=== PATIENT | female | born 1960 | race Caucasian/White ===

== ENCOUNTER → 2019-04-22 11:56 | Outpatient (CLI) | payer OTHER, MEDICAID, SELFPAY ==
[2019-04-22 12:31] LABS: Add Manual Diff / Slide Review NO; Basophils Absolute Auto 100 /uL (0-100); Basophils Percent Auto 0.8 % (0-2); Eosinophils Absolute Auto 200 /uL (0-450); Eosinophils Percent Auto 2.3 % (2-4); Hematocrit 41.2 % (36-46); Hemoglobin 13.2 g/dL (12.0-16.0); Lymphocytes Absolute Auto 2300 /uL (1100-4500); Lymphocytes Percent Auto 33.5 % (25-40); Mean Corpuscular HGB Conc 31.9 % (30-36); Mean Corpuscular Hemoglobin 27.4 PG (26-34); Mean Corpuscular Volume 85.9 fL (80-100); Monocytes Absolute Auto 400 /uL (0-900); Monocytes Percent Auto 5.9 % (3-14); Neutrophils Absolute Auto 4000 /uL (1500-7000); Neutrophils Percent Auto 57.5 % (50-75); Platelet Count 334 X10^3/uL (150-400); Red Cell Distribution Width 14.9 % (11.6-14.8); White Blood Cell Count 6.9 X10^3/uL (4.5-11.0)
[2019-04-22 12:44] LABS: Alanine Aminotransferase 22 IU/L (9-52); Albumin Globulin Ratio 1.4 (1.0-2.8); Alkaline Phosphatase 67 U/L (38-126); Aspartate Aminotransferase 18 IU/L (14-36); BUN Creatinine Ratio 18.3 (6-22); Bilirubin Total 0.3 mg/dL (0.2-1.3); Blood Urea Nitrogen 11 mg/dL (7-17); Calcium 9.6 mg/dL (8.4-10.2); Carbon Dioxide 33 mmol/L (22-32); Chloride 102 mmol/L (98-107); Cholesterol 169 mg/dL (140-199); Estimated Glomerular Filt Rate > 60.0 mL/min (>60); Globulin 2.9 g/dL (1.7-4.1); Glucose 125 mg/dL (70-100); HDL Cholesterol 42 mg/dL (40-60); HEMOLYSIS < 15 (0-50); LDL Cholesterol Calculated 90 mg/dL (<100); Potassium 3.9 mmol/L (3.4-5.1); Sodium 142 mmol/L (137-145); Total Protein 6.9 g/dL (6.3-8.2); Triglycerides 185 mg/dL (35-150)
[2019-04-22 13:41] LABS: Thyroid Stimulating Hormone 1.17 uIU/mL (0.47-4.68)
== END ==
PROVIDERS: PCP Nurse Practitioner; Visit Provider Nurse Practitioner
DX: J40 Bronchitis, not specified as acute or chronic (principal); K21.0 Gastro-esophageal reflux disease with esophagitis; N39.0 Urinary tract infection, site not specified; N76.0 Acute vaginitis; Z13.220 Encounter for screening for lipoid disorders; Z72.0 Tobacco use
CPT/HCPCS: 36415; 80053; 80061; 83013; 84443; 85025

== ENCOUNTER → 2019-04-25 15:39 | Outpatient (CLI) | payer OTHER, MEDICAID, SELFPAY ==
[2019-04-25 16:16] LABS: Appearance Urine UA CLEAR; Bilirubin Urine UA NEGATIVE (NEGATIVE); Color Urine UA YELLOW; Glucose Urine UA NEGATIVE (Negative); Ketones Urine UA NEGATIVE (NEGATIVE); Leukocyte Esterase Urine UA NEGATIVE (NEGATIVE); Nitrite Urine UA NEGATIVE (Negative); Occult Blood Urine UA NEGATIVE (Negative); Protein Urine UA NEGATIVE (Negative); Urobilinogen Urine UA 0.2 E.U./dL (0.2)
== END ==
PROVIDERS: PCP Nurse Practitioner; Visit Provider Nurse Practitioner
DX: R39.9 Unspecified symptoms and signs involving the genitourinary system (principal)
CPT/HCPCS: 81003

== ENCOUNTER → 2019-05-07 16:28 | Outpatient (CLI) | payer MEDICAID, SELFPAY ==
--- NOTE | 2019-05-07 16:29 | DI.MG.S_ITS ---
BILATERAL DIGITAL SCREENING MAMMOGRAM 3D/2D WITH CAD: 05/07/2019 CLINICAL: Routine screening. Family history of breast cancer. Comparison is made to exams dated: 08/10/2017 mammogram, 01/03/2012 mammogram, and 12/26/2010 mammogram - Located Within [facility]. The tissue of both breasts is predominantly fatty. Current study was also evaluated with a Computer Aided Detection (CAD) system. No significant masses, calcifications, or other findings are seen in either breast. There has been no significant interval change. IMPRESSION: NEGATIVE There is no mammographic evidence of malignancy. A 1 year screening mammogram is recommended. This exam was interpreted at Station ID: [id number]. NOTE: For mammograms, a report in lay terms will be sent to the patient. Approximately 15% of breast malignancies will not be visualized mammographically. In the management of a palpable breast mass, a negative mammogram must not discourage biopsy of a clinically suspicious lesion. Electronically Signed By: Kari march/franco:05/07/2019 17:10:03 letter sent: Normal Exam ACR BI-RADS Category 1: Negative [id number]
== END ==
PROVIDERS: PCP Nurse Practitioner; Visit Provider Nurse Practitioner
DX: Z12.31 Encounter for screening mammogram for malignant neoplasm of breast (principal); Z80.3 Family history of malignant neoplasm of breast
CPT/HCPCS: 77063; 77067

== ENCOUNTER → 2019-08-04 17:06 | Outpatient (CLI) | payer OTHER, MEDICAID, SELFPAY ==
--- NOTE | 2019-08-04 17:09 | DI.RAD.S_ITS ---
PROCEDURE: XR ANKLE RT MIN 3V INDICATIONS: Injury, pain for 3 weeks rule out fracture TECHNIQUE: 3 views of the ankle were acquired. COMPARISON: [facility], CR, XR FOOT RT MIN 3V, 08/04/2019, 17:09. FINDINGS: Bones: No fractures or dislocations. Ankle mortise is normally aligned. No suspicious bony lesions. The talar dome demonstrates no aman abnormality. A plantar calcaneal spur is seen. Soft tissues: No tibiotalar joint effusion. Achilles tendon appears normal. IMPRESSION: No acute bony injury is seen. Dictated by: Luis Esparza M.D. on 08/04/2019 at 16:39 Approved by: Luis Esparza M.D. on 08/04/2019 at 16:40
--- NOTE | 2019-08-04 17:09 | DI.RAD.S_ITS ---
PROCEDURE: XR FOOT RT MIN 3V INDICATIONS: pain, swelling, r/o fx TECHNIQUE: 3 views of the foot were acquired. COMPARISON: [facility], CR, XR ANKLE RT MIN 3V, 08/04/2019, 17:11. FINDINGS: Bones: No fractures or dislocations. No suspicious bony lesions. A plantar calcaneal spur is seen. Age-appropriate bony degenerative changes are seen. Soft tissues: No tibiotalar joint effusion. Achilles tendon appears normal. IMPRESSION: No displaced fractures are seen. Dictated by: Luis Esparza M.D. on 08/04/2019 at 16:38 Approved by: Luis Esparza M.D. on 08/04/2019 at 16:39
== END ==
PROVIDERS: PCP Nurse Practitioner; Visit Provider Physician Assistant
DX: S99.921A Unspecified injury of right foot, initial encounter (principal); M79.671 Pain in right foot; M79.89 Other specified soft tissue disorders
CPT/HCPCS: 73610; 73630

== ENCOUNTER 2019-08-07 23:01 | Emergency (ER) | payer OTHER, MEDICAID, SELFPAY ==
[2019-08-07 23:14] VITALS: BP 118/60; PULSE 82; RESP 16; O2SAT 94
[2019-08-07 23:24] VITALS: BP 118/60; PULSE 82; RESP 16; TEMP 36.8; O2SAT 94
--- NOTE | 2019-08-08 00:03 | ED.LOWEXIN ---
HPI - Extremity Injury (Lower) General Chief Complaint: Extremity Injury, Lower Stated Complaint: SOMETHING WENT POP IN RIGHT FOOT Time Seen by Provider: 08/08/19 00:03 Source: patient Mode of arrival: Ambulatory Limitations: no limitations History of Present Illness HPI Narrative: Patient is a 59-year-old female who presents with right pain. She says it has been hurting for the last few weeks all she finally went to the walk-in clinic 2 days ago where she had x-ray was negative. She sitting tonight she tripped she felt it pop and hurt again. She said she crumpled to the ground. Related Data Previous Rx's Medication Instructions Recorded albuterol sulfate 90 mcg/actuation 2 puff INHALATION Q4-6H PRN #1 ea 03/20/19 aerosol inhaler hydrochlorothiazide 25 mg tablet 25 mg PO QDAY #90 tab 03/20/19 losartan 100 mg tablet 100 mg PO QDAY #90 tab 03/20/19 omeprazole 20 mg capsule,delayed 20 mg PO DAILY #90 cap 03/20/19 release varicella-zoster gE-AS01B (PF) 50 0.5 ml IM ONCE #1 each 04/22/19 mcg/0.5 mL IM susp, kit Allergies Allergy/AdvReac Type Severity Reaction Status Date / Time No Known Allergies Allergy Uncoded 06/26/19 11:29 Review of Systems Review of Systems Narrative: GENERAL: Denies chills,fever HEENT: Denies throat pain RESPIRATORY: Denies dyspnea, cough, wheezing CARDIOVASCULAR: Denies chest pain, palpitations GASTROINTESTINAL: Denies nausea, vomiting MUSCULOSKELETAL: See HPI SKIN: No rash, no laceration, no pruritus NEUROLOGIC: Denies weakness, dizziness, headache, numbness 8 point review of systems is negative except for those stated above and HPI Patient History Social History Smoking Status: Current every day smoker alcohol intake: current alcohol intake frequency: holidays/special occasions only Substance Use Type: does not use Exam Initial Vital Signs Initial Vital Signs: Vital Signs Pulse Rate 82 08/07/19 23:14 Respiratory Rate 16 08/07/19 23:14 Blood Pressure 118/60 08/07/19 23:14 Pulse Oximetry 94 08/07/19 23:14 GENERAL: Well-appearing, well-nourished and in no acute distress. CARDIOVASCULAR: peripheral pulses in tact, cap refill <2 sec RESPIRATORY: No respiratory distress, speaks in full sentences without difficulty EXTREMITIES: Normal range of motion, no clubbing or edema. Neurovascularly intact Right foot: No erythema no contusion no swelling no gross bony deformities minimally tender 2nd and 3rd toes able to move all toes. Foot is stable NEUROLOGICAL: Cranial nerves II through XII grossly intact. Normal gait and speech. SKIN: Warm, dry, no petechiae, no rashes or lesions. Course Orders Ordered: Discontinued Medications Ibuprofen (Advil) 800 mg PO NOW ONE Stop: 08/08/19 00:13 Last Admin: 08/08/19 00:29 Dose: 800 mg Documented by: PAPA Vital Signs Vital signs: Vital Signs - 8 hr 08/07/19 23:14 08/07/19 23:24 Temperature 98.3 F Pulse Rate 82 82 Respiratory Rate 16 16 Blood Pressure 118/60 Blood Pressure [Left Arm] 118/60 Pulse Oximetry 94 94 MDM - Extremity Injury (Lower) MDM Narrative Medical decision making narrative: Patient had an x-ray on 08/04/2019 it was negative. At this time patient has no, sign of abnormality or trauma. This time she does not want an x-ray I do not believe it to be indicated. He is given orthopedic shoe and prepped Discharge Plan Departure Patient Disposition: Home Clinical Impression: Right foot sprain Qualifiers: Encounter type: initial encounter Qualified Code(s): S93.601A - Unspecified sprain of right foot, initial encounter Discharge Date/Time: 08/08/19 01:01 Instructions: DI for Foot Sprain Activity Restrictions/Additional Instructions: *You have been diagnosed with right foot sprain *What to do: Wear supportive shoe as needed. Use crutches as needed. May weight bear as tolerated. Um may need outpatient MRI if continuing to have pain in a few weeks. CC your PCP about *Continue to take medications as directed Ibuprofen 600 mg every 6 hours needed for pain *Follow up with your primary care provider in 2-3 days *Return to ER if you should have any new, worsening or concerning symptoms Prescriptions: No Action Shingrix (PF) 50 mcg/0.5 mL suspension for reconstitution 0.5 ml IM ONCE Qty: 1 RF: 0 hydrochlorothiazide 25 mg tablet 25 mg PO QDAY Qty: 90 RF: 3 losartan 100 mg tablet 100 mg PO QDAY Qty: 90 RF: 3 albuterol sulfate [Ventolin HFA] 90 mcg/actuation HFA aerosol inhaler 2 puff Inhalation Q4-6H PRN (Reason: shortness of breath) Qty: 1 RF: 2 omeprazole 20 mg capsule,delayed release(DR/EC) 20 mg PO DAILY Qty: 90 RF: 3 Referrals: Nicole Esquivel ARNP [Primary Care Provider] -
[2019-08-08] MEDS: IBUPROFEN 400 MG TABLET 800 MG PO (00:29)
== END 2019-08-08 01:01 | disposition home or self-care (01) ==
PROVIDERS: Emergency Provider Emergency Medicine; PCP Nurse Practitioner
DX: S93.601A Unspecified sprain of right foot, initial encounter (principal); W18.40XA Slipping, tripping and stumbling without falling, unspecified, initial encounter
CPT/HCPCS: 99282

== ENCOUNTER 2020-02-27 03:01 | Emergency (ER) | payer OTHER, MEDICAID, SELFPAY ==
--- NOTE | 2020-02-27 03:12 | ED.FEVER ---
HPI - Fever General Chief Complaint: Urogenital-Female Stated Complaint: thinks she has kidney infection Time Seen by Provider: 02/27/20 03:03 Source: patient Mode of arrival: Ambulatory Limitations: no limitations History of Present Illness HPI Narrative: 89F former smoker with history of GERD, JUAN presents with a chief complaint of dysuria, fever, lower abdominal cramping, urgency and right flank pain for the past few days. She admits to nausea but denies any vomiting. She denies any runny nose, sore throat or cough. She denies any chest pain or shortness of breath. She denies any shaking chills or unexplained diaphoresis. MD complaint: fever Onset (ago): day(s) Temperature Source: oral Associated symptoms: abdominal pain, nausea and dysuria Relieving factors: nothing Exacerbating factors: nothing Treatments prior to arrival fever: none Related Data Previous Rx's Medication Instructions Recorded hydrochlorothiazide 25 mg tablet 25 mg PO QDAY #90 tab 03/20/19 losartan 100 mg tablet 100 mg PO QDAY #90 tab 03/20/19 omeprazole 20 mg capsule,delayed 20 mg PO DAILY #90 cap 03/20/19 release varicella-zoster [id number]-AS01B (PF) 50 0.5 ml IM ONCE #1 each 04/22/19 mcg/0.5 mL IM susp, kit albuterol sulfate 90 mcg/actuation 2 puff INHALATION Q4-6H PRN #8.5 08/28/19 aerosol inhaler gram cephalexin [Keflex] 500 mg PO QID 7 Days #28 cap 02/27/20 ketorolac 10 mg PO Q6H PRN #14 tab 02/27/20 ondansetron 4 mg PO TID-QID PRN #10 tab 02/27/20 potassium chloride 20 meq PO DAILY #7 tab 02/27/20 Allergies Allergy/AdvReac Type Severity Reaction Status Date / Time No Known Allergies Allergy Uncoded 06/26/19 11:29 Review of Systems Constitutional Constitutional: Denies fatigue, Reports fever(s), Denies frequent falls, Denies lethargy and Reports weakness Eyes Eyes: Denies change in vision, Denies eye discharge, Denies irritation and Denies loss of vision ENT Ears, Nose, Mouth, and Throat: Denies change in voice, Denies dizziness, Denies neck pain, Denies sore throat and Denies throat swelling Cardiovascular Cardiovascular: Denies chest pain, Denies irregular heart rhythm, Denies lightheadedness, Denies palpitations, Denies dyspnea, Denies dyspnea on exertion and Denies orthopnea Respiratory Respiratory: Denies cough, Denies dyspnea, Denies dyspnea on exertion and Denies wheezing Gastrointestinal Gastrointestinal: Denies abdominal pain, Denies change in bowel habits, Denies diarrhea, Reports nausea and Denies vomiting Genitourinary Genitourinary: Denies hematuria, Reports dysuria, Reports flank pain, Reports urinary incontinence and Reports urinary urgency Musculoskeletal Musculoskeletal: Denies back pain, Denies muscle weakness, Denies neck pain, Denies numbness and Denies tingling Integumentary/Breasts Skin/Breast: Denies pruritus, Denies erythema, Denies rash and Denies wounds Neurologic Neurologic: Denies behavioral changes, Denies confusion, Denies dizziness, Denies frequent falls, Denies loss of vision, Denies numbness, Denies tingling and Reports weakness Psychiatric Psychiatric: Denies anxiety, Denies behavioral changes, Denies confusion, Denies depression, Denies homicidal ideation and Denies suicidal ideation Endocrine Endocrine: Denies fatigue, Denies flushing and Denies palpitations Hematologic/Lymphatic Hematologic/Lymphatic: Denies easy bruising Allergic/Immunologic Allergic/Immunologic: Denies urticaria, Denies throat swelling and Denies wheezing Patient History Medical History Fatigue (Chronic) GERD (gastroesophageal reflux disease) (Chronic) Hyperglycemia (Chronic) Hypertension (Chronic) Hypertriglyceridemia (Chronic) Insomnia (Chronic) Loud snoring (Chronic) Morbid obesity with body mass index of 40.0-44.9 in adult (Chronic) Obstructive sleep apnea (Chronic) Tobacco use disorder (Resolved) Family History Father CAD (coronary artery disease) Diabetes mellitus Mother Stroke Cancer of breast Social History Smoking Status: Former smoker (quit 10/03/2019) alcohol intake: current Smoking Status: Former smoker (quit 10/03/2019) alcohol intake frequency: holidays/special occasions only Substance Use Type: does not use Exam Narrative Exam Narrative: GENERAL: [59] year old patient appears stated age. Well-nourished, well-developed patient, in mild distress. HEAD: Atraumatic. Normocephalic. EYES: Pupils equal round and reactive. Extraocular motions intact. No scleral icterus. No injection or drainage. ENT: Nose without bleeding, purulent drainage. Throat without erythema, tonsillar hypertrophy or exudate. Airway patent. NECK: Trachea midline. Non tender CARDIOVASCULAR: Regular rate and rhythm without murmurs, gallops, or rubs. RESPIRATORY: Clear to auscultation. Breath sounds equal bilaterally. No wheezes, rales, or rhonchi. GASTROINTESTINAL: Abdomen soft, mild suprapubic tenderness, nondistended. EXTREMITIES: No edema or joint tenderness. BACK: Nontender without deformity or crepitance. No flank tenderness. NEURO: AOx3. SKIN: No rash or erythema of visible areas Initial Vital Signs Initial Vital Signs: Vital Signs Temperature 100.6 F H 02/27/20 03:17 Pulse Rate 100 H 02/27/20 03:17 Respiratory Rate 18 02/27/20 03:17 Blood Pressure 115/62 02/27/20 03:17 Pulse Oximetry 92 02/27/20 03:17 Course Course Course Narrative: patient feeling much better after the above stated therapies. labs are very reassuring, stable vitals. No signs of sepsis. Return precautions given. Questions answered to her apparent satisfaction. Orders Ordered: ED Orders 02/27/20 03:05 Ictotest Urine Stat Urinalysis and Microscopic Stat 02/27/20 03:15 Basic Metabolic Panel Stat Blood Culture Stat Complete Blood Count AUTO DIFF Stat Lactate (Lactic Acid) Stat Discontinued Medications Sodium Chloride (Normal Saline 0.9%) 1,000 mls @ 1,000 mls/hr IV BOLUS ONE Stop: 02/27/20 04:11 Last Infusion: 02/27/20 04:13 Dose: 1,000 mls/hr Documented by: Admin: 02/27/20 03:28 Dose: 1,000 mls/hr Documented by: ZULAY Ceftriaxone Sodium/Dextrose (Rocephin) 1 gm in 50 mls @ 100 mls/hr IV NOW ONE Stop: 02/27/20 03:41 Last Infusion: 02/27/20 03:59 Dose: 0 mls/hr Documented by: Admin: 02/27/20 03:27 Dose: 100 mls/hr Documented by: ZULAY Ketorolac Tromethamine (Toradol) 15 mg IV NOW ONE Stop: 02/27/20 03:13 Last Admin: 02/27/20 03:27 Dose: 15 mg Documented by: ZULAY Potassium Chloride (Potassium Chloride) 40 meq PO NOW ONE Stop: 02/27/20 04:01 Last Admin: 02/27/20 04:07 Dose: 40 meq Documented by: ZULAY Vital Signs Vital signs: Vital Signs - 8 hr 02/27/20 03:17 02/27/20 04:14 Temperature 100.6 F H Pulse Rate 100 H 80 Respiratory Rate 18 17 Blood Pressure 115/62 115/64 Pulse Oximetry 92 93 MDM - Fever Lab Data Result diagrams: 02/27/20 03:15 02/27/20 03:15 Labs: Lab Results 02/27/20 02/27/20 02/27/20 Range/Units 03:05 03:15 03:15 WBC 8.3 (4.5-11.0) X10^3/uL RBC 4.97 (4.0-5.2) X10^6/uL Hgb 14.3 (12.0-16.0) g/dL Hct 42.2 (36-46) % MCV 85.0 (80-100) fL MCH 28.8 (26-34) PG MCHC 33.9 (30-36) % RDW 14.9 H (11.6-14.8) % Plt Count 245 (150-400) X10^3/uL Neut % (Auto) 80.7 H (50-75) % Lymph % (Auto) 11.5 L (25-40) % [place] % (Auto) 7.6 (3-14) % Eos % (Auto) 0.0 L (2-4) % Baso % (Auto) 0.2 (0-2) % Neut # (Auto) 6700 (2907-4731) /uL Lymph # (Auto) 1000 L (5351-7417) /uL [place] # (Auto) 600 (0-900) /uL Eos # (Auto) 0 (0-450) /uL Baso # (Auto) 0 (0-100) /uL Sodium 133 L (137-145) mmol/L Potassium 3.1 L (3.4-5.1) mmol/L Chloride 94 L (98-107) mmol/L Carbon Dioxide 29 (22-32) mmol/L BUN 13 (7-17) mg/dL Creatinine 0.61 (0.52-1.04) mg/dL Estimated GFR > 60.0 (>60) mL/min BUN/Creatinine Ratio 21.3 (6-22) Glucose 143 H (70-100) mg/dL Lactate (0.7-2.1) mmol/L Calcium 9.2 (8.4-10.2) mg/dL Urine Color Yellow Urine Appearance Sl cloudy Urine pH 6.0 (4.5-8.0) Ur Specific [place] 1.025 (1.000-1.035) Urine Protein 2+ H (Negative) Urine Glucose (UA) Negative (Negative) g/dL Urine Ketones 1+ H (NEGATIVE) Urine Occult Blood Trace-lysed (Negative) Urine Nitrate Negative (Negative) Urine Bilirubin 1+ H (NEGATIVE) Ur Bilirubin Confirm Negative (Negative) Urine Urobilinogen 0.2 (0.2) E.U./dL Ur Leukocyte Esterase Trace H (NEGATIVE) Urine RBC None seen (0-5/HPF) Urine WBC 10-30/hpf H (0-5/HPF) Ur Squamous Epith Cells >30 /hpf H (0-5/HPF) Urine Bacteria Many (>30) H (None) Ur Culture Indicated? Cult not indicated Micro UA Comment * 02/27/20 Range/Units 03:15 WBC (4.5-11.0) X10^3/uL RBC (4.0-5.2) X10^6/uL Hgb (12.0-16.0) g/dL Hct (36-46) % MCV (80-100) fL MCH (26-34) PG MCHC (30-36) % RDW (11.6-14.8) % Plt Count (150-400) X10^3/uL Neut % (Auto) (50-75) % Lymph % (Auto) (25-40) % [place] % (Auto) (3-14) % Eos % (Auto) (2-4) % Baso % (Auto) (0-2) % Neut # (Auto) (0916-3210) /uL Lymph # (Auto) (8352-4753) /uL [place] # (Auto) (0-900) /uL Eos # (Auto) (0-450) /uL Baso # (Auto) (0-100) /uL Sodium (137-145) mmol/L Potassium (3.4-5.1) mmol/L Chloride (98-107) mmol/L Carbon Dioxide (22-32) mmol/L BUN (7-17) mg/dL Creatinine (0.52-1.04) mg/dL Estimated GFR (>60) mL/min BUN/Creatinine Ratio (6-22) Glucose (70-100) mg/dL Lactate 0.8 (0.7-2.1) mmol/L Calcium (8.4-10.2) mg/dL Urine Color Urine Appearance Urine pH (4.5-8.0) Ur Specific [place] (1.000-1.035) Urine Protein (Negative) Urine Glucose (UA) (Negative) g/dL Urine Ketones (NEGATIVE) Urine Occult Blood (Negative) Urine Nitrate (Negative) Urine Bilirubin (NEGATIVE) Ur Bilirubin Confirm (Negative) Urine Urobilinogen (0.2) E.U./dL Ur Leukocyte Esterase (NEGATIVE) Urine RBC (0-5/HPF) Urine WBC (0-5/HPF) Ur Squamous Epith Cells (0-5/HPF) Urine Bacteria (None) Ur Culture Indicated? Micro UA Comment Discharge Plan Departure Patient Disposition: Home Clinical Impression: Acute pyelonephritis Discharge Date/Time: 02/27/20 04:14 Instructions: DI for Kidney Infection Activity Restrictions/Additional Instructions: *You have been diagnosed with [acute kidney infection (pyelonephritis)] *What to do: *Take medications as directed: Prescriptions sent [facility] at your request *Follow up with your primary care provider in 2-3 days, call for an appointment. Let them know you were seen in the Emergency Department and that we ask that you be seen in follow up *Return to ER if you should have any new, worsening or concerning symptoms Prescriptions: New ketorolac 10 mg tablet 10 mg PO Q6H PRN (Reason: pain) Qty: 14 RF: 0 cephalexin [Keflex] 500 mg capsule 500 mg PO QID 7 Days Qty: 28 RF: 0 ondansetron 4 mg tablet,disintegrating 4 mg PO TID-QID PRN (Reason: nausea and vomiting) Qty: 10 RF: 0 potassium chloride 20 mEq tablet extended release 20 meq PO DAILY Qty: 7 RF: 0 No Action albuterol sulfate 90 mcg/actuation HFA aerosol inhaler 2 puff INHALATION Q4-6H PRN (Reason: bronchospasm) Qty: 8.5 RF: 0 Shingrix (PF) 50 mcg/0.5 mL suspension for reconstitution 0.5 ml IM ONCE Qty: 1 RF: 0 hydrochlorothiazide 25 mg tablet 25 mg PO QDAY Qty: 90 RF: 3 losartan 100 mg tablet 100 mg PO QDAY Qty: 90 RF: 3 omeprazole 20 mg capsule,delayed release(DR/EC) 20 mg PO DAILY Qty: 90 RF: 3 Referrals: Nicole Esquivel ARNP [Primary Care Provider] -
[2020-02-27 03:14] LABS: RBC Urine None Seen (0-5/HPF)
[2020-02-27 03:17] VITALS: BP 115/62; PULSE 100; RESP 18; TEMP 38.1; O2SAT 92; BMI 44.8
[2020-02-27 03:17] LABS: Appearance Urine UA SL CLOUDY; Bilirubin Urine UA 1+ (NEGATIVE); Color Urine UA YELLOW; Glucose Urine UA NEGATIVE (Negative); Ketones Urine UA 1+ (NEGATIVE); Leukocyte Esterase Urine UA TRACE (NEGATIVE); Nitrite Urine UA NEGATIVE (Negative); Occult Blood Urine UA TRACE-LYSED (Negative); Protein Urine UA 2+ (Negative); Specific Gravity Urine UA 1.025 (1.000-1.035); Urobilinogen Urine UA 0.2 E.U./dL (0.2)
[2020-02-27] MEDS: CEFTRIAXONE 1 GM/50 ML FROZ.PIGGY IV (03:27)
[2020-02-27] MEDS: KETOROLAC 60 MG/2 ML VIAL 15 MG IV (03:27)
[2020-02-27] MEDS: SODIUM CHLORIDE 0.9% 1,000 ML 1000 ML IV (03:28)
[2020-02-27 03:37] LABS: Add Manual Diff / Slide Review NO; Basophils Absolute Auto 0 /uL (0-100); Basophils Percent Auto 0.2 % (0-2); Eosinophils Absolute Auto 0 /uL (0-450); Hematocrit 42.2 % (36-46); Hemoglobin 14.3 g/dL (12.0-16.0); Lymphocytes Absolute Auto 1000 /uL (1100-4500); Lymphocytes Percent Auto 11.5 % (25-40); Mean Corpuscular HGB Conc 33.9 % (30-36); Mean Corpuscular Hemoglobin 28.8 PG (26-34); Monocytes Absolute Auto 600 /uL (0-900); Monocytes Percent Auto 7.6 % (3-14); Neutrophils Absolute Auto 6700 /uL (1500-7000); Neutrophils Percent Auto 80.7 % (50-75); Platelet Count 245 X10^3/uL (150-400); Red Blood Cell Count 4.97 X10^6/uL (4.0-5.2); Red Cell Distribution Width 14.9 % (11.6-14.8); White Blood Cell Count 8.3 X10^3/uL (4.5-11.0)
[2020-02-27 03:50] LABS: BUN Creatinine Ratio 21.3 (6-22); Blood Urea Nitrogen 13 mg/dL (7-17); Calcium 9.2 mg/dL (8.4-10.2); Carbon Dioxide 29 mmol/L (22-32); Chloride 94 mmol/L (98-107); Estimated Glomerular Filt Rate > 60.0 mL/min (>60); Glucose 143 mg/dL (70-100); HEMOLYSIS 29 (0-50); Lactate (Lactic Acid) 0.8 mmol/L (0.7-2.1); Potassium 3.1 mmol/L (3.4-5.1); Sodium 133 mmol/L (137-145)
[2020-02-27 04:07] LABS: Ictotest Urine Negative (Negative); WBC Urine 10-30/HPF (0-5/HPF)
[2020-02-27] MEDS: POTASSIUM CHLORIDE 20 MEQ/15 ML UDC 40 MEQ PO (04:07)
[2020-02-27 04:08] LABS: Bacteria Urine Many (>30); Culture Indicated Urine Cult Not Indicated; Squamous Epithelial Cell Urine >30 /HPF (0-5/HPF)
[2020-02-27 04:14] VITALS: BP 115/64; PULSE 80; RESP 17; O2SAT 93
== END 2020-02-27 04:14 | disposition home or self-care (01) ==
PROVIDERS: Emergency Provider Emergency Medicine; PCP Nurse Practitioner
DX: N10 Acute pyelonephritis (principal)
CPT/HCPCS: 36415; 80048; 81001; 83605; 85025; 87040; 96361; 96365; 96375; 99284; J1885

== ENCOUNTER 2020-03-01 15:24 | Inpatient (IN) | payer OTHER, MEDICAID, SELFPAY ==
[2020-03-01] VITALS (18 sets, daily range): BP systolic 76–110; BP diastolic 48–82; PULSE 70–90; RESP 16–34; TEMP 37.1–37.7; O2SAT 89–100; BMI 43.9
--- NOTE | 2020-03-01 | DI.CT.S_ITS ---
PROCEDURE: CT ABDOMEN PELVIS W CON INDICATIONS: recent pyelonephritis failed ABX TECHNIQUE: After the administration of intravenous contrast, 5 mm thick sections acquired from the diaphragm to the symphysis. 5 mm coronal and sagittal reformats were acquired. For radiation dose reduction, the following was used: automated exposure control, adjustment of mA and/or kV according to patient size. COMPARISON: None. FINDINGS: Image quality: Excellent. ABDOMEN: Lung bases: Katharine patchy groundglass opacities are noted in posterior and lateral aspect of bilateral lung abdi suggestive of bilateral scattered infiltrates concerning for atypical pneumonia.. Heart size is normal. Solid organs: Liver is normal in size and enhancement. Gallbladder is within normal limits. Biliary system is non dilated. Pancreas enhances normally. Spleen is normal in size and enhancement. No adrenal nodules. Kidneys demonstrate normal size and enhancement, without hydronephrosis. Normal excreted contrast filling bilateral ureters are seen with bowel intraluminal filling defects or stenosis. Peritoneum and bowel: Bowel loops demonstrate normal wall thickness and caliber. No free fluid or air. Sigmoid diverticulosis is seen, no CT evidence of acute diverticulitis. Nodes and vessels: No retroperitoneal or mesenteric adenopathy by size criteria. Aorta and inferior vena cava are normal in size. Miscellaneous: No ventral hernias. PELVIS: Genitourinary: Mark catheter is seen in a decompressed urinary bladder. Uterus and bilateral adnexa show no gross abnormality Miscellaneous: No inguinal hernias or adenopathy. Bones: No suspicious bony lesions. No vertebral body compression fractures. Grade 1 anterolisthesis of L4 on L5 is seen. Degenerative endplate changes are noted in lower thoracic and lumbar spine. IMPRESSION: 1. Patchy groundglass opacities seen scattered in bilateral lower lung abdi concerning for atypical pneumonia. 2. No obstructing renal stone or hydronephrosis. Normal appearing bilateral ureters. Mark catheter in a decompressed urinary bladder. 3. No bowel obstruction. No abnormal bowel wall thickening. Small to moderate size hiatal hernia. No free fluid or free air. Sigmoid diverticulosis, no CT evidence of acute diverticulitis. Dictated by: Fidel Cosme M.D. on 03/01/2020 at 18:58 Approved by: Fidel Cosme M.D. on 03/01/2020 at 19:01
--- NOTE | 2020-03-01 15:27 | DI.RAD.S_ITS ---
PROCEDURE: XR CHEST 1V INDICATIONS: sepsis workup TECHNIQUE: One view of the chest was acquired. COMPARISON: [facility], , CHEST 2 VIEW, 01/29/2017, 12:35. FINDINGS: Surgical changes and devices: None. Lungs and pleura: Lungs are clear. No pleural effusions or pneumothorax. Mediastinum: Mediastinal contours appear normal. Heart size is normal. Bones and chest wall: No suspicious bony lesions. Overlying soft tissues appear unremarkable. IMPRESSION: No evidence acute pulmonary process. Dictated by: Kodak Sheehan M.D. on 03/01/2020 at 15:07 Approved by: Kodak Sheehan M.D. on 03/01/2020 at 15:08
--- NOTE | 2020-03-01 15:33 | ED.SEPSIS ---
HPI - Sepsis General Chief Complaint: Weakness Mode of arrival: EMS Source: patient and EMS Limitations: no limitations Evaluation Sepsis Infection Criteria Present: Documented Infection Sepsis persistent hypotension: SBP < 90 mmHg Associated Symptoms: fever, chills and shortness of breath Narrative: 59-year-old female former smoker with history of asthma, hypertension, GERD and morbid obesity with recent diagnosis of pyelonephritis presents with a chief complaint of worsening symptoms over the past day or 2, stating antibiotics are not working. She admits to fever and shaking chills as well as weakness. She is unable to get herself off of the toilet. She denies any focal neurologic findings. Upon arrival paramedics found her with a blood pressure in the upper 70s and lower 80s and pulse ox in the 80s. She denies any significant shortness of breath, cough productive of sputum or exposure to persons known to have coronavirus. She has had dysuria, urgency as well as episodes of suprapubic tenderness and lower back pain. Review of Systems Constitutional Constitutional: Reports chills, Reports fatigue, Reports fever(s), Denies frequent falls, Denies lethargy and Reports weakness Eyes Eyes: Denies change in vision, Denies eye discharge, Denies irritation and Denies loss of vision ENT Ears, Nose, Mouth, and Throat: Denies change in voice, Denies dizziness, Denies neck pain, Denies sore throat and Denies throat swelling Cardiovascular Cardiovascular: Denies chest pain, Denies irregular heart rhythm, Denies lightheadedness, Denies palpitations, Reports dyspnea, Reports dyspnea on exertion and Denies orthopnea Respiratory Respiratory: Denies cough, Reports dyspnea, Reports dyspnea on exertion and Denies wheezing Gastrointestinal Gastrointestinal: Denies abdominal pain, Denies change in bowel habits, Denies diarrhea, Denies nausea and Denies vomiting Genitourinary Genitourinary: Denies hematuria, Reports flank pain, Denies urinary incontinence and Reports urinary urgency Musculoskeletal Musculoskeletal: Denies back pain, Denies muscle weakness, Denies neck pain, Denies numbness and Denies tingling Integumentary/Breasts Skin/Breast: Denies pruritus, Denies erythema, Denies rash and Denies wounds Neurologic Neurologic: Denies behavioral changes, Denies confusion, Denies dizziness, Denies frequent falls, Denies loss of vision, Denies numbness, Denies tingling and Reports weakness Psychiatric Psychiatric: Denies anxiety, Denies behavioral changes, Denies confusion, Denies depression, Denies homicidal ideation and Denies suicidal ideation Endocrine Endocrine: Reports fatigue, Denies flushing and Denies palpitations Hematologic/Lymphatic Hematologic/Lymphatic: Denies easy bruising Allergic/Immunologic Allergic/Immunologic: Denies urticaria, Denies throat swelling and Denies wheezing Patient History Medical History Fatigue (Chronic) Former smoker (Acute) GERD (gastroesophageal reflux disease) (Chronic) Hyperglycemia (Chronic) Hypertension (Chronic) Hypertriglyceridemia (Chronic) Insomnia (Chronic) Loud snoring (Chronic) Morbid obesity with body mass index of 40.0-44.9 in adult (Chronic) Obstructive sleep apnea (Chronic) Surgical History No pertinent past surgical history (Acute) Family History Father CAD (coronary artery disease) Diabetes mellitus Mother Stroke Cancer of breast Social History household members: none Smoking Status: Former smoker alcohol intake: current Smoking Status: Former smoker (quit 10/03/2019) alcohol intake frequency: holidays/special occasions only Substance Use Type: does not use Exam Narrative Exam Narrative: GENERAL: [59] year old patient appears stated age. Well-nourished, well-developed patient, in mild distress. HEAD: Atraumatic. Normocephalic. EYES: Pupils equal round and reactive. Extraocular motions intact. No scleral icterus. No injection or drainage. ENT: Nose without bleeding, purulent drainage. Throat without erythema, tonsillar hypertrophy or exudate. Airway patent. NECK: Trachea midline. Non tender CARDIOVASCULAR: Regular rate and rhythm without murmurs, gallops, or rubs. RESPIRATORY: Clear to auscultation. Breath sounds equal bilaterally. No wheezes, rales, or rhonchi. GASTROINTESTINAL: Abdomen soft, non-tender, nondistended. EXTREMITIES: No edema or joint tenderness. BACK: Nontender without deformity or crepitance. No flank tenderness. NEURO: AOx3. SKIN: No rash or erythema of visible areas Initial Vital Signs Initial Vital Signs: Vital Signs Pulse Rate 89 03/01/20 15:28 Respiratory Rate 28 H 03/01/20 15:28 Blood Pressure 98/56 L 03/01/20 15:28 Course Orders Ordered: Acetaminophen (Tylenol) 650 mg PO Q4HR PRN PRN Reason: Fever/Mild Pain (1-3) Last Admin: 03/02/20 12:54 Dose: 650 mg Documented by: Admin: 03/02/20 04:48 Dose: 650 mg Documented by: ROBERTO Al Hydrox/Mg Hydrox/Simethicone (Maalox Plus) 30 ml PO Q6HR PRN PRN Reason: Dyspepsia Albuterol (Ventolin Hfa (Vent/Covid R/O)) 2 puff INH Q4H PRN PRN Reason: bronchospasm Azithromycin (Zithromax) 500 mg PO DAILY [facility] Stop: 03/03/20 09:01 Last Admin: 03/02/20 16:46 Dose: 500 mg Documented by: RACHEL Bisacodyl (Dulcolax) 10 mg NM DAILY PRN PRN Reason: Constipation Last Admin: 03/01/20 21:19 Dose: 10 mg Documented by: DIANNE Calcium Carbonate (Tums) 1,000 mg PO Q4HR PRN PRN Reason: Dyspepsia Dextrose (D50w) 25 gm IV PRN PRN; Protocol PRN Reason: Hypoglycemia Docusate Sodium (Colace) 100 mg PO BID [facility] Last Admin: 03/02/20 08:40 Dose: Not Given Documented by: EVANGELIST Enoxaparin Sodium (Lovenox) 40 mg SUBCUT DAILY [facility] Last Admin: 03/02/20 08:50 Dose: 40 mg Documented by: EVANGELIST Guaifenesin (Mucinex) 1,200 mg PO BID [facility] Last Admin: 03/02/20 08:50 Dose: 1,200 mg Documented by: Admin: 03/01/20 21:50 Dose: 1,200 mg Documented by: DIANNE Insulin Aspart (Novolog Flexpen) 0 unit SUBCUT [facility]; Protocol Naloxone HCl (Narcan) 0.2 mg IV Q2MIN PRN PRN Reason: Opiate Reversal Ondansetron HCl (Zofran) 4 mg IV Q8HR PRN PRN Reason: Nausea And Vomiting Polyethylene Glycol (Miralax) 17 gm PO DAILY PRN PRN Reason: Constipation Discontinued Medications Acetaminophen (Tylenol) 650 mg PO Q6HR PRN PRN Reason: Fever/Mild Pain (1-3) Albuterol (Ventolin Hfa (Vent/Covid R/O)) 2 puff INH RTQ4HR PRN PRN Reason: Shortness Of Breath Albuterol/Ipratropium (Combivent Respimat) 2 puff INH RTBID [facility] Azithromycin (Zithromax) 500 mg PO DAILY [facility] Stop: 03/04/20 09:01 Bisacodyl (Dulcolax) 10 mg PO DAILY PRN PRN Reason: Constipation Calcium Carbonate (Tums) 1,000 mg PO Q4HR PRN PRN Reason: Dyspepsia Docusate Sodium (Colace) 100 mg PO BID PRN PRN Reason: Constipation Guaifenesin (Mucinex) 1,200 mg PO BID [facility] Guaifenesin (Mucinex) 1,200 mg PO BID [facility] Hydrochlorothiazide (Hydrochlorothiazide) 25 mg PO DAILY [facility] Lactated Ringer's (Lactated Ringers) 1,000 mls @ 200 mls/hr IV CONT [facility] Last Infusion: 03/01/20 16:39 Dose: 0 mls/hr Documented by: Infusion: 03/01/20 16:06 Dose: 999 mls/hr Documented by: Admin: 03/01/20 15:42 Dose: 200 mls/hr Documented by: KATHRYN Levofloxacin (Levaquin) 500 mg in 100 mls @ 100 mls/hr IV NOW ONE Stop: 03/01/20 16:32 Last Infusion: 03/01/20 16:46 Dose: 0 mls/hr Documented by: Admin: 03/01/20 15:42 Dose: 100 mls/hr Documented by: KATHRYN Lactated Ringer's (Lactated Ringers) 1,000 mls @ 200 mls/hr IV CONT [facility] Last Infusion: 03/01/20 21:19 Dose: 0 mls/hr Documented by: Infusion: 03/01/20 18:48 Dose: 200 mls/hr Documented by: JOSE MANUEL Admin: 03/01/20 16:46 Dose: 200 mls/hr Documented by: DEVIN Lactated Ringer's (Lactated Ringers) 1,000 mls @ 100 mls/hr IV CONT [facility] Last Admin: 03/02/20 08:00 Dose: 100 mls/hr Documented by: Infusion: 03/02/20 07:18 Dose: 100 mls/hr Documented by: Admin: 03/01/20 21:18 Dose: 100 mls/hr Documented by: DIANNE Azithromycin 500 mg/ Dextrose 250 mls @ 250 mls/hr IV Q24H [facility] Stop: 03/03/20 20:10 Last Infusion: 03/02/20 00:12 Dose: 0 mls/hr Documented by: Admin: 03/01/20 21:46 Dose: 250 mls/hr Documented by: DIANNE Magnesium Sulfate (Magnesium Sulfate) 2 gm in 50 mls @ 25 mls/hr IV NOW ONE Stop: 03/01/20 22:27 Last Admin: 03/01/20 21:30 Dose: Not Given Documented by: DIANNE Magnesium Sulfate (Magnesium Sulfate) 2 gm in 50 mls @ 25 mls/hr IV NOW ONE Stop: 03/02/20 18:27 Last Admin: 03/02/20 16:44 Dose: 25 mls/hr Documented by: RACHEL Cosigned by: YEMI Levofloxacin (Levaquin) 750 mg PO DAILY [facility] Last Admin: 03/02/20 08:51 Dose: Not Given Documented by: Admin: 03/02/20 06:30 Dose: 750 mg Documented by: TIGRE Lorazepam (Ativan) 0.5 mg IV NOW ONE Stop: 03/01/20 18:07 Last Admin: 03/01/20 19:04 Dose: 0.5 mg Documented by: JOSE MANUEL Losartan Potassium (Cozaar) 100 mg PO DAILY [facility] Magnesium Hydroxide (Milk Of Magnesia) 30 ml PO DAILY PRN PRN Reason: Constipation Naloxone HCl (Narcan) 0.2 mg IV Q2MIN PRN PRN Reason: Opiate Reversal Ondansetron HCl (Zofran) 4 mg IV Q8HR PRN PRN Reason: Nausea And Vomiting Pantoprazole Sodium (Protonix) 40 mg IV DAILY [facility] Last Admin: 03/02/20 08:50 Dose: 40 mg Documented by: EVANGELIST Polyethylene Glycol (Miralax) 17 gm PO DAILY [facility] Last Admin: 03/02/20 08:40 Dose: Not Given Documented by: EVANGELIST Potassium Chloride (Klor-Con M20) 20 meq PO DAILY [facility] Reevaluation(s) Reevaluation #1: on room air patient will frequently drop into the upper 80s without significant work of breathing. She responds well to fluids and MAP > 65. Urine unremarkable today, but she has been on ABX. Awaiting CTA for evaluation of unexplained hypoxia. Vital Signs Vital signs: Vital Signs - 8 hr 03/01/20 15:28 03/01/20 15:32 03/01/20 15:35 Temperature 99.9 F H Pulse Rate 89 90 85 Respiratory Rate 28 H 20 28 H Blood Pressure 106/59 L Blood Pressure [Left Arm] 98/56 L 99/56 L Pulse Oximetry 95 03/01/20 15:41 03/01/20 15:51 03/01/20 15:54 Temperature Pulse Rate 83 88 80 Respiratory Rate 32 H 34 H 24 Blood Pressure Blood Pressure [Left Arm] 91/51 L 76/48 L 100/51 L Pulse Oximetry 95 89 L 93 03/01/20 16:05 03/01/20 16:07 03/01/20 16:15 Temperature Pulse Rate 78 79 77 Respiratory Rate 23 31 H 33 H Blood Pressure Blood Pressure [Left Arm] 105/60 96/82 110/62 Pulse Oximetry 92 89 L 98 03/01/20 16:25 03/01/20 16:35 03/01/20 16:56 Temperature Pulse Rate 79 75 82 Respiratory Rate 28 H 29 H 24 Blood Pressure Blood Pressure [Left Arm] 83/52 L 105/62 99/61 Pulse Oximetry 93 98 95 03/01/20 17:15 03/01/20 17:40 Temperature Pulse Rate 71 70 Respiratory Rate 21 16 Blood Pressure Blood Pressure [Left Arm] 104/60 103/64 Pulse Oximetry 100 94 MDM - Sepsis Lab Data Result diagrams: 03/02/20 04:45 03/02/20 04:45 Labs: Lab Results 03/01/20 03/01/20 03/01/20 Range/Units 15:11 15:35 15:35 WBC 4.2 L (4.5-11.0) X10^3/uL RBC 4.67 (4.0-5.2) X10^6/uL Hgb 13.3 (12.0-16.0) g/dL Hct 39.1 (36-46) % MCV 83.8 (80-100) fL MCH 28.5 (26-34) PG MCHC 34.0 (30-36) % RDW 15.3 H (11.6-14.8) % Plt Count 226 (150-400) X10^3/uL Neut % (Auto) 71.0 (50-75) % Lymph % (Auto) 22.5 L (25-40) % [place] % (Auto) 5.9 (3-14) % Eos % (Auto) 0.1 L (2-4) % Baso % (Auto) 0.5 (0-2) % Neut # (Auto) 3000 (7457-7964) /uL Lymph # (Auto) 900 L (4612-1257) /uL [place] # (Auto) 200 (0-900) /uL Eos # (Auto) 0 (0-450) /uL Baso # (Auto) 0 (0-100) /uL ESR (0-20) MM/HR ABG pH (7.35-7.45) ABG pCO2 (35-45) mmHg ABG pO2 (80-100) mmHg ABG HCO3 (22-26) mmol/L ABG Total CO2 (21-31) mmol/L ABG O2 Saturation (95-100) % ABG Base Excess (-2-2) mmol/L FiO2 Sodium (137-145) mmol/L Potassium (3.4-5.1) mmol/L Chloride (98-107) mmol/L Carbon Dioxide (22-32) mmol/L BUN (7-17) mg/dL Creatinine (0.52-1.04) mg/dL Estimated GFR (>60) mL/min BUN/Creatinine Ratio (6-22) Glucose (70-100) mg/dL Lactate (0.7-2.1) mmol/L Calcium (8.4-10.2) mg/dL Magnesium (1.6-2.3) mg/dL Total Bilirubin (0.2-1.3) mg/dL AST (14-36) IU/L ALT (<35) IU/L Alkaline Phosphatase (38-126) U/L Lactate Dehydrogenase (313-618) U/L C-Reactive Protein (<1.0) mg/dL Total Protein (6.3-8.2) g/dL Albumin (3.5-5.0) g/dL Globulin (1.7-4.1) g/dL Albumin/Globulin Ratio (1.0-2.8) Procalcitonin 0.06 (<0.5) ng/mL Urine Color Urine Appearance Urine pH (4.5-8.0) Ur Specific [place] (1.000-1.035) Urine Protein (Negative) Urine Glucose (UA) (Negative) g/dL Urine Ketones (NEGATIVE) Urine Occult Blood (Negative) Urine Nitrate (Negative) Urine Bilirubin (NEGATIVE) Urine Urobilinogen (0.2) E.U./dL Ur Leukocyte Esterase (NEGATIVE) Urine RBC (0-5/HPF) Urine WBC (0-5/HPF) Ur Squamous Epith Cells (0-5/HPF) Amorphous Sediment Urine Bacteria (None) Urine Mucus (Negative) Ur Culture Indicated? COVID-19 PCR Positive A (Not Detect) 03/01/20 03/01/20 03/01/20 Range/Units 15:35 15:35 15:35 WBC (4.5-11.0) X10^3/uL RBC (4.0-5.2) X10^6/uL Hgb (12.0-16.0) g/dL Hct (36-46) % MCV (80-100) fL MCH (26-34) PG MCHC (30-36) % RDW (11.6-14.8) % Plt Count (150-400) X10^3/uL Neut % (Auto) (50-75) % Lymph % (Auto) (25-40) % [place] % (Auto) (3-14) % Eos % (Auto) (2-4) % Baso % (Auto) (0-2) % Neut # (Auto) (7078-3415) /uL Lymph # (Auto) (0440-3939) /uL [place] # (Auto) (0-900) /uL Eos # (Auto) (0-450) /uL Baso # (Auto) (0-100) /uL ESR 30 H (0-20) MM/HR ABG pH (7.35-7.45) ABG pCO2 (35-45) mmHg ABG pO2 (80-100) mmHg ABG HCO3 (22-26) mmol/L ABG Total CO2 (21-31) mmol/L ABG O2 Saturation (95-100) % ABG Base Excess (-2-2) mmol/L FiO2 Sodium 134 L (137-145) mmol/L Potassium 3.4 (3.4-5.1) mmol/L Chloride 96 L (98-107) mmol/L Carbon Dioxide 29 (22-32) mmol/L BUN 12 (7-17) mg/dL Creatinine 0.63 (0.52-1.04) mg/dL Estimated GFR > 60.0 (>60) mL/min BUN/Creatinine Ratio 19.0 (6-22) Glucose 117 H (70-100) mg/dL Lactate 0.8 (0.7-2.1) mmol/L Calcium 8.9 (8.4-10.2) mg/dL Magnesium (1.6-2.3) mg/dL Total Bilirubin 0.4 (0.2-1.3) mg/dL AST 65 H (14-36) IU/L ALT 36 H (<35) IU/L Alkaline Phosphatase 41 (38-126) U/L Lactate Dehydrogenase (313-618) U/L C-Reactive Protein (<1.0) mg/dL Total Protein 6.8 (6.3-8.2) g/dL Albumin 3.6 (3.5-5.0) g/dL Globulin 3.2 (1.7-4.1) g/dL Albumin/Globulin Ratio 1.1 (1.0-2.8) Procalcitonin (<0.5) ng/mL Urine Color Urine Appearance Urine pH (4.5-8.0) Ur Specific [place] (1.000-1.035) Urine Protein (Negative) Urine Glucose (UA) (Negative) g/dL Urine Ketones (NEGATIVE) Urine Occult Blood (Negative) Urine Nitrate (Negative) Urine Bilirubin (NEGATIVE) Urine Urobilinogen (0.2) E.U./dL Ur Leukocyte Esterase (NEGATIVE) Urine RBC (0-5/HPF) Urine WBC (0-5/HPF) Ur Squamous Epith Cells (0-5/HPF) Amorphous Sediment Urine Bacteria (None) Urine Mucus (Negative) Ur Culture Indicated? COVID-19 PCR (Not Detect) 03/01/20 03/01/20 03/01/20 Range/Units 15:35 15:35 15:42 WBC (4.5-11.0) X10^3/uL RBC (4.0-5.2) X10^6/uL Hgb (12.0-16.0) g/dL Hct (36-46) % MCV (80-100) fL MCH (26-34) PG MCHC (30-36) % RDW (11.6-14.8) % Plt Count (150-400) X10^3/uL Neut % (Auto) (50-75) % Lymph % (Auto) (25-40) % [place] % (Auto) (3-14) % Eos % (Auto) (2-4) % Baso % (Auto) (0-2) % Neut # (Auto) (7438-3997) /uL Lymph # (Auto) (5493-4696) /uL [place] # (Auto) (0-900) /uL Eos # (Auto) (0-450) /uL Baso # (Auto) (0-100) /uL ESR (0-20) MM/HR ABG pH (7.35-7.45) ABG pCO2 (35-45) mmHg ABG pO2 (80-100) mmHg ABG HCO3 (22-26) mmol/L ABG Total CO2 (21-31) mmol/L ABG O2 Saturation (95-100) % ABG Base Excess (-2-2) mmol/L FiO2 Sodium (137-145) mmol/L Potassium (3.4-5.1) mmol/L Chloride (98-107) mmol/L Carbon Dioxide (22-32) mmol/L BUN (7-17) mg/dL Creatinine (0.52-1.04) mg/dL Estimated GFR (>60) mL/min BUN/Creatinine Ratio (6-22) Glucose (70-100) mg/dL Lactate (0.7-2.1) mmol/L Calcium (8.4-10.2) mg/dL Magnesium 1.5 L (1.6-2.3) mg/dL Total Bilirubin (0.2-1.3) mg/dL AST (14-36) IU/L ALT (<35) IU/L Alkaline Phosphatase (38-126) U/L Lactate Dehydrogenase 1028 H (313-618) U/L C-Reactive Protein 17.9 H (<1.0) mg/dL Total Protein (6.3-8.2) g/dL Albumin (3.5-5.0) g/dL Globulin (1.7-4.1) g/dL Albumin/Globulin Ratio (1.0-2.8) Procalcitonin (<0.5) ng/mL Urine Color Yellow Urine Appearance Clear Urine pH 7.5 (4.5-8.0) Ur Specific [place] 1.015 (1.000-1.035) Urine Protein 1+ H (Negative) Urine Glucose (UA) Negative (Negative) g/dL Urine Ketones Negative (NEGATIVE) Urine Occult Blood Negative (Negative) Urine Nitrate Negative (Negative) Urine Bilirubin Negative (NEGATIVE) Urine Urobilinogen 0.2 (0.2) E.U./dL Ur Leukocyte Esterase Negative (NEGATIVE) Urine RBC None seen (0-5/HPF) Urine WBC 1-5/hpf (0-5/HPF) Ur Squamous Epith Cells 0-1 /hpf D (0-5/HPF) Amorphous Sediment 1+ Urine Bacteria None seen (None) Urine Mucus 1+ H (Negative) Ur Culture Indicated? Specimen cultured COVID-19 PCR (Not Detect) 03/01/20 Range/Units 16:33 WBC (4.5-11.0) X10^3/uL RBC (4.0-5.2) X10^6/uL Hgb (12.0-16.0) g/dL Hct (36-46) % MCV (80-100) fL MCH (26-34) PG MCHC (30-36) % RDW (11.6-14.8) % Plt Count (150-400) X10^3/uL Neut % (Auto) (50-75) % Lymph % (Auto) (25-40) % [place] % (Auto) (3-14) % Eos % (Auto) (2-4) % Baso % (Auto) (0-2) % Neut # (Auto) (2618-0514) /uL Lymph # (Auto) (0575-5976) /uL [place] # (Auto) (0-900) /uL Eos # (Auto) (0-450) /uL Baso # (Auto) (0-100) /uL ESR (0-20) MM/HR ABG pH 7.44 (7.35-7.45) ABG pCO2 40.8 (35-45) mmHg ABG pO2 65 L (80-100) mmHg ABG HCO3 28 H (22-26) mmol/L ABG Total CO2 29 (21-31) mmol/L ABG O2 Saturation 93 L (95-100) % ABG Base Excess 3.0 H (-2-2) mmol/L FiO2 21 Sodium (137-145) mmol/L Potassium (3.4-5.1) mmol/L Chloride (98-107) mmol/L Carbon Dioxide (22-32) mmol/L BUN (7-17) mg/dL Creatinine (0.52-1.04) mg/dL Estimated GFR (>60) mL/min BUN/Creatinine Ratio (6-22) Glucose (70-100) mg/dL Lactate (0.7-2.1) mmol/L Calcium (8.4-10.2) mg/dL Magnesium (1.6-2.3) mg/dL Total Bilirubin (0.2-1.3) mg/dL AST (14-36) IU/L ALT (<35) IU/L Alkaline Phosphatase (38-126) U/L Lactate Dehydrogenase (313-618) U/L C-Reactive Protein (<1.0) mg/dL Total Protein (6.3-8.2) g/dL Albumin (3.5-5.0) g/dL Globulin (1.7-4.1) g/dL Albumin/Globulin Ratio (1.0-2.8) Procalcitonin (<0.5) ng/mL Urine Color Urine Appearance Urine pH (4.5-8.0) Ur Specific [place] (1.000-1.035) Urine Protein (Negative) Urine Glucose (UA) (Negative) g/dL Urine Ketones (NEGATIVE) Urine Occult Blood (Negative) Urine Nitrate (Negative) Urine Bilirubin (NEGATIVE) Urine Urobilinogen (0.2) E.U./dL Ur Leukocyte Esterase (NEGATIVE) Urine RBC (0-5/HPF) Urine WBC (0-5/HPF) Ur Squamous Epith Cells (0-5/HPF) Amorphous Sediment Urine Bacteria (None) Urine Mucus (Negative) Ur Culture Indicated? COVID-19 PCR (Not Detect) Discharge Plan Departure Patient Disposition: Admitted As Inpatient Clinical Impression: Pneumonia Discharge Date/Time: 03/01/20 19:55 Referrals: Nicole Esquivel ARNP [Primary Care Provider] - Admit Date/Time: 03/01/20 18:23 Admit Provider: Graciela Fontenot
[2020-03-01] MEDS: LACTATED RINGERS 1,000 ML 200 ML IV ×2 (15:42→16:46)
[2020-03-01] MEDS: levoFLOXacin 500 MG/100 ML PIGGYBACK 100 MG IV (15:42)
[2020-03-01 15:50] LABS: Add Manual Diff / Slide Review NO; Basophils Absolute Auto 0 /uL (0-100); Basophils Percent Auto 0.5 % (0-2); Eosinophils Absolute Auto 0 /uL (0-450); Eosinophils Percent Auto 0.1 % (2-4); Hematocrit 39.1 % (36-46); Hemoglobin 13.3 g/dL (12.0-16.0); Lymphocytes Absolute Auto 900 /uL (1100-4500); Lymphocytes Percent Auto 22.5 % (25-40); Mean Corpuscular Hemoglobin 28.5 PG (26-34); Mean Corpuscular Volume 83.8 fL (80-100); Monocytes Absolute Auto 200 /uL (0-900); Monocytes Percent Auto 5.9 % (3-14); Neutrophils Absolute Auto 3000 /uL (1500-7000); Platelet Count 226 X10^3/uL (150-400); Red Blood Cell Count 4.67 X10^6/uL (4.0-5.2); Red Cell Distribution Width 15.3 % (11.6-14.8); White Blood Cell Count 4.2 X10^3/uL (4.5-11.0)
[2020-03-01 15:55] LABS: Bacteria Urine None Seen; RBC Urine None Seen (0-5/HPF)
[2020-03-01 15:56] LABS: Appearance Urine UA CLEAR; Bilirubin Urine UA NEGATIVE (NEGATIVE); Color Urine UA YELLOW; Glucose Urine UA NEGATIVE (Negative); Ketones Urine UA NEGATIVE (NEGATIVE); Leukocyte Esterase Urine UA NEGATIVE (NEGATIVE); Nitrite Urine UA NEGATIVE (Negative); Occult Blood Urine UA NEGATIVE (Negative); Protein Urine UA 1+ (Negative); Specific Gravity Urine UA 1.015 (1.000-1.035); Urobilinogen Urine UA 0.2 E.U./dL (0.2)
[2020-03-01 15:59] LABS: pH Urine UA 7.5 (4.5-8.0)
--- NOTE | 2020-03-01 16:04 | PC.NURSE ---
patient has been treated with antibiotics for a UTI and Kidney infection since SundayFebruary 26. Failing outpatient treatment. Continues to have fevers and SOB with exertion. Tachypneic at 31/min. Lungs diminished in the bases. Abdomen firm round, with hypoactive BS. Patient says last BM 5 days ago and it was diarrhea
[2020-03-01 16:06] LABS: Alanine Aminotransferase 36 IU/L (<35); Albumin 3.6 g/dL (3.5-5.0); Albumin Globulin Ratio 1.1 (1.0-2.8); Alkaline Phosphatase 41 U/L (38-126); Aspartate Aminotransferase 65 IU/L (14-36); Bilirubin Total 0.4 mg/dL (0.2-1.3); Blood Urea Nitrogen 12 mg/dL (7-17); Calcium 8.9 mg/dL (8.4-10.2); Carbon Dioxide 29 mmol/L (22-32); Chloride 96 mmol/L (98-107); Estimated Glomerular Filt Rate > 60.0 mL/min (>60); Globulin 3.2 g/dL (1.7-4.1); Glucose 117 mg/dL (70-100); HEMOLYSIS 20 (0-50); Potassium 3.4 mmol/L (3.4-5.1); Sodium 134 mmol/L (137-145); Total Protein 6.8 g/dL (6.3-8.2)
[2020-03-01 16:07] LABS: Lactate (Lactic Acid) 0.8 mmol/L (0.7-2.1)
[2020-03-01 16:08] LABS: Amorphous Sediment Urine 1+; Mucus Urine 1+ (Negative); Squamous Epithelial Cell Urine 0-1 /HPF (0-5/HPF); WBC Urine 1-5/HPF (0-5/HPF)
--- NOTE | 2020-03-01 16:19 | DI.CT.S_ITS ---
PROCEDURE: CT ANGIO CHEST PE PROTOCOL INDICATIONS: Hypoxia, sedentary TECHNIQUE: After the administration of intravenous contrast, 2 mm thick sections acquired from the pulmonary apices to the posterior costophrenic angles. 3-dimensional maximum intensity projection (MIP) coronal and sagittal reformats were then acquired through the thorax. For radiation dose reduction, the following was used: automated exposure control, adjustment of mA and/or kV according to patient size. COMPARISON: [facility], CT, THORAX WITHOUT CONTRAST, 02/01/2017, 11:42. FINDINGS: Image quality: Excellent. Pulmonary arteries: Pulmonary arteries are normal in size, and demonstrate no intraluminal filling defects to suggest central pulmonary embolism. Lungs and pleura: Since the prior CT, extensive bilateral patchy groundglass opacities have developed, in a bilateral distribution, right greater than left, involving the upper zones and lower zones. Additionally, honeycombing has developed predominantly in the right upper lobe. Or a pulmonary nodule in the extreme anterior subpleural location in the lingula has increased in size since the prior study from approximately 5 mm to approximately 11 mm. No pleural effusions or pneumothorax. Central and peripheral airways are patent. Mediastinum: Heart size is normal, without pericardial effusion. No mediastinal or hilar adenopathy. Shotty mediastinal and bilateral hilar lymph nodes. Thoracic aorta is normal in caliber and enhancement. 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 Esophagus is normal in caliber, without hiatal hernia. Bones and chest wall: No suspicious bony lesions. Ribs and thoracic spine appear intact throughout. Thyroid gland is unremarkable. No axillary or supraclavicular adenopathy. Abdomen: Visualized upper abdominal solid organs appear normal in the early arterial phase of enhancement. IMPRESSION: 1. No evidence acute pulmonary emboli. 2. Interval development of a patchy pulmonary process which includes extensive groundglass opacities, as well as some right upper lobe honeycombing. Differential diagnosis includes chronic interstitial fibrosis with an acute inflammatory component. Cannot exclude viral pneumonia superimposed on some honeycombing in the right upper lobe. 3. Interval increase in the size of a pulmonary nodule in the lingula, from approximately 5 mm to 11 mm. Cannot exclude a neoplastic pulmonary nodule. Dictated by: Kodak Sheehan M.D. on 03/01/2020 at 16:05 Approved by: Kodak Sheehan M.D. on 03/01/2020 at 16:20
[2020-03-01 16:23] LABS: Procalcitonin 0.06 ng/mL (<0.5)
[2020-03-01 16:42] LABS: Fractionated Inspired Oxygen 21; HCO3 ABG 28 mmol/L (22-26); Oxygen Saturation ABG 93 % (95-100); PCO2 ABG 40.8 mmHg (35-45); PO2 ABG 65 mmHg (80-100); TCO2 ABG 29 mmol/L (21-31); pH ABG 7.44 (7.35-7.45)
[2020-03-01 18:55] LABS: Culture Indicated Urine Specimen Cultured
[2020-03-01] MEDS: LORazepam 2 MG/ML INJ 0.5 MG IV (19:04)
[2020-03-01 19:14] LABS: Lactate Dehydrogenase 1028 U/L (313-618)
[2020-03-01 19:24] LABS: C-Reactive Protein Quant 17.9 mg/dL (<1.0)
[2020-03-01 19:25] LABS: Erythrocyte Sedimentation Rate 30 MM/HR (0-20)
--- NOTE | 2020-03-01 19:28 | PC.NURSE ---
Dr. Fontenot does not believe pt is ICU level of care per direct care staffer. Discussed w/ coordinator pt blood pressures as low as high 70s and significant low blood pressure. Discussed q 4 hour vital signs may not be enough to monitor trends at this time.
[2020-03-01 20:23] LABS: Magnesium 1.5 mg/dL (1.6-2.3)
--- NOTE | 2020-03-01 20:55 | P.HP_ITS ---
History of Present Illness History of Present Illness Date Patient Seen: 03/01/20 Time Patient Seen: 20:10 Chief complaint: Fever Narrative: Ms. Jaimie Redman is a 59-year-old female with a history hypertension, hypertriglyceridemia, GERD, hyperglycemia, obstructive sleep apnea with insomnia and fatigue, morbid obesity and past smoker who presents to the ER with worsening symptoms for 2 days. The patient was seen in the ER on 02/27/2020 for symptoms dysuria, urgency and right flank pain with fevers and abdominal cramping. She was diagnosed with pyelonephritis and discharged home on Keflex and Zofran. The patient states her symptoms did not resolve and she continued to have abdominal pain she describes is bilateral lower abdomen that is constant and crampy in character. She states her last bowel movement was 6 days ago. She has had no headaches nasal congestion or sore throat. She denies chest pain or palpitations. She reports no complaints of dyspnea or shortness of breath today even when EMS found her hypoxemic. She has had no cough and denies wheezing. She reports generalized abdominal pain worse lower than upper and bilateral flank pain. She denies difficulty urinating has had no frequency urgency or burning. The patient presented via EMS and upon arrival to home today found her blood pressure being the upper 70s lower 80s with an SpO2 in the 80s. Upon arrival to the ER the patient has a temperature of 99.9?, heart rate of 90, blood pressure 106/59, respiratory rate 25 saturating 95% on room air which later dropped to 89% as started on nasal cannula oxygen. Imaging reveals bilateral patchy ground-glass opacities posterior lateral chest suggestive of bilateral scattered infiltrates consistent with atypical pneumonia and bilateral upper lobe honeycombing with chronic interstitial fibrosis, finding of sigmoid div erticulosis with normal bowel caliber and wall thickness. An arterial blood gases obtained finding a pH of 7.44, pCO2 40.8, PO2 of 65, bicarb 28 with a base excess +3 on 21% FiO2. On laboratory analysis she has white count of 4.2, hemoglobin of 13.3, hematocrit 39.1 and platelets of 226. Patient has a sodium 134, potassium of 3.4, BUN of 12 and a creatinine of 0.63. Her nonfasting glucose is 117. She has a total bilirubin of 0.4 with an AST elevated at 65, ALT of 36 and alkaline phosphatase of 41. Her albumin is 3.6. She has lactic acid of 0.8 and procalcitonin 0.08. Additional labs requested including 8 sed rate which is 30, CRP which is 17.9 and LDH is 1028. In the ER the patient received Levaquin 500 mg following obtaining blood cultures and lorazepam. The patient is admitted to the medicine service for bilateral pneumonia in the setting of interstitial fibrotic lung disease. Patient History Medical History Fatigue (Chronic) Former smoker (Acute) GERD (gastroesophageal reflux disease) (Chronic) Hyperglycemia (Chronic) Hypertension (Chronic) Hypertriglyceridemia (Chronic) Insomnia (Chronic) Loud snoring (Chronic) Morbid obesity with body mass index of 40.0-44.9 in adult (Chronic) Obstructive sleep apnea (Chronic) Surgical History No pertinent past surgical history (Acute) Family & Social History Family History Father CAD (coronary artery disease) Diabetes mellitus Mother Stroke Cancer of breast Social History: household members none Prior Living Arrangements House Safety & Behavioral: Feels Safe in Current Yes Environment Been Physically Hurt or No Threatened By a Person Suicidal Ideation Description None Tobacco & Substance use: Smoking Status Former smoker alcohol intake current alcohol intake frequency holiday/special occasion Substance Use Type does not use Comment: The patient lives in a single family home in [place]. 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 Smoking: The patient states quit smoking in September 2019, denies vaping or electronic cigarettes. Alcohol: Patient endorses occasional alcohol consumption. Substance use: The patient denies recreational pharmaceuticals, herbal or cannabis products. Advanced directives: In direct discussion with the patient she states her wish to be FULL CODE. She designates her sister Heidi Redman to be her surrogate decision maker. Meds Home Medications and Allergies Home Medications Medication Instructions Recorded Confirmed Type albuterol sulfate 90 mcg/actuation 2 puff INHALATION Q4-6H PRN #8.5 08/28/19 03/01/20 Rx aerosol inhaler gram cephalexin [Keflex] 500 mg PO QID 7 Days #28 cap 02/27/20 03/01/20 Rx ondansetron 4 mg PO TID-QID PRN #10 tab 02/27/20 03/01/20 Rx hydrochlorothiazide 25 mg PO QAM 03/01/20 03/01/20 History losartan 100 mg PO QAM 03/01/20 03/01/20 History omeprazole 20 mg PO QAM 03/01/20 03/01/20 History potassium chloride 20 meq PO QAM 03/01/20 03/01/20 History Allergies Allergy/AdvReac Type Severity Reaction Status Date / Time No Known Drug Allergies Allergy Verified 03/01/20 16:03 Review of Systems Review of Systems ROS: Yes All systems reviewed with the patient and are negative except as otherwise documented Exam Vital Signs (past 8 hours): - 03/01/20 15:28 03/01/20 15:32 03/01/20 15:35 Temperature 99.9 F H Pulse Rate 89 90 85 Respiratory Rate 28 H 20 28 H Blood Pressure 106/59 L Blood Pressure [Left Arm] 98/56 L 99/56 L Pulse Oximetry 95 03/01/20 15:41 03/01/20 15:51 03/01/20 15:54 Temperature Pulse Rate 83 88 80 Respiratory Rate 32 H 34 H 24 Blood Pressure Blood Pressure [Left Arm] 91/51 L 76/48 L 100/51 L Pulse Oximetry 95 89 L 93 03/01/20 16:05 03/01/20 16:07 03/01/20 16:15 Temperature Pulse Rate 78 79 77 Respiratory Rate 23 31 H 33 H Blood Pressure Blood Pressure [Left Arm] 105/60 96/82 110/62 Pulse Oximetry 92 89 L 98 03/01/20 16:25 03/01/20 16:35 03/01/20 16:56 Temperature Pulse Rate 79 75 82 Respiratory Rate 28 H 29 H 24 Blood Pressure Blood Pressure [Left Arm] 83/52 L 105/62 99/61 Pulse Oximetry 93 98 95 03/01/20 17:15 03/01/20 17:40 03/01/20 18:34 Temperature Pulse Rate 71 70 77 Respiratory Rate 21 16 25 H Blood Pressure Blood Pressure [Left Arm] 104/60 103/64 110/57 L Pulse Oximetry 100 94 93 03/01/20 19:45 03/01/20 19:55 Temperature 98.8 F Pulse Rate 76 Respiratory Rate 25 H Blood Pressure 106/76 110/78 Blood Pressure [Left Arm] Pulse Oximetry 94 95 Oxygen Delivery Method Room Air Oxygen Flow Rate 0 Narrative Exam Narrative: GENERAL APPEARANCE: well developed, morbidly obese female with a BMI of 43.9 laying semi recumbent in bed with snoring respirations responsive to tactile stimulus.. HEENT: Normocephalic, PERRLA, conjunctiva clear, sclerae are anicteric, EOMs intact without nystagmus, no rhinorrhea, mucous membranes are moist and pink without lesions or erythema. NECK/THYROID: neck supple, no JVD, no carotid bruit, no thyromegaly, trachea midline, no lymphadenopathy. SKIN: [place], warm and dry, no visible rashes or lesions. HEART: regular rate and rhythm, S1-S2, no murmur, no rubs or gallops, brisk capillary refill, trace bilateral pretibial edema. LUNGS: Diminished breath sounds on auscultation, decreased breath sounds bibasilar without coarseness crackles or wheezing, no cough present CHEST: Symmetrical movement, no accessory muscle use, shallow tidal volume. ABDOMEN: Soft, dull to percussion, generalized abdominal tenderness greatest bilateral lower quadrants, no guarding or peritoneal signs, no organomegaly, mild flank pain on palpation, no suprapubic tenderness, active bowel tones. BACK: Nontender to palpation, no back pain on straight leg raise EXTREMITIES: moves all extremities, strength is 5/5 and symmetrical, no deformities or joint effusions. NEUROLOGIC: AAO x3, lethargic, no focal neurologic deficits, cranial nerves II- XII grossly intact, sensation intact to light touch, hearing grossly normal to speech. PSYCH: Tearful when asking about code status, cooperative, lethargic Objective Labs Result Diagrams: 03/01/20 15:35 03/01/20 15:35 Labs: Laboratory Results - last 24 hr 03/01/20 03/01/20 03/01/20 15:35 15:35 15:35 WBC 4.2 L RBC 4.67 Hgb 13.3 Hct 39.1 MCV 83.8 MCH 28.5 MCHC 34.0 RDW 15.3 H Plt Count 226 Neut % (Auto) 71.0 Lymph % (Auto) 22.5 L [place] % (Auto) 5.9 Eos % (Auto) 0.1 L Baso % (Auto) 0.5 Neut # (Auto) 3000 Lymph # (Auto) 900 L [place] # (Auto) 200 Eos # (Auto) 0 Baso # (Auto) 0 ESR ABG pH ABG pCO2 ABG pO2 ABG HCO3 ABG Total CO2 ABG O2 Saturation ABG Base Excess FiO2 Sodium 134 L Potassium 3.4 Chloride 96 L Carbon Dioxide 29 BUN 12 Creatinine 0.63 Estimated GFR > 60.0 BUN/Creatinine Ratio 19.0 Glucose 117 H Lactate Calcium 8.9 Magnesium Total Bilirubin 0.4 AST 65 H ALT 36 H Alkaline Phosphatase 41 Lactate Dehydrogenase C-Reactive Protein Total Protein 6.8 Albumin 3.6 Globulin 3.2 Albumin/Globulin Ratio 1.1 Procalcitonin 0.06 Urine Color Urine Appearance Urine pH Ur Specific [place] Urine Protein Urine Glucose (UA) Urine Ketones Urine Occult Blood Urine Nitrate Urine Bilirubin Urine Urobilinogen Ur Leukocyte Esterase Urine RBC Urine WBC Ur Squamous Epith Cells Amorphous Sediment Urine Bacteria Urine Mucus Ur Culture Indicated? 03/01/20 03/01/20 03/01/20 15:35 15:35 15:35 WBC RBC Hgb Hct MCV MCH MCHC RDW Plt Count Neut % (Auto) Lymph % (Auto) [place] % (Auto) Eos % (Auto) Baso % (Auto) Neut # (Auto) Lymph # (Auto) [place] # (Auto) Eos # (Auto) Baso # (Auto) ESR 30 H ABG pH ABG pCO2 ABG pO2 ABG HCO3 ABG Total CO2 ABG O2 Saturation ABG Base Excess FiO2 Sodium Potassium Chloride Carbon Dioxide BUN Creatinine Estimated GFR BUN/Creatinine Ratio Glucose Lactate 0.8 Calcium Magnesium Total Bilirubin AST ALT Alkaline Phosphatase Lactate Dehydrogenase 1028 H C-Reactive Protein 17.9 H Total Protein Albumin Globulin Albumin/Globulin Ratio Procalcitonin Urine Color Urine Appearance Urine pH Ur Specific [place] Urine Protein Urine Glucose (UA) Urine Ketones Urine Occult Blood Urine Nitrate Urine Bilirubin Urine Urobilinogen Ur Leukocyte Esterase Urine RBC Urine WBC Ur Squamous Epith Cells Amorphous Sediment Urine Bacteria Urine Mucus Ur Culture Indicated? 03/01/20 03/01/20 03/01/20 15:35 15:42 16:33 WBC RBC Hgb Hct MCV MCH MCHC RDW Plt Count Neut % (Auto) Lymph % (Auto) [place] % (Auto) Eos % (Auto) Baso % (Auto) Neut # (Auto) Lymph # (Auto) [place] # (Auto) Eos # (Auto) Baso # (Auto) ESR ABG pH 7.44 ABG pCO2 40.8 ABG pO2 65 L ABG HCO3 28 H ABG Total CO2 29 ABG O2 Saturation 93 L ABG Base Excess 3.0 H FiO2 21 Sodium Potassium Chloride Carbon Dioxide BUN Creatinine Estimated GFR BUN/Creatinine Ratio Glucose Lactate Calcium Magnesium 1.5 L Total Bilirubin AST ALT Alkaline Phosphatase Lactate Dehydrogenase C-Reactive Protein Total Protein Albumin Globulin Albumin/Globulin Ratio Procalcitonin Urine Color Yellow Urine Appearance Clear Urine pH 7.5 Ur Specific [place] 1.015 Urine Protein 1+ H Urine Glucose (UA) Negative Urine Ketones Negative Urine Occult Blood Negative Urine Nitrate Negative Urine Bilirubin Negative Urine Urobilinogen 0.2 Ur Leukocyte Esterase Negative Urine RBC None seen Urine WBC 1-5/hpf Ur Squamous Epith Cells 0-1 /hpf D Amorphous Sediment 1+ Urine Bacteria None seen Urine Mucus 1+ H Ur Culture Indicated? Specimen cultured Assessment & Plan Assessment & Plan narrative: This is a 59-year-old female who returns to the ER 3 days following treatment for pyelonephritis. The patient complains of worsening fevers, chills and weakness reporting the antibiotics she received were not helping. EMS finds the patient hypotensive in the 70s to 80s and hypoxemic in the 80s. 1. Acute hypoxemic respiratory failure, present on admission, active. -patient with no complaints of shortness of breath that was found to be hypoxemic with a pulse ox in the 80s in the field and dipping into the 80s in the ER and tachypneic with respiratory rate 25 to 35 breaths per minute. -patient also has history of obstructive sleep apnea states she has CPAP but has not been using it since the COVID-19 outbreak. -ABG finds a pH of 7.44, pCO2 of 40.8, PO2 of 65, bicarb of 28 with a base excess of +3 on 21% FiO2. PF ratio is 307, patient response to oxygen nasal cannula. -will treat bilateral atypical pneumonia as below. -respiratory therapy to consult, evaluate and treat. -ordered albuterol/ipratropium MDI 2 puffs twice daily. -ordered albuterol MDI 2 puffs every 4 hours as needed. -obtain respiratory PCR. -COVID-19 screening initiated. 2. Bilateral atypical pneumonia, present on admission, active. -patient with hypoxemia as above -imaging finds bilateral patchy ground grass infiltrates in the posterior lateral abdi suggestive bilateral scattered infiltrates concerning for atypical pneumonia as well as 100 coming of the upper lobes consistent with chronic interstitial fibrosis. -concern for bacterial versus viral pneumonia including COVID-19. In 3 days WBCs have dropped from 8.3-4.2, Procalcitonin is 0.06, ESR is 30, CRP is 17.9 and LDH is 1028. -ordered Levaquin 750 mg IV daily and azithromycin 500 mg IV daily for 3 days for bacterial an atypical coverage. -ordered albuterol and ipratropium MDI and albuterol MDI as above with interstitial fibrosis and lung disease with smoking history. -ordered Mucinex 1200 mg twice daily. -will follow-up infection markers including procalcitonin, CRP and WBCs. 3. Abdominal pain, acute constipation versus diverticulitis, present on admission, active. -patient previously treated 3 days ago for pyelonephritis with a course of Keflex. -CT of the abdomen pelvis finds normal kidney size in an smoke without hydronephrosis or inflammation. CT additionally finds sigmoid diverticulosis without diverticulitis. -review the imaging nodes significant stool burden and patient states no bowel movement for 6 days without nausea vomiting. -ordered Dulcolax suppository 10 mg 1 dose now and daily as needed. -ordered docusate 100 mg twice daily. -ordered MiraLax 17 g by mouth daily. 4. Gastroesophageal reflux disorder, present on admission, stable -patient takes omeprazole his home medication. -ordered Protonix 40 mg IV daily. 5. Obstructive sleep apnea, present on admission, stable. -patient with apneic pauses upon entering the room and snoring respirations. This may be related to receiving lorazepam in the ER the patient with underlying history of JUAN having been evaluated by [facility]. -respiratory therapy to consult evaluate and treat. -will consider APAP per respiratory protocol 6. Essential hypertension, present on admission, stable -patient with adequate blood pressure upon arrival to the ER at 106/59 with blood pressure upon admission to the floor is 110/78. -considering hypertension in the field, will hold the patient's antihypertensives including hydrochlorothiazide and losartan. 7. Hyperglycemia, stable -patient with a nonfasting glucose 117 on admission to the ER. -will obtain hemoglobin A1c. -diet will be heart healthy with moderate carbohydrates. 8. Morbid obesity, stable -patient with a BMI of 43.9 -request dietitian consult. Isolation: Droplet for COVID-19 screening VTE prophylaxis: Bilateral SCDs, enoxaparin IV fluid: Normal saline 100 cc/hour Diet: Heart healthy, moderate carbohydrate. Code status: FULL CODE, patient's sister Heidi is her surrogate decision maker. The patient is admitted to the hospital with acute respiratory failure with hypoxia related to bilateral pneumonia and concern for COVID-19. The patient is admitted as an inpatient with expected length of stay to be greater than 2 midnights. Scores GCS [place] coma scale eye opening: Spontaneous [place] coma scale verbal response: Orientated [place] coma scale motor response: Obey commands [place] coma scale total score: 15 SOFA PaO2/FIO2: < 400 mmHg Platelets: >= 150 Bilirubin: < 1.2 mg/dL Hypotension: MAP >= 70 mmHg [place] Coma Scale: 15 Renal: < 1.2 mg/dL SOFA Score: 1
[2020-03-01] MEDS: LACTATED RINGERS 1,000 ML 100 ML IV (21:18)
[2020-03-01] MEDS: BISACODYL 10 MG SUPP PR (21:19)
[2020-03-01] MEDS: AZITHROMYCIN 500 MG in DEXTROSE 5% IN WATER 250 ML IV (21:46)
[2020-03-01] MEDS: guaiFENesin ER 600 MG TAB 1200 MG PO (21:50)
[2020-03-01 23:12] LABS: Adenovirus Not Detected (Not Detect); Bordetella pertussis Not Detected (Not Detect); Chlamydophila pneumoniae Not Detected (Not Detect); Coronavirus 229E Not Detected (Not Detect); Coronavirus HKU1 Not Detected (Not Detect); Coronavirus NL 63 Not Detected (Not Detect); Coronavirus OC43 Not Detected (Not Detect); Human Metapneumovirus Not Detected (Not Detect); Human Rhinovirus/Enterovirus Not Detected (Not Detect); Influenza A Not Detected (Not Detect); Influenza B Not Detected (Not Detect); Mycoplasma pneumoniae Not Detected (Not Detect); Parainfluenza Virus 1 Not Detected (Not Detect); Parainfluenza Virus 2 Not Detected (Not Detect); Parainfluenza Virus 3 Not Detected (Not Detect); Parainfluenza Virus 4 Not Detected (Not Detect); Respiratory Syncytial Virus Not Detected (Not Detect)
[2020-03-02] VITALS (9 sets, daily range): BP systolic 96–125; BP diastolic 58–75; PULSE 73–80; RESP 20–26; TEMP 36.6–38; O2SAT 94–98
[2020-03-02] MEDS: ACETAMINOPHEN 325 MG TABLET 650 MG PO ×2 (04:48→12:54)
[2020-03-02 04:56] LABS: Add Manual Diff / Slide Review NO; Basophils Absolute Auto 0 /uL (0-100); Basophils Percent Auto 0.5 % (0-2); Eosinophils Absolute Auto 0 /uL (0-450); Eosinophils Percent Auto 0.1 % (2-4); Hematocrit 35.8 % (36-46); Hemoglobin 12.2 g/dL (12.0-16.0); Lymphocytes Absolute Auto 1200 /uL (1100-4500); Lymphocytes Percent Auto 28.2 % (25-40); Mean Corpuscular HGB Conc 34.1 % (30-36); Mean Corpuscular Hemoglobin 28.6 PG (26-34); Mean Corpuscular Volume 83.9 fL (80-100); Monocytes Absolute Auto 300 /uL (0-900); Monocytes Percent Auto 7.5 % (3-14); Neutrophils Absolute Auto 2600 /uL (1500-7000); Neutrophils Percent Auto 63.7 % (50-75); Platelet Count 196 X10^3/uL (150-400); Red Blood Cell Count 4.26 X10^6/uL (4.0-5.2); Red Cell Distribution Width 15.3 % (11.6-14.8); White Blood Cell Count 4.1 X10^3/uL (4.5-11.0)
[2020-03-02 05:11] LABS: BUN Creatinine Ratio 15.7 (6-22); Blood Urea Nitrogen 11 mg/dL (7-17); Calcium 8.3 mg/dL (8.4-10.2); Carbon Dioxide 35 mmol/L (22-32); Chloride 97 mmol/L (98-107); Estimated Glomerular Filt Rate > 60.0 mL/min (>60); Glucose 102 mg/dL (70-100); HEMOLYSIS < 15 (0-50); Potassium 3.7 mmol/L (3.4-5.1); Sodium 136 mmol/L (137-145)
[2020-03-02 05:20] LABS: Hemoglobin A1C% w Est Avg Glu 6.6 % (4.0-6.0)
[2020-03-02 05:24] LABS: Procalcitonin 0.07 ng/mL (<0.5)
[2020-03-02 05:25] LABS: C-Reactive Protein Quant 15.6 mg/dL (<1.0)
[2020-03-02] MEDS: levoFLOXacin 250 MG TABLET 750 MG PO (06:30)
--- NOTE | 2020-03-02 06:44 | PC.NURSE ---
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 Slept with hospital C-pap and 3l O2 bleed-in overnight, now on 2L NC in am, SpO2 >92%, lung sound diminished, dry hacking cough. Informed her that the COVID-19 test is positive, she has been in Airborne Precautions. She was upset and tearful, reassurance given and spoke with her about self-proning. Tylenol given for fever 100.1 and c/o headache.
[2020-03-02] MEDS: LACTATED RINGERS 1,000 ML 100 ML IV (08:00)
[2020-03-02] MEDS: PANTOPRAZOLE 40 MG VIAL IV (08:50)
[2020-03-02] MEDS: ENOXAPARIN 40 MG/0.4 ML SYRINGE SUBCUT (08:50)
[2020-03-02] MEDS: guaiFENesin ER 600 MG TAB 1200 MG PO ×2 (08:50→19:48)
[2020-03-02 13:25] LABS: COVID19 Sendout Positive (Not Detect)
--- NOTE | 2020-03-02 14:25 | DIET.PN ---
Dietary Progress Note Assessment: Ms. Redman is a 59-year-old female with a history hypertension, hypertriglyceridemia, GERD, hyperglycemia, obstructive sleep apnea, morbid obesity and past smoker who presents to the ER with worsening symptoms for 2 days. The patient was seen in the ER on 02/27/2020 for symptoms dysuria, urgency and right flank pain with fevers and abdominal cramping reporting her symptoms did not resolve and she continued to have abdominal pain. She states her last bowel movement was 6 days ago. HT: 157.48cm WT: 108kg BMI: 43.5 Labs: a1c: 6.6 MNA: 14 Omar: 18 Nutrition Diagnosis: Altered nutrition related lab values r/t endocrine dysfunction aeb elevated blood glucose, a1c, morbid obesity. Interventions: 1. Provided information on the impact of nutrition/diet on blood sugar control.? ?? 2. Provided information on the effect of carbohydrates/protein/fat on blood sugar control, and the importance of consistent carbohydrate intake at each meal and provided instructions for recommended servings/portions of carbohydrates/protein per meal. Provided pt with educational material. 3. Reviewed carbohydrate counting and measuring carbohydrate content via serving sizes and reading nutrition labels.? Provided handouts.?? Diet Order: heart healthy/cardiac EER: 1600 [place] @ 15cal/kg (morbid obese) ; Pro 108-130g (1-1.20) Monitoring/Evaluations: weight, PO's (75%), labs, need for ONS.
--- NOTE | 2020-03-02 15:30 | P.PN_ITS ---
Subjective Subjective Date Patient Seen: 03/02/20 Interval history: Jaimie Redman is a 59-year-old female with past medical history significant for hypertension, hypertriglyceridemia, GERD, diabetes mellitus type 2, non-insulin using, JUAN not on CPAP, insomnia, and morbid obesity who presented ED with worsening urinary symptoms including dysuria, urinary urgency and right flank pain with associated fever, chills, and rigors. The patient is resting in bed and appears comfortable. She states she is ?curious to know when I will get to go home as I do not feel that sick.? She endorses bilateral flank pain which is likely due to diaphragmatic irritation rather than pyelonephritis. She also endorses mild stomach ache and diarrhea that she believes are from the bowel meds she received in the ER yesterday. She notes that the beginning of her illness started with diarrhea approximately a week ago on her way back from [place]. She has a cough that is productive of sputum that started in last 1-2 days. She does not feel particularly short of breath. She does report mild substernal chest pressure and ansomia. She has no other complaints and denies headache, vision changes, rhinitis or nasal congestion, ear pain, pleuritic chest pain, shortness of breath, nausea, vomi ting, fever, chills, dysuria, or constipation. She continues to have urinary frequency. She is voiding and eliminating without difficulty. She is up ambulating without assistance. Exam Vital Signs (past 8 hours): - 03/02/20 08:14 03/02/20 10:18 03/02/20 12:11 Temperature 97.8 F 98.3 F Pulse Rate 75 73 Respiratory Rate 20 21 Blood Pressure 102/58 L 96/61 Pulse Oximetry 94 96 95 Fraction of Inspired Oxygen 24 Oxygen Delivery Method Nasal Cannula Oxygen Flow Rate 2 Narrative Exam Narrative: General: Middle-aged female sitting in bed and in no acute distress, appears acutely ill, mildly disheveled, well-developed, well-nourished, appropriately interactive. HEENT: Normocephalic, atraumatic. External ears without defect. Pupils equal, round, and reactive to light and accommodation. Anicteric sclerae, moist conjunctivae, and no lid lag. Oropharynx free of erythema and cobble stoning with moist mucosa. Neck: Supple with full range of motion. No lymphadenopathy or thyromegaly. Cardiovascular: Regular rate and rhythm without murmurs, rubs, or gallops appreciated. Pulmonary: Clear to auscultation bilaterally without crackles, wheezes, or rhonchi. Normal respiratory effort with no use of accessory muscles. Abdomen: Soft, bowel sounds present, nontender, nondistended. No hepatosplenomegaly or masses appreciated. Extremities: No clubbing, cyanosis, or edema. Skin: Normal temperature, turgor, and texture; no rash, ulcers, or subcutaneous nodules appreciated. Neurological: Cranial nerves grossly intact. Psychiatric: Slightly irritable mood and flat affect. Alert and oriented to person, place, and time. Objective Labs Result Diagrams: 03/02/20 04:45 03/02/20 04:45 Labs: Laboratory Results - last 24 hr 03/01/20 03/01/20 03/01/20 15:11 15:35 15:35 WBC 4.2 L RBC 4.67 Hgb 13.3 Hct 39.1 MCV 83.8 MCH 28.5 MCHC 34.0 RDW 15.3 H Plt Count 226 Neut % (Auto) 71.0 Lymph % (Auto) 22.5 L [place] % (Auto) 5.9 Eos % (Auto) 0.1 L Baso % (Auto) 0.5 Neut # (Auto) 3000 Lymph # (Auto) 900 L [place] # (Auto) 200 Eos # (Auto) 0 Baso # (Auto) 0 ESR ABG pH ABG pCO2 ABG pO2 ABG HCO3 ABG Total CO2 ABG O2 Saturation ABG Base Excess FiO2 Sodium Potassium Chloride Carbon Dioxide BUN Creatinine Estimated GFR BUN/Creatinine Ratio Glucose Hemoglobin A1c Lactate Calcium Magnesium Total Bilirubin AST ALT Alkaline Phosphatase Lactate Dehydrogenase C-Reactive Protein Total Protein Albumin Globulin Albumin/Globulin Ratio Procalcitonin 0.06 Urine Color Urine Appearance Urine pH Ur Specific [place] Urine Protein Urine Glucose (UA) Urine Ketones Urine Occult Blood Urine Nitrate Urine Bilirubin Urine Urobilinogen Ur Leukocyte Esterase Urine RBC Urine WBC Ur Squamous Epith Cells Amorphous Sediment Urine Bacteria Urine Mucus Ur Culture Indicated? Chlamy pneumoniae PCR Adenovirus (PCR) B.parapertussis DNA PCR Coronavirus OC43 (PCR) Coronavirus HKU1 (PCR) Coronavirus 229E (PCR) COVID-19 PCR Positive A Coronavirus NL63 (PCR) Human Metapneumovir PCR Influenza Type A (PCR) Influenza Type B (PCR) M. pneumoniae (PCR) Parainfluenza 1 (PCR) Parainfluenza 2 (PCR) Parainfluenza 3 (PCR) Parainfluenza 4 (PCR) RSV (PCR) Entero/Rhino (PCR) 03/01/20 03/01/20 03/01/20 15:35 15:35 15:35 WBC RBC Hgb Hct MCV MCH MCHC RDW Plt Count Neut % (Auto) Lymph % (Auto) [place] % (Auto) Eos % (Auto) Baso % (Auto) Neut # (Auto) Lymph # (Auto) [place] # (Auto) Eos # (Auto) Baso # (Auto) ESR 30 H ABG pH ABG pCO2 ABG pO2 ABG HCO3 ABG Total CO2 ABG O2 Saturation ABG Base Excess FiO2 Sodium 134 L Potassium 3.4 Chloride 96 L Carbon Dioxide 29 BUN 12 Creatinine 0.63 Estimated GFR > 60.0 BUN/Creatinine Ratio 19.0 Glucose 117 H Hemoglobin A1c Lactate 0.8 Calcium 8.9 Magnesium Total Bilirubin 0.4 AST 65 H ALT 36 H Alkaline Phosphatase 41 Lactate Dehydrogenase C-Reactive Protein Total Protein 6.8 Albumin 3.6 Globulin 3.2 Albumin/Globulin Ratio 1.1 Procalcitonin Urine Color Urine Appearance Urine pH Ur Specific [place] Urine Protein Urine Glucose (UA) Urine Ketones Urine Occult Blood Urine Nitrate Urine Bilirubin Urine Urobilinogen Ur Leukocyte Esterase Urine RBC Urine WBC Ur Squamous Epith Cells Amorphous Sediment Urine Bacteria Urine Mucus Ur Culture Indicated? Chlamy pneumoniae PCR Adenovirus (PCR) B.parapertussis DNA PCR Coronavirus OC43 (PCR) Coronavirus HKU1 (PCR) Coronavirus 229E (PCR) COVID-19 PCR Coronavirus NL63 (PCR) Human Metapneumovir PCR Influenza Type A (PCR) Influenza Type B (PCR) M. pneumoniae (PCR) Parainfluenza 1 (PCR) Parainfluenza 2 (PCR) Parainfluenza 3 (PCR) Parainfluenza 4 (PCR) RSV (PCR) Entero/Rhino (PCR) 03/01/20 03/01/20 03/01/20 15:35 15:35 15:42 WBC RBC Hgb Hct MCV MCH MCHC RDW Plt Count Neut % (Auto) Lymph % (Auto) [place] % (Auto) Eos % (Auto) Baso % (Auto) Neut # (Auto) Lymph # (Auto) [place] # (Auto) Eos # (Auto) Baso # (Auto) ESR ABG pH ABG pCO2 ABG pO2 ABG HCO3 ABG Total CO2 ABG O2 Saturation ABG Base Excess FiO2 Sodium Potassium Chloride Carbon Dioxide BUN Creatinine Estimated GFR BUN/Creatinine Ratio Glucose Hemoglobin A1c Lactate Calcium Magnesium 1.5 L Total Bilirubin AST ALT Alkaline Phosphatase Lactate Dehydrogenase 1028 H C-Reactive Protein 17.9 H Total Protein Albumin Globulin Albumin/Globulin Ratio Procalcitonin Urine Color Yellow Urine Appearance Clear Urine pH 7.5 Ur Specific [place] 1.015 Urine Protein 1+ H Urine Glucose (UA) Negative Urine Ketones Negative Urine Occult Blood Negative Urine Nitrate Negative Urine Bilirubin Negative Urine Urobilinogen 0.2 Ur Leukocyte Esterase Negative Urine RBC None seen Urine WBC 1-5/hpf Ur Squamous Epith Cells 0-1 /hpf D Amorphous Sediment 1+ Urine Bacteria None seen Urine Mucus 1+ H Ur Culture Indicated? Specimen cultured Chlamy pneumoniae PCR Adenovirus (PCR) B.parapertussis DNA PCR Coronavirus OC43 (PCR) Coronavirus HKU1 (PCR) Coronavirus 229E (PCR) COVID-19 PCR Coronavirus NL63 (PCR) Human Metapneumovir PCR Influenza Type A (PCR) Influenza Type B (PCR) M. pneumoniae (PCR) Parainfluenza 1 (PCR) Parainfluenza 2 (PCR) Parainfluenza 3 (PCR) Parainfluenza 4 (PCR) RSV (PCR) Entero/Rhino (PCR) 03/01/20 03/01/20 03/02/20 16:33 21:30 04:45 WBC 4.1 L RBC 4.26 Hgb 12.2 Hct 35.8 L MCV 83.9 MCH 28.6 MCHC 34.1 RDW 15.3 H Plt Count 196 Neut % (Auto) 63.7 Lymph % (Auto) 28.2 [place] % (Auto) 7.5 Eos % (Auto) 0.1 L Baso % (Auto) 0.5 Neut # (Auto) 2600 Lymph # (Auto) 1200 [place] # (Auto) 300 Eos # (Auto) 0 Baso # (Auto) 0 ESR ABG pH 7.44 ABG pCO2 40.8 ABG pO2 65 L ABG HCO3 28 H ABG Total CO2 29 ABG O2 Saturation 93 L ABG Base Excess 3.0 H FiO2 21 Sodium Potassium Chloride Carbon Dioxide BUN Creatinine Estimated GFR BUN/Creatinine Ratio Glucose Hemoglobin A1c Lactate Calcium Magnesium Total Bilirubin AST ALT Alkaline Phosphatase Lactate Dehydrogenase C-Reactive Protein Total Protein Albumin Globulin Albumin/Globulin Ratio Procalcitonin Urine Color Urine Appearance Urine pH Ur Specific [place] Urine Protein Urine Glucose (UA) Urine Ketones Urine Occult Blood Urine Nitrate Urine Bilirubin Urine Urobilinogen Ur Leukocyte Esterase Urine RBC Urine WBC Ur Squamous Epith Cells Amorphous Sediment Urine Bacteria Urine Mucus Ur Culture Indicated? Chlamy pneumoniae PCR Not detected Adenovirus (PCR) Not detected B.parapertussis DNA PCR Not detected Coronavirus OC43 (PCR) Not detected Coronavirus HKU1 (PCR) Not detected Coronavirus 229E (PCR) Not detected COVID-19 PCR Coronavirus NL63 (PCR) Not detected Human Metapneumovir PCR Not detected Influenza Type A (PCR) Not detected Influenza Type B (PCR) Not detected M. pneumoniae (PCR) Not detected Parainfluenza 1 (PCR) Not detected Parainfluenza 2 (PCR) Not detected Parainfluenza 3 (PCR) Not detected Parainfluenza 4 (PCR) Not detected RSV (PCR) Not detected Entero/Rhino (PCR) Not detected 03/02/20 03/02/20 03/02/20 04:45 04:45 04:45 WBC RBC Hgb Hct MCV MCH MCHC RDW Plt Count Neut % (Auto) Lymph % (Auto) [place] % (Auto) Eos % (Auto) Baso % (Auto) Neut # (Auto) Lymph # (Auto) [place] # (Auto) Eos # (Auto) Baso # (Auto) ESR ABG pH ABG pCO2 ABG pO2 ABG HCO3 ABG Total CO2 ABG O2 Saturation ABG Base Excess FiO2 Sodium 136 L Potassium 3.7 Chloride 97 L Carbon Dioxide 35 H BUN 11 Creatinine 0.70 Estimated GFR > 60.0 BUN/Creatinine Ratio 15.7 Glucose 102 H Hemoglobin A1c 6.6 H Lactate Calcium 8.3 L Magnesium Total Bilirubin AST ALT Alkaline Phosphatase Lactate Dehydrogenase C-Reactive Protein 15.6 H Total Protein Albumin Globulin Albumin/Globulin Ratio Procalcitonin 0.07 Urine Color Urine Appearance Urine pH Ur Specific [place] Urine Protein Urine Glucose (UA) Urine Ketones Urine Occult Blood Urine Nitrate Urine Bilirubin Urine Urobilinogen Ur Leukocyte Esterase Urine RBC Urine WBC Ur Squamous Epith Cells Amorphous Sediment Urine Bacteria Urine Mucus Ur Culture Indicated? Chlamy pneumoniae PCR Adenovirus (PCR) B.parapertussis DNA PCR Coronavirus OC43 (PCR) Coronavirus HKU1 (PCR) Coronavirus 229E (PCR) COVID-19 PCR Coronavirus NL63 (PCR) Human Metapneumovir PCR Influenza Type A (PCR) Influenza Type B (PCR) M. pneumoniae (PCR) Parainfluenza 1 (PCR) Parainfluenza 2 (PCR) Parainfluenza 3 (PCR) Parainfluenza 4 (PCR) RSV (PCR) Entero/Rhino (PCR) Assessment & Plan Assessment & Plan narrative: Jaimie Redman is a 59-year-old female with past medical history significant for hypertension, hypertriglyceridemia, GERD, diabetes mellitus type 2, non-insulin using, JUAN not on CPAP, insomnia, and morbid obesity who presented ED with worsening urinary symptoms including dysuria, urinary urgency and right flank pa in with associated fever, chills, and rigors. 1. Acute hypoxemic respiratory failure, present on admission. Resolving. -Patient had no complaints of shortness of breath and incidentally was found to be hypoxemic with SpO2 80s in the ED and tachypneic with respiratory rate 25-35 bpm. -Initial ABG: pH of 7.44, pCO2 40.8, PO2 65, HC03 28 with SpO2 93% on FiO2 0.21. PF ratio is 307. -Continue to treat underlying causes of bilateral COVID-19 viral pneumonia. -Continue respiratory therapy evaluation and treatment. Continue supplemental oxygen as necessary to maintain oxygen saturations 88-92%. Patient currently on 2 L with SpO2 95%. Continue albuterol inhaler 2 puffs every 4 hours as needed for shortness of breath or wheezing. Continue Mucinex 1200 mg twice daily while patient is having productive cough. Continue Acapella 10x/hr while awake. 2. Acute bilateral COVID-19 viral pneumonia, present on admission. Active. -Patient presented for which she believed to be worsening urinary tract symptoms including fevers, chills, myalgias and urinary frequency. She was incidentally found to be hypoxemic. Of note, patient has no known exposure to COVID-19, however, patient recently traveled to [place] and back. -Chest x-ray did not demonstrate any acute cardiopulmonary process. -CTA chest demonstrated interval development of a patchy pulmonary process which includes extensive groundglass opacities, as well as some right upper lobe honeycombing possibly due to chronic interstitial fibrosis with an acute inflammatory component versus viral pneumonia superimposed on some honeycombing in the right upper lobe. -COVID-19 positive and continue droplet airborne precautions. Respiratory PCR negative. -Initial CRP elevated at 17.9 and trending down now 15.6. LDH highly elevated at 1028. ESR elevated at 30. -Continue respiratory therapy evaluation and treatment. Continue albuterol inhaler 2 puffs every 4 hours as needed for shortness of breath or wheezing. Continue Levaquin 750 mg x 2 doses to complete treatment for UTI as below. Continue azithromycin 500 mg x 3 doses for pulmonary anti-inflammatory properties. Continue Mucinex 1200 mg twice daily while patient is having productive cough. Continue Acapella 10x/hr while awake. 3. Recent UTI with bilateral flank pain, present on admission. Resolved. -Patient endorses bilateral flank pain which is likely due to COVID-19 viral pneumonia and diaphragmatic irritation rather than pyelonephritis as CT abdomen and pelvis does not demonstrate any evidence of current or resolving pyelonephritis. Patient also has mild stomach discomfort in setting of previous episodes of diarrhea last week with 6 days of constipation. Patient received bowel regimen and is now having diarrhea as below. -CT abdomen and pelvis unremarkable and demonstrated no obstructing renal stone or hydronephrosis with normal appearing bilateral ureters, Mark catheter in a decompressed urinary bladder, no bowel obstruction, no abnormal bowel wall thickening, small to moderate size hiatal hernia, no free fluid or free air and sigmoid diverticulosis without evidence of acute diverticulitis. Review of CT by me demonstrates significant stool burden. Patient endorses no BM for 6 days. -Started and continue Colace 100 mg twice daily, MiraLax 17 g daily now switched to as needed for constipation as patient is having loose stool, and Dulcolax 10 mg suppository daily as needed for constipation. -Patient was on Keflex twice daily for 3 days and then placed on Levaquin 750 mg daily x 2 days for total of 5 day course of antibiotic treatment. Previous urinalysis was considered a contaminant as > 30 epithelial cells present and was not cultured. Repeat urinalysis while on antibiotics was sent for culture and has no growth to date. WBC and procalcitonin negative. Patient afebrile. No further antibiotic treatment is warranted at this time. 4. Newly diagnosed diabetes mellitus type 2, chronic, present on admission. Stable. -Patient noted to have hyperglycemia and performed hemoglobin A1c 6.6% indicative of diabetes. -Started and continue ACHS blood glucose checks and low-dose correctional scale insulin for coverage. Consider starting oral antihyperglycemic such as metformin at time of discharge. -Continue carbohydrate consistent/heart healthy diet. 5. JUAN, chronic, present on admission. Stable. -Continue CPAP per JUAN protocol and respiratory therapy. 6. Hypertension, chronic, present on admission. Stable. -Patient has had low normal blood pressure since admission. -Continue holding antihypertensives including losartan 100 mg daily and hydrochlorothiazide 25 mg daily. 7. GERD, chronic, present on admission. Stable. -Patient previously had diarrhea which may have been related to COVID-19 then resolved and now having diarrhea once again possibly related to antibiotics. Held PPI due to possibility for C difficile. If patient requests medication for acid reflux would use calcium carbonate or famotidine. 8. Morbid obesity, chronic, present on admission. Stable. -BMI 43.9 -Consulted dietitian and we appreciate her time and recommendations. -Will need to counselor marriage and family the patient on lifestyle modification including diet and exercise prior to discharge. Isolation: Droplet and airborne for COVID-19 Code status: Full code. Patient's surrogate decision maker is her sister Heidi. DVT prophylaxis: Enoxaparin, SCDs Disposition: Patient remains hospitalized and will likely discharge home in ever pending clinical improvement.
[2020-03-02 15:52] LABS: Alanine Aminotransferase 36 IU/L (<35); Albumin 3.1 g/dL (3.5-5.0); Albumin Globulin Ratio 1.1 (1.0-2.8); Alkaline Phosphatase 32 U/L (38-126); Aspartate Aminotransferase 74 IU/L (14-36); Bilirubin Total 0.3 mg/dL (0.2-1.3); Bilirubin Unconjugated 0.2 mg/dL (0.0-1.1); Globulin 2.8 g/dL (1.7-4.1); HEMOLYSIS < 15 (0-50); Magnesium 1.5 mg/dL (1.6-2.3); Total Protein 5.9 g/dL (6.3-8.2)
[2020-03-02] MEDS: MAGNESIUM SULFATE 2 GM/50 ML PIGGYBACK IV (16:44)
[2020-03-02] MEDS: AZITHROMYCIN 250 MG TABLET 500 MG PO (16:46)
--- NOTE | 2020-03-02 21:11 | RT ---
pt refuses to wear cpap unit tonight. pt currently on 3lpm nc. spo2 96%
--- NOTE | 2020-03-02 22:40 | PC.NURSE ---
Pt has declined cpap, states she's clostrophobic. She is currently self proning - on 3LO2, sats 99%. Denies pain or discomfort.
[2020-03-03] VITALS (10 sets, daily range): BP systolic 97–146; BP diastolic 57–82; PULSE 71–94; RESP 18–27; TEMP 36.7–38.7; O2SAT 92–96
[2020-03-03] MEDS: ACETAMINOPHEN 325 MG TABLET 650 MG PO ×3 (00:26→21:23)
[2020-03-03 04:55] LABS: Add Manual Diff / Slide Review NO; Basophils Absolute Auto 0 /uL (0-100); Basophils Percent Auto 0.5 % (0-2); Eosinophils Absolute Auto 0 /uL (0-450); Hematocrit 36.7 % (36-46); Hemoglobin 12.1 g/dL (12.0-16.0); Lymphocytes Absolute Auto 1100 /uL (1100-4500); Lymphocytes Percent Auto 25.2 % (25-40); Mean Corpuscular HGB Conc 32.9 % (30-36); Mean Corpuscular Hemoglobin 27.7 PG (26-34); Mean Corpuscular Volume 84.4 fL (80-100); Monocytes Absolute Auto 400 /uL (0-900); Monocytes Percent Auto 7.9 % (3-14); Neutrophils Absolute Auto 3000 /uL (1500-7000); Neutrophils Percent Auto 66.4 % (50-75); Platelet Count 244 X10^3/uL (150-400); Red Blood Cell Count 4.35 X10^6/uL (4.0-5.2); Red Cell Distribution Width 15.3 % (11.6-14.8); White Blood Cell Count 4.5 X10^3/uL (4.5-11.0)
[2020-03-03 05:01] LABS: Alanine Aminotransferase 42 IU/L (<35); Albumin 3.2 g/dL (3.5-5.0); Albumin Globulin Ratio 1.1 (1.0-2.8); Alkaline Phosphatase 37 U/L (38-126); Aspartate Aminotransferase 78 IU/L (14-36); BUN Creatinine Ratio 16.7 (6-22); Bilirubin Total 0.4 mg/dL (0.2-1.3); Blood Urea Nitrogen 9 mg/dL (7-17); Calcium 8.2 mg/dL (8.4-10.2); Carbon Dioxide 31 mmol/L (22-32); Chloride 96 mmol/L (98-107); Estimated Glomerular Filt Rate > 60.0 mL/min (>60); Glucose 99 mg/dL (70-100); HEMOLYSIS < 15 (0-50); Magnesium 1.6 mg/dL (1.6-2.3); Potassium 3.3 mmol/L (3.4-5.1); Sodium 132 mmol/L (137-145); Total Protein 6.2 g/dL (6.3-8.2)
[2020-03-03 05:27] LABS: Procalcitonin 0.08 ng/mL (<0.5)
[2020-03-03] MEDS: POTASSIUM CHLORIDE 20 MEQ TAB 40 MEQ PO (06:12)
[2020-03-03] MEDS: guaiFENesin ER 600 MG TAB 1200 MG PO ×2 (08:26→21:22)
[2020-03-03] MEDS: ENOXAPARIN 40 MG/0.4 ML SYRINGE SUBCUT (08:26)
[2020-03-03] MEDS: AZITHROMYCIN 250 MG TABLET 500 MG PO (08:26)
--- NOTE | 2020-03-03 09:42 | PM.PN.1 ---
Subjective Subjective Date Patient Seen: 03/03/20 Interval history: Jaimie Redman is a 59-year-old female with past medical history significant for obesity, hypertension, hypertriglyceridemia, GERD, diabetes mellitus type 2, non-insulin using, JUAN not on CPAP, insomnia who presented ED with worsening urinary symptoms including dysuria, urinary urgency and right flank pain with associated fever, chills, and rigors. Patient states her cough is not worse. Denies dyspnea on 3 L O2. Her O2 sats dropped to mid to upper 80s when she is up out of bed. She denies ongoing diarrhea, flank pain or dysuria. She notes that the beginning of her illness started with diarrhea approximately a week [employer] on her way back from [place]. Exam Vital Signs (past 8 hours): - 03/03/20 03:00 03/03/20 08:37 03/03/20 08:44 Temperature 100.5 F H 99.4 F Pulse Rate 82 84 Respiratory Rate 27 H 20 Blood Pressure 124/57 L 114/73 Pulse Oximetry 95 95 92 Fraction of Inspired Oxygen 24 Oxygen Delivery Method Nasal Cannula Oxygen Flow Rate 3 Narrative Exam Narrative: General: Alert and comfortable appearing female Lungs: Breathing nonlabored, clear to auscultation Heart: Regular rhythm Extremities: No edema Neurological: Sensorium intact Objective Labs Result Diagrams: 03/03/20 04:40 03/03/20 04:40 Labs: Laboratory Results - last 24 hr 03/01/20 03/02/20 03/03/20 15:11 04:45 04:40 WBC 4.5 RBC 4.35 Hgb 12.1 Hct 36.7 MCV 84.4 MCH 27.7 MCHC 32.9 RDW 15.3 H Plt Count 244 Neut % (Auto) 66.4 Lymph % (Auto) 25.2 [place] % (Auto) 7.9 Eos % (Auto) 0.0 L Baso % (Auto) 0.5 Neut # (Auto) 3000 Lymph # (Auto) 1100 [place] # (Auto) 400 Eos # (Auto) 0 Baso # (Auto) 0 Sodium Potassium Chloride Carbon Dioxide BUN Creatinine Estimated GFR BUN/Creatinine Ratio Glucose Calcium Magnesium 1.5 L Total Bilirubin 0.3 Conjugated Bilirubin 0.0 Unconjugated Bilirubin 0.2 AST 74 H ALT 36 H Alkaline Phosphatase 32 L Total Protein 5.9 L Albumin 3.1 L Globulin 2.8 Albumin/Globulin Ratio 1.1 Procalcitonin COVID-19 PCR Positive A 03/03/20 03/03/20 04:40 04:40 WBC RBC Hgb Hct MCV MCH MCHC RDW Plt Count Neut % (Auto) Lymph % (Auto) [place] % (Auto) Eos % (Auto) Baso % (Auto) Neut # (Auto) Lymph # (Auto) [place] # (Auto) Eos # (Auto) Baso # (Auto) Sodium 132 L Potassium 3.3 L Chloride 96 L Carbon Dioxide 31 BUN 9 Creatinine 0.54 Estimated GFR > 60.0 BUN/Creatinine Ratio 16.7 Glucose 99 Calcium 8.2 L Magnesium 1.6 Total Bilirubin 0.4 Conjugated Bilirubin Unconjugated Bilirubin AST 78 H ALT 42 H Alkaline Phosphatase 37 L Total Protein 6.2 L Albumin 3.2 L Globulin 3.0 Albumin/Globulin Ratio 1.1 Procalcitonin 0.08 COVID-19 PCR Assessment & Plan Assessment & Plan narrative: Jaimie Redman is a 59-year-old female with past medical history significant for obesity, hypertension, hypertriglyceridemia, GERD, diabetes mellitus type 2, non-insulin using, JUAN not on CPAP, insomnia admitted due to COVID-19 pneumonia and respiratory failure. 1. Acute hypoxemic respiratory failure, present on admission. Active. -Patient had no complaints of shortness of breath but was found to be hypoxemic with SpO2 80s in the ED and tachypneic with respiratory rate 25-35 bpm. -Initial ABG: pH of 7.44, pCO2 40.8, PO2 65, HC03 28 with SpO2 93% on FiO2 0.21. PF ratio is 307. -Continue to treat underlying causes of bilateral COVID-19 viral pneumonia. -Patient currently on 3 L NC. Continue supplemental oxygen as necessary to maintain oxygen saturations 88-92%. -Continue albuterol inhaler 2 puffs every 4 hours as needed. Continue Mucinex 1200 mg twice daily while patient is having productive cough. Continue Acapella 10x/hr while awake. -Continue self proning as tolerated 2. Acute bilateral COVID-19 viral pneumonia, present on admission. Active. -Patient presented for which she believed to be worsening urinary tract symptoms including fevers, chills, myalgias and urinary frequency. She was found to be hypoxemic. Of note, patient has no known exposure to COVID-19, however, patient recently traveled to [place] and back. -she has mild cough and low-grade fever -Chest x-ray did not demonstrate any acute cardiopulmonary process. -CTA chest demonstrated interval development of a patchy pulmonary process which includes extensive groundglass opacities, right upper lobe honeycombing possibly due to chronic interstitial fibrosis with an acute inflammatory component versus viral pneumonia superimposed on some honeycombing in the right upper lobe. -COVID-19 positive. -Initial CRP elevated at 17.9, LDH highly elevated at 1028. ESR elevated at 30. -Received azithromycin 500 mg x 3 doses for pulmonary anti-inflammatory properties. 3. Recent UTI with bilateral flank pain, present on admission. Resolved. -Patient had complained of bilateral flank pain which is likely due to COVID-19 viral pneumonia and diaphragmatic irritation rather than pyelonephritis -CT abdomen and pelvis without evidence of pyelonephritis, Mark catheter in a decompressed urinary bladder, sigmoid diverticulosis without evidence of acute diverticulitis. Review of CT demonstrated significant stool burden. Patient endorses no BM for 6 days [employer]. -Started and continue Colace 100 mg twice daily, MiraLax 17 g daily now prn, and Dulcolax 10 mg suppository prn -Patient treated with Keflex twice daily for 3 days and then placed on Levaquin 750 mg daily x 2 days for total of 5 day course of antibiotic treatment. -Previous urinalysis was considered a contaminant as > 30 epithelial cells present and was not cultured. Repeat urinalysis while on antibiotics no growth. -WBC and procalcitonin negative. Patient afebrile. 4. Newly diagnosed diabetes mellitus type 2, chronic, present on admission. Stable/controlled. -Patient noted to have hyperglycemia and performed hemoglobin A1c 6.6% indicative of diabetes. -CBG remain below 150, can d/c glucose checks -Continue carbohydrate consistent/heart healthy diet. 5. JUAN, chronic, present on admission. Stable. -patient's CPAP mouth functioning, RT to evaluate -airborne precautions while on CPAP 6. Hypertension, chronic, present on admission. Stable. -Patient had initial low blood pressures which have normalized. -Continue holding antihypertensives including losartan 100 mg daily and hydrochlorothiazide 25 mg daily. 7. GERD, chronic, present on admission. Stable. -continue PPI 8. Morbid obesity, chronic, present on admission. Stable. -BMI 43.9 9. Acute hypokalemia, active -K +3.3 -received KCl 40 mEq p.o. x1 then 20 mEq q.d. -monitor electrolytes Isolation: Droplet, airborne while on CPAP Code status: Full code. Patient's surrogate decision maker is her sister Heidi. DVT prophylaxis: Enoxaparin
--- NOTE | 2020-03-03 15:19 | PC.NURSE ---
Pt doing well today. Denies shortness of breath at rest or with activity despite observed tachypnea, especially on exertion (RR mid 30s). Able to titrate oxygen to 2L NC today with SPO2 maintaining 90s%. Did note intermittent desat to 86% during sleep on 2L NC (pt declined cpap at that time). Pt has been up to the chair for meals and walking to BR independently with steady gait. Pt is asking appropriate questions about her care and asking if she can go home with O2. Educated to plan of care. She verbalized understanding.
--- NOTE | 2020-03-03 20:31 | PC.NURSE ---
Evening shift note: A/O x 4, resting in bed, states that she feels better today, but gets very tire doing any ADL. States that she does not experience SOB at rest or with activity, bedside report states pt was observed to be tachypnic, especially with exertion (RR mid 30s). Oxygen is currently at 2L NC, pt was titrated during day shift with SPO2 noted to be steady in the 90s%. Pt has refused Cpap during day shift and through this evening shift, pt states that she doesn't feel SOB so feels like she doesn't need the Cpap. Pt has been up to the chair for meals and walking to BR with stand by assist, gait is steady. Educated pt regarding her care, questions were answered to her satisfaction, but she would like to know when she can go home, states that she feels that she can manage her care at home with home O2. Bed is low and locked, call light within reach, all needs met at this time, will continue to monitor.
[2020-03-04 00:15] VITALS: BP 107/60; PULSE 79; RESP 28; TEMP 37.7; O2SAT 97
--- NOTE | 2020-03-04 01:18 | PC.NURSE ---
Addendum entered by Vee Greene R.N. 03/04/20 06:31: Decrease O2 to 1L NC at 0600, SpO2 stayed >94% at rest, removed O2 at 0630, patient ambulated into BR on RA, RR 20s, SpO2 remaining 86% when back to bed, replaced NC at 1L with quick recovery to 92%. Original Note: Wheel [employer] Axle [employer] [id number] is fatigued with flat affect but oriented x4, uses call light for assist to BR, steady. Does exhibit shortness of breath with RR 30s during activity, SpO2 86-89% on 2L while lying on Lt side, up to 97% while lying on Rt side, lung sounds diminished throughout with fine crackles RLL, no cough. Declines use of C-pap, encouraged her to self-prone as much as possible throughout night. T 99.9, denies pain.
[2020-03-04 04:00] VITALS: BP 142/83; PULSE 80; RESP 24; TEMP 37.4; O2SAT 93
[2020-03-04] MEDS: ACETAMINOPHEN 325 MG TABLET 650 MG PO ×2 (04:25→09:15)
[2020-03-04] MEDS: PANTOPRAZOLE 20 MG TABLET PO (05:57)
[2020-03-04 08:00] VITALS: BP 113/67; PULSE 92; RESP 20; TEMP 36.6; O2SAT 92
[2020-03-04] MEDS: POTASSIUM CHLORIDE 20 MEQ TAB PO (08:51)
[2020-03-04] MEDS: ENOXAPARIN 40 MG/0.4 ML SYRINGE SUBCUT (08:51)
[2020-03-04] MEDS: guaiFENesin ER 600 MG TAB 1200 MG PO (08:52)
[2020-03-04] MEDS: SODIUM CHLORIDE 0.9% FLUSH 10 ML IV (08:53)
[2020-03-04 09:48] VITALS: O2SAT 92
--- NOTE | 2020-03-04 09:57 | RT ---
Home o2 evaluation. O2 sats at rest, room air: 84% O2 sats at rest, 2 lpm nasal cannula: 92% O2 sats, ambulating on 2 lpm: 90%. Rec: Home O2, 2 lpm continously to treat her Covid 19, pneumonia and hypoxia.
--- NOTE | 2020-03-04 10:28 | P.DS_ITS ---
History of Present Illness History of Present Illness Chief complaint: Fever Narrative: Ms. Jaimie Redman is a 59-year-old female with a history hypertension, hypertriglyceridemia, GERD, hyperglycemia, obstructive sleep apnea with insomnia and fatigue, morbid obesity and past smoker who presents to the ER with worsening symptoms for 2 days. The patient was seen in the ER on 02/27/2020 for symptoms dysuria, urgency and right flank pain with fevers and abdominal cramping. She was diagnosed with pyelonephritis and discharged home on Keflex and Zofran. The patient states her symptoms did not resolve and she continued to have abdominal pain she describes is bilateral lower abdomen that is constant and crampy in character. She states her last bowel movement was 6 days ago. She has had no headaches nasal congestion or sore throat. She denies chest pain or palpitations. She reports no complaints of dyspnea or shortness of breath today even when EMS found her hypoxemic. She has had no cough and denies wheezing. She reports generalized abdominal pain worse lower than upper and bilateral flank pain. She denies difficulty urinating has had no frequency urgency or burning. The patient presented via EMS and upon arrival to home today found her blood pressure being the upper 70s lower 80s with an SpO2 in the 80s. Upon arrival to the ER the patient has a temperature of 99.9?, heart rate of 90, blood pressure 106/59, respiratory rate 25 saturating 95% on room air which later dropped to 89% as started on nasal cannula oxygen. Imaging reveals bilateral patchy ground-glass opacities posterior lateral chest suggestive of bilateral scattered infiltrates consistent with atypical pneumonia and bilateral upper lobe honeycombing with chronic interstitial fibrosis, finding of sigmoid dive rticulosis with normal bowel caliber and wall thickness. An arterial blood gases obtained finding a pH of 7.44, pCO2 40.8, PO2 of 65, bicarb 28 with a base excess +3 on 21% FiO2. On laboratory analysis she has white count of 4.2, hemoglobin of 13.3, hematocrit 39.1 and platelets of 226. Patient has a sodium 134, potassium of 3.4, BUN of 12 and a creatinine of 0.63. Her nonfasting glucose is 117. She has a total bilirubin of 0.4 with an AST elevated at 65, ALT of 36 and alkaline phosphatase of 41. Her albumin is 3.6. She has lactic acid of 0.8 and procalcitonin 0.08. Additional labs requested including 8 sed rate which is 30, CRP which is 17.9 and LDH is 1028. In the ER the patient received Levaquin 500 mg following obtaining blood cultures and lorazepam. The patient is admitted to the medicine service for bilateral pneumonia in the setting of interstitial fibrotic lung disease. Discharge Providers Provider Date of admission: 03/01/20 18:23 Discharge Date: 03/04/20 Primary care physician: REX Gurrola Consults: 03/01/20 20:09 Consult to Dietitian, Adult Routine Comment: Reason For Exam: Hyperglycemia, morbid obesity Consult to Discharge Planning Routine Comment: Consult to Respiratory Therapy Evaluate & Treat Comment: Bilateral atypical pneumonia, interstitial lung dz Physician Instructions: Evaluate and treat Discharge provider: Talon Hernández MD Summary Hospital Course Discharge Diagnosis: 1 acute hypoxemic respiratory failure 2. Acute bilateral COVID-19 viral pneumonia 3. Type 2 diabetes, new diagnosis 4. Obstructive sleep apnea 5. Hypertension Patient presented with fevers, chills, myalgias and noted to be hypoxemic. CTA chest demonstrated interval development of a patchy pulmonary process which includes extensive groundglass opacities, right upper lobe honeycombing possibly due to chronic interstitial fibrosis with an acute inflammatory component versus viral pneumonia superimposed on some honeycombing in the right upper lobe. She had positive COVID-19 PCR. Initial CRP elevated at 17.9, LDH highly elevated at 1028. She received Zithromax x 3 days for pulmonary anti-inflammatory properties. She required supplemental O2 2-3 L nasal cannula. Overall hospital course has been stable without any increase in O2 requirements. She is able to get out of bed and to bathroom without feeling labored while using oxygen. She is being discharged on 2 L home O2. Her local health department has been notified of patient's discharge. Patient is instructed to socially isolate until cleared by her local health department. Patient was hypoxic at rest with room air O2 sats of 84%. At rest on 2 L nasal cannula, her O2 sats improved to 92%, in her O2 sats while ambulating on 2 L were 90%. I am ordering home O2 at 2 L continuously to treat her COVID-19, pneumonia and hypoxia. Additionally patient was noted to have mildly elevated blood sugars with hemoglobin A1c 6.6% indicating new diagnosis of type 2 diabetes. At present she is diet controlled. She is instructed to follow-up on diabetes management with her PCP once she is recovered from this virus. She has not required her antihypertensives during her hospital stay. Her HCTZ and losartan have been temporarily discontinued and can be resumed if her blood pressure is elevated. Total time spent of over 30 minutes in discharge day management. Exam Vital Signs (past 8 hours): - 03/04/20 04:00 03/04/20 08:00 03/04/20 09:48 Temperature 99.3 F 97.8 F Pulse Rate 80 92 H Respiratory Rate 24 20 Blood Pressure 142/83 H 113/67 Pulse Oximetry 93 92 92 Fraction of Inspired Oxygen 24 Oxygen Delivery Method Nasal Cannula Oxygen Flow Rate 1 Objective Labs Result Diagrams: 03/03/20 04:40 03/03/20 04:40 Discharge Plan Discharge Plan Patient Disposition: Home Discharge comment: We treated you for respiratory failure due to COVID-19 pneumonia. You must socially isolate until you are cleared by your local health department. We have arranged home O2. Your blood pressure medications are tem porarily discontinued and can be resumed if your BP is elevated (haven't needed while in hospital). Additionally you have had mildly elevated blood sugars with new diagnosis of Type 2 diabetes which is presently diet controlled (hemoglobin A1c 6.6%). Please address diabetes management with PCP once you have recovered from this virus. Discharge orders & Medications Prescriptions: Continued albuterol sulfate 90 mcg/actuation HFA aerosol inhaler 2 puff INHALATION Q4-6H PRN (Reason: bronchospasm) Qty: 8.5 RF: 0 omeprazole 20 mg capsule,delayed release(DR/EC) 20 mg PO QAM RF: 0 Discontinued cephalexin [Keflex] 500 mg capsule 500 mg PO QID 7 Days Qty: 28 RF: 0 ondansetron 4 mg tablet,disintegrating 4 mg PO TID-QID PRN (Reason: nausea and vomiting) Qty: 10 RF: 0 hydrochlorothiazide 25 mg tablet 25 mg PO QAM RF: 0 losartan 100 mg tablet 100 mg PO QAM RF: 0 potassium chloride 20 mEq tablet extended release 20 meq PO QAM RF: 0 Follow up/Referrals: Nicole Esquivel ARNP [Primary Care Provider] - Diet/Activity/Treatments Diet: Diet as Tolerated Discharge Data Primary Care Provider: Nicole Esquivel
--- NOTE | 2020-03-04 10:48 | CM.DPNOTE ---
DCP Cont Patient eager to return home and Dr Hernández hopeful to DC patient home today, RT working w/[employer] to secure Home O2. Spoke w/TRICIA Bejarano re: needs from this CASTING AND PASTING SUPERVISOR, RN has been entering room for patient care and denies needs at this time. Patient ambulating in room and will likely have friend/family transport home. This CASTING AND PASTING SUPERVISOR following closely in case DC needs or concerns arise, staying out of patient room at this time d/t positive COVID-19. P: DC home w/supportive friends/family via pov (PPE/COVID-19 precautions will be reviewed) w/close outpt f/u JW
--- NOTE | 2020-03-04 12:48 | PC.NURSE ---
Discharge Note Pt discharged to home at 1230 with daughter transporting. Pt escorted to hospital exit via wheelchair with mask and PPE in place, daughter with mask in place. Pt discharging to home, lives alone, instructed on importance of self-isolating, acknowledged understanding. Home oxygen set up by RT - see their note. Pt on 2L NC at time of discharge. [facility] Dept. number given to pt. 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
== END 2020-03-04 12:40 | disposition home or self-care (01) | DRG 137 ==
LOC: ED 16:17 → ICU 23:36 → AC 03-04 09:31
PROVIDERS: Nurse Practitioner Adult Health; Admitting Provider Internal Medicine; Emergency Provider Emergency Medicine; PCP Nurse Practitioner; Referring Provider Emergency Medicine; Visit Provider Internal Medicine
DX: U07.1 COVID-19 (principal); J12.89 Other viral pneumonia; J96.01 Acute respiratory failure with hypoxia; N12 Tubulo-interstitial nephritis, not specified as acute or chronic; E66.01 Morbid (severe) obesity due to excess calories; Z68.41 Body mass index [BMI] 40.0-44.9, adult; E11.9 Type 2 diabetes mellitus without complications; E87.6 Hypokalemia; I10 Essential (primary) hypertension; K21.9 Gastro-esophageal reflux disease without esophagitis; G47.00 Insomnia, unspecified; G47.33 Obstructive sleep apnea (adult) (pediatric); Z87.891 Personal history of nicotine dependence
CPT/HCPCS: 36415; 36600; 51701; 71045; 71275; 74177; 80048; 80053; 80076; 81001; 82805; 82962; 83036; 83605; 83615; 83735; 84145; 85025; 85651; 86140; 87040; 87086; 87633; 87635; 94618; 94660; 94667; 94760; 94762; 96361; 96365; 96375; 99285; 99291; C9113; J1650; J1956; J2060; Q9967

== ENCOUNTER → 2020-08-26 14:30 | Outpatient (CLI) | payer OTHER, MEDICAID, SELFPAY ==
[2020-03-01 20:11] VITALS: BMI 43.9
--- NOTE | 2020-08-26 14:31 | DI.RAD.S_ITS ---
PROCEDURE: XR SHOULDER LT MIN 2V INDICATIONS: Bilateral shoulder pain TECHNIQUE: 3 views of the left shoulder were acquired. COMPARISON: None. FINDINGS: Bones: No fractures or dislocations. No suspicious bony lesions. Visualized ribs appear intact. Mild to moderate glenohumeral joint osteoarthritis. Mild acromioclavicular joint osteoarthritis. Soft tissues: No suspicious soft tissue calcifications. IMPRESSION: Glenohumeral joint and acromioclavicular joint osteoarthritis. Dictated by: Phyllis Jang MD, PhD on 08/26/2020 at 17:03 Approved by: Phyllis Jang MD, PhD on 08/26/2020 at 17:04
--- NOTE | 2020-08-26 14:31 | DI.RAD.S_ITS ---
PROCEDURE: XR SHOULDER RT MIN 2V INDICATIONS: Bilateral shoulder pain TECHNIQUE: 3 views of the shoulder were acquired. COMPARISON: [facility], , SHOULDER MINIMUM 2VIEW RIGHT, 01/29/2017, 12:35. FINDINGS: Bones: No fractures or dislocations. No suspicious bony lesions. Visualized ribs appear intact. [id number] glenohumeral joint and acromioclavicular joint osteoarthritis. Soft tissues: No suspicious soft tissue calcifications. IMPRESSION: Glenohumeral joint and acromioclavicular joint osteoarthritis. Dictated by: Phyllis Jang MD, PhD on 08/26/2020 at 17:04 Approved by: Phyllis Jang MD, PhD on 08/26/2020 at 17:05
== END ==
PROVIDERS: PCP Registered Nurse Diabetes Educator; Referring Provider Registered Nurse Diabetes Educator; Visit Provider Registered Nurse Diabetes Educator
DX: M25.512 Pain in left shoulder (principal); M25.511 Pain in right shoulder; M19.012 Primary osteoarthritis, left shoulder; M19.011 Primary osteoarthritis, right shoulder
CPT/HCPCS: 73030

== ENCOUNTER → 2021-03-02 08:40 | Outpatient (CLI) | payer OTHER, MEDICAID, SELFPAY ==
[2020-03-01 20:11] VITALS: BMI 43.9
[2021-03-02 10:00] LABS: Hematocrit 40.5 % (36-46); Hemoglobin 13.4 g/dL (12.0-16.0); Mean Corpuscular HGB Conc 33.1 % (30-36); Mean Corpuscular Hemoglobin 28.4 PG (26-34); Mean Corpuscular Volume 85.7 fL (80-100); Platelet Count 314 X10^3/uL (150-400); Red Blood Cell Count 4.72 X10^6/uL (4.0-5.2); White Blood Cell Count 9.1 X10^3/uL (4.5-11.0)
[2021-03-02 10:18] LABS: Alanine Aminotransferase 17 IU/L (<35); Albumin 3.9 g/dL (3.5-5.0); Albumin Globulin Ratio 1.4 (1.0-2.8); Alkaline Phosphatase 67 U/L (38-126); Aspartate Aminotransferase 21 IU/L (14-36); BUN Creatinine Ratio 17.4 (6-22); Bilirubin Total 0.2 mg/dL (0.2-1.3); Blood Urea Nitrogen 16 mg/dL (7-17); Calcium 9.6 mg/dL (8.4-10.2); Carbon Dioxide 28 mmol/L (22-32); Chloride 107 mmol/L (98-107); Cholesterol 177 mg/dL (140-199); Estimated Glomerular Filt Rate > 60.0 mL/min (>60); Globulin 2.7 g/dL (1.7-4.1); Glucose 97 mg/dL (70-100); HDL Cholesterol 52 mg/dL (40-60); HEMOLYSIS < 15 (0-50); LDL Cholesterol Calculated 97 mg/dL (<100); Potassium 3.9 mmol/L (3.4-5.1); Sodium 142 mmol/L (137-145); Total Protein 6.6 g/dL (6.3-8.2); Triglycerides 141 mg/dL (35-150)
[2021-03-02 12:51] LABS: Microalbumi Creatinin Ratio Ur 17.1 ug/mg CR (<30); Microalbumin Urine Random 2.9 mg/dL (0-1.6)
== END ==
PROVIDERS: PCP Registered Nurse Diabetes Educator; Referring Provider Registered Nurse Diabetes Educator; Visit Provider Registered Nurse Diabetes Educator
DX: I10 Essential (primary) hypertension (principal); R73.9 Hyperglycemia, unspecified
CPT/HCPCS: 36415; 80053; 80061; 82043; 82570; 83036; 84443; 85027

== ENCOUNTER → 2021-03-08 08:32 | Outpatient (CLI) | payer OTHER, MEDICAID, SELFPAY ==
[2020-03-01 20:11] VITALS: BMI 43.9
--- NOTE | 2021-03-08 08:33 | DI.MG.S_ITS ---
BILATERAL DIGITAL DIAGNOSTIC MAMMOGRAM 3D/2D: 03/08/2021 CLINICAL: Right breast changes. Comparison is made to exams dated: 05/07/2019 mammogram, 08/10/2017 mammogram, and 01/03/2012 mammogram - [facility]. There are scattered fibroglandular elements in both breasts. No significant masses, calcifications, or other findings are seen in either breast. IMPRESSION: INCOMPLETE: NEEDS ADDITIONAL IMAGING EVALUATION There are no abnormalities seen in the right breast to correspond with the redness and tenderness at 10-2 o'clock, however, ultrasound is recommended. There is no abnormality seen in the right breast to correspond with the discharge from the nipple in the sub-areolar depth, however, ultrasound is recommended. Ultrasound will be performed immediately following the current exam. This exam was interpreted at Station ID: [id number]. NOTE: For mammograms, a report in lay terms will be sent to the patient. Approximately 15% of breast malignancies will not be visualized mammographically. In the management of a palpable breast mass, a negative mammogram must not discourage biopsy of a clinically suspicious lesion. Electronically Signed By: Sagar Agee M.D. ddp/:03/08/2021 09:36:14 ACR BI-RADS Category 0: Incomplete [id number]
--- NOTE | 2021-03-08 08:33 | DI.US.S_ITS ---
LIMITED ULTRASOUND OF RIGHT BREAST: 03/08/2021 CLINICAL: Right breast tenderness and redness. Comparison is made to exams dated: 03/08/2021 mammogram, 05/07/2019 mammogram, 08/10/2017 ultrasound, 08/10/2017 mammogram, 01/03/2012 mammogram, and 12/26/2010 mammogram - [facility]. Color flow and real-time ultrasound of the right breast 9-12 o'clock, and retroareolar regions were performed on the areas of interest. There is a 0.2 cm x 0.2 cm x 0.2 cm oval cyst in the right breast at 9 o'clock anterior depth. This oval cyst is hypoechoic with internal echoes. Color flow imaging demonstrates that there is no vascularity present. There also is a benign dilated duct in the right breast central to the nipple in the retroareolar region. This dilated duct displays posterior acoustic enhancement. No internal mass identified. Color flow imaging demonstrates that there is no vascularity present. IMPRESSION: PROBABLY BENIGN The 0.2 cm x 0.2 cm x 0.2 cm oval cyst in the right breast at 9 o'clock anterior depth is consistent with a complicated cyst and is probably benign. A follow-up ultrasound in 6 months is recommended. The dilated duct in the right breast central to the nipple in the retroareolar region is consistent with duct ectasia and is benign. Clinical followu is recommended for patient's history of non-bloody nipple discharge. There are no abnormalities seen in the right breast to correspond with the redness and tenderness at 10-2 o'clock, however, clinical followup is recommended. A follow-up ultrasound in 6 months is recommended to demonstrate stability. This exam was interpreted at Station ID: [id number]. Electronically Signed By: Sagar Agee M.D. ddp/:03/08/2021 11:12:51 letter sent: Followup Recommended Ultrasound BI-RADS: 3 Probably benign
== END ==
PROVIDERS: PCP Registered Nurse Diabetes Educator; Referring Provider Registered Nurse Diabetes Educator; Visit Provider Registered Nurse Diabetes Educator
DX: N63.12 Unspecified lump in the right breast, upper inner quadrant (principal); Z87.2 Personal history of diseases of the skin and subcutaneous tissue; R23.4 Changes in skin texture; N64.4 Mastodynia; R91.1 Solitary pulmonary nodule; I10 Essential (primary) hypertension; R73.9 Hyperglycemia, unspecified
CPT/HCPCS: 76642; 77066; G0279

== ENCOUNTER → 2021-03-16 10:37 | Outpatient (CLI) | payer OTHER, MEDICAID, SELFPAY ==
[2020-03-01 20:11] VITALS: BMI 43.9
--- NOTE | 2021-03-16 10:38 | DI.CT.S_ITS ---
PROCEDURE: CT CHEST WO CON INDICATIONS: Pulmonary Nodule Follow UP TECHNIQUE: Noncontrast 2.0-2.5 mm thick sections acquired from the pulmonary apices to the posterior costophrenic angles. 7 mm thick axial MIP and 5 mm coronal and sagittal reformats were then acquired. A low radiation dose technique was utilized. COMPARISON: [facility], CT, CT ANGIO CHEST PE PROTOCOL, 03/01/2020, 16:20. FINDINGS: Image quality: Diagnostic, given the low radiation dose technique. Lungs and pleura: There are multiple lung nodules bilaterally. [employer] Sampler nodules are listed in the following: Nodule 1: 7 mm; series 3, image 51; RUL; solid; obscured on the last exam. Nodule 2: 5 mm; series 3, image 185; RLL; solid; stable. Nodule 3: 4 mm; series 3, image 185; RLL; ground-glass; obscured on the last exam. Nodule 4: 8 mm; series 3, image 185; lingula; solid; previously 11 mm. Nodule 5: 5 mm; series 3, image 144; lingula; solid; stable. Nodule 6: 4 mm; series 3, image 236; LLL; solid; decreased in size. Bilateral patchy ground-glass infiltrates seen on the last exam have resolved. Mediastinum: Heart size is normal. No pericardial effusion. No mediastinal adenopathy by size criteria. Thoracic aorta and central pulmonary arteries are normal in size. Esophagus is normal in caliber. There is a small hiatal hernia. Bones and chest wall: No suspicious bony lesions. No vertebral body compression fractures. No axillary or supraclavicular adenopathy by size criteria. Thyroid gland is no . Abdomen: Visualized upper abdomen solid organs and bowel loops appear normal in the absence of contrast. IMPRESSION: 1. Multiple pulmonary nodules are present bilaterally. The dominant nodule in lingula has decreased in size, suggesting benign etiology. 2. Resolution of bilateral peripheral patchy ground-glass infiltrates. Fleischner Society criteria for SOLID lung nodule followup. Nodule size (mm)Low-risk patientHigh-risk patient<6 (single or multiple)No routine followup.Optional CT at 12 months. 6-8 (single or multiple)CT at 6-12 months, then optional CT at 18-24 mo.CT at 6-12 months, then CT at 18-24 months. >8 (single)CT at 3 months, PET-CT, or biopsy. Same as for low-risk pts. >8 (multiple)CT at 3-6 months, then optional CT at 18-24 mo.CT at 3-6 months, then CT at 18-24 months. Fleischner Society criteria for SUB-SOLID lung nodule followup. Solitary pure ground-glass nodules<6 mm (ground glass or part solid)No followup needed. 6 mm or larger (ground glass)CT at 6-12 months to confirm persistence, then CT every 2 years until 5 years.6 mm or larger (part solid)CT at 3-6 months to confirm persistence, then annual CT until 5 years if unchanged and solid component remains <6 mm. Multiple sub-solid nodules<6 mmCT at 3-6 months, then CT consider at 2 & 4 years for high risk patients. [address] at 3-6 months. Subsequent management based on most suspicious lesions. Recommendations do not apply to lung cancer screening, patients with immunosuppression, or patients with known primary cancer. Dictated by: Sarah Pena M.D. on 03/16/2021 at 11:52 Approved by: Sarah Pena M.D. on 03/16/2021 at 12:05
== END ==
PROVIDERS: PCP Registered Nurse Diabetes Educator; Referring Provider Registered Nurse Diabetes Educator; Visit Provider Registered Nurse Diabetes Educator
DX: R91.8 Other nonspecific abnormal finding of lung field (principal); I10 Essential (primary) hypertension; R73.9 Hyperglycemia, unspecified
CPT/HCPCS: 71250

== ENCOUNTER 2021-08-22 14:13 | Emergency (ER) | payer OTHER, MEDICAID, SELFPAY ==
[2021-03-22 10:06] VITALS: BMI 43.9
[2021-08-22 14:18] VITALS: BP 122/83; PULSE 91; RESP 14; TEMP 37.1; O2SAT 96
--- NOTE | 2021-08-22 14:24 | PC.NURSE ---
Addendum entered by Natalie Garza R.N. 08/22/21 14:27: chest pain is not resolved it is less than before. pt also adds left tip of middle finger hurts as well. Original Note: pt states chest pain from the incident is resolved. pt states its hard to tell if the neck pain is better or worse because the splint is uncomfortable.
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
[2021-08-22] MEDS: IBUPROFEN 400 MG TABLET 800 MG PO (15:52)
[2021-08-22 15:58] VITALS: BP 119/74; PULSE 84; RESP 20; O2SAT 99
== END 2021-08-22 15:58 | disposition home or self-care (01) ==
PROVIDERS: Emergency Provider Emergency Medicine; PCP Registered Nurse Diabetes Educator
DX: M54.2 Cervicalgia (principal); R07.9 Chest pain, unspecified; M79.645 Pain in left finger(s); V89.2XXA Person injured in unspecified motor-vehicle accident, traffic, initial encounter
CPT/HCPCS: 71045; 72125; 73130; 99284

== ENCOUNTER → 2021-09-19 14:40 | Outpatient (CLI) | payer OTHER, MEDICAID, SELFPAY ==
[2021-03-22 10:06] VITALS: BMI 43.9
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
== END ==
PROVIDERS: PCP Registered Nurse Diabetes Educator; Referring Provider Registered Nurse Diabetes Educator; Visit Provider Registered Nurse Diabetes Educator
DX: R91.8 Other nonspecific abnormal finding of lung field (principal); I89.8 Other specified noninfective disorders of lymphatic vessels and lymph nodes
CPT/HCPCS: 71250

== ENCOUNTER → 2021-11-12 13:19 | Outpatient (CLI) | payer OTHER, MEDICAID, SELFPAY ==
[2021-03-22 10:06] VITALS: BMI 43.9
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
--- NOTE | 2021-11-12 13:21 | DI.RAD.S_ITS ---
PROCEDURE: XR HAND RT MIN 3V INDICATIONS: eval pain R 3rd finger and hand, no trauma TECHNIQUE: Three views of the hand acquired. COMPARISON: [facility], CR, XR HAND LT MIN 3V, 08/22/2021, 14:35. FINDINGS: Bones: No acute fractures or dislocations. Carpal bones are normally aligned. Lucency of the radial aspect of the 3rd middle phalangeal base most likely represents subchondral cystic changes, although an osseous erosion is not entirely excluded. Similar findings are seen at the ulnar aspect of the 4th middle phalangeal head and to a lesser extent at the 3rd distal interphalangeal joint. Mild degenerative changes are seen in the 1st metacarpophalangeal joint. Soft tissues: No suspicious soft tissue calcifications. IMPRESSION: Juxta-articular lucencies at the 3rd proximal and distal interphalangeal joints and the 4th distal interphalangeal joint are most likely degenerative in nature, although chronic osseous erosions could appear similarly, and clinical correlation is recommended to exclude an underlying inflammatory arthropathy. Dictated by: Jaylen Tobias M.D. on 11/12/2021 at 14:16 Approved by: Jaylen Tobias M.D. on 11/12/2021 at 14:19
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
== END ==
PROVIDERS: PCP Registered Nurse Diabetes Educator; Referring Provider Registered Nurse Diabetes Educator; Visit Provider Registered Nurse Diabetes Educator
DX: M47.816 Spondylosis without myelopathy or radiculopathy, lumbar region (principal); M54.50 Low back pain, unspecified; M43.16 Spondylolisthesis, lumbar region; M16.0 Bilateral primary osteoarthritis of hip; M79.644 Pain in right finger(s); M25.551 Pain in right hip; M25.552 Pain in left hip; G89.29 Other chronic pain
CPT/HCPCS: 72100; 73130; 73522

== ENCOUNTER → 2021-11-24 13:49 | Outpatient (CLI) | payer OTHER, MEDICAID, SELFPAY ==
[2021-03-22 10:06] VITALS: BMI 43.9
== END ==
PROVIDERS: PCP Registered Nurse Diabetes Educator; Visit Provider Nurse Practitioner Family
DX: R30.0 Dysuria (principal)
CPT/HCPCS: 81002; 87077; 87086; 87210

== ENCOUNTER → 2022-02-01 11:45 | Outpatient (CLI) | payer OTHER, MEDICAID, SELFPAY ==
[2021-03-22 10:06] VITALS: BMI 43.9
--- NOTE | 2022-02-01 11:47 | DI.US.S_ITS ---
LIMITED ULTRASOUND OF RIGHT BREAST: 02/01/2022 CLINICAL: Patient returns for a 6 month follow up of the right breast. Comparison is made to exams dated: 03/08/2021 ultrasound, 03/08/2021 mammogram, 05/07/2019 mammogram, 08/10/2017 ultrasound, 08/10/2017 mammogram, and 01/03/2012 mammogram - [facility]. Color flow and real-time ultrasound of the right breast were performed. Previously described small complicated cysts are unchanged and are benign. IMPRESSION: NEGATIVE There is no sonographic evidence of malignancy. A 1 year screening mammogram is recommended. This exam was interpreted at Station ID: [id number]. Electronically Signed By: Ben Watson M.D. jr/:02/14/2022 13:03:22 letter sent: Normal Exam Ultrasound BI-RADS: 1 Negative
== END ==
PROVIDERS: Family Provider Registered Nurse Diabetes Educator; PCP Registered Nurse Diabetes Educator; Referring Provider Registered Nurse Diabetes Educator; Visit Provider Registered Nurse Diabetes Educator
DX: R92.8 Other abnormal and inconclusive findings on diagnostic imaging of breast (principal); N60.01 Solitary cyst of right breast
CPT/HCPCS: 76642

== ENCOUNTER 2022-03-20 15:12 | Emergency (ER) | payer OTHER, MEDICAID, SELFPAY ==
[2021-03-22 10:06] VITALS: BMI 43.9
[2022-03-20 15:16] VITALS: BP 149/87; PULSE 85; RESP 24; TEMP 37; O2SAT 95
--- NOTE | 2022-03-20 15:19 | DI.RAD.S_ITS ---
PROCEDURE: XR CHEST 1V INDICATIONS: chest pain TECHNIQUE: One view of the chest was acquired. COMPARISON: [facility], CR, XR CHEST 1V, 08/22/2021, 14:35. [facility], CT, CT CHEST WO CON, 09/19/2021, 14:50. FINDINGS: Surgical changes and devices: None. Lungs and pleura: Lungs are clear. No pleural effusions or pneumothorax. Mediastinum: Mediastinal contours appear normal. Heart size is normal. Bones and chest wall: No suspicious bony lesions. Overlying soft tissues appear unremarkable. IMPRESSION: No acute cardiopulmonary disease. Dictated by: Sarah Pena M.D. on 03/20/2022 at 15:53 Approved by: Sarah Pena M.D. on 03/20/2022 at 15:53
[2022-03-20 15:39] LABS: Add Manual Diff / Slide Review NO; Basophils Absolute Auto 100 /uL (0-100); Basophils Percent Auto 1.1 % (0-2); Eosinophils Absolute Auto 100 /uL (0-450); Eosinophils Percent Auto 0.5 % (2-4); Hematocrit 40.9 % (36-46); Hemoglobin 13.6 g/dL (12.0-16.0); Lymphocytes Absolute Auto 3300 /uL (1100-4500); Lymphocytes Percent Auto 26.2 % (25-40); Mean Corpuscular HGB Conc 33.4 % (30-36); Mean Corpuscular Hemoglobin 27.8 PG (26-34); Mean Corpuscular Volume 83.4 fL (80-100); Monocytes Absolute Auto 1000 /uL (0-900); Monocytes Percent Auto 7.7 % (3-14); Neutrophils Absolute Auto 8200 /uL (1500-7000); Neutrophils Percent Auto 64.5 % (50-75); Platelet Count 331 X10^3/uL (150-400); Red Cell Distribution Width 14.9 % (11.6-14.8); White Blood Cell Count 12.7 X10^3/uL (4.5-11.0)
[2022-03-20 15:52] LABS: Alanine Aminotransferase 21 IU/L (<35); Albumin 4.6 g/dL (3.5-5.0); Albumin Globulin Ratio 1.3 (1.0-2.8); Alkaline Phosphatase 64 U/L (38-126); Aspartate Aminotransferase 25 IU/L (14-36); BUN Creatinine Ratio 16.4 (6-22); Bilirubin Total 0.4 mg/dL (0.2-1.3); Blood Urea Nitrogen 20 mg/dL (7-17); Calcium 9.9 mg/dL (8.4-10.2); Carbon Dioxide 32 mmol/L (22-32); Chloride 104 mmol/L (98-107); Creatine Kinase 76 U/L (30-135); Estimated Glomerular Filt Rate 51 mL/min (>60); Globulin 3.5 g/dL (1.7-4.1); Glucose 127 mg/dL (70-100); HEMOLYSIS < 15 (0-50); Lipase 105 U/L (23-300); Potassium 3.1 mmol/L (3.4-5.1); Sodium 143 mmol/L (137-145); Total Protein 8.1 g/dL (6.3-8.2)
[2022-03-20 15:55] LABS: COVID19 -Nasal RAPID Negative (Negative)
[2022-03-20 16:04] LABS: Troponin I < 0.012 ng/mL (0.01-0.034)
[2022-03-20] MEDS: ONDANSETRON 4 MG/2 ML INJ IV (16:29)
[2022-03-20] MEDS: SODIUM CHLORIDE 0.9% 1,000 ML 1000 ML IV (16:29)
[2022-03-20 16:34] VITALS: PULSE 83; O2SAT 96
[2022-03-20 17:00] VITALS: PULSE 87; O2SAT 94
[2022-03-20 17:04] VITALS: PULSE 88; O2SAT 99
[2022-03-20 17:15] VITALS: BP 128/64
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
[2022-03-20] MEDS: MECLIZINE HCL 12.5 MG TABLET 50 MG PO (17:52)
[2022-03-20 18:28] VITALS: BP 153/73
== END 2022-03-20 18:58 | disposition home or self-care (01) ==
PROVIDERS: Emergency Provider Emergency Medicine; Family Provider Registered Nurse Diabetes Educator; PCP Registered Nurse Diabetes Educator
DX: R42 Dizziness and giddiness (principal); R07.9 Chest pain, unspecified; Z20.822 Contact with and (suspected) exposure to COVID-19
CPT/HCPCS: 71045; 80053; 82550; 83690; 83735; 84484; 85025; 87635; 93005; 93010; 96361; 96374; 99284; C9803; J2405

== ENCOUNTER → 2022-03-22 11:39 | Outpatient (CLI) | payer OTHER, MEDICAID, SELFPAY ==
[2021-03-22 10:06] VITALS: BMI 43.9
--- NOTE | 2022-03-22 11:40 | DI.CT.S_ITS ---
PROCEDURE: CT CHEST WO CON INDICATIONS: 6 mo repeat for pulmonary nodules TECHNIQUE: Noncontrast 5 mm thick sections acquired from the pulmonary apices to the posterior costophrenic angles. 1 mm lung window, 5 mm thick coronal and sagittal and 7 mm axial MIP reformats were then acquired. For radiation dose reduction, the following was used: automated exposure control, adjustment of mA and/or kV according to patient size. COMPARISON: [facility], CT, CT ANGIO CHEST PE PROTOCOL, 03/01/2020, 16:20. [facility], CR, XR CHEST 1V, 03/01/2020, 15:55. [facility], CT, CT CHEST WO CON, 09/19/2021, 14:50. [facility], CT, CT CHEST WO CON, 03/16/2021, 10:44. FINDINGS: Image quality: Excellent. Lungs and pleura: Multiple stable pulmonary nodules as follows: 1. Stable 7 mm nodule at the right lung apex (45/3). 2. Stable 5 mm juxta fissural nodule in the right lower lobe (164/3). 3. Stable 4 mm medial subpleural right lower lobe nodule (165/3). 4. Stable 5 mm nodule in the anterior lingula (150/3). 5. Stable 7 mm nodule in the anterior lingula (190/3). 6. Stable 4 mm nodule at the extreme left lung base (229/3). No suspicious new pulmonary nodule. Mild centrilobular emphysema. No acute airspace consolidation. No pleural effusions or pneumothorax. Central and peripheral airways are patent and normal in caliber. Mediastinum: Heart size is normal. No pericardial effusion. No mediastinal adenopathy by size criteria. Calcified mediastinal and hilar lymph nodes are most likely secondary to prior granulomatous disease. Thoracic aorta and central pulmonary arteries are normal in size. 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 Esophagus is normal in caliber. No hiatal hernia. Bones and chest wall: No suspicious bony lesions. No vertebral body compression fractures. No axillary or supraclavicular adenopathy by size criteria. Thyroid is unremarkable. Abdomen: Visualized upper abdominal solid organs and bowel loops appear normal in the absence of contrast. IMPRESSION: 1. Multiple stable pulmonary nodules dating back to at least the exam from 03/16/2021. Some of these nodules are decreased in size when compared to the exam from 03/01/2020, while others were obscured on the original exam. Consider a single additional follow-up exam in 12 months. 2. Stable calcified mediastinal and hilar lymph nodes, suggesting prior granulomatous disease. Dictated by: Jaylen Tobias M.D. on 03/22/2022 at 16:35 Approved by: Jaylen Tobias M.D. on 03/22/2022 at 16:45
== END ==
PROVIDERS: Family Provider Registered Nurse Diabetes Educator; PCP Registered Nurse Diabetes Educator; Referring Provider Registered Nurse Diabetes Educator; Visit Provider Registered Nurse Diabetes Educator
DX: R91.8 Other nonspecific abnormal finding of lung field (principal); I89.8 Other specified noninfective disorders of lymphatic vessels and lymph nodes
CPT/HCPCS: 71250

== ENCOUNTER 2022-04-17 11:15 | Outpatient (RCR) | payer OTHER, MEDICAID, SELFPAY ==
[2021-03-22 10:06] VITALS: BMI 43.9
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
--- NOTE | 2022-01-23 14:07 | PT-OP ANOTE ---
Called patient and she was very apologetic, thought that apt was at 2:30 as it normally scheduled at that time. Confirmed next apt time with her.
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
--- NOTE | 2022-02-14 16:50 | PT.OPPOC ---
Physical, Occupational & Speech Therapy At [facility] Current Diagnoses Other chronic pain (02/14/22) Pain in unspecified hip (02/14/22) Cervicalgia (02/14/22) Low back pain, unspecified (02/14/22) Visit Care Team Role Provider Type REX Foreman Attending Provider Advanced Drop Forger Family Provider Primary Care Provider Referring Provider Specialty: Medical Address: [address] [place] [address], [address] Email: [email or web address] Plan Of Care PT-OP-T Assessment and Plan Start: 12/19/21 13:53 Freq: Status: Active Protocol: Document 02/14/22 10:30 AMB (Rec: 02/14/22 11:18 AMB [id number]) Physical Therapy Assessment Goals Two Impairment Activity tolerance Short Term Goal (STG) Jaimie Angela will walk 6 blocks with pain of 4/10 or less so she can make it to the bus stop. 02/14/22: Pain in hips continue - stiffness STG Duration 4 weeks progressing Fpc Goal (LTG) Jaimie Angela will sleep for 6 hours without waking due to headache. 02/01/22: pt states wakes her up, sleeps on side/ back: ed for use pillows betweens on side/ post thighs supine. LTG Duration MET One Impairment ROM Short Term Goal (STG) Jaimie Angela will improve her cervical rotation bilaterally to 60 degrees or more. STG Duration improved 75 (R), 60 (L) Fpc Goal (LTG) Jaimie Angela will improve her cervical extension to 30 degrees or more. LTG Duration 8 weeks Assessment Summary Assessment Addressed Kristin's goals with her. She is walking less now that her truck is back from the shop, but continues to have back and neck pain with working. Her cervical range of motion has improved since starting PT, but she continues to be stiff throughout her neck, low back and hips. Physical Therapy Plan Frequency and Duration Frequency of Treatment 2x/Week Duration of Treatment 8 weeks Plan of Care Start Date 02/14/22 Plan of Care End Date 04/18/22 Therapeutic Interventions Therapeutic Interventions Balance Training,Gait Training ,Home Exercise Program,Manual Therapy,Neuromuscular Re- education,Self-Care/Home Management,Therapeutic Activities,Therapeutic Exercises Modalities Cold Pack/Ice Massage,Electric Stimulation,Hot Packs Next Visit Focus/Plan Next Note Type Treatment Note Next Visit Plan Continue to progress cervical spine, working on pain/ numbness going into arms Plan of Care Dates Plan of Care Start Date 02/14/22 Plan of Care End Date 04/18/22 Electronically Signed by: Elvira Garcia, PT 02/14/22 1993 If you are in agreement with this Plan of Care, please return a signed and dated copy. I have reviewed this Plan of Care and certify that the skilled therapy services above are required to meet the patient?s needs. Physician Signature Date Printed Name and Credentials Clinical Instructor Signature Printed Name and Credentials
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
== END 2022-04-19 11:56 ==
LOC: PHYS 11:15
PROVIDERS: Family Provider Registered Nurse Diabetes Educator; PCP Registered Nurse Diabetes Educator; Referring Provider Registered Nurse Diabetes Educator; Visit Provider Registered Nurse Diabetes Educator
DX: M54.50 Low back pain, unspecified (principal); G89.29 Other chronic pain; M25.559 Pain in unspecified hip; M54.2 Cervicalgia
CPT/HCPCS: 97014; 97110; 97112; 97140; 97162; G0283

== ENCOUNTER 2022-04-26 19:15 | Emergency (ER) | payer OTHER, MEDICAID, SELFPAY ==
[2021-03-22 10:06] VITALS: BMI 43.9
[2022-04-26 19:19] VITALS: BP 142/81; PULSE 96; RESP 16; TEMP 36.1; O2SAT 99; BMI 44.8
--- NOTE | 2022-04-26 19:22 | DI.RAD.S_ITS ---
PROCEDURE: XR ELBOW RT MIN 3V INDICATIONS: injury to right arm one week ago increase pain TECHNIQUE: 3 views of the elbow were acquired. COMPARISON: None. FINDINGS: Bones: No fractures or dislocations. No suspicious bony lesions. Soft tissues: No elbow joint effusion. No suspicious soft tissue calcifications. IMPRESSION: No acute osseous abnormalities. If clinical symptoms persist or clinical suspicion for pathology is high, a repeat examination in 7-10 days, or advanced imaging such as CT or MRI is suggested for further evaluation. Dictated by: Sarah Pena M.D. on 04/26/2022 at 19:39 Approved by: Sarah Pena M.D. on 04/26/2022 at 19:40
[2022-04-26 20:30] VITALS: BP 163/91; PULSE 85; RESP 16; O2SAT 98
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
--- NOTE | 2022-04-26 20:50 | DI.US.S_ITS ---
PROCEDURE: US PERIPH VENOUS UP EXTREM RT INDICATIONS: pain, swelling, warmth, redness injury 1 week ago TECHNIQUE: Real-time imaging, as well as color and pulse Doppler interrogation, was performed of the right upper extremity deep veins from the inferior neck to the antecubital fossa. COMPARISON: None. FINDINGS: The internal jugular vein, visualized portions of the subclavian vein, axillary, and brachial veins are free of intraluminal thrombus. Where physically possible, the veins are normally compressible. Color and pulse Doppler demonstrate normal intraluminal flow, with expected phasicity and pulsatility. Additional scanning of the cephalic and basilic veins of the superficial system demonstrate normal compressibility, without thrombus. There is a fluid collection within the right inferior arm measuring approximately 7.6 x 3.0 x 5.8 cm with heterogeneous internal echoes and septations suggestive of a hematoma. No internal vascularity on color Doppler interrogation IMPRESSION: 1. No evidence of deep venous thrombosis in the right upper extremity. 2. Heterogeneous collection in the inferior inner arm likely represents a hematoma. Recommend correlation with clinical exam and history. Dictated by: Sagar Agee M.D. on 04/26/2022 at 23:35 Approved by: Sagar Agee M.D. on 04/26/2022 at 23:36
--- NOTE | 2022-04-26 20:50 | DI.CT.S_ITS ---
PROCEDURE: CT UE RT WO CON INDICATIONS: severe elbow pain, swelling, ecchymosis after injury TECHNIQUE: Noncontrast 1-1.5 mm axial sections were acquired through the elbow joint, with coronal and sagittal reformats. COMPARISON: [facility], CR, XR ELBOW RT MIN 3V, 04/26/2022, 20:11. FINDINGS: Image quality: There is beam hardening artifact. Bones: No fractures or dislocation. Soft tissues: No elbow joint effusion. There is subcutaneous fat stranding and mild soft tissue swelling overlying the olecranon. There is is edema within the biceps musculature which may reflect sequelae of a strain. Evaluation for possible biceps tendon tearing is limited on the current study. IMPRESSION: 1. No fracture or dislocation. 2. Edema within the biceps muscle suggestive of a strain. Evaluation for biceps tendon rupture is limited on the current study. Recommend follow-up evaluation with MRI when clinically feasible. Dictated by: Sagar Agee M.D. on 04/26/2022 at 22:15 Approved by: Sagar Agee M.D. on 04/26/2022 at 22:18
[2022-04-26] MEDS: ACETAMINOPHEN 325 MG TABLET 650 MG PO (20:56)
[2022-04-26 23:03] VITALS: BP 143/75; PULSE 76; RESP 16; O2SAT 98
[2022-04-26] MEDS: HYDROCODONE/ACET 5/325 PREPACK 1 BOTTLE MISC (23:23)
== END 2022-04-26 23:24 | disposition home or self-care (01) ==
PROVIDERS: Emergency Provider Emergency Medicine; Family Provider Registered Nurse Diabetes Educator; PCP Registered Nurse Diabetes Educator
DX: S46.209A Unspecified injury of muscle, fascia and tendon of other parts of biceps, unspecified arm, initial encounter (principal); X58.XXXA Exposure to other specified factors, initial encounter
CPT/HCPCS: 73080; 73200; 93971; 99284

== ENCOUNTER → 2022-05-16 10:49 | Outpatient (CLI) | payer OTHER, MEDICAID, SELFPAY ==
[2021-03-22 10:06] VITALS: BMI 43.9
[2022-05-16 11:25] LABS: Hematocrit 40.4 % (36-46); Hemoglobin 13.3 g/dL (12.0-16.0); Mean Corpuscular HGB Conc 32.9 % (30-36); Mean Corpuscular Hemoglobin 27.5 PG (26-34); Mean Corpuscular Volume 83.7 fL (80-100); Platelet Count 316 X10^3/uL (150-400); Red Blood Cell Count 4.83 X10^6/uL (4.0-5.2); Red Cell Distribution Width 15.3 % (11.6-14.8); White Blood Cell Count 7.1 X10^3/uL (4.5-11.0)
[2022-05-16 11:33] LABS: Hemoglobin A1C% w Est Avg Glu 6.4 % (4.0-6.0)
[2022-05-16 14:00] LABS: Alanine Aminotransferase 20 IU/L (<35); Albumin 3.9 g/dL (3.5-5.0); Albumin Globulin Ratio 1.4 (1.0-2.8); Alkaline Phosphatase 47 U/L (38-126); Aspartate Aminotransferase 25 IU/L (14-36); BUN Creatinine Ratio 22.7 (6-22); Bilirubin Total 0.7 mg/dL (0.2-1.3); Blood Urea Nitrogen 15 mg/dL (7-17); Calcium 8.7 mg/dL (8.4-10.2); Carbon Dioxide 33 mmol/L (22-32); Chloride 101 mmol/L (98-107); Cholesterol 174 mg/dL (140-199); Estimated Glomerular Filt Rate > 60 mL/min (>60); Globulin 2.7 g/dL (1.7-4.1); Glucose 110 mg/dL (70-100); HDL Cholesterol 44 mg/dL (40-60); HEMOLYSIS < 15 (0-50); LDL Cholesterol Calculated 116 mg/dL (<100); Potassium 3.6 mmol/L (3.4-5.1); Sodium 140 mmol/L (137-145); Total Protein 6.6 g/dL (6.3-8.2); Triglycerides 72 mg/dL (35-150)
[2022-05-16 14:29] LABS: TSH w/ Reflex to FT4 0.85 uIU/mL (0.47-4.68)
== END ==
PROVIDERS: Family Provider Registered Nurse Diabetes Educator; PCP Registered Nurse Diabetes Educator; Referring Provider Registered Nurse Diabetes Educator; Visit Provider Registered Nurse Diabetes Educator
DX: I10 Essential (primary) hypertension (principal); R73.9 Hyperglycemia, unspecified
CPT/HCPCS: 36415; 80053; 80061; 83036; 84443; 85027

== ENCOUNTER → 2022-09-14 13:48 | Outpatient (CLI) | payer OTHER, MEDICAID, SELFPAY ==
[2021-03-22 10:06] VITALS: BMI 43.9
[2022-09-14 17:20] LABS: Influenza A - CEPHEID Flu A NEGATIVE (NEGATIVE); Influenza B - CEPHEID Flu B NEGATIVE (NEGATIVE); Respiratory Syncytial Virus Negative (Negative)
[2022-09-14 17:21] LABS: COVID-19 CEPHEID 4-PLEX PCR Negative (Negative)
== END ==
PROVIDERS: Family Provider Registered Nurse Diabetes Educator; PCP Registered Nurse Diabetes Educator; Visit Provider Nurse Practitioner Family
DX: R05.9 Cough, unspecified (principal); Z20.822 Contact with and (suspected) exposure to COVID-19
CPT/HCPCS: 0241U

== ENCOUNTER 2022-12-12 13:36 | Emergency (ER) | payer OTHER, MEDICAID, SELFPAY ==
[2021-03-22 10:06] VITALS: BMI 43.9
[2022-12-12 13:49] VITALS: BP 174/93; PULSE 83; RESP 20; TEMP 36.8; O2SAT 96; BMI 42.0
[2022-12-12 14:56] LABS: Adenovirus Not Detected (Not Detect); B. parapertussis Not Detected (Not Detecte); Bordetella pertussis Not Detected (Not Detecte); Chlamydophila pneumoniae Not Detected (Not Detect); Coronavirus 229E Not Detected (Not Detect); Coronavirus HKU1 Not Detected (Not Detect); Coronavirus NL 63 Not Detected (Not Detect); Coronavirus OC43 Not Detected (Not Detect); Human Metapneumovirus Not Detected (Not Detect); Human Rhinovirus/Enterovirus Not Detected (Not Detect); Influenza A Not Detected (Not Detect); Influenza B Not Detected (Not Detect); Mycoplasma pneumoniae Not Detected (Not Detect); Parainfluenza Virus 1 Not Detected (Not Detect); Parainfluenza Virus 2 Not Detected (Not Detect); Parainfluenza Virus 3 Detected (Not Detect); Parainfluenza Virus 4 Not Detected (Not Detect); Respiratory Syncytial Virus Not Detected (Not Detect); SARS- CoV-2 Not Detected (Not Detecte)
[2022-12-12 18:14] VITALS: BP 192/115; PULSE 78; O2SAT 96
--- NOTE | 2022-12-12 19:16 | DI.RAD.S_ITS ---
PROCEDURE: XR CHEST 2V INDICATIONS: cough TECHNIQUE: 2 views of the chest were acquired. COMPARISON: [facility], , CHEST 2 VIEW, 12/31/2010, 10:56. FINDINGS: Surgical changes and devices: None. Lungs and pleura: Lungs are clear. No pleural effusions or pneumothorax. Mediastinum: Mediastinal contours are normal. Heart size is normal. Bones and chest wall: No suspicious bony abnormalities. Soft tissues appear unremarkable. IMPRESSION: No acute cardiopulmonary disease. Dictated by: Kari Gill M.D. on 12/12/2022 at 21:27 Approved by: Kari Gill M.D. on 12/12/2022 at 21:27
--- NOTE | 2022-12-12 19:26 | ED_ITS ---
HPI - URI/Sore Throat <Sadiq Montgomery PA-C - Last Filed: 12/12/22 21:17> General Chief Complaint: Upper Respiratory Symptoms Stated Complaint: cough/sinus/sneezing/earache/weezing T-3 Time Seen by Provider: 12/12/22 19:07 Source: patient Mode of arrival: Ambulatory History of Present Illness HPI Narrative: 62-year-old female with a complex medical history presents to the ED with 2 days of runny nose, sore throat, productive cough, wheezing, fatigue. Patient states that she has been using her inhaler about 3 times daily with some improvement. Patient denies fever, chills, chest pain, shortness of breath, nausea, vomiting, diarrhea, syncope. Related Data Home Medications Medication Instructions Recorded Confirmed acetaminophen 500 mg tablet 500 mg PO Q6H PRN 03/01/21 05/17/22 (Tylenol Extra Strength) Previous Rx's Medication Instructions Recorded meclizine 25 mg tablet 25 mg PO QID PRN motion sickness 03/20/22 #20 tabs albuterol sulfate 90 mcg/actuation 2 puff inhalation Q4-6H PRN 04/19/22 aerosol inhaler bronchospasm #18 grams famotidine 20 mg tablet 20 mg PO BID #60 tabs 04/19/22 lisinopril 20 1 tab PO DAILY #90 tabs 05/17/22 mg-hydrochlorothiazide 25 mg tablet omeprazole 20 mg capsule,delayed 20 mg PO QAM #90 caps 05/17/22 release albuterol sulfate 90 mcg/actuation 2 puff inhalation Q6H PRN 09/14/22 aerosol inhaler shortness of breath or wheezing #6.7 grams benzonatate 100 mg capsule 100 mg PO BID PRN cough #20 caps 09/14/22 inhalational spacing device #1 ea 09/14/22 (Aerochamber MV spacer) Allergies Allergy/AdvReac Type Severity Reaction Status Date / Time No Known Drug Allergies Allergy Verified 05/17/22 15:21 Review of Systems <Sadiq Montgomery PA-C - Last Filed: 12/12/22 21:17> Review of Systems ROS Unobtainable: All systems reviewed & are unremarkable except as noted in HPI and below Constitutional Constitutional: Denies chills, Denies fatigue, Denies fever(s), Denies frequent falls, Denies lethargy and Denies weakness Eyes Eyes: Denies change in vision, Denies eye discharge, Denies irritation and Denies loss of vision ENT Ears, Nose, Mouth, and Throat: Denies change in voice, Denies dizziness, Reports nasal congestion, Denies neck pain, Denies sore throat and Denies throat swelling Cardiovascular Cardiovascular: Denies chest pain, Denies irregular heart rhythm, Denies lightheadedness, Denies palpitations, Denies dyspnea, Denies dyspnea on exertion and Denies orthopnea Respiratory Respiratory: Reports chest congestion, Reports cough, Denies dyspnea, Denies dyspnea on exertion and Denies wheezing Gastrointestinal Gastrointestinal: Denies abdominal pain, Denies change in bowel habits, Denies diarrhea, Denies nausea and Denies vomiting Genitourinary Genitourinary: Denies hematuria, Denies flank pain, Denies urinary incontinence and Denies urinary urgency Musculoskeletal Musculoskeletal: Denies back pain, Denies muscle weakness, Denies neck pain, Denies numbness and Denies tingling Integumentary/Breasts Skin/Breast: Denies pruritus, Denies erythema, Denies rash and Denies wounds Neurologic Neurologic: Denies behavioral changes, Denies confusion, Denies dizziness, Denies frequent falls, Denies loss of vision, Denies numbness, Denies tingling and Denies weakness Psychiatric Psychiatric: Denies anxiety, Denies behavioral changes, Denies confusion, Denies depression, Denies homicidal ideation and Denies suicidal ideation Endocrine Endocrine: Denies fatigue, Denies flushing and Denies palpitations Hematologic/Lymphatic Hematologic/Lymphatic: Denies easy bruising Allergic/Immunologic Allergic/Immunologic: Denies urticaria, Denies throat swelling and Denies wheezing Patient History <Sadiq Montgomery PA-C - Last Filed: 12/12/22 21:17> Medical History Bowel habit changes Chronic bilateral low back pain Chronic pain of left knee Dyslipidemia Fatigue Former smoker GERD (gastroesophageal reflux disease) Hip pain, chronic History of dimpling of breast skin Hyperglycemia Hyperglycemia Hypertension Hypertriglyceridemia Impaired fasting blood sugar Insomnia Loud snoring Morbid obesity with body mass index of 40.0-44.9 in adult Obstructive sleep apnea Pulmonary nodule Shoulder pain Surgical History No pertinent past surgical history Family History Father CAD (coronary artery disease) Diabetes mellitus Mother Stroke Cancer of breast Social History household members: none Smoking Status: Current every day smoker alcohol intake: current Smoking Status: Current every day smoker tobacco type: cigarettes alcohol intake frequency: holidays/special occasions only Substance Use Type: marijuana Exam <Sadiq Montgomery PA-C - Last Filed: 12/12/22 21:17> Narrative Exam Narrative: Const General:?cooperative, healthy appearing and comfortable [facility] Head:?normal to inspection Ears:?hearing grossly normal bilaterally Nose:?external nose normal Face and sinus:?normal facial exam and sinuses nontender Mouth:?oral mucosae normal Throat:?posterior oropharynx normal Eyes General:?appearance normal, both eyes and all related structures Neck Neck:?normal visual inspection and no lymphadenopathy noted Resp Effort & Inspection:?normal respiratory effort Auscultation:?wheezes in the upper quadrants Cardio Rate:?regular rate Rhythm:?regular rhythm Neuro General:?patient alert, patient awake and patient oriented x3 Initial Vital Signs Initial Vital Signs: Vital Signs Temperature 98.3 F 12/12/22 13:49 Pulse Rate 83 12/12/22 13:49 Respiratory Rate 20 12/12/22 13:49 Blood Pressure 174/93 H 12/12/22 13:49 Pulse Oximetry 96 12/12/22 13:49 Oxygen Delivery Method Room Air 12/12/22 13:49 <Jayesh Ortiz DO - Last Filed: 12/12/22 21:41> Initial Vital Signs Initial Vital Signs: Vital Signs Temperature 98.3 F 12/12/22 13:49 Pulse Rate 83 12/12/22 13:49 Respiratory Rate 20 12/12/22 13:49 Blood Pressure 174/93 H 12/12/22 13:49 Pulse Oximetry 96 12/12/22 13:49 Oxygen Delivery Method Room Air 12/12/22 13:49 Course <Sadiq Montgomery PA-C - Last Filed: 12/12/22 21:17> Orders Ordered: ED Orders 12/12/22 13:55 Respiratory Panel (Film Array) Stat 12/12/22 19:16 CXR [XR chest 2V] Stat RT Consult Eval and Treat NOW Discontinued Medications Albuterol/Ipratropium (Albuterol/Ipratropium 3 Ml Ampul) 3 ml INH NOW ONE Stop: 12/12/22 19:41 Last Admin: 12/12/22 19:44 Dose: 3 ml Documented By: RADHAMES Vital Signs Vital signs: Vital Signs - 8 hr 12/12/22 13:49 12/12/22 18:14 Temperature 98.3 F Pulse Rate 83 78 Respiratory Rate 20 Blood Pressure 174/93 H 192/115 H Pulse Oximetry 96 96 Oxygen Delivery Method Room Air Room Air <Jayesh Ortiz DO - Last Filed: 12/12/22 21:41> Orders Ordered: ED Orders 12/12/22 13:55 Respiratory Panel (Film Array) Stat 12/12/22 19:16 CXR [XR chest 2V] Stat RT Consult Eval and Treat NOW Discontinued Medications Albuterol/Ipratropium (Albuterol/Ipratropium 3 Ml Ampul) 3 ml INH NOW ONE Stop: 12/12/22 19:41 Last Admin: 12/12/22 19:44 Dose: 3 ml Documented By: RADHAMES Vital Signs Vital signs: Vital Signs - 8 hr 12/12/22 13:49 12/12/22 18:14 Temperature 98.3 F Pulse Rate 83 78 Respiratory Rate 20 Blood Pressure 174/93 H 192/115 H Pulse Oximetry 96 96 Oxygen Delivery Method Room Air Room Air MDM - URI/Sore Throat <Sadiq Montgomery PA-C - Last Filed: 12/12/22 21:17> Lab Data Labs: Lab Results 12/12/22 Range/Units 13:55 Chlamy pneumoniae PCR Not detected (Not Detect) Adenovirus (PCR) Not detected (Not Detect) B. pertussis DNA (PCR) Not detected (Not Detecte) B.parapertussis DNA PCR Not detected (Not Detecte) Coronavirus OC43 (PCR) Not detected (Not Detect) Coronavirus HKU1 (PCR) Not detected (Not Detect) Coronavirus 229E (PCR) Not detected (Not Detect) SARS-CoV-2 (PCR) Not detected (Not Detecte) Coronavirus NL63 (PCR) Not detected (Not Detect) Human Metapneumovir PCR Not detected (Not Detect) Influenza Type A (PCR) Not detected (Not Detect) Influenza Type B (PCR) Not detected (Not Detect) M. pneumoniae (PCR) Not detected (Not Detect) Parainfluenza 1 (PCR) Not detected (Not Detect) Parainfluenza 2 (PCR) Not detected (Not Detect) Parainfluenza 3 (PCR) Detected H (Not Detect) Parainfluenza 4 (PCR) Not detected (Not Detect) RSV (PCR) Not detected (Not Detect) Entero/Rhino (PCR) Not detected (Not Detect) MDM Narrative Medical decision making narrative: 62-year-old female with a complex medical history presents to the ED with 2 days of runny nose, sore throat, productive cough, wheezing, fatigue. Respiratory panel is positive for parainfluenza 3. Chest x-ray ordered to rule out pneumonia. Patient given a breathing treatment of albuterol and ipratropium with good improvement. Awaiting chest x-ray. Patient is now signed out to Dr. Jayesh Ortiz <Jayesh Ortiz, DO - Last Filed: 12/12/22 21:41> Lab Data Labs: Lab Results 12/12/22 Range/Units 13:55 Chlamy pneumoniae PCR Not detected (Not Detect) Adenovirus (PCR) Not detected (Not Detect) B. pertussis DNA (PCR) Not detected (Not Detecte) B.parapertussis DNA PCR Not detected (Not Detecte) Coronavirus OC43 (PCR) Not detected (Not Detect) Coronavirus HKU1 (PCR) Not detected (Not Detect) Coronavirus 229E (PCR) Not detected (Not Detect) SARS-CoV-2 (PCR) Not detected (Not Detecte) Coronavirus NL63 (PCR) Not detected (Not Detect) Human Metapneumovir PCR Not detected (Not Detect) Influenza Type A (PCR) Not detected (Not Detect) Influenza Type B (PCR) Not detected (Not Detect) M. pneumoniae (PCR) Not detected (Not Detect) Parainfluenza 1 (PCR) Not detected (Not Detect) Parainfluenza 2 (PCR) Not detected (Not Detect) Parainfluenza 3 (PCR) Detected H (Not Detect) Parainfluenza 4 (PCR) Not detected (Not Detect) RSV (PCR) Not detected (Not Detect) Entero/Rhino (PCR) Not detected (Not Detect) MDM Narrative Medical decision making narrative: 62-year-old female with a complex medical history presents to the ED with 2 days of runny nose, sore throat, productive cough, wheezing, fatigue. Respiratory panel is positive for parainfluenza 3. Chest x-ray ordered to rule out pneumonia. Patient given a breathing treatment of albuterol and ipratropium with good improvement. Awaiting chest x-ray. Patient is now signed out to Dr. Jayesh Ortzi: Received turned over. Chest x-ray shows no signs of pneumonia. No indication for antibiotics. No respiratory distress. Will discharge home with an inhaler she states this did help her symptoms. She was given return precautions. She expressed understanding and agreement. Discharge Plan Departure Patient Disposition: Home Clinical Impression: Infection due to parainfluenza virus 3 Instructions: DI for Viral Upper Respiratory Infection -- Adult Activity Restrictions/Additional Instructions: You can use the albuterol inhaler as needed. You can also take Tylenol/ibuprofen for any fevers. Contact your primary doctor for a follow-up. Prescriptions: No Action benzonatate 100 mg capsule 100 mg PO BID PRN (Reason: cough) Qty: 20 0RF (DME) Aerochamber MV Spacer See Rx Instructions .ROUTE .MEDSUPPLY Qty: 1 0RF Rx Instructions: As directed albuterol sulfate 90 mcg/actuation HFA aerosol inhaler 2 puff inhalation Q6H PRN (Reason: shortness of breath or wheezing) Qty: 6.7 0RF acetaminophen [Tylenol Extra Strength] 500 mg tablet 500 mg PO Q6H PRN famotidine 20 mg tablet 20 mg PO BID Qty: 60 3RF albuterol sulfate 90 mcg/actuation HFA aerosol inhaler 2 puff INHALATION Q4-6H PRN (Reason: bronchospasm) Qty: 18 2RF lisinopril-hydrochlorothiazide 20-25 mg tablet 1 tab PO DAILY Qty: 90 3RF omeprazole 20 mg capsule,delayed release(DR/EC) 20 mg PO QAM Qty: 90 3RF Rx Instructions: Take 1 cap daily for GERD. meclizine 25 mg tablet 25 mg PO QID PRN (Reason: motion sickness) Qty: 20 0RF Referrals: Josiah Santos ARNP [Primary Care Provider] - Stand Alone Forms: Patient Portal/API
[2022-12-12] MEDS: ALBUTEROL/IPRATROPIUM 3 ML AMPUL INH (19:44)
[2022-12-12] MEDS: ALBUTEROL HFA PREPACK 1 BOX MISC (21:45)
[2022-12-12 21:53] VITALS: BP 200/98
[2022-12-12] MEDS: hydroCHLOROthiazide 25 MG TABLET PO (22:07)
[2022-12-12] MEDS: lisinopriL 20 MG TABLET PO (22:07)
== END 2022-12-12 22:10 | disposition home or self-care (01) ==
PROVIDERS: Emergency Medicine; Emergency Provider Student in an Organized Health Care Education/Training Program; Family Provider Registered Nurse Diabetes Educator; PCP Registered Nurse Diabetes Educator
DX: J06.9 Acute upper respiratory infection, unspecified (principal); B34.8 Other viral infections of unspecified site; Z20.822 Contact with and (suspected) exposure to COVID-19
CPT/HCPCS: 71046; 87633; 94640; 99283; 99284

== ENCOUNTER → 2023-12-25 09:26 | Outpatient (CLI) | payer OTHER, MEDICAID, SELFPAY ==
[2021-03-22 10:06] VITALS: BMI 43.9
[2023-12-25 10:07] LABS: Hematocrit 40.4 % (36-46); Hemoglobin 13.2 g/dL (12.0-16.0); Mean Corpuscular HGB Conc 32.8 % (30-36); Mean Corpuscular Hemoglobin 28.1 PG (26-34); Mean Corpuscular Volume 85.7 fL (80-100); Platelet Count 279 X10^3/uL (150-400); Red Blood Cell Count 4.71 X10^6/uL (4.0-5.2); Red Cell Distribution Width 14.8 % (11.6-14.8); White Blood Cell Count 8.1 X10^3/uL (4.5-11.0)
[2023-12-25 10:26] LABS: Hemoglobin A1C% w Est Avg Glu 6.2 % (4.0-6.0)
[2023-12-25 10:53] LABS: Alanine Aminotransferase 15 IU/L (<35); Albumin 3.7 g/dL (3.5-5.0); Albumin Globulin Ratio 1.2 (1.0-2.8); Alkaline Phosphatase 59 U/L (38-126); Aspartate Aminotransferase 18 IU/L (14-36); BUN Creatinine Ratio 22.6 (6-22); Bilirubin Total 0.6 mg/dL (0.2-1.3); Blood Urea Nitrogen 14 mg/dL (7-17); Calcium 9.2 mg/dL (8.4-10.2); Carbon Dioxide 32 mmol/L (22-32); Chloride 104 mmol/L (98-107); Cholesterol 194 mg/dL (140-199); Estimated Glomerular Filt Rate > 60 mL/min (>60); Globulin 3.1 g/dL (1.7-4.1); Glucose 111 mg/dL (80-110); HDL Cholesterol 47 mg/dL (40-60); HEMOLYSIS < 15 (0-50); LDL Cholesterol Calculated 122 mg/dL (<100); Potassium 3.8 mmol/L (3.4-5.1); Sodium 140 mmol/L (137-145); Total Protein 6.8 g/dL (6.3-8.2); Triglycerides 127 mg/dL (35-150)
[2023-12-25 11:14] LABS: TSH w/ Reflex to FT4 1.35 uIU/mL (0.47-4.68)
== END ==
PROVIDERS: Family Provider Registered Nurse Diabetes Educator; PCP Registered Nurse Diabetes Educator; Referring Provider Registered Nurse Diabetes Educator; Visit Provider Registered Nurse Diabetes Educator
DX: R73.01 Impaired fasting glucose (principal); E78.5 Hyperlipidemia, unspecified; I10 Essential (primary) hypertension
CPT/HCPCS: 36415; 80053; 80061; 83036; 84443; 85027

== ENCOUNTER → 2024-02-02 11:09 | Outpatient (CLI) | payer OTHER, MEDICAID, SELFPAY ==
[2021-03-22 10:06] VITALS: BMI 43.9
--- NOTE | 2024-02-02 11:10 | DI.MG.S_ITS ---
BILATERAL DIGITAL SCREENING MAMMOGRAM 3D/2D WITH CAD: 02/02/2024 CLINICAL: Routine screening. Family history of breast cancer. Comparison is made to exams dated: 03/08/2021 mammogram, 05/07/2019 mammogram, and 08/10/2017 mammogram - [facility]. There are scattered areas of fibroglandular density in both breasts (category b / 25%-50% glandular tissue). Current study was also evaluated with a Computer Aided Detection (CAD) system. No significant masses, calcifications, or other findings are seen in either breast. There has been no significant interval change. IMPRESSION: NEGATIVE There is no mammographic evidence of malignancy. A 1 year screening mammogram is recommended. Based on the Tyrer Cuzick model (a risk assessment model) the patient's lifetime risk is 7.9% and her 10 year risk is 3.3%. According to the ACR, ACS, and NCCN guidelines, an annual breast MRI exam along with mammogram is recommended if the patient's lifetime risk is 20% or greater. This exam was interpreted at Station ID: [id number]. NOTE: For mammograms, a report in lay terms will be sent to the patient. Approximately 15% of breast malignancies will not be visualized mammographically. In the management of a palpable breast mass, a negative mammogram must not discourage biopsy of a clinically suspicious lesion. Electronically Signed By: Geronimo berger/franco:02/04/2024 07:59:32 letter sent: Normal Exam ACR BI-RADS Category 1: Negative [id number]
== END ==
PROVIDERS: Family Provider Registered Nurse Diabetes Educator; PCP Registered Nurse Diabetes Educator; Referring Provider Registered Nurse Diabetes Educator; Visit Provider Registered Nurse Diabetes Educator
DX: Z12.31 Encounter for screening mammogram for malignant neoplasm of breast (principal); Z80.3 Family history of malignant neoplasm of breast; R92.323 Mammographic fibroglandular density, bilateral breasts
CPT/HCPCS: 77063; 77067

== ENCOUNTER → 2024-02-17 10:29 | Outpatient (CLI) | payer OTHER, MEDICAID, SELFPAY ==
[2021-03-22 10:06] VITALS: BMI 43.9
--- NOTE | 2024-02-17 10:31 | DI.RAD.S_ITS ---
PROCEDURE: XR HIP W PEL IF DONE LT 2V INDICATIONS: eval L hip pain TECHNIQUE: AP pelvis with lateral view(s) of the left hip(s). COMPARISON: [facility], CT, CT ABDOMEN PELVIS W CON, 03/01/2020, 18:24. [facility], CR, XR HIP W PEL IF DONE NICKY 3TO4V, 11/12/2021, 13:14. FINDINGS: Bones: No fractures or dislocations. Mild degenerative changes. Pelvic ring appears intact. No suspicious bony lesions. Left L5 sacralization. Soft tissues: The visualized bowel gas pattern is normal. No suspicious soft tissue calcifications. IMPRESSION: Mild bilateral hip DJD. Dictated by: Errol Brown M.D. on 02/18/2024 at 1:22 Approved by: Errol Brown M.D. on 02/18/2024 at 1:24
--- NOTE | 2024-02-17 10:31 | DI.CT.S_ITS ---
PROCEDURE: CT CHEST WO CON INDICATIONS: F/U pulmonary nodule TECHNIQUE: Noncontrast 5 mm thick sections acquired from the pulmonary apices to the posterior costophrenic angles. 1 mm lung window, 5 mm thick coronal and sagittal and 7 mm axial MIP reformats were then acquired. For radiation dose reduction, the following was used: automated exposure control, adjustment of mA and/or kV according to patient size. COMPARISON: [facility], CT, CT CHEST WO [facility], 03/22/2022, 12:16. FINDINGS: Image quality: Diagnostic. Lower Neck: No enlarged lymph nodes. Thyroid: Not well seen. Axillae: No enlarged lymph nodes. Chest Wall: Unremarkable. Bones: No acute fracture. No aggressive appearing lytic or blastic osseous lesion. Mild multilevel degenerative changes of the spine. Lungs and Pleura: No pneumothorax or pleural effusions. Compared to CT chest dated March 22, 2022, no new or enlarging solid pulmonary nodules or consolidation. For example: - right apical solid, noncalcified pulmonary nodule measuring 8 x 6 mm (3/56). - right lower lobe solid, noncalcified pulmonary nodule measuring 4 mm (3/184). - right lower lobe subpleural solid pulmonary nodule measuring 4 mm (3/197). - left lower lobe solid, noncalcified pulmonary nodule 2 mm (6/124). Mild apical predominant centrilobular and paraseptal emphysema. Heart: Heart size is normal. No pericardial effusion. Thoracic Vessels: The aorta and pulmonary arteries demonstrate normal size. Minimal calcification of the thoracic aorta. Mediastinum and Hanna: No enlarged lymph nodes. A few nonenlarged calcified mediastinal and left hilar lymph nodes, likely sequela of prior granulomatous infection. Esophagus: No wall thickening. Small hiatal hernia. Upper Abdomen: Visualized upper abdomen solid organs and bowel loops appear normal. IMPRESSION: 1. Compared to CT chest dated March 22, 2022, no new or enlarging solid pulmonary nodule or consolidation. Multiple scattered solid pulmonary nodules which are stable, the largest of which in the right apex measures 8 x 6 mm. If patient meets criteria, consider annual low-dose chest CT. 2. Mild apical predominant emphysema. Dictated by: Jose Alejandro Camara M.D. on 02/17/2024 at 20:07 Approved by: Jose Alejandro Camara M.D. on 02/17/2024 at 20:12
== END ==
PROVIDERS: Family Provider Registered Nurse Diabetes Educator; PCP Registered Nurse Diabetes Educator; Referring Provider Registered Nurse Diabetes Educator; Visit Provider Registered Nurse Diabetes Educator
DX: R91.8 Other nonspecific abnormal finding of lung field (principal); J43.2 Centrilobular emphysema; K44.9 Diaphragmatic hernia without obstruction or gangrene; M16.0 Bilateral primary osteoarthritis of hip; M25.552 Pain in left hip; G89.29 Other chronic pain
CPT/HCPCS: 71250; 73502

== ENCOUNTER → 2024-02-20 14:47 | Outpatient (CLI) | payer OTHER, MEDICAID, SELFPAY ==
[2021-03-22 10:06] VITALS: BMI 43.9
[2024-02-20 21:34] LABS: Influenza A - CEPHEID Flu A NEGATIVE (NEGATIVE); Influenza B - CEPHEID Flu B NEGATIVE (NEGATIVE); Respiratory Syncytial Virus Negative (Negative)
[2024-02-20 21:43] LABS: COVID-19 CEPHEID 4-PLEX PCR Negative (Negative)
== END ==
PROVIDERS: Family Provider Registered Nurse Diabetes Educator; PCP Registered Nurse Diabetes Educator; Visit Provider Registered Nurse Diabetes Educator
DX: R05.3 Chronic cough (principal)
CPT/HCPCS: 87635; 87400 ×2; 87420; 0241U

== ENCOUNTER 2024-03-25 20:43 | Observation (INO) | payer OTHER, MEDICAID, SELFPAY ==
[2021-03-22 10:06] VITALS: BMI 43.9
[2024-03-25] VITALS (7 sets, daily range): BP systolic 147–195; BP diastolic 84–104; PULSE 73–80; RESP 12–26; TEMP 36.1–36.4; O2SAT 91–96; BMI 45.7
--- NOTE | 2024-03-25 21:03 | DI.RAD.S_ITS ---
PROCEDURE: XR CHEST 1V INDICATIONS: Possible stroke TECHNIQUE: One view of the chest was acquired. COMPARISON: [facility], CR, XR CHEST 2V, 12/12/2022, 19:14. FINDINGS: Surgical changes and devices: None. Lungs and pleura: Lungs are clear. No pleural effusions or pneumothorax. Mediastinum: Mediastinal contours appear normal. Heart size is normal. Bones and chest wall: No suspicious bony lesions. Overlying soft tissues appear unremarkable. IMPRESSION: No acute cardiopulmonary abnormality is seen. Dictated by: Geronimo Becker M.D. on 03/25/2024 at 23:39 Approved by: Geronimo Becker M.D. on 03/25/2024 at 23:40
--- NOTE | 2024-03-25 21:03 | DI.CT.S_ITS ---
PROCEDURE: CT STROKE INDICATIONS: Positive BE-FAST, Stroke symptoms TECHNIQUE: Noncontrast 4.5 mm thick angled axial sections acquired from the foramen magnum to the vertex, with coronal reformats. For radiation dose reduction, the following was used: automated exposure control, adjustment of mA and/or kV according to patient size. COMPARISON: None. FINDINGS: Image quality: Diagnostic. CSF spaces: Basal cisterns are patent. No extra-axial fluid collections. The ventricles are symmetric in size and shape. Brain: No intracranial bleeds or masses. There is cerebral volume loss for age, with resultant ventricular and sulcal prominence. There are periventricular and deep white matter chronic small vessel ischemic changes. There is intracranial internal carotid artery atherosclerosis. Skull and face: Calvarium and visualized facial bones appear intact, without suspicious lesions. Sinuses: Visualized sinuses and mastoids are clear. IMPRESSION: 1. CT head without acute intracranial abnormalities or acute calvarial fractures. 2. Age-related senescent changes and sequela of chronic small vessel ischemic disease. Findings were discussed with Dr. Jasso at 2121 hrs PST. This study fulfills neurological imaging criteria for inclusion or exclusion of acute stroke therapies based on available published neurological guidelines. Dictated by: Geronimo Becker M.D. on 03/25/2024 at 21:20 Approved by: Geronimo Becker M.D. on 03/25/2024 at 21:22
--- NOTE | 2024-03-25 21:04 | DI.CT.S_ITS ---
PROCEDURE: CT ANGIO HEAD AND NECK INDICATIONS: acute Left side deficit TECHNIQUE: After the administration of intravenous contrast, 1 mm thick sections acquired from the aortic arch through the [place] of [place]. 3-dimensional mbejcfn-slwnwdsbn-kywqzupqkb (MIP) and/or volume rendering reformats were acquired of the central intracranial vasculature and neck separately. For radiation dose reduction, the following was used: automated exposure control, adjustment of mA and/or kV according to patient size. COMPARISON: None. FINDINGS: Image quality: Diagnostic. BRAIN: CSF spaces: Ventricles are normal in size and shape. Basal cisterns are patent. No extra-axial fluid collections. Brain: No midline shift. No intracranial masses. No suspicious enhancement. Walsh-white matter interface appears intact. Skull and face: Calvarium and facial bones appear intact, without suspicious lesions. Orbits appear normal. Sinuses: Sinuses and mastoids are clear. HEAD CT ANGIOGRAPHY: Anterior circulation: Atherosclerosis of the intracranial internal carotid arteries. Intracranial internal carotid arteries appear patent without high-grade stenosis. There is flow/opacification within the paired anterior cerebral arteries. There is opacification within the middle cerebral arteries. The anterior communicating artery is seen. No aneurysms are seen. No occlusion. Posterior circulation: Visualized portions of the vertebral arteries are patent and join to form a normal appearing basilar artery. No evidence for high-grade stenosis. No occlusions. There is opacification of the posterior cerebral arteries. No aneurysms are seen. NECK CT ANGIOGRAPHY: Carotid system: The great vessels demonstrate normal variant anatomy with aberrant right subclavian artery extending behind the esophagus. Mild atherosclerosis. The origins of the common carotid arteries appear patent. The common carotid arteries appear patent throughout their visualized courses without high grade stenosis. The bifurcation regions are both patent without high grade stenosis. The internal carotid arteries demonstrate normal calibers and courses. Posterior circulation: The origins of the vertebral arteries both appear patent without hemodynamically significant stenosis. The more superior extracranial portions of both vertebral arteries also demonstrate normal courses and calibers. They join to form a normal appearing basilar artery. Soft tissues: Visualized neck soft tissues demonstrate no suspicious abnormalities. Bones: No suspicious bony lesions. Visualized cervical spine appears normally aligned. No acute compression fractures of the vertebral bodies. Moderate multilevel cervical spondylosis. IMPRESSION: Atherosclerosis. Otherwise, negative CT angiogram of the intracranial and neck arterial vasculature without high-grade stenosis, occlusion, dissection, or aneurysm. If there is persistent or high clinical suspicion for acute cerebrovascular ischemia/stroke, more sensitive evaluation with brain MRI can be considered. Any quantitative measurements of stenosis were performed using NASCET criteria. Dictated by: Geronimo Becker M.D. on 03/25/2024 at 21:57 Approved by: Geronimo Becker M.D. on 03/25/2024 at 22:03
[2024-03-25 21:14] LABS: Add Manual Diff / Slide Review NO; Basophils Absolute Auto 0 /uL (0-100); Basophils Percent Auto 0.2 % (0-2); Eosinophils Absolute Auto 100 /uL (0-450); Eosinophils Percent Auto 1.4 % (2-4); Hematocrit 42.1 % (36-46); Lymphocytes Absolute Auto 3500 /uL (1100-4500); Lymphocytes Percent Auto 35.9 % (25-40); Mean Corpuscular HGB Conc 33.1 % (30-36); Mean Corpuscular Hemoglobin 28.4 PG (26-34); Mean Corpuscular Volume 85.9 fL (80-100); Monocytes Absolute Auto 600 /uL (0-900); Monocytes Percent Auto 6.7 % (3-14); Neutrophils Absolute Auto 5400 /uL (1500-7000); Neutrophils Percent Auto 55.8 % (50-75); Platelet Count 296 X10^3/uL (150-400); Red Blood Cell Count 4.91 X10^6/uL (4.0-5.2); Red Cell Distribution Width 14.1 % (11.6-14.8); White Blood Cell Count 9.7 X10^3/uL (4.5-11.0)
[2024-03-25 21:15] LABS: Prothrombin Time 11.2 SECONDS (9.4-12.5)
[2024-03-25 21:18] LABS: PTT Partial Thromboplastin Tim 33 SECONDS (25.1-36.5)
[2024-03-25 21:20] LABS: Alanine Aminotransferase 18 IU/L (<35); Albumin 4.3 g/dL (3.5-5.0); Albumin Globulin Ratio 1.4 (1.0-2.8); Alkaline Phosphatase 57 U/L (38-126); Aspartate Aminotransferase 22 IU/L (14-36); BUN Creatinine Ratio 15.4 (6-22); Bilirubin Total 0.4 mg/dL (0.2-1.3); Blood Urea Nitrogen 14 mg/dL (7-17); Calcium 9.5 mg/dL (8.4-10.2); Carbon Dioxide 29 mmol/L (22-32); Chloride 104 mmol/L (98-107); Creatine Kinase 69 U/L (30-135); Estimated Glomerular Filt Rate > 60 mL/min (>60); Ethanol (ETOH) < 10 mg/dL; Globulin 3.1 g/dL (1.7-4.1); Glucose 128 mg/dL (80-110); HEMOLYSIS < 15 (0-50); Potassium 3.7 mmol/L (3.4-5.1); Sodium 139 mmol/L (137-145); Total Protein 7.4 g/dL (6.3-8.2)
--- NOTE | 2024-03-25 21:24 | EKG_ITS ---
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
[2024-03-25 21:31] LABS: Troponin I < 0.012 ng/mL (0.01-0.034)
--- NOTE | 2024-03-25 21:46 | ED_ITS ---
HPI - Neuro Symptoms/Deficit General Chief Complaint: Neuro Symptoms/Deficit Stated Complaint: nausea, dizziness Time Seen by Provider: 03/25/24 20:45 Source: patient Mode of arrival: Ambulatory History of Present Illness HPI Narrative: 63-year-old woman who presents with concerns that the left side of her face is numb. She says that this morning she woke up and was having dizzy spells worse if she was laying on her left side. She has been lying on her right side in her back much of the day. On further questioning she notes she has been having episodes of left upper extremity weakness and paresthesias over the course of the week. She thought it was a nerve in her neck. No pain was involved. Her niece notes that she likely has not been taking her blood pressure medication as prescribed and is currently taking Chantix in an attempt to stop smoking. Patient notes that she has been nauseated with the vertigo today but is not complaining of the headache. No fevers no obvious vision changes. She has never had vertigo previously. No current complaints of palpitations, chest pain, abdominal pain, diarrhea. On Anticoagulants: No Related Data Previous Rx's Medication Instructions Recorded inhalational spacing device #1 ea 09/14/22 (Aerochamber MV spacer) albuterol sulfate 90 mcg/actuation 2 puff inhalation Q4-6H PRN 12/17/23 aerosol inhaler bronchospasm #18 grams fluticasone propionate 115 2 puff inhalation BID #12 grams 02/20/24 mcg-salmeterol 21 mcg/actuation HFA inhaler (Advair HFA) lisinopril 20 1 tab PO DAILY #90 tabs 02/20/24 mg-hydrochlorothiazide 25 mg tablet varenicline 1 mg tablet (Chantix 1 mg PO BID #60 tabs 02/20/24 Continuing Month Box) Allergies Allergy/AdvReac Type Severity Reaction Status Date / Time No Known Drug Allergies Allergy Verified 03/25/24 21:10 Review of Systems Review of Systems Narrative: Pertinent positive and negative findings as per HPI Hematologic/Lymphatic On Anticoagulants: No Patient History Medical History Perforated nasal septum COPD (chronic obstructive pulmonary disease) Dyslipidemia Impaired fasting blood sugar Chronic bilateral low back pain Hip pain, chronic Chronic pain of left knee Pulmonary nodule Hyperglycemia Shoulder pain History of dimpling of breast skin Bowel habit changes Former smoker Insomnia Fatigue Obstructive sleep apnea Hypertriglyceridemia Hyperglycemia Morbid obesity with body mass index of 40.0-44.9 in adult Loud snoring GERD (gastroesophageal reflux disease) Hypertension Surgical History No pertinent past surgical history Family History Father CAD (coronary artery disease) Diabetes mellitus Mother Stroke Cancer of breast Social History household members: none Smoking Status: Former smoker alcohol intake: current Smoking Status: Former smoker tobacco type: cigarettes alcohol intake frequency: holidays/special occasions only Substance Use Type: does not use Exam Initial Vital Signs Initial Vital Signs: Vital Signs Temperature 97.6 F 03/25/24 20:50 Pulse Rate 79 03/25/24 20:50 Respiratory Rate 18 03/25/24 20:50 Blood Pressure 165/104 H 03/25/24 20:50 Pulse Oximetry 96 03/25/24 20:50 Oxygen Delivery Method Room Air 03/25/24 20:50 General: Healthy appearing, BMI of 46, in no acute distress. Able to give a complete and coherent history. Well-nourished well-developed HEENT: Moist mucous membranes, normal sclera with reactive pupils, she does not have nystagmus with head rotation. She does complain of mild vertigo when leaning her head to the left. Neck: No JVD, supple Respiratory: Lungs are clear to auscultation, no wheezing no rales no rhonchi. Full and symmetrical air movement Cardiac: Regular rate and rhythm no murmurs no bruits Abdomen: Soft, nontender, good bowel tones, no flank pain Skin: Warm and dry, no rashes Neurologic: She has some subtle neurologic changes. Decreased sensation to the left side of her face and minor decreased sensation in upper and lower extremities on the left. With strength testing she does note that the left arm and leg do feel weaker but technically does not have any drift. With peripheral field testing there is slight blurry vision the left lower outer field without other visual changes. This gets her a NIH score to Extremities: No trauma, well perfused Psych: Cooperative, appropriate insight and affect NIH Stroke Scale/Score (NIHSS) RESULT SUMMARY: 2 points NIH Stroke Scale INPUTS: 1A: Level of consciousness ?> 0 = Alert; keenly responsive 1B: Ask month and age ?> 0 = Both questions right 1C: 'Blink eyes' & 'squeeze hands' ?> 0 = Performs both tasks 2: Horizontal extraocular movements ?> 0 = Normal 3: Visual abdi ?> 1 = Partial hemianopia 4: Facial palsy ?> 0 = Normal symmetry 5A: Left arm motor drift ?> 0 = No drift for 10 seconds 5B: Right arm motor drift ?> 0 = No drift for 10 seconds 6A: Left leg motor drift ?> 0 = No drift for 5 seconds 6B: Right leg motor drift ?> 0 = No drift for 5 seconds 7: Limb Ataxia ?> 0 = No ataxia 8: Sensation ?> 1 = Mild-moderate loss: less sharp/more dull 9: Language/aphasia ?> 0 = Normal; no aphasia 10: Dysarthria ?> 0 = Normal 11: Extinction/inattention ?> 0 = No abnormality Course Orders Ordered: ED Orders 03/25/24 20:55 Complete Blood Count AUTO DIFF Stat Comprehensive Metabolic Panel Stat Ethanol (ETOH) Stat Magnesium Stat PTT Partial Thromboplastin Durga Stat Prothrombin Time INR Stat Troponin & CK Cardiac Panel Stat 03/25/24 21:03 CT Stroke Stat XR chest 1V Stat Urine Drug Screen, Rapid Stat EKG-12 Lead Stat 03/25/24 21:[address] angio head and neck Stat COVID19 -Nasal RAPID Stat Urinalysis and Microscopic Stat Urine Drug Screen, Rapid Stat EKG-12 Lead Stat Ondansetron HCl (Ondansetron 4 Mg/2 Ml Inj) 4 mg IV NOW PRN PRN Reason: Nausea And Vomiting Ondansetron HCl (Ondansetron 4 Mg Odt) 4 mg SL NOW PRN PRN Reason: Nausea And Vomiting Vital Signs Vital signs: Vital Signs - 8 hr 03/25/24 20:50 03/25/24 21:21 03/25/24 21:21 Temperature 97.6 F Pulse Rate 79 80 Respiratory Rate 18 24 Blood Pressure 165/104 H 195/102 H Pulse Oximetry 96 94 Oxygen Delivery Method Room Air 03/25/24 21:30 03/25/24 21:30 Temperature Pulse Rate 79 Respiratory Rate 26 H Blood Pressure 150/92 H Pulse Oximetry 96 Oxygen Delivery Method [facility] - Neuro Symptoms/Deficit Lab Data 03/25/24 20:55 03/25/24 20:55 Labs: Lab Results 03/25/24 Range/Units 20:55 WBC 9.7 (4.5-11.0) X10^3/uL RBC 4.91 (4.0-5.2) X10^6/uL Hgb 14.0 (12.0-16.0) g/dL Hct 42.1 (36-46) % MCV 85.9 (80-100) fL MCH 28.4 (26-34) PG MCHC 33.1 (30-36) % RDW 14.1 (11.6-14.8) % Plt Count 296 (150-400) X10^3/uL Neut % (Auto) 55.8 (50-75) % Lymph % (Auto) 35.9 (25-40) % Dunn % (Auto) 6.7 (3-14) % Eos % (Auto) 1.4 L (2-4) % Baso % (Auto) 0.2 (0-2) % Neut # (Auto) 5400 (9544-1104) /uL Lymph # (Auto) 3500 (2096-5969) /uL Dunn # (Auto) 600 (0-900) /uL Eos # (Auto) 100 (0-450) /uL Baso # (Auto) 0 (0-100) /uL PT 11.2 (9.4-12.5) SECONDS INR 1.0 (0.9-1.3) APTT 33 (25.1-36.5) SECONDS Sodium 139 (137-145) mmol/L Potassium 3.7 (3.4-5.1) mmol/L Chloride 104 (98-107) mmol/L Carbon Dioxide 29 (22-32) mmol/L BUN 14 (7-17) mg/dL Creatinine 0.91 (0.52-1.04) mg/dL Estimated GFR > 60 (>60) mL/min BUN/Creatinine Ratio 15.4 (6-22) Glucose 128 H (80-110) mg/dL Calcium 9.5 (8.4-10.2) mg/dL Magnesium 2.0 (1.6-2.3) mg/dL Total Bilirubin 0.4 (0.2-1.3) mg/dL AST 22 (14-36) IU/L ALT 18 (<35) IU/L Alkaline Phosphatase 57 (38-126) U/L Total Creatine Kinase 69 (30-135) U/L Troponin I < 0.012 (0.01-0.034) ng/mL Total Protein 7.4 (6.3-8.2) g/dL Albumin 4.3 (3.5-5.0) g/dL Globulin 3.1 (1.7-4.1) g/dL Albumin/Globulin Ratio 1.4 (1.0-2.8) Ethyl Alcohol < 10 ( - 10) mg/dL Imaging Data CT head: Radiologist's Impression: PROCEDURE: CT STROKE INDICATIONS: Positive BE-FAST, Stroke symptoms TECHNIQUE: Noncontrast 4.5 mm thick angled axial sections acquired from the foramen magnum to the vertex, with coronal reformats. For radiation dose reduction, the following was used: automated exposure control, adjustment of mA and/or kV according to patient size. COMPARISON: None. FINDINGS: Image quality: Diagnostic. CSF spaces: Basal cisterns are patent. No extra-axial fluid collections. The ventricles are symmetric in size and shape. Brain: No intracranial bleeds or masses. There is cerebral volume loss for age, with resultant ventricular and sulcal prominence. There are periventricular and deep white matter chronic small vessel ischemic changes. There is intracranial internal carotid artery atherosclerosis. Skull and face: Calvarium and visualized facial bones appear intact, without suspicious lesions. Sinuses: Visualized sinuses and mastoids are clear. IMPRESSION: 1. CT head without acute intracranial abnormalities or acute calvarial fractures. 2. Age-related senescent changes and sequela of chronic small vessel ischemic disease. Findings were discussed with Dr. Jasso at [address] [facility]. This study fulfills neurological imaging criteria for inclusion or exclusion of acute stroke therapies based on available published neurological guidelines. Dictated by: Geronimo Becker M.D. on 03/25/2024 at 21:20 CTA head and neck: Radiologist's Impression: PROCEDURE: CT STROKE INDICATIONS: Positive BE-FAST, Stroke symptoms TECHNIQUE: Noncontrast 4.5 mm thick angled axial sections acquired from the foramen magnum to the vertex, with coronal reformats. For radiation dose reduction, the following was used: automated exposure control, adjustment of mA and/or kV according to patient size. COMPARISON: None. FINDINGS: Image quality: Diagnostic. CSF spaces: Basal cisterns are patent. No extra-axial fluid collections. The ventricles are symmetric in size and shape. Brain: No intracranial bleeds or masses. There is cerebral volume loss for age, with resultant ventricular and sulcal prominence. There are periventricular and deep white matter chronic small vessel ischemic changes. There is intracranial internal carotid artery atherosclerosis. Skull and face: Calvarium and visualized facial bones appear intact, without suspicious lesions. Sinuses: Visualized sinuses and mastoids are clear. IMPRESSION: 1. CT head without acute intracranial abnormalities or acute calvarial fractures. 2. Age-related senescent changes and sequela of chronic small vessel ischemic disease. Findings were discussed with Dr. Jasso at 2121 hrs PST. This study fulfills neurological imaging criteria for inclusion or exclusion of acute stroke therapies based on available published neurological guidelines. Dictated by: Geronimo Becker M.D. on 03/25/2024 at 21:20 MDM Narrative Medical decision making narrative: CC: Patient presents with complaints of left-sided facial numbness that is started at approximately 8:00 p.m.. Complicating co-morbidities: She has been having intermittent left arm paresthesia and weakness over the last week, on testing subtle decreased sensation and weakness entire left side and she has not sure of the onset of this. Poorly controlled hypertension, she is attempting to stop smoking Data collected from: patient. Niece notes that she likely has not been taking her medications for blood pressure as prescribed. She also was recently prescribed Chantix and likely is not taking that as prescribed either Medical records reviewed: Family practice notes from February 20, 2024 are reviewed Differential considered: Stroke however onset time is unclear. She may have been having waxing and waning symptoms for a week, on physical exam new left- sided weakness she had not recognized, the acute left-sided facial paresthesia has been ongoing for an hour prior to arrival Exam documented above, pertinent findings include: Neuro exam documented in his above. Initial blood pressure is 165/104 and without intervention does come down to 150/92. Lab Test results independently reviewed as above. Pertinent findings: CBC is unremarkable Alcohol level is undetectable Chemistries are reassuring initial troponin is undetectable Independently reviewed EKG: Sinus rhythm at a rate of 78. She has a right bundle branch block but no acute ischemic changes or appreciated Imaging studies independently reviewed: CT scan of the head is reviewed in real-time with Radiology at 9:22 a[address] No acute bleed CT angiogram Chest x-ray Consultations: Discussion with stroke neurology through the [facility] [address] Dr Saravia. Recommends aspirin but because symptoms are waxing and waning in diagnosis isn't definitive recommended on holding Plavix until after MRI and echo has been obtained with her inpatient stay. Recommends telemetry, obtaining A1c and lipid panel. Will discuss with the hospitalist for admission Treatments: Aspirin and Zofran given Re-evaluations: Patient is updated on findings need for admission Discussion: 63-year-old woman with stroke-like symptoms uncertain time of onset in his not a candidate for tPA. Left arm paresthesia intermittently over the last week, vertigo over the last 12 hours, the last 2 hours she has been having left-sided notable facial paresthesia and on more formal testing she is got slight left-sided weakness and left-sided paresthesia in the lower extremities and upper extremities as well. Mild peripheral field defect left outer lower section. Patient understands need for admission and questions are answered. discussed with Dr Freitas who will admit Discharge Plan Departure Patient Disposition: Admitted As Inpatient Clinical Impression: Stroke Qualifiers: CVA mechanism: unspecified Qualified Code(s): I63.9 - Cerebral infarction, unspecified
[2024-03-25] MEDS: ASPIRIN 81 MG CHEW TAB 324 MG PO (22:25)
[2024-03-25] MEDS: ONDANSETRON 4 MG/2 ML INJ IV (22:30)
[2024-03-25 22:44] LABS: Hemoglobin A1C% w Est Avg Glu 6.3 % (4.0-6.0)
[2024-03-25 23:57] LABS: Ur Creatinine Normal (Normal); Ur Specific Gravity Normal (Normal); Urine Amphetamines Negative (Negative); Urine Barbiturates Negative (Negative); Urine Benzodiazepines Negative (Negative); Urine Cocaine Negative (Negative); Urine MDMA Negative (Negative); Urine Methadone Negative (Negative); Urine Methamphetamines Negative (Negative); Urine Opiates Negative (Negative); Urine Oxycodone Negative (Negative); Urine Phencyclidine Negative (Negative); Urine THC Negative (Negative); Urine Tricyclic Antidepressant Negative (Negative); Urine pH Normal (Normal)
--- NOTE | 2024-03-26 | DI.ECHO.S_ITS ---
[place] +---------+ [facility] : : [address] : : [place] : : [id number] : : Phone: [phone] Echocardiogram Report + + :Name: MARY WHATLEY Study Date: 03/26/2024 Height: 62 in : :Hospital ReadingLocation: Weight: 251 lb : : Gender: Female BSA: 2.1 m2 : :: 1960 Age: 63 yrs BP: 147/94 mmHg: :Reason For Study: STROKE : :Ordering Physician: MAURA, : :DENNIS Performed By: Cassi Chaudhary : :Referring: DENNIS LORENZO : + + Interpretation Summary The patient was in sinus rhythm with heart rates between 68-75 bpm during the exam. The left ventricle is normal in size. The ejection fraction is estimated to be 65-70%. No obvious LV thrombus. The right ventricle is normal in size and function. All the valves were not well-visualized however no gross significant abnormalities seen. Injection of contrast documented no interatrial shunt. Procedure: A two-dimensional transthoracic echocardiogram with color flow and Doppler was performed. The study quality was technically adequate. There is no prior echocardiogram noted for this patient. The patient was in sinus rhythm with heart rates between 68-75 bpm during the exam. Left Ventricle: The left ventricle is normal in size. Proximal septal thickening is noted. There is no echo evidence for significant left ventricular outflow tract obstruction. There is no thrombus. The ejection fraction is estimated to be 65-70%. There are no focal wall motion abnormalities. Diastolic parameters suggest a relaxation abnormality of the left ventricle, consistent with probable normal filling pressures. Right Ventricle: The right ventricle is normal in size and function. Atria: The left atrial size is normal. Right atrial size is normal. There is no Doppler evidence for an interatrial shunt. Injection of contrast documented no interatrial shunt. Mitral Valve: The mitral valve is normal in structure and function. There is no mitral regurgitation noted. Aortic Valve: The aortic valve opens well. The aortic valve is not well visualized. There is no aortic valve stenosis. No aortic regurgitation is present. Tricuspid Valve: The tricuspid valve is normal in structure and function. There is trace tricuspid regurgitation. Pulmonary artery pressures cannot be estimated because of the lack of a measurable TR jet velocity. Pulmonic Valve: The pulmonic valve is not well visualized. There is no pulmonic valvular regurgitation. Great Vessels: The aortic root is normal size. The dimensions of the ascending aorta are normal. The inferior vena cava was not well visualized. Pericardium/ Pleura There is no pericardial effusion. There is no pleural effusion. MMode/2D Measurements & Calculations LVIDd: 4.4 cm LVOT diam: 2.1 cm LVIDs: 2.8 cm Ao root diam: 3.2 cm FS: 36.4 % asc Aorta Diam: 3.4 cm IVSd: 1.2 cm LVPWd: 0.88 cm LV grover. diameter/BSA (cm/m^2): 2.1 LV sys. diameter/BSA (cm/m^2): 1.3 LA A2 area: 18.7 cm2 RA long axis: 5.4 cm LA A4 area: 18.2 cm2 RA area: 17.7 cm2 LA length (vol): 5.9 cm RA vol: 49.5 ml LA vol: 49.0 ml RA : 23.6 ml/m2 LA vol index: 23.3 ml/m2 RVD1 (basal): 3.4 cm RVD2 (mid): 3.4 cm TAPSE: 1.8 cm Doppler Measurements & Calculations Ao V2 max: 162.4 cm/sec LVOT Max Naeem: 114.4 cm/sec Ao V2 mean: 114.9 cm/sec LV V1 max P.2 mmHg Ao max P.6 mmHg LV V1 VTI: 22.5 cm Ao mean P.8 mmHg LAURI(I,D): 2.5 cm2 Ao V2 VTI: 31.7 cm LAURI(V,D): 2.5 cm2 sev ratio: 0.71 LAURI indexed to BSA (cm^2/m^2): 1.2 MV E max naeem: 67.5 cm/sec PA V2 max: 89.7 cm/sec MV A max naeem: 74.1 cm/sec PA V2 mean: 65.9 cm/sec MV E/A: 0.91 PA mean P.9 mmHg Med Peak E' Naeem: 7.2 cm/sec PA pr(Accel): 39.6 mmHg E/E' med: 9.3 Lat Peak E' Naeem: 8.9 cm/sec E/E' lat: 7.5 E/e' average: 8.4 MV dec time: 0.22 sec SV(LVOT): 80.1 ml Reading Physician:11:10 AM
--- NOTE | 2024-03-26 01:12 | PM.HP.1 ---
History of Present Illness History of Present Illness Date Patient Seen: 03/26/24 Time Patient Seen: 00:10 Date of Onset of Symptoms: 03/23/24 Chief complaint: Left facial numbness, dizziness Narrative: This patient is a 63 year old female with HTN, HLD, GERD, COPD, obesity, and JUAN who presented to the ER for left facial numbness which began at 1999 on 03/25/24. She notes mild symptoms without any alleviating or exacerbating factors and denies any prior episodes. She does report waking with dizziness on the morning of 03/25/24 and states that she has also noticed left arm weakness and paresthesias over the past week. In the ER, temperature was 97.6, pulse 79, respirations 18, blood pressure 165/104 and O2 saturation 96% on room air. CT head was negative for any acute findings and CTA head/neck was negative for any high grade stenosis. She is admitted for further medical management and monitoring. [facility] Medical History Perforated nasal septum COPD (chronic obstructive pulmonary disease) Dyslipidemia Impaired fasting blood sugar Chronic bilateral low back pain Hip pain, chronic Chronic pain of left knee Pulmonary nodule Hyperglycemia Shoulder pain History of dimpling of breast skin Bowel habit changes Former smoker Insomnia Fatigue Obstructive sleep apnea Hypertriglyceridemia Hyperglycemia Morbid obesity with body mass index of 40.0-44.9 in adult Loud snoring GERD (gastroesophageal reflux disease) Hypertension Surgical History No pertinent past surgical history Family History Father CAD (coronary artery disease) Diabetes mellitus Mother Stroke Cancer of breast Social History household members: family Smoking Status: Former smoker alcohol intake: current Comment: Lives at home with her sister. Ambulatory without assistance. Former smoker. No current smoking, alcohol or drug use. Code status: Full code. Emergency contact is her sister Heidi Redman . Meds Home Medications and Allergies Home Medications Medication Instructions Recorded Confirmed Type inhalational spacing device #1 ea 09/14/22 03/25/24 Rx (Aerochamber MV spacer) albuterol sulfate 90 mcg/actuation 2 puff inhalation Q4-6H PRN 12/17/23 03/25/24 Rx aerosol inhaler bronchospasm #18 grams fluticasone propionate 115 2 puff inhalation BID #12 grams 02/20/24 03/25/24 Rx mcg-salmeterol 21 mcg/actuation HFA inhaler (Advair HFA) lisinopril 20 1 tab PO DAILY #90 tabs 02/20/24 03/25/24 Rx mg-hydrochlorothiazide 25 mg tablet varenicline 1 mg tablet (Chantix 1 mg PO BID #60 tabs 02/20/24 03/25/24 Rx Continuing Month Box) meloxicam 7.5 mg tablet 15 mg PO DAILY PRN moderate pain 03/25/24 03/25/24 History Allergies Allergy/AdvReac Type Severity Reaction Status Date / Time No Known Drug Allergies Allergy Verified 03/25/24 21:10 Review of Systems Constitutional Comments: No fever, chills or sweats Eyes Comments: No vision changes ENT Comments: Reports sinus congestion. No ear congestion or sore throat Cardiovascular Comments: No chest pain or palpitations Respiratory Comments: Reports chronic cough and wheezing. No shortness of breath Gastrointestinal Comments: No abdominal pain. Reports nausea and vomiting after IV contrast given in ER. No diarrhea, constipation or blood in the stool. Genitourinary Comments: No dysuria or hematuria Neurologic Comments: Reports left facial paresthesias, left arm weakness and paresthesias, dizziness Exam Vital Signs (past 8 hours): - 03/25/24 20:50 03/25/24 21:03 03/25/24 21:21 Temperature 97.6 F 97 F L Pulse Rate 79 76 80 Respiratory Rate 24 Blood Pressure 165/104 H 152/91 H Pulse Oximetry 96 94 94 Oxygen Delivery Method Room Air 03/25/24 21:21 03/25/24 21:30 03/25/24 21:30 Temperature Pulse Rate 79 Respiratory Rate 26 H Blood Pressure 195/102 H 150/92 H Pulse Oximetry 96 Oxygen Delivery Method 03/25/24 22:00 03/25/24 22:00 03/25/24 22:15 Temperature Pulse Rate 73 73 Respiratory Rate 19 18 Blood Pressure 162/101 H Pulse Oximetry 91 92 Oxygen Delivery Method 03/25/24 22:15 03/25/24 22:30 06/18/24 22:30 Temperature Pulse Rate 78 Respiratory Rate 12 Blood Pressure 147/84 H 152/98 H Pulse Oximetry 94 Oxygen Delivery Method 03/25/24 22:40 Temperature Pulse Rate Respiratory Rate Blood Pressure Pulse Oximetry Oxygen Delivery Method Room Air Oxygen Delivery Method Room Air Const Other: Awake, alert, oriented, no acute distress HENMT Other: EOMI, dry mucous membranes Resp Other: Clear to auscultation bilaterally Cardio Other: Regular rate and rhythm, no murmurs GI Other: Obese, nontender, nondistended, no organmegaly, normal bowel sounds Neuro Other: CN II-XII grossly intact, no focal deficits, sensory deficits noted in left face Extrem Other: Muscle strength equal bilaterally in upper and lower extremities Objective Labs 03/25/24 20:55 03/25/24 20:55 Labs: Laboratory Results - last 24 hr 03/25/24 03/25/24 20:55 22:35 WBC 9.7 RBC 4.91 Hgb 14.0 Hct 42.1 MCV 85.9 MCH 28.4 MCHC 33.1 RDW 14.1 Plt Count 296 Neut % (Auto) 55.8 Lymph % (Auto) 35.9 Price % (Auto) 6.7 Eos % (Auto) 1.4 L Baso % (Auto) 0.2 Neut # (Auto) 5400 Lymph # (Auto) 3500 Price # (Auto) 600 Eos # (Auto) 100 Baso # (Auto) 0 PT 11.2 INR 1.0 APTT 33 Sodium 139 Potassium 3.7 Chloride 104 Carbon Dioxide 29 BUN 14 Creatinine 0.91 Estimated GFR > 60 BUN/Creatinine Ratio 15.4 Glucose 128 H Hemoglobin A1c 6.3 H Calcium 9.5 Magnesium 2.0 Total Bilirubin 0.4 AST 22 ALT 18 Alkaline Phosphatase 57 Total Creatine Kinase 69 Troponin I < 0.012 Total Protein 7.4 Albumin 4.3 Globulin 3.1 Albumin/Globulin Ratio 1.4 U Opiates 300ng/mL cut Negative Ur Oxycodone Screen Negative Urine Methadone Screen Negative Ur Barbiturates Screen Negative U Tricyclic Antidepress Negative Ur Phencyclidine Scrn Negative Ur Amphetamines Screen Negative U Methamphetamines Scrn Negative Ur MDMA Scrn (Ecstasy) Negative U Benzodiazepines Scrn Negative Urine Cocaine Screen Negative U Marijuana (THC) Screen Negative Urine pH Normal Urine Specific Codorus Normal Ethyl Alcohol < 10 Ur Creatinine Normal Assessment & Plan Assessment & Plan narrative: Left facial numbness - Present on admission, CT head was negative, CTA head/neck negative for any high grade stenosis or occlusion - Follow up MRI brain, Aspirin was given in ER and will be continued at 81 mg daily with Atorvastatin 40 mg daily - Permissive hypertension and neuro checks per protocol, follow up echocardiogram, PT/OT to evaluate and treat - Follow up lipid panel and HbA1c for risk stratification - Teleneurology Dr. Saravia was consulted by ER and recommended MRI imaging and if positive intiation of Plavix per ER provider Hypertension - Chronic, will hold home antihypertensive therapy allowing for permissive hypertension Hyperlipidemia - Chronic, will be on Atorvastatin - Follow up lipid panel Gastroesophageal reflux disease - Chronic, will be on Famotidine COPD - Chronic, will provide Duonebs as needed Obesity - Chronic, will need a consistent carbohydrate diet JUAN - Chronic, not using CPAP therapy at home FEN: Consistent carbohydrate diet as she passed swallow eval in ER GI prophylaxis: Famotidine DVT prophylaxis: SCDs to bilateral lower extremities Code status: Full code - Emergency contact is her sister Heidi Redman Dispo: Admit to Medical Unit with telemetry Time Spent With Patient Time with patient: 30 to 49 minutes with 50% spent counseling/coordinating care Quality VTE Deep Vein Thrombosis/Pulmonary Embolism Present on Admission: No
--- NOTE | 2024-03-26 01:49 | PC.NURSE ---
Admit/NOC Shift Note- Patient arrived via stretcher from ER at 2300. Patient alert and oriented and able to make needs known to staff. Admit questions done, Medications reviewed, physical assessemnt done, and skin check completed. Patient oriented to bed and bed controls, room, bathroom, lights, menu, phone, and call grover/TV remote. Patient agrees to call for assistance. Safety measures in place. call grover within reach. Will continue to monitor.
[2024-03-26 02:56] LABS: COVID-19 CEPHEID PCR (VTM/NP) Negative (Negative)
[2024-03-26] MEDS: MECLIZINE HCL 12.5 MG TABLET 25 MG PO (04:56)
[2024-03-26] MEDS: ACETAMINOPHEN 325 MG TABLET 650 MG PO (04:59)
[2024-03-26 05:09] VITALS: BP 132/87; PULSE 73; RESP 18; TEMP 37; O2SAT 94
[2024-03-26 05:47] LABS: Add Manual Diff / Slide Review NO; Basophils Absolute Auto 100 /uL (0-100); Basophils Percent Auto 0.6 % (0-2); Eosinophils Absolute Auto 100 /uL (0-450); Eosinophils Percent Auto 1.2 % (2-4); Hematocrit 40.9 % (36-46); Hemoglobin 13.5 g/dL (12.0-16.0); Lymphocytes Absolute Auto 3400 /uL (1100-4500); Lymphocytes Percent Auto 36.4 % (25-40); Mean Corpuscular HGB Conc 32.9 % (30-36); Mean Corpuscular Hemoglobin 28.3 PG (26-34); Monocytes Absolute Auto 600 /uL (0-900); Monocytes Percent Auto 6.5 % (3-14); Neutrophils Absolute Auto 5100 /uL (1500-7000); Neutrophils Percent Auto 55.3 % (50-75); Platelet Count 289 X10^3/uL (150-400); Red Blood Cell Count 4.76 X10^6/uL (4.0-5.2); Red Cell Distribution Width 14.1 % (11.6-14.8); White Blood Cell Count 9.2 X10^3/uL (4.5-11.0)
[2024-03-26 06:10] LABS: Cholesterol 215 mg/dL (140-199); HDL Cholesterol 53 mg/dL (40-60); LDL Cholesterol Calculated 140 mg/dL (<100); Triglycerides 108 mg/dL (35-150)
[2024-03-26 06:12] LABS: BUN Creatinine Ratio 26.1 (6-22); Blood Urea Nitrogen 18 mg/dL (7-17); Carbon Dioxide 30 mmol/L (22-32); Chloride 105 mmol/L (98-107); Estimated Glomerular Filt Rate > 60 mL/min (>60); Glucose 122 mg/dL (80-110); HEMOLYSIS < 15 (0-50); Potassium 3.7 mmol/L (3.4-5.1); Sodium 138 mmol/L (137-145)
[2024-03-26 08:00] VITALS: BP 147/94; PULSE 93; RESP 16; TEMP 36.7; O2SAT 98
--- NOTE | 2024-03-26 08:11 | DI.MRI.S_ITS ---
PROCEDURE: MR HEAD/BRAIN WO CON INDICATIONS: L-sided facial numbness and L arm weakness, r/o stroke TECHNIQUE: Non-contrast axial T1 spin echo, axial T2 fast spin echo, sagittal and axial FLAIR, coronal T2 fast spin echo, axial gradient echo, axial diffusion and ADC through the brain. COMPARISON: [facility], CT, CT STROKE, 03/25/2024, 21:12. FINDINGS: Image quality: Excellent. CSF spaces: Ventricles appear symmetric in size and shape. Basal cisterns are patent. No extra-axial fluid collections. Brain: No intracranial bleeds or mass effects. There is cerebral volume loss for age. There are moderate periventricular and deep white matter chronic small vessel ischemic changes, somewhat greater than expected for patient age. Brainstem appears normal. Diffusion-weighted images show no acute infarct. No chronic ischemic insults. Normal intravascular flow voids are present. Skull and face: Calvarial bone marrow is normal in signal. Orbits are normal. Sinuses: Sinuses and mastoids are clear. IMPRESSION: 1. No acute intracranial process. 2. Age-related volume loss and moderate small vessel ischemic change, somewhat greater than expected for patient age. Dictated by: Kodak Sheehan M.D. on 03/26/2024 at 15:17 Approved by: Kodak Sheehan M.D. on 03/26/2024 at 15:20
[2024-03-26] MEDS: ASPIRIN EC 81 MG TABLET PO (08:56)
[2024-03-26] MEDS: FAMOTIDINE 20 MG TABLET PO (08:56)
[2024-03-26 09:24] VITALS: PULSE 69; RESP 16; O2SAT 95
[2024-03-26] MEDS: ALBUTEROL 2.5 MG/3 ML NEB (ADULT) INH ×2 (09:24→15:26)
[2024-03-26] MEDS: BUDESONIDE 0.5 MG/2 ML NEB INH (09:24)
--- NOTE | 2024-03-26 09:24 | ST.IPIE ---
Visit Care Team Role Provider Type REX Foreman Family Provider Advanced Telemedicine Physician Primary Care Provider Specialty: Medical Address: [address] [place] [address], [id number] Email: [email or web address] Harriett Jasso MD Emergency Provider Physician Referring Provider Specialty: Emergency Medicine Address: [address] [place] [address], [facility] Email: Danelle Freitas DO Admit Provider Physician Attending Provider Specialty: Internal Medicine Address: [address] [place] [address], [facility] Fax: Email: [email or web address] Current Diagnoses Anesthesia of skin (03/25/24) Past Medical History (Last Reviewed 03/26/24 @ 01:16 by Danelle Freitas DO) Bowel habit changes (Medical) Chronic bilateral low back pain (Medical) Chronic pain of left knee (Medical) COPD (chronic obstructive pulmonary disease) (Medical) Dyslipidemia (Medical) Fatigue (Medical) Former smoker (Social Hx) Quit 10/03/2019 GERD (gastroesophageal reflux disease) (Medical) Hip pain, chronic (Medical) History of dimpling of breast skin (Medical) Hyperglycemia (Medical) Hyperglycemia (Medical) Hypertension (Medical) Hypertriglyceridemia (Medical) Impaired fasting blood sugar (Medical) Insomnia (Medical) Loud snoring (Medical) Morbid obesity with body mass index of 40.0-44.9 in adult (Medical) Obstructive sleep apnea (Medical) Perforated nasal septum (Medical) Pulmonary nodule (Medical) Shoulder pain (Medical) ST IP Initial Evaluation Report 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 Freitas Setting Assessment Location Acute Care Visit Type Note Type Initial evaluation Next Note Type Next Note Type Treatment Note Patient Information Identification Type Name,Wristband History Per H&P: This patient is a 63 year old female with HTN, HLD, GERD, COPD, obesity, and JUAN who presented to the ER for left facial numbness which began at 1999 on 03/25/24. She notes mild symptoms without any alleviating or exacerbating factors and denies any prior episodes. She does report waking with dizziness on the morning of and states that she has also noticed left arm weakness and paresthesias over the past week. In the ER, temperature was 97. 6, pulse 79, respirations 18, blood pressure 165/104 and O2 saturation 96% on room air. CT head was negative for any acute findings and CTA head/ neck was negative for any high grade stenosis. She is admitted for further medical management and monitoring. PMHx: Perforated nasal septum COPD (chronic obstructive pulmonary disease) Dyslipidemia Impaired fasting blood sugar Chronic bilateral low back pain Hip pain, chronic Chronic pain of left knee Pulmonary nodule Hyperglycemia Shoulder pain History of dimpling of breast skin Bowel habit changes Former smoker Insomnia Fatigue Obstructive sleep apnea Hypertriglyceridemia Hyperglycemia Morbid obesity with body mass index of 40.0-44.9 in adult Loud snoring GERD (gastroesophageal reflux disease) Hypertension Pt referred for ST evaluation d/t Pt with potential CVA. MRI to be completed today. CT completed 03/25/24 with the following: IMPRESSION: 1. CT head without acute intracranial abnormalities or acute calvarial fractures. 2. Age-related senescent changes and sequela of chronic small vessel ischemic disease . Subjective Observations Pt sleeping in bed, however easily aroused with verbal cues. Pt able to sit upright independently. Oriented x3 and able to make needs known. Compliant with swallow evaluation. She denies any speech/language/cognitive/ swallow issues, just mild facial weakness and dizziness when she turns on her left side. Reported by Patient/Caregiver Pain/Discomfort No Current Diet Regular (IDDSI 7) Baseline Feeding Method Independent in self-feeding The IDDSI Framework Protocol: IDDSI.1 Objective Assessment Mental Status Alert,Responsive,Cooperative Oral Integrity WFL Dentition Missing teeth Observation of Lips at Rest Symmetrical Comment Oral motor exam revealed adequate strength and ROM for all oral musculature. Pt with natural dentition, missing some. Food and Liquid Trials Position During Assessment Upright (90 degrees) Liquids Trialed Thin (IDDSI 0) Solid Trials Soft & Bite-sized (IDDSI 6), Regular (IDDSI 7) Oral Impairment Within functional limits Oral Phase Comments Pt consumed sausage link, scrambled eggs, shredded potatoes and oroange slices with about 4 oz of thin water via straw. For solids Pt demonstrated small bites, adequate rate, prolonged mastication secondary to lack of dentition, however adequate bolus formation and control, mild oral stasis. For liquids, she demonstrated adequate suction, good oral acceptance and containment, timely ap transport. Pharyngeal Impairment Within functional limits Pharyngeal Phase Comments No overt s/s of aspiration with all PO trials. Pt with clear vocal quality with no signs of choking/coughing. Fatigue/Endurance Endurance WNL The IDDSI Framework Protocol: IDDSI.1 Findings Swallowing Function Within functional limits Severity of Swallow Impairment Within functional limits Prognosis Good Impact on Safety and Functioning No limitations Recommendations Instrumental Assessment No Swallowing Treatment No Recommended Solids Regular (IDDSI 7) Recommended Liquids Thin (IDDSI 0) Other Recommendations ST recommends IDDSI 7/IDDSI 0 with the below mentioned safe swallowing strategies in place . ST recommends re-referral for speech eval if Pt has changes in status. Safety Precautions/Swallowing Remain upright (90 degrees) Recommendations during all oral intake,Upright position at least 30 minutes after meals,Small bites and sips when eating,Slow rate; swallow between bites, Alternate liquids and solids Medication Recommendations As Tolerated Education Patient/Caregiver Education Described results of evaluation,Patient expressed understanding of evaluation
--- NOTE | 2024-03-26 09:25 | ST.IPIE ---
Visit Care Team Role Provider Type REX Foreman Family Provider Advanced Photography Editor Primary Care Provider Specialty: Medical Address: [address] [place] [address], [id number] Email: [email or web address] Harriett Jasso MD Emergency Provider Physician Referring Provider Specialty: Emergency Medicine Address: [address] [place] [address], [facility] Email: Danelle Freitas DO Admit Provider Physician Attending Provider Specialty: Internal Medicine Address: [address] [place] [address], [facility] Fax: Email: [email or web address] Current Diagnoses Anesthesia of skin (03/25/24) Past Medical History (Last Reviewed 03/26/24 @ 01:16 by Danelle Freitas DO) Bowel habit changes (Medical) Chronic bilateral low back pain (Medical) Chronic pain of left knee (Medical) COPD (chronic obstructive pulmonary disease) (Medical) Dyslipidemia (Medical) Fatigue (Medical) Former smoker (Social Hx) Quit 10/03/2019 GERD (gastroesophageal reflux disease) (Medical) Hip pain, chronic (Medical) History of dimpling of breast skin (Medical) Hyperglycemia (Medical) Hyperglycemia (Medical) Hypertension (Medical) Hypertriglyceridemia (Medical) Impaired fasting blood sugar (Medical) Insomnia (Medical) Loud snoring (Medical) Morbid obesity with body mass index of 40.0-44.9 in adult (Medical) Obstructive sleep apnea (Medical) Perforated nasal septum (Medical) Pulmonary nodule (Medical) Shoulder pain (Medical) ST IP Initial Evaluation Report CHIP PERSON Clinical Swallow Evaluation Start: 03/26/24 09:05 Freq: Status: Active Protocol: Document 03/26/24 09:06 JOE (Rec: 03/26/24 09:23 JOE [id number]) Clinical Swallow Evaluation Session Time Visit Start Time 08:25 Visit Stop Time 08:50 Total Visit Minutes [address] Freitas Setting Assessment Location Acute Care Visit Type Note Type Initial evaluation Next Note Type Next Note Type Treatment Note Patient Information Identification Type Name,Wristband History Per H&P: This patient is a 63 year old female with HTN, HLD, GERD, COPD, obesity, and JUAN who presented to the ER for left facial numbness which began at 1999 on 03/25/24. She notes mild symptoms without any alleviating or exacerbating factors and denies any prior episodes. She does report waking with dizziness on the morning of and states that she has also noticed left arm weakness and paresthesias over the past week. In the ER, temperature was 97. 6, pulse 79, respirations 18, blood pressure 165/104 and O2 saturation 96% on room air. CT head was negative for any acute findings and CTA head/ neck was negative for any high grade stenosis. She is admitted for further medical management and monitoring. PMHx: Perforated nasal septum COPD (chronic obstructive pulmonary disease) Dyslipidemia Impaired fasting blood sugar Chronic bilateral low back pain Hip pain, chronic Chronic pain of left knee Pulmonary nodule Hyperglycemia Shoulder pain History of dimpling of breast skin Bowel habit changes Former smoker Insomnia Fatigue Obstructive sleep apnea Hypertriglyceridemia Hyperglycemia Morbid obesity with body mass index of 40.0-44.9 in adult Loud snoring GERD (gastroesophageal reflux disease) Hypertension Pt referred for ST evaluation d/t Pt with potential CVA. MRI to be completed today. CT completed 03/25/24 with the following: IMPRESSION: 1. CT head without acute intracranial abnormalities or acute calvarial fractures. 2. Age-related senescent changes and sequela of chronic small vessel ischemic disease . Subjective Observations Pt sleeping in bed, however easily aroused with verbal cues. Pt able to sit upright independently. Oriented x3 and able to make needs known. Compliant with swallow evaluation. She denies any speech/language/cognitive/ swallow issues, just mild facial weakness and dizziness when she turns on her left side. Reported by Patient/Caregiver Pain/Discomfort No Current Diet Regular (IDDSI 7) Baseline Feeding Method Independent in self-feeding The IDDSI Framework Protocol: IDDSI.1 Objective Assessment Mental Status Alert,Responsive,Cooperative Oral Integrity WFL Dentition Missing teeth Observation of Lips at Rest Symmetrical Comment Oral motor exam revealed adequate strength and ROM for all oral musculature. Pt with natural dentition, missing some. Food and Liquid Trials Position During Assessment Upright (90 degrees) Liquids Trialed Thin (IDDSI 0) Solid Trials Soft & Bite-sized (IDDSI 6), Regular (IDDSI 7) Oral Impairment Within functional limits Oral Phase Comments Pt consumed sausage link, scrambled eggs, shredded potatoes and oroange slices with about 4 oz of thin water via straw. For solids Pt demonstrated small bites, adequate rate, prolonged mastication secondary to lack of dentition, however adequate bolus formation and control, mild oral stasis. For liquids, she demonstrated adequate suction, good oral acceptance and containment, timely ap transport. Pharyngeal Impairment Within functional limits Pharyngeal Phase Comments No overt s/s of aspiration with all PO trials. Pt with clear vocal quality with no signs of choking/coughing. Fatigue/Endurance Endurance WNL The IDDSI Framework Protocol: IDDSI.1 Findings Swallowing Function Within functional limits Severity of Swallow Impairment Within functional limits Prognosis Good Impact on Safety and Functioning No limitations Recommendations Instrumental Assessment No Swallowing Treatment No Recommended Solids Regular (IDDSI 7) Recommended Liquids Thin (IDDSI 0) Other Recommendations ST recommends IDDSI 7/IDDSI 0 with the below mentioned safe swallowing strategies in place . ST recommends re-referral for speech eval if Pt has changes in status. Safety Precautions/Swallowing Remain upright (90 degrees) Recommendations during all oral intake,Upright position at least 30 minutes after meals,Small bites and sips when eating,Slow rate; swallow between bites, Alternate liquids and solids Medication Recommendations As Tolerated Education Patient/Caregiver Education Described results of evaluation,Patient expressed understanding of evaluation
--- NOTE | 2024-03-26 09:34 | OT.IP.EVAL ---
Current Diagnoses Anesthesia of skin (03/25/24) Past Medical History (Last Reviewed 03/26/24 @ 01:16 by Danelle Freitas DO) Bowel habit changes Chronic bilateral low back pain Chronic pain of left knee COPD (chronic obstructive pulmonary disease) Dyslipidemia Fatigue Former smoker GERD (gastroesophageal reflux disease) Hip pain, chronic History of dimpling of breast skin Hyperglycemia Hyperglycemia Hypertension Hypertriglyceridemia Impaired fasting blood sugar Insomnia Loud snoring Morbid obesity with body mass index of 40.0-44.9 in adult Obstructive sleep apnea Perforated nasal septum Pulmonary nodule Shoulder pain Surgical History (Last Reviewed 03/26/24 @ 01:15 by Danelle Freitas DO) No pertinent past surgical history Occupational Therapy Inpatient Evaluation/Re-Eval M1 PT/OT-IP Prior Functional Status Start: 03/26/24 11:20 Freq: NEEDED Status: Active Protocol: Document 03/26/24 12:41 [facility] (Rec: 03/26/24 13:05 [facility] [id number]) Medical Review Prior Functional Status Medical History Reviewed Yes Communication able to make needs known Mobility and Gait pt stated that she was independent with all mobilities and ambulation without AD Activities of Daily Living and IADL's Pt states was completely independent with all ADL and ADL needs. Social History Household Members family Living Arrangements House Number of Floors (Floors) One Floor Number of Stairs To Enter/Railing? 3 steps R rail + 7 steps B rails to enter the house Home Environment Standard Height Toilet,Tub/ Shower Home Equipment Shower Seat without Backrest, Hand Held Shower,Grab Bars Near Toilet,Grab Bars In Shower Additional Social History Comment pt lives with her sister and nieces M2 OT-IP Current Condition Start: 03/26/24 12:41 Freq: Status: Active Protocol: Document 03/26/24 12:41 [facility] (Rec: 03/26/24 13:05 [facility] [id number]) Occupational Therapy Current Condition Current Condition Evaluation Date 03/26/24 Treatment Diagnosis Left facial numbness, LUE weakness. Diagnosis Onset Date 03/25/24 M3 OT- IP Subjective and Pain Start: 03/26/24 12:41 Freq: Status: Active Protocol: Document 03/26/24 12:41 [facility] (Rec: 03/26/24 13:05 [facility] [id number]) OT- Subjective Occupational Therapy Visit Type Type Initial Evaluation Visit Start Time 08:50 Visit Stop Time 09:34 Occupational Therapy Visit Comments Patient Comments Pt agreed to do OT eval. Patient/Caregiver Goals To go home. OT Pain Assessment Pain When Pain Assessed At Rest Pain Present Pain Present Denied Pain M4 OT- IP ADL's Start: 03/26/24 12:41 Freq: Status: Active Protocol: Document 03/26/24 12:41 [facility] (Rec: 03/26/24 13:05 [facility] [id number]) OT YRU-Lsya-Esdtqod General Evaluation Self-Feeding Ability Independent OT ADL-Dressing General Eval Upper Body Dressing Ability Independent Lower Body Dressing Ability Independent OT ADL-Toileting General Evaluation Toileting Ability Independent Comments OT Toileting Comments Pt able to independently use the toilet on her own. OT ADL-Bathing Comments OT Bathing Comments Pt states can use the shower stool at home. M5 OT- IP IADL's Start: 03/26/24 12:41 Freq: Status: Active Protocol: Document 03/26/24 12:41 [facility] (Rec: 03/26/24 13:05 [facility] [id number]) OT-Instrumental Activities of Daily Living Home Safety Awareness Awareness of Need for Assistance at Home Good Awareness Ability to Problem Solve Emergency Able to Problem Solve Situations Medication Management Medication Management No Deficits Identified Money Management Money Management No Deficits Identified Meal Preparation Meal Preparation Comments Pt's family can assist. Photographic Specialist Photographic Specialist Comments Pt's family can assist. M6 OT- IP Functional Cognition Start: 03/26/24 12:41 Freq: Status: Active Protocol: Document 03/26/24 12:41 [facility] (Rec: 03/26/24 13:05 [facility] [id number]) Cognitive Factors Limiting Selfcare Function Cognitive Ability Level of Alertness Alert Patient Orientation Name,Age,Birthday,Month,Date, Year,Place,Situation Attention Span Ability Capable of Focused Attention, Capable of Sustained Attention Ability to Follow Commands Able to Follow Multi-Step Commands Memory Description No Deficits Noted Safety Awareness No Deficits Noted Cognitive Comments Cognitive Assessment Comments Pt scored 73 seconds on [place] Making Part B which implies mild impairments for visual attention, speed of processing , mental flexibility, executive functioning, and task switching. Pt's score is 50th percentile for her age. Pt feels that she is at baseline for cognitive needs. OT- Vision and Hearing OT- Hearing Assessment OT- Hearing Assessment WFL OT- Vision Assessment Visual Acuity Glasses All The Time Visual Attentiveness WFL Occular Pursuits WFL Visual Convergence WFL Visual [place] WFL Diplopia Absent M7 OT- IP Mobility and Balance Start: 03/26/24 12:41 Freq: Status: Active Protocol: Document 03/26/24 12:41 [facility] (Rec: 03/26/24 13:05 [facility] [id number]) OT- Bed Mobility Assessment Supine to Sit Supine to Sit Assist Independent Sit to Supine Sit to Supine Assist Independent OT-Transfer Assessment Sit to and From Stand Sit to and from Stand Standby Assistance Transfers Transfer Ability Standby Assistance Technique Transfer Destination Bed,Toilet Comments Mobility Comments Pt able to independently get around in the room with distant supervision on OT eval. OT- Balance Assessment Sitting Balance and Reactions Static Sitting Balance Ability Normal Dynamic Sitting Balance Ability Good Standing Balance and Reactions Static Standing Balance Ability Good Dynamic Standing Balance Ability Good M8 OT- IP Objective Assessments Start: 03/26/24 12:41 Freq: Status: Active Protocol: Document 03/26/24 12:41 [facility] (Rec: 03/26/24 13:05 [facility] [id number]) OT Gross Range of Motion Upper Extremity Range of Motion Assessment Within Functional Limits OT Strength Comments Strength Comments RUE 4+/5, LUE 4/5 OT- Coordination Assessment Upper Extremity Finger to Nose Test Within Functional Limits Finger Tapping Test Within Functional Limits Comments Coordination Comments 9 hole peg RUE 22 sec, LUE 25 seconds and 50th percentile for her age. OT-Muscle Tone Assessment Muscle Tone WNL Yes OT Sensation Assessment Comments Summary Comments Intact for light touch. M9 OT- IP Assessment and Plan Start: 03/26/24 12:41 Freq: Status: Active Protocol: Document 03/26/24 12:41 [facility] (Rec: 03/26/24 13:05 [facility] [id number]) OT Summary Assessment and Plan Potential Rehabilitation Potential Excellent Analytic Complexity at Evaluation Low Summary OT Impairments Strength Progress Towards Goals Progressing Toward Goals Assessment Summary Pt low complexity and main barrier is slight weakness in LUE at this time, however pt is right handed. Pt looking to go home when medically stable . Pt is aware to use a shower stool for showering and ask her family for assist as needed. Able to go over positioning needs while sleeping for pt as pt tends to sleep on her shoulders. No further OT needs at this time and discharge pt for OT services. Frequency of Treatment Frequency Of Treatment Discharge Discharge Recommendations OT Discharge Recommendations Home with Assistance Transportation Needs at Discharge Private Vehicle
[2024-03-26 09:35] LABS: Appearance Urine UA CLEAR; Bilirubin Urine UA NEGATIVE (NEGATIVE); Color Urine UA YELLOW; Glucose Urine UA NEGATIVE (Negative); Ketones Urine UA NEGATIVE (NEGATIVE); Leukocyte Esterase Urine UA NEGATIVE (NEGATIVE); Nitrite Urine UA NEGATIVE (Negative); Occult Blood Urine UA NEGATIVE (Negative); Protein Urine UA NEGATIVE (Negative); Specific Gravity Urine UA 1.025 (1.000-1.035); Urobilinogen Urine UA 0.2 E.U./dL (0.2)
[2024-03-26 09:42] LABS: Bacteria Urine Occasional (0-1); Culture Indicated Urine Cult Not Indicated; Mucus Urine 1+ (Negative); RBC Urine 0-1/HPF (0-5/HPF); Squamous Epithelial Cell Urine 0-1 /HPF (0-5/HPF); Urine Volume 10mL (spun); WBC Urine 0-1/HPF (0-5/HPF)
--- NOTE | 2024-03-26 10:30 | PT.IIE ---
Current Diagnoses Anesthesia of skin (03/25/24) Surgical History (Last Reviewed 03/26/24 @ 01:15 by Danelle Freitas DO) No pertinent past surgical history Medical History (Last Reviewed 03/26/24 @ 01:16 by Danelle Freitas DO) Bowel habit changes Chronic bilateral low back pain Chronic pain of left knee COPD (chronic obstructive pulmonary disease) Dyslipidemia Fatigue Former smoker GERD (gastroesophageal reflux disease) Hip pain, chronic History of dimpling of breast skin Hyperglycemia Hyperglycemia Hypertension Hypertriglyceridemia Impaired fasting blood sugar Insomnia Loud snoring Morbid obesity with body mass index of 40.0-44.9 in adult Obstructive sleep apnea Perforated nasal septum Pulmonary nodule Shoulder pain Physical Therapy Inpatient Evaluation/Re-Eval M1 PT/OT-IP Prior Functional Status Start: 03/26/24 11:20 Freq: NEEDED Status: Active Protocol: Document 03/26/24 10:30 [facility] (Rec: 03/26/24 11:35 [facility] [id number]) Medical Review Prior Functional Status Medical History Reviewed Yes Communication able to make needs known Mobility and Gait pt stated that she was indpeendent with all mobilities and ambulation without AD Social History Household Members family Living Arrangements House Number of Floors (Floors) One Floor Number of Stairs To Enter/Railing? 3 steps R rail + 7 steps B rails to enter the house Home Environment Standard Height Toilet,Tub/ Shower Home Equipment Shower Seat without Backrest, Hand Held Shower,Grab Bars Near Toilet,Grab Bars In Shower Additional Social History Comment pt lives with her sister and nieces M2 PT-IP Current Condition Start: 03/26/24 11:20 Freq: NEEDED Status: Active Protocol: Document 03/26/24 10:30 [facility] (Rec: 03/26/24 11:35 [facility] [id number]) Physical Therapy Current Condition Current Condition Evaluation Date 03/26/24 Treatment Diagnosis r/o CVA; difficulty in walking Onset Date 03/25/24 M3 PT-IP Subjective Start: 03/26/24 11:20 Freq: NEEDED Status: Active Protocol: Document 03/26/24 10:30 [facility] (Rec: 03/26/24 11:35 [facility] [id number]) Subjective Physical Therapy Visit Type Type Initial Evaluation Visit Start Time 10:30 Visit Stop Time 10:45 Number of VEHICLE CALIBRATION ENGINEER Visits 0 Physical Therapy Visit Comments Patient Comments agreeable to do PT Therapy Pain Assessment Pain Present Pain Present Denied Pain M4 PT-IP Mobility and Gait Start: 03/26/24 11:20 Freq: NEEDED Status: Active Protocol: Document 03/26/24 10:30 [facility] (Rec: 03/26/24 11:35 [facility] [id number]) PT-Bed Mobility Assessment Supine to Sit Supine to Sit Standby Assistance PT-Transfer Assessment Sit to and From Stand Sit to and from Stand Standby Assistance,Use of Upper Extremities Equipment Transfer Assistive Device None Orthotic/Prosthetic Devices or Brace: No Transfers Transfer Destination Chair Transfer Technique ambulated Transfer Ability Level of Assist Standby Assistance,Use of Upper Extremities Comments Mobility Comments pt supine in bed and agreeable to do PT. obtained PLOF and home set up from pt. BP: 125/ 87. pt completed supine to sit SBA . able to sit on EOB SBA. initial c/o dizziness but after a few minutes stated that it was better. able to do sit to stand SBA and ambulated in room without AD SBA. pt ambulated out in the hallway without AD SBA ~ 100 ft. completed up/down steps using R rail ascending SBA. repeated x 2. pt ambulated back to her room without AD SBA and sat on the chair. table next to pt. informed pt regarding PT and no PT needs at this time. pt agreed informed nurse. Gait Assessment Gait Gait Assistance Required: Standby Assistance Distance (Feet) 100 Able to Maintain Weight Bearing Status Yes During Gait Assistive Devices Assistive Device None Orthotic/Prosthetic Devices or Brace: No Gait Deviations General Gait Pattern Antalgic Factors Limiting Gait Function Factors Limiting Gait Function Decreased Strength Stair Climbing Assessment Evaluation Level of Assist On Stairs Standby Assistance Devices Stair Climbing Assistive Devices Right Railing Technique/Endurance Stair Climbing Direction Ascend and Descend Stair Climbing Technique Step to Step Number of Steps Climbed 3 Query Text: Stair Climbing Set # Repetitions (reps) 2 PT-Balance Assessment Sitting Balance and Reactions Static Sitting Balance Ability Normal Dynamic Sitting Balance Ability Good Standing Balance and Reactions Static Standing Balance Ability Good Dynamic Standing Balance Ability Good Device Used without AD M5 PT-IP Objective Assessments Start: 03/26/24 11:20 Freq: NEEDED Status: Active Protocol: Document 03/26/24 10:30 [facility] (Rec: 03/26/24 11:35 [facility] [id number]) Orientation Orientation/Cognition Level of Alertness Alert Orientation Name,Place,Situation Language Function Ability No Deficits Noted Safety Awareness Understands Safety Issues Memory Description No Deficits Noted Gross Range of Motion Lower Extremity ROM Assessment Within Functional Limits Strength Lower Extremity Strength Assessment Within Functional Limits Muscle Tone Muscle Tone WNL Yes M6 PT-IP Treatment Start: 03/26/24 11:20 Freq: NEEDED Status: Active Protocol: Document 03/26/24 10:30 [facility] (Rec: 03/26/24 11:35 [facility] [id number]) Physical Therapy Treatment Education Education Provided Safety M7 PT-IP Assessment and Plan Start: 03/26/24 11:20 Freq: NEEDED Status: Active Protocol: Document 03/26/24 10:30 [facility] (Rec: 03/26/24 11:35 [facility] [id number]) PT Summary Assessment and Plan Potential Rehabilitation Potential Good Status of Condition at Evaluation Stable Summary Impairments Gait,Activity Tolerance Assessment Summary pt is a 63 y/o F who presented to the ED due to L facial numbness. pt admitted to r/o CVA. pt requiring SBA for safety without use of AD. pt can be independent with mobility in room. No further PT needs at this time. Frequency of Treatment Frequency Of Treatment Discharge Recommendations To Nursing Amount of Assist Needed Standby Assistance Discharge Recommendations PT Discharge Recommendations Home Transportation Needs at Discharge Private Vehicle
--- NOTE | 2024-03-26 11:37 | CM.DANOTE ---
Initial DCP Assessment Visit Note Reviewed EMR and team rounds for status updates. Went to meet with pt at bedside, however found her to be sleeping comfortably at the time. Pt resides independently in her own home with her sister. Her sister will plan to transport her home once she's been medically cleared for discharge. Payor: [employer] PCP: Josiah Bernaley Pt is a 63 year-old F who presented to the ED with c/o left sided facial numbness, left arm weakness, and left leg weakness. She states that she had been experiencing left arm weakness on and off for the last week. No further deficits noted, speech is normal, mentation is normal. She will be having an ECHO and a brain MRI today, if both are clear, then she will discharge back home today. DCP will continue to follow and assist with any further evolving needs during her stay. Discharge Planning/Care Management CM Discharge Assessment Start: 03/26/24 11:34 Freq: Status: Active Protocol: Document 03/26/24 11:34 [facility] (Rec: 03/26/24 11:37 [facility] [id number]) Discharge Planning Assessment Assigned Worship Leader KRYSTAL Stone Advance Directives? No History Provided By Medical Record Expected Length of Stay 1 Has Patient been admitted in last 30 No days? Prior Living Arrangements House Household Members family Type of transporation used prior to Drives own vehicle admit Independent with ADL's Yes Is patient alert and oriented? Yes Comment N/A Caregiver for Another No Comment No identified d/c needs at this time. Barriers to Discharge No Discharge Plan Home Transportation Arrangement Sister Referrals Initiated None needed Whiteboard Updated in Patient Room with Yes name and ext. # of Worship Leader Review Status In Process Please Provide Date Initial DC 03/26/24 Assessment Was Performed
[2024-03-26 13:00] VITALS: BP 115/66; PULSE 70; RESP 16; TEMP 36.2; O2SAT 97
[2024-03-26 15:26] VITALS: PULSE 72; RESP 16; O2SAT 93
--- NOTE | 2024-03-26 15:49 | P.DS_ITS ---
History of Present Illness History of Present Illness Chief complaint: Left facial numbness, dizziness Narrative: This patient is a 63 year old female with HTN, HLD, GERD, COPD, obesity, and JUAN who presented to the ER for left facial numbness which began at 1999 on 03/25/24. She notes mild symptoms without any alleviating or exacerbating factors and denies any prior episodes. She does report waking with dizziness on the morning of 03/25/24 and states that she has also noticed left arm weakness and paresthesias over the past week. In the ER, temperature was 97.6, pulse 79, respirations 18, blood pressure 165/104 and O2 saturation 96% on room air. CT head was negative for any acute findings and CTA head/neck was negative for any high grade stenosis. She is admitted for further medical management and monitoring. Discharge Providers Provider Date of admission: 03/25/24 22:31 Discharge Date: 03/26/24 Primary care physician: REX Foreman Consults: 03/26/24 01:35 Consult to Discharge Planning Routine Comment: Consult to Occupational Therapy Evaluate & Treat Comment: Physician Instructions: Evaluate and treat Consult to Physical Therapy Evaluate & Treat Comment: Physician Instructions: Evaluate and Treat Consult to Speech Therapy Evaluate & Treat Comment: Physician Instructions: Evaluate and treat Discharge provider: Rolando Lucio DO Summary Hospital Course Discharge Diagnosis: Left facial numbness, likely due to migraine - Present on admission, CT head was negative, CTA head/neck negative for any high grade stenosis or occlusion - patient notes headache present - brain MRI was negative for stroke - PT/OT and speech assessed - A1 6.3%, LDL 140, placed on lipitor 20mg daily and aspirin 81mg daily Likely depression - Patient notes symptoms consistent with high PHQ-9 - she would like to try an antidepressant and follow up with her PCP about it - start zoloft 25mg daily Hypertension - Chronic, restart home BP meds after discharge Hyperlipidemia - Chronic, will be on Atorvastatin - LDL 140 Gastroesophageal reflux disease - Chronic, will be on Famotidine COPD - Chronic, will provide Duonebs as needed Obesity - Chronic, will need a consistent carbohydrate diet JUAN - Chronic, not using CPAP therapy at home Hospital Course: Admitted for left facial numbness, blurry vision on left side and left arm weakness. MRI brain negative for stroke. CT/CTA head were normal. Echo normal. [place] to be migraine-related as patient noted a headache since onset of symptoms. She declined migraine medication. Her symptoms were improving. Placed on aspirin and statin. She also asked for depression medication as she likely has it. Placed on zoloft and will f/up with PCP to discuss further. Exam Vital Signs (past 8 hours): - 03/26/24 08:00 03/26/24 09:24 03/26/24 13:00 Temperature 98.0 F 97.1 F L Pulse Rate 93 H 69 70 Respiratory Rate 16 16 16 Blood Pressure 147/94 H 115/66 Pulse Oximetry 98 95 97 Oxygen Delivery Method Room Air 03/26/24 15:26 Temperature Pulse Rate 72 Respiratory Rate 16 Blood Pressure Pulse Oximetry 93 Oxygen Delivery Method Room Air Oxygen Delivery Method Room Air Oxygen Flow Rate 0 Const Other: Awake, alert, oriented, no acute distress HENMT Other: EOMI, dry mucous membranes Resp Other: Clear to auscultation bilaterally Cardio Other: Regular rate and rhythm, no murmurs GI Other: Obese, nontender, nondistended, no organmegaly, normal bowel sounds Neuro Other: CN II-XII grossly intact, no focal deficits, sensory deficits noted in left face Extrem Other: Muscle strength equal bilaterally in upper and lower extremities Objective Labs 03/26/24 05:03 03/26/24 05:03 Labs: Laboratory Results - last 24 hr 03/25/24 03/25/24 03/26/24 20:55 22:35 01:40 WBC 9.7 RBC 4.91 Hgb 14.0 Hct 42.1 MCV 85.9 MCH 28.4 MCHC 33.1 RDW 14.1 Plt Count 296 Neut % (Auto) 55.8 Lymph % (Auto) 35.9 [place] % (Auto) 6.7 Eos % (Auto) 1.4 L Baso % (Auto) 0.2 Neut # (Auto) 5400 Lymph # (Auto) 3500 [place] # (Auto) 600 Eos # (Auto) 100 Baso # (Auto) 0 PT 11.2 INR 1.0 APTT 33 Sodium 139 Potassium 3.7 Chloride 104 Carbon Dioxide 29 BUN 14 Creatinine 0.91 Estimated GFR > 60 BUN/Creatinine Ratio 15.4 Glucose 128 H Hemoglobin A1c 6.3 H Calcium 9.5 Magnesium 2.0 Total Bilirubin 0.4 AST 22 ALT 18 Alkaline Phosphatase 57 Total Creatine Kinase 69 Troponin I < 0.012 Total Protein 7.4 Albumin 4.3 Globulin 3.1 Albumin/Globulin Ratio 1.4 Triglycerides Cholesterol LDL Cholesterol, Calc HDL Cholesterol Urine Color Urine Appearance Ur Specific Avis Urine Protein Urine Glucose (UA) Urine Ketones Urine Occult Blood Urine Nitrate Urine Bilirubin Urine Urobilinogen Ur Leukocyte Esterase Urine RBC Urine WBC Ur Squamous Epith Cells Urine Bacteria Urine Mucus Ur Culture Indicated? Vol Urine Centrifuged U Opiates 300ng/mL cut Negative Ur Oxycodone Screen Negative Urine Methadone Screen Negative Ur Barbiturates Screen Negative U Tricyclic Antidepress Negative Ur Phencyclidine Scrn Negative Ur Amphetamines Screen Negative U Methamphetamines Scrn Negative Ur MDMA Scrn (Ecstasy) Negative U Benzodiazepines Scrn Negative Urine Cocaine Screen Negative U Marijuana (THC) Screen Negative Urine pH Normal Urine Specific Avis Normal Ethyl Alcohol < 10 Ur Creatinine Normal SARS-CoV-2 (PCR) Negative 03/26/24 03/26/24 05:03 08:55 WBC 9.2 RBC 4.76 Hgb 13.5 Hct 40.9 MCV 86.0 MCH 28.3 MCHC 32.9 RDW 14.1 Plt Count 289 Neut % (Auto) 55.3 Lymph % (Auto) 36.4 [place] % (Auto) 6.5 Eos % (Auto) 1.2 L Baso % (Auto) 0.6 Neut # (Auto) 5100 Lymph # (Auto) 34[address] [place] # (Auto) 600 Eos # (Auto) 100 Baso # (Auto) 100 PT INR APTT Sodium 138 Potassium 3.7 Chloride 105 Carbon Dioxide 30 BUN 18 H Creatinine 0.69 Estimated GFR > 60 BUN/Creatinine Ratio 26.1 H Glucose 122 H Hemoglobin A1c Calcium 9.0 Magnesium Total Bilirubin AST ALT Alkaline Phosphatase Total Creatine Kinase Troponin I Total Protein Albumin Globulin Albumin/Globulin Ratio Triglycerides 108 Cholesterol 215 H LDL Cholesterol, Calc 140 H HDL Cholesterol 53 Urine Color Yellow Urine Appearance Clear Ur Specific Avis 1.025 Urine Protein Negative Urine Glucose (UA) Negative Urine Ketones Negative Urine Occult Blood Negative Urine Nitrate Negative Urine Bilirubin Negative Urine Urobilinogen 0.2 Ur Leukocyte Esterase Negative Urine RBC 0-1/hpf Urine WBC 0-1/hpf Ur Squamous Epith Cells 0-1 /hpf Urine Bacteria Occasional (0-1) Urine Mucus 1+ H Ur Culture Indicated? Cult not indicated Vol Urine Centrifuged 10ml (spun) U Opiates 300ng/mL cut Ur Oxycodone Screen Urine Methadone Screen Ur Barbiturates Screen U Tricyclic Antidepress Ur Phencyclidine Scrn Ur Amphetamines Screen U Methamphetamines Scrn Ur MDMA Scrn (Ecstasy) U Benzodiazepines Scrn Urine Cocaine Screen U Marijuana (THC) Screen Urine pH 6.0 Urine Specific Avis Ethyl Alcohol Ur Creatinine SARS-CoV-2 (PCR) [facility] Medical History Perforated nasal septum COPD (chronic obstructive pulmonary disease) Dyslipidemia Impaired fasting blood sugar Chronic bilateral low back pain Hip pain, chronic Chronic pain of left knee Pulmonary nodule Hyperglycemia Shoulder pain History of dimpling of breast skin Bowel habit changes Former smoker Insomnia Fatigue Obstructive sleep apnea Hypertriglyceridemia Hyperglycemia Morbid obesity with body mass index of 40.0-44.9 in adult Loud snoring GERD (gastroesophageal reflux disease) Hypertension Surgical History No pertinent past surgical history Family History Father CAD (coronary artery disease) Diabetes mellitus Mother Stroke Cancer of breast Social History household members: family Smoking Status: Former smoker alcohol intake: current Discharge Plan Discharge Plan Patient Disposition: Home Provider Discharge Comment: I think your visual symptoms, facial numbness and left arm weakness may be related to a migraine. Your brain MRI was normal and showed no stroke. Your heart echo was also normal. I've placed you on aspirin daily and a statin for your cholesterol. We spoke about your likely depression, so I've sent you a month of zoloft to try. Please see your PCP to get more if it is working. Dr. Lucio Discharge orders & Medications Prescriptions: New aspirin 81 mg Tablet,Delayed Release (Dr/Ec) 81 mg PO DAILY Qty: 30 0RF atorvastatin 20 mg Tablet 20 mg PO BEDTIME Qty: 30 0RF sertraline [Zoloft] 25 mg tablet 25 mg PO DAILY Qty: 30 0RF Continued (DME) Aerochamber MV Spacer See Rx Instructions .ROUTE .MEDSUPPLY Qty: 1 0RF Rx Instructions: As directed albuterol sulfate 90 mcg/actuation HFA aerosol inhaler 2 puff INHALATION Q4-6H PRN (Reason: bronchospasm) Qty: 18 2RF fluticasone propion-salmeterol [Advair HFA] 115-21 mcg/actuation HFA aerosol inhaler 2 puff inhalation BID Qty: 12 3RF varenicline [Chantix Continuing Month Box] 1 mg tablet 1 mg PO BID Qty: 60 3RF lisinopril-hydrochlorothiazide 20-25 mg tablet 1 tab PO DAILY Qty: 90 1RF meloxicam 7.5 mg tablet 15 mg PO DAILY PRN (Reason: moderate pain) Follow up/Referrals: Josiah Santos ARNP [Primary Care Provider] - 2 Weeks Visit Report/Discharge Packet Stand Alone Forms: Patient Portal/API, Stroke Signs & Symptoms Discharge Data Primary Care Provider: Josiah Santos Attending Provider: Danelle Freitas Admit Date/Time: 03/25/24 22:31 Quality VTE Deep Vein Thrombosis/Pulmonary Embolism Present on Admission: No
--- NOTE | 2024-03-26 17:19 | PC.NURSE ---
Day shift: Discharge instructions went over with patient. All questions answered, patient stated understanding. PIV and telemetry d/c'ed prior to discharge. All belongings with patient, including meloxicam pill bottle found in nurse banquet server. PCT Wojciech escorted patient via wheelchair to main entrance where patient's niece to pick her up.
== END 2024-03-26 17:21 | disposition home or self-care (01) ==
LOC: ED 22:25 → AC 03-26 01:31
PROVIDERS: Admitting Provider Internal Medicine; Emergency Provider Emergency Medicine; Family Provider Registered Nurse Diabetes Educator; PCP Registered Nurse Diabetes Educator; Referring Provider Emergency Medicine; Visit Provider Internal Medicine
DX: R20.0 Anesthesia of skin (principal); E66.9 Obesity, unspecified; Z68.42 Body mass index [BMI] 45.0-49.9, adult; Z11.52 Encounter for screening for COVID-19; R42 Dizziness and giddiness; R29.702 NIHSS score 2; G47.33 Obstructive sleep apnea (adult) (pediatric); J44.9 Chronic obstructive pulmonary disease, unspecified; K21.9 Gastro-esophageal reflux disease without esophagitis; E78.5 Hyperlipidemia, unspecified; I10 Essential (primary) hypertension
CPT/HCPCS: 36415; 70450; 70496; 70498; 70551; 71045; 80048; 80053; 80061; 80305; 80320; 81001; 82550; 83036; 83735; 84484; 85025; 85610; 85730; 87635; 92610; 93005; 93306; 94640; 96374; 97161; 97165; 97530; 99285; G0378; A9270; J2405; J7613; Q9967

== ENCOUNTER 2024-03-28 14:14 | Emergency (ER) | payer OTHER, MEDICAID, SELFPAY ==
[2024-03-28 13:38] VITALS: BMI 45.7
[2024-03-28 14:20] VITALS: O2SAT 93
[2024-03-28 14:23] VITALS: BP 170/94; PULSE 80; RESP 16; O2SAT 95
[2024-03-28 14:24] VITALS: BP 170/94; PULSE 80; RESP 16; TEMP 37; O2SAT 95; BMI 45.7
[2024-03-28 14:30] VITALS: PULSE 80; RESP 16; O2SAT 93
[2024-03-28 14:31] VITALS: BP 170/92; PULSE 78; RESP 15; O2SAT 94
--- NOTE | 2024-03-28 14:40 | ED.GENADULT ---
HPI - General Adult General Chief complaint: Dizziness Stated complaint: head feels heavy, dizziness, ear px Time Seen by Provider: 03/28/24 14:27 Source: patient Mode of arrival: Wheelchair History of Present Illness HPI narrative: Patient is a 63-year-old female who was admitted to the hospital several days ago for what was initially thought to be a CVA/TIA. Had a fairly extensive workup to include an echocardiogram and an MRI and CTA and CT scan of the head and neck. No acute neurologic condition felt. According to the discharge note there was some question as whether not this was migraine. She stated that she was calling her primary doctor's office to schedule a follow-up appointment. States she has had persistent left-sided heaviness in her head. She now has persistent dizziness and left-sided ear pain. She states the dizziness is now consistent but the rest of her symptoms have been the same yet persistent since her admission to the hospital. She denies chest pain, shortness of breath, abdominal pain. Related Data Home Medications Medication Instructions Recorded Confirmed meloxicam 7.5 mg tablet 15 mg PO DAILY PRN moderate pain 03/25/24 03/25/24 Previous Rx's Medication Instructions Recorded inhalational spacing device #1 ea 09/14/22 (Aerochamber MV spacer) albuterol sulfate 90 mcg/actuation 2 puff inhalation Q4-6H PRN 12/17/23 aerosol inhaler bronchospasm #18 grams fluticasone propionate 115 2 puff inhalation BID #12 grams 02/20/24 mcg-salmeterol 21 mcg/actuation HFA inhaler (Advair HFA) lisinopril 20 1 tab PO DAILY #90 tabs 02/20/24 mg-hydrochlorothiazide 25 mg tablet varenicline 1 mg tablet (Chantix 1 mg PO BID #60 tabs 02/20/24 Continuing Month Box) aspirin 81 mg tablet,delayed 81 mg PO DAILY #30 tabs 03/26/24 release atorvastatin 20 mg tablet 20 mg PO BEDTIME #30 tabs 03/26/24 sertraline 25 mg tablet (Zoloft) 25 mg PO DAILY #30 tabs 03/26/24 meclizine 25 mg tablet 25 mg PO BID PRN motion sickness 03/28/24 #14 tabs Allergies Allergy/AdvReac Type Severity Reaction Status Date / Time No Known Drug Allergies Allergy Verified 03/28/24 14:24 Review of Systems Review of Systems ROS Unobtainable: All systems reviewed & are unremarkable except as noted in HPI and below Patient History Medical History Perforated nasal septum COPD (chronic obstructive pulmonary disease) Dyslipidemia Impaired fasting blood sugar Chronic bilateral low back pain Hip pain, chronic Chronic pain of left knee Pulmonary nodule Hyperglycemia Shoulder pain History of dimpling of breast skin Bowel habit changes Former smoker Insomnia Fatigue Obstructive sleep apnea Hypertriglyceridemia Hyperglycemia Morbid obesity with body mass index of 40.0-44.9 in adult Loud snoring GERD (gastroesophageal reflux disease) Hypertension Surgical History No pertinent past surgical history Family History Father CAD (coronary artery disease) Diabetes mellitus Mother Stroke Cancer of breast Social History household members: family Smoking Status: Former smoker alcohol intake: current Smoking Status: Former smoker tobacco type: cigarettes alcohol intake frequency: holidays/special occasions only Substance Use Type: does not use Exam Initial Vital Signs Initial Vital Signs: Vital Signs Pulse Oximetry 93 03/28/24 14:20 Const General: cooperative, comfortable and No ill appearing HENMT Head: normal to inspection and normocephalic Ears: TM's normal bilaterally Face and sinus: normal facial exam Mouth: oral mucosae normal Resp Effort & Inspection: normal respiratory effort Auscultation: clear to auscultation bilaterally Cardio Rate: regular rate Rhythm: regular rhythm Skin General: no rashes or lesions noted Neuro General: patient alert, patient awake, patient oriented x3 and moves all extremities Cranial Nerves: CN's II-XI intact bilaterally Cognition: normal cognition Extrem General: capillary refill normal Course Orders Ordered: ED Orders 03/28/24 14:47 EKG-12 Lead Stat Discontinued Medications Meclizine HCl (Meclizine Hcl 12.5 Mg Tablet) 25 mg PO NOW ONE Stop: 03/28/24 15:05 Vital Signs Vital signs: Vital Signs - 8 hr 03/28/24 14:20 03/28/24 14:23 03/28/24 14:23 Temperature Pulse Rate 80 Respiratory Rate 16 Blood Pressure 170/94 H Pulse Oximetry 93 95 Oxygen Delivery Method 03/28/24 14:24 03/28/24 14:30 03/28/24 14:31 Temperature 98.6 F Pulse Rate 80 80 Respiratory Rate 16 16 Blood Pressure 170/94 H 170/92 H Pulse Oximetry 95 93 Oxygen Delivery Method Room Air 03/28/24 14:31 Temperature Pulse Rate 78 Respiratory Rate 15 Blood Pressure Pulse Oximetry 94 Oxygen Delivery Method Medical Decision Making ECG Data Attestation: I personally reviewed and interpreted this ECG as follows: Interpretation: Sinus rhythm Ventricular rate of 71 Normal axis Normal QRS Normal QTC No ST T wave changes MDM Narrative Medical decision making narrative: No objective findings on the neurologic exam today. Patient has had a fairly extensive workup within the past [address]/CTA/MRI of her brain. No acute findings were found. There was some discussion that maybe this was a atypical migraine. We also discussed the possibility this was ocular or even ENT etiology. Given the extensive workup in the past week I will hold on further workup today. Will treat symptomatically for now with meclizine. The reason that she was here in the emergency department today is because she called the nurse at her doctor's office who advised that she come in to be evaluated. Patient has an appointment the beginning of next week with her primary provider. She was given return precautions. She expressed understanding and agreement. Discharge Plan Departure Patient Disposition: Home Clinical Impression: Vertigo Instructions: DI for Vertigo Activity Restrictions/Additional Instructions: I do recommend that you keep your follow-up appointment with your primary doctor. Recommend that you discuss the indications for referral to see Neurology and also the Ear Nose and Throat providers. Take the medication as needed. Return to the emergency department for new symptoms. Prescriptions: New meclizine 25 mg tablet 25 mg PO BID PRN (Reason: motion sickness) Qty: 14 0RF No Action (DME) Aerochamber MV Spacer See Rx Instructions .ROUTE .MEDSUPPLY Qty: 1 0RF Rx Instructions: As directed albuterol sulfate 90 mcg/actuation HFA aerosol inhaler 2 puff INHALATION Q4-6H PRN (Reason: bronchospasm) Qty: 18 2RF fluticasone propion-salmeterol [Advair HFA] 115-21 mcg/actuation HFA aerosol inhaler 2 puff inhalation BID Qty: 12 3RF varenicline [Chantix Continuing Month Box] 1 mg tablet 1 mg PO BID Qty: 60 3RF lisinopril-hydrochlorothiazide 20-25 mg tablet 1 tab PO DAILY Qty: 90 1RF meloxicam 7.5 mg tablet 15 mg PO DAILY PRN (Reason: moderate pain) aspirin 81 mg Tablet,Delayed Release (Dr/Ec) 81 mg PO DAILY Qty: 30 0RF atorvastatin 20 mg Tablet 20 mg PO BEDTIME Qty: 30 0RF sertraline [Zoloft] 25 mg tablet 25 mg PO DAILY Qty: 30 0RF Referrals: Josiah Santos ARNP [Primary Care Provider] - Stand Alone Forms: Patient Portal/API
--- NOTE | 2024-03-28 14:50 | EKG_ITS ---
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
[2024-03-28 15:00] VITALS: BP 176/95; PULSE 74; RESP 19; O2SAT 95
[2024-03-28] MEDS: MECLIZINE HCL 12.5 MG TABLET 25 MG PO (15:11)
== END 2024-03-28 15:25 | disposition home or self-care (01) ==
PROVIDERS: Emergency Provider Emergency Medicine; Family Provider Registered Nurse Diabetes Educator; PCP Registered Nurse Diabetes Educator
DX: R42 Dizziness and giddiness (principal)
CPT/HCPCS: 93005; 99283

== ENCOUNTER → 2024-04-11 16:55 | Outpatient (CLI) | payer OTHER, MEDICAID, SELFPAY ==
[2024-03-28 13:38] VITALS: BMI 45.7
--- NOTE | 2024-04-11 16:57 | DI.RAD.S_ITS ---
PROCEDURE: XR CHEST 2V INDICATIONS: Cough TECHNIQUE: 2 views of the chest were acquired. COMPARISON: [facility], CR, XR CHEST 2V, 12/12/2022, 19:14. [facility], CT, CT CHEST WO CON, 02/17/2024, 10:40. [facility], CR, XR CHEST 1V, 03/25/2024, 21:41. FINDINGS: Surgical changes and devices: None. Lungs and pleura: Bilateral mild perihilar bronchial wall thickening. Query a lower solid pulmonary nodule best seen on the lateral view which is new compared to prior measuring 1.1 cm. Mediastinum: Mediastinal contours are normal. Heart size is normal. Bones and chest wall: No suspicious bony abnormalities. Soft tissues appear unremarkable. Multilevel degenerative changes of the spine. IMPRESSION: 1. Bilateral mild perihilar bronchial wall thickening suggestive of reactive airways disease and/or viral pneumonia. 2. Query a lower lobe solid pulmonary nodule best seen on the lateral view which is new compared to prior measuring 1.1 cm. Recommend cross-sectional imaging for further evaluation. Dictated by: Jose Alejandro Camara M.D. on 04/12/2024 at 14:36 Approved by: Jose Alejandro Camara M.D. on 04/12/2024 at 14:39
== END ==
PROVIDERS: Family Provider Registered Nurse Diabetes Educator; PCP Registered Nurse Diabetes Educator; Referring Provider Nurse Practitioner Family; Visit Provider Nurse Practitioner Family
DX: R05.9 Cough, unspecified (principal)
CPT/HCPCS: 71046

== ENCOUNTER → 2024-04-25 15:11 | Outpatient (CLI) | payer OTHER, MEDICAID, SELFPAY ==
[2024-03-28 13:38] VITALS: BMI 45.7
--- NOTE | 2024-04-25 15:12 | DI.CT.S_ITS ---
PROCEDURE: CT CHEST WO CON INDICATIONS: further eval new nodule on CXR TECHNIQUE: Noncontrast 5 mm thick sections acquired from the pulmonary apices to the posterior costophrenic angles. 1 mm lung window, 5 mm thick coronal and sagittal and 7 mm axial MIP reformats were then acquired. For radiation dose reduction, the following was used: automated exposure control, adjustment of mA and/or kV according to patient size. COMPARISON: [facility], CR, XR CHEST 2V, 04/11/2024, 16:56. [facility], CT, CT CHEST WO CON, 02/17/2024, 10:40. [facility], CT, CT CHEST WO CON, 03/22/2022, 12:16. FINDINGS: Image quality: Diagnostic. Lower Neck: No enlarged lymph nodes. Thyroid: No thyroid nodules which require sonographic follow up, per consensus guidelines. Axillae: No enlarged lymph nodes. Chest Wall: Unremarkable. Bones: Unremarkable. Lungs and Pleura: No pneumothorax or pleural effusions. Mild centrilobular and paraseptal emphysema. Nodular opacity at the right lung base measures 3.4 x 2.5 cm (3/225), which is new when compared to the prior CT from 02/17/2024. Additional unchanged pulmonary nodules as follows: -Right apical solid nodule 7 mm nodule (3/56), unchanged. -Right lower lobe solid 4 mm subpleural nodule (3/179), unchanged. -Right lower lobe solid 4 mm subpleural nodule (3/198). -Left lower lobe 2 mm nodule (3/234), unchanged. Heart: Heart size is normal. No pericardial effusion. Thoracic Vessels: The aorta and pulmonary arteries demonstrate normal size. Mediastinum and Hanna: No enlarged lymph nodes. Esophagus: No wall thickening. No hiatal hernia. Upper Abdomen: Visualized upper abdomen solid organs and bowel loops appear normal. IMPRESSION: New nodular opacity at the right lung base corresponds to the recent radiographic findings and is most likely infectious or inflammatory in etiology. Recommend 3 month follow-up CT. Approved by: Jaylen Tobias M.D. on 04/25/2024 at 21:14
== END ==
PROVIDERS: Family Provider Registered Nurse Diabetes Educator; PCP Registered Nurse Diabetes Educator; Referring Provider Registered Nurse Diabetes Educator; Visit Provider Registered Nurse Diabetes Educator
DX: R91.8 Other nonspecific abnormal finding of lung field (principal); J43.2 Centrilobular emphysema
CPT/HCPCS: 71250

== ENCOUNTER → 2024-09-13 10:25 | Outpatient (CLI) | payer OTHER, MEDICAID, SELFPAY ==
--- NOTE | 2024-09-13 10:26 | DI.CT.S_ITS ---
PROCEDURE: CT CHEST WO CON INDICATIONS: Solitary pulmonary nodule TECHNIQUE: Noncontrast 5 mm thick sections acquired from the pulmonary apices to the posterior costophrenic angles. 1 mm lung window, 5 mm thick coronal and sagittal and 7 mm axial MIP reformats were then acquired. For radiation dose reduction, the following was used: automated exposure control, adjustment of mA and/or kV according to patient size. COMPARISON: [facility], CT, CT CHEST WO CON, 04/25/2024, 15:13. FINDINGS: Image quality: Diagnostic. Lungs and Pleura: Interval resolution of a previous patchy nodular and scar like opacity at the right lung base. Pleural-based right lower lobe lateral and anterior nodules are stable. Subpleural posteromedial right lower lobe nodule, and round right apical lung nodule are stable. Partially calcified anterior lingular nodule measures 5 mm, 3/161, stable as well as a lateral upper lobe nodule measuring roughly 2 mm. Central and peripheral airways are normal without bronchial wall thickening or bronchiectasis. No acute ground-glass opacities, or consolidations. No pleural effusions or pleural calcification. Lower Neck: No enlarged lymph nodes. Thyroid: Normal CT appearance. Axillae: No enlarged lymph nodes. Chest Wall: No suspicious chest wall mass. Bones: No suspicious bone lesions. Mild degenerative changes in the thoracic spine. Heart: Heart size is normal. No pericardial effusion. Thoracic Vessels: Normal caliber pulmonary arteries and thoracic aorta. Retroesophageal right subclavian artery, normal variant. Mediastinum and Hanna: No enlarged lymph nodes. Several left hilar and one subcarinal nonenlarged calcified lymph node. Esophagus: No wall thickening. Small hiatal hernia. Upper Abdomen: Mild hepatomegaly and hepatic steatosis. Visible portions of upper abdominal organs are otherwise normal. IMPRESSION: Interval resolution of previous 3.4 cm nodular opacity in the right lung base. Several bilateral lung nodules are otherwise stable. Given calcifications in the mediastinum and left hilum, prior granulomatous disease and healed granulomas are most likely. Mild hepatomegaly and hepatic steatosis. Dictated by: Kari Gill M.D. on 09/13/2024 at 22:05 Approved by: Kari Gill M.D. on 09/13/2024 at 22:13
== END ==
PROVIDERS: Family Provider Registered Nurse Diabetes Educator; PCP Registered Nurse Diabetes Educator; Referring Provider Registered Nurse Diabetes Educator; Visit Provider Registered Nurse Diabetes Educator
DX: R91.8 Other nonspecific abnormal finding of lung field (principal); M47.814 Spondylosis without myelopathy or radiculopathy, thoracic region; K44.9 Diaphragmatic hernia without obstruction or gangrene; K76.0 Fatty (change of) liver, not elsewhere classified
CPT/HCPCS: 71250

== ENCOUNTER → 2024-10-16 10:39 | Outpatient (CLI) | payer OTHER, SELFPAY ==
[2024-10-16 11:29] LABS: Hemoglobin A1C% w Est Avg Glu 6.5 % (4.0-6.0)
[2024-10-16 11:40] LABS: Alanine Aminotransferase 22 IU/L (<35); Albumin Globulin Ratio 1.6 (1.0-2.8); Alkaline Phosphatase 60 U/L (38-126); Aspartate Aminotransferase 23 IU/L (14-36); BUN Creatinine Ratio 23.9 (6-22); Bilirubin Total 0.6 mg/dL (0.2-1.3); Blood Urea Nitrogen 16 mg/dL (7-17); Calcium 9.7 mg/dL (8.4-10.2); Carbon Dioxide 26 mmol/L (22-32); Chloride 104 mmol/L (98-107); Cholesterol 162 mg/dL (140-199); Estimated Glomerular Filt Rate > 60 mL/min (>60); Globulin 2.5 g/dL (1.7-4.1); Glucose 123 mg/dL (80-110); HDL Cholesterol 52 mg/dL (40-60); HEMOLYSIS 31 (0-50); LDL Cholesterol Calculated 95 mg/dL (<100); Potassium 4.2 mmol/L (3.4-5.1); Sodium 138 mmol/L (137-145); Total Protein 6.5 g/dL (6.3-8.2); Triglycerides 74 mg/dL (35-150)
== END ==
PROVIDERS: Family Provider Registered Nurse Diabetes Educator; PCP Registered Nurse Diabetes Educator; Referring Provider Registered Nurse Diabetes Educator; Visit Provider Registered Nurse Diabetes Educator
DX: E78.5 Hyperlipidemia, unspecified (principal); R73.01 Impaired fasting glucose
CPT/HCPCS: 36415; 80053; 80061; 83036

== ENCOUNTER → 2024-10-20 13:38 | Outpatient (CLI) | payer OTHER, SELFPAY ==
[2024-10-20 15:14] LABS: Hemoglobin A1C% w Est Avg Glu 6.4 % (4.0-6.0)
== END ==
PROVIDERS: Family Provider Registered Nurse Diabetes Educator; PCP Registered Nurse Diabetes Educator; Referring Provider Registered Nurse Diabetes Educator; Visit Provider Registered Nurse Diabetes Educator
DX: R73.01 Impaired fasting glucose (principal)
CPT/HCPCS: 36415; 83036

== ENCOUNTER 2024-10-30 13:56 | Emergency (ER) | payer OTHER, SELFPAY ==
[2024-10-30 14:03] VITALS: BP 151/98; PULSE 92; RESP 14; TEMP 36.9; O2SAT 96; BMI 47.5
--- NOTE | 2024-10-30 14:35 | EKG_ITS ---
[address] [address] Test Date: 2024-10-30 Pat Name: Jaimie Redman Department: Room: Gender: Female Diagnostic Radiologist: FELECIA : 1960 Requested By: Order Number: [id number] Reading MD: Talon Bella Measurements Intervals [place] Rate: 79 P: 24 [place]: 198 QRS: 12 QRSD: 148 T: 2 QT: 434 QTc: 497 Interpretive Statements Normal sinus rhythm Right bundle branch block Possible Inferior infarct , age undetermined T wave abnormality, consider lateral ischemia Electronically Signed On 10-30-2024 18:01:03 PST by Talon Bella
--- NOTE | 2024-10-30 14:54 | ED.NEUROSD ---
HPI - Neuro Symptoms/Deficit General Chief Complaint: Neuro Symptoms/Deficit Stated Complaint: Vertigo, poss stroke Time Seen by Provider: 10/30/24 14:54 Source: patient Mode of arrival: Ambulatory History of Present Illness HPI Narrative: Patient is a 64-year-old female history of hypertension, GERD, hyperlipidemia presents from the walk-in clinic for evaluation of vertigo like symptoms ongoing persistent for the past week. States that she has a history of vertigo but has never lasted this long. States that it started spontaneously turning her head to the left does make it worse, she states that she went into the walk-in clinic given her symptoms was instructed come into the ED for further evaluation treatment. No trauma no falls not on any blood thinners, she has not complaining of any other symptoms at this time. On Anticoagulants: No Related Data Previous Rx's Medication Instructions Recorded inhalational spacing device #1 ea 09/14/22 (Aerochamber MV spacer) meclizine 25 mg tablet 25 mg PO TID PRN motion sickness 04/28/24 #30 tabs azelastine 137 mcg (0.1 %) nasal 137 mcg (0.137 mL) intranasal BID 07/15/24 spray #90 mL omeprazole 20 mg capsule,delayed 20 mg PO QAM #90 caps 07/21/24 release aspirin 81 mg tablet,delayed 81 mg PO DAILY #90 tabs 07/28/24 release albuterol sulfate 90 mcg/actuation 2 puff inhalation Q4-6H PRN 09/22/24 aerosol inhaler shortness of breath or wheezing #6.7 grams atorvastatin 20 mg tablet 20 mg PO BEDTIME #90 tabs 10/21/24 duloxetine 30 mg capsule,delayed 90 mg (3 x 30 mg) PO DAILY 10/21/24 release depression #90 caps fluticasone propionate 230 2 puff inhalation Q12H #12 grams 10/21/24 mcg-salmeterol 21 mcg/actuation HFA inhaler (Advair HFA) losartan 50 mg-hydrochlorothiazide 1 tab PO DAILY blood pressure #90 10/21/24 12.5 mg tablet tabs naproxen 250 mg tablet 250 mg PO BID pain/inflammation 10/21/24 #60 tabs tiotropium bromide 18 mcg capsule 1 cap inhalation DAILY #60 10/21/24 with inhalation device (Spiriva inhalations with HandiHaler) meclizine 25 mg chewable tablet 25 mg PO DAILY PRN motion sickness 10/30/24 (Antivert) 7 days #7 tabs Allergies Allergy/AdvReac Type Severity Reaction Status Date / Time No Known Drug Allergies Allergy Verified 10/21/24 13:29 Review of Systems Review of Systems Narrative: General: Denies fever, chills, weight loss HEENT: Denies headache, eye drainage, eye irritation, head trauma, sore throat, voice change Cardiovascular: Denies any chest pain, palpitations, shortness of breath, tachycardia Respiratory: Denies any shortness of breath, cough, wheeze, stridor GI/: Denies any abdominal pain, nausea, vomiting, diarrhea, bright red blood per rectum, melanotic stools, urinary frequency, urinary retention, dysuria, hematuria MSK: Denies any joint pain, muscle pains, swelling Skin: Denies any rashes, lesions, discoloration Neuro: Positive dizziness, denies any headache, lightheadedness, fainting, weakness Psych: Denies SI/HI Hematologic/Lymphatic On Anticoagulants: No Patient History Medical History Long-term use of aspirin therapy Dyslipidemia Major depressive disorder, recurrent episode, moderate Chronic neck pain Adjustment disorder with mixed anxiety and depressed mood Substance abuse in remission Tobacco dependence in remission Perforated nasal septum COPD (chronic obstructive pulmonary disease) Impaired fasting blood sugar Chronic bilateral low back pain Hip pain, chronic Chronic pain of left knee Pulmonary nodule Hyperglycemia Shoulder pain History of dimpling of breast skin Bowel habit changes Former smoker Insomnia Fatigue Obstructive sleep apnea Hypertriglyceridemia Hyperglycemia Morbid obesity with body mass index of 40.0-44.9 in adult Loud snoring GERD (gastroesophageal reflux disease) Hypertension Surgical History No pertinent past surgical history Family History Father CAD (coronary artery disease) Diabetes mellitus Mother Stroke Cancer of breast Social History household members: family Smoking Status: Former smoker alcohol intake: current Smoking Status: Former smoker tobacco type: cigarettes alcohol intake frequency: holidays/special occasions only Exam Narrative Exam Narrative: General: Cooperative, comfortable, well-developed, not in acute distress HEENT: Normocephalic, atraumatic, PERRLA, normal sclera, eyelids normal, Neck: Active full range of motion, atraumatic Chest: Normal to inspection, negative crepitus, no overlying erythema ecchymosis Respiratory: Normal respiratory effort, not in acute respiratory distress, clear to auscultation bilaterally negative cough, wheeze, tachypnea, rhonchi, rales Cardiology: Regular rate rhythm negative gallop, murmur, rubs GI/: Normal to inspection, soft, nonrigid, no tenderness to palpation, exam deferred MSK: Full range of active range of motion of all 4 extremities, atraumatic Skin: No rashes lesions noted Neuro: Alert awake oriented x3, moves all 4 extremities spontaneously, cranial nerves intact, able to answer all questions appropriately follows commands appropriately, NIH of 0 Psych: Cooperative, negative suicidal or homicidal ideations Initial Vital Signs Initial Vital Signs: Vital Signs Temperature 98.5 F 10/30/24 14:03 Pulse Rate 92 H 10/30/24 14:03 Respiratory Rate 14 10/30/24 14:03 Blood Pressure 151/98 H 10/30/24 14:03 Pulse Oximetry 96 10/30/24 14:03 Oxygen Delivery Method Room Air 10/30/24 14:03 Course Orders Ordered: ED Orders 10/30/24 14:29 Complete Blood Count AUTO DIFF Stat Comprehensive Metabolic Panel Stat Lipase Stat MAG [Magnesium] Stat Troponin & CK Cardiac Panel Stat 10/30/24 14:58 EKG-12 Lead Stat 10/30/24 14:59 CT angio head and neck Stat XR chest 1V Stat 10/30/24 15:00 CT head/brain wo con Stat Discontinued Medications Meclizine HCl (Meclizine Hcl 12.5 Mg Tablet) 25 mg PO NOW ONE Stop: 10/30/24 14:59 Last Admin: 10/30/24 15:12 Dose: 25 mg Documented By: ANGIE Metoclopramide HCl (Metoclopramide 10 Mg/2 Ml Inj) 10 mg IV NOW ONE Stop: 10/30/24 14:59 Last Admin: 10/30/24 15:10 Dose: 10 mg Documented By: ANGIE Vital Signs Vital signs: Vital Signs - 8 hr 10/30/24 14:03 10/30/24 15:00 10/30/24 15:30 Temperature 98.5 F Pulse Rate 92 H 76 78 Respiratory Rate 14 18 18 Blood Pressure 151/98 H 154/84 H 157/74 H Pulse Oximetry 96 93 94 Oxygen Delivery Method Room Air MDM - Neuro Symptoms/Deficit Differential Diagnosis Differential diagnosis: Likely cerebrovascular accident and other (BPPV, central vertigo, electrolyte abnormality, ACS) Lab Data 10/30/24 14:29 10/30/24 14:29 Labs: Lab Results 10/30/24 Range/Units 14:29 WBC 9.5 (4.5-11.0) X10^3/uL RBC 4.80 (4.0-5.2) X10^6/uL Hgb 13.1 (12.0-16.0) g/dL Hct 39.9 (36-46) % MCV 83.1 (80-100) fL MCH 27.2 (26-34) PG MCHC 32.7 (30-36) % RDW 15.6 H (11.6-14.8) % Plt Count 328 (150-400) X10^3/uL Neut % (Auto) 70.0 (50-75) % Lymph % (Auto) 21.9 L (25-40) % [place] % (Auto) 6.2 (3-14) % Eos % (Auto) 0.9 L (2-4) % Baso % (Auto) 1.0 (0-2) % Neut # (Auto) 6600 (2713-4951) /uL Lymph # (Auto) 2100 (1289-8116) /uL [place] # (Auto) 600 (0-900) /uL Eos # (Auto) 100 (0-450) /uL Baso # (Auto) 100 (0-100) /uL Sodium 138 (137-145) mmol/L Potassium 3.9 (3.4-5.1) mmol/L Chloride 102 (98-107) mmol/L Carbon Dioxide 30 (22-32) mmol/L BUN 16 (7-17) mg/dL Creatinine 0.77 (0.52-1.04) mg/dL Estimated GFR > 60 (>60) mL/min BUN/Creatinine Ratio 20.8 (6-22) Glucose 121 H (80-110) mg/dL Calcium 10.3 H (8.4-10.2) mg/dL Magnesium 1.8 (1.6-2.3) mg/dL Total Bilirubin 0.4 (0.2-1.3) mg/dL AST 25 (14-36) IU/L ALT 23 (<35) IU/L Alkaline Phosphatase 56 (38-126) U/L Total Creatine Kinase 43 (30-135) U/L Troponin I < 0.012 (0.01-0.034) ng/mL Total Protein 7.1 (6.3-8.2) g/dL Albumin 4.1 (3.5-5.0) g/dL Globulin 3.0 (1.7-4.1) g/dL Albumin/Globulin Ratio 1.4 (1.0-2.8) Lipase 87 (23-300) U/L Point of Care Testing Glucose POC 120 Imaging Data Chest x-ray: Radiologist's Impression: [address] [address] XRay Report Signed Patient: Jaimie Redman MR#: [id number] : 1960 Acct:[id number] Age/Sex: 64 / F Date of Service: 10/30/24 Loc: ED Accession Number: [id number] Procedure: XR chest 1V Ordering Provider: Marcello Fernandez D.O. PROCEDURE: XR CHEST 1V INDICATIONS: dizzy TECHNIQUE: One view of the chest was acquired. COMPARISON: [facility], , XR CHEST 2V, 04/11/2024, 16:56. FINDINGS: Surgical changes and devices: None. Lungs and pleura: Lungs are clear. No pleural effusions or pneumothorax. Mediastinum: Mediastinal contours appear normal. Heart size is normal. Bones and chest wall: No suspicious bony lesions. Overlying soft tissues appear unremarkable. IMPRESSION: No acute cardiopulmonary abnormalities or focal consolidation. CT scan - head: Radiologist's Impression: [place] [address] CT Scan Report Signed Patient: Jaimie Redman MR#: [id number] : 1960 Acct:[id number] Age/Sex: 64 / F Date of Service: 10/30/24 Loc: ED Accession Number: [id number] Procedure: CT head/brain wo con Ordering Provider: Marcello Fernandez D.O. PROCEDURE: CT HEAD/BRAIN WO CON INDICATIONS: dizzy TECHNIQUE: Noncontrast 4.5 mm thick angled axial sections acquired from the foramen magnum to the vertex, with coronal and sagittal reformats. For radiation dose reduction, the following was used: automated exposure control, adjustment of mA and/or kV according to patient size. COMPARISON: None. FINDINGS: Image quality: Diagnostic. CSF spaces: Basal cisterns are patent. No extra-axial fluid collections. Ventricles are normal in size and shape. Brain: No midline shift. No intracranial masses or hemorrhage. Walsh-white matter interface is normal. Leukoaraiosis, commonly caused by small vessel ischemic disease. Skull and face: Calvarium and visualized facial bones are intact, without suspicious lesions. Sinuses: Visualized sinuses and mastoids are clear. IMPRESSION: No acute intracranial pathology. CTA - brain/neck: Radiologist's Impression: [place] [address] CT Scan Report Signed Patient: Jaimie Redman MR#: [id number] : 1960 Acct:[id number] Age/Sex: 64 / F Date of Service: 10/30/24 Loc: ED Accession Number: [id number] Procedure: CT angio head and neck Ordering Provider: Marcello Fernandez D.O. PROCEDURE: CT ANGIO HEAD AND NECK INDICATIONS: dizzy TECHNIQUE: After the administration of intravenous contrast, 1 mm thick sections acquired from the aortic arch through the [place] of [place]. 3-dimensional rqtvyjw-xzfrbphdp-pxnqkinluz (MIP) and/or volume rendering reformats were acquired of the central intracranial vasculature and neck separately. For radiation dose reduction, the following was used: automated exposure control, adjustment of mA and/or kV according to patient size. COMPARISON: [facility], CT, CT ANGIO HEAD AND NECK, 03/25/2024, 21:12. Chest CT 09/19/2021. FINDINGS: Image quality: Diagnostic. BRAIN: CSF spaces: Ventricles are normal in size and shape. Basal cisterns are patent. No extra-axial fluid collections. Brain: No significant abnormality of the brain can be seen. Skull and face: Calvarium and facial bones appear intact, without suspicious lesions. Orbits appear normal. Sinuses: Sinuses and mastoids are clear. HEAD CT ANGIOGRAPHY: Anterior circulation: Intracranial internal carotid arteries are normal in size and flow. The flow within the paired anterior cerebral arteries is normal and symmetric. The flow within the middle cerebral arteries is normal and symmetric. The anterior communicating artery is seen. No aneurysms are seen. Posterior circulation: Visualized portions of the vertebral arteries demonstrate normal caliber, and join to form a normal appearing basilar artery. Flow within the posterior cerebral arteries is normal and symmetric. No aneurysms are seen. NECK CT ANGIOGRAPHY: Carotid system: The great vessels demonstrate a conventional anatomy as they arise from the aortic arch. The origins of the common carotid arteries appear patent. The common carotid arteries demonstrate normal caliber and courses. The bifurcation regions are both widely patent. The internal carotid arteries demonstrate normal calibers and courses. Posterior circulation: The origins of the vertebral arteries both appear widely patent. The more superior extracranial portions of both vertebral arteries also demonstrate normal courses and calibers. They join to form a normal appearing basilar artery. Soft tissues: Visualized neck soft tissues demonstrate no suspicious abnormalities. Stable 7 mm nodule in the right lung apex compared with 2020, statistically benign. Bones: No suspicious bony lesions. Visualized cervical spine appears normally aligned. Extensive dental caries, with periapical lucencies. IMPRESSION: No significant intracranial arterial abnormality is seen. No significant abnormality is seen within the arteries of the neck. Extensive dental caries with associated periapical lucencies; these typically require root canals . Recommend outpatient dental referral. ECG Data Interpretation: EKG interpreted ED physician sinus 79 beats per minute QTC 497, normal axis, right bundle branch block noted, nonspecific ST changes, no STEMI MDM Narrative Medical decision making narrative: 64-year-old female history of hypertension hyperlipidemia vertigo comes in for persistent vertigo ongoing persistent for the past week, went to urgent care and was instructed to come into the ED for further evaluation treatment. Denies any trauma or falls not on any blood thinners at time evaluation NIH of 0. Patient had lab work imaging performed here. CT head CTA head and neck chest x-ray which did not show any acute findings. Patient EKG nonischemic troponin negative remainder of lab work unremarkable. Patient had resolution of symptoms after administration of Reglan and meclizine here. Was able to stand bear weight walk to the restroom without any issues. Patient was instructed to follow up with her ENT as well as Neurology in outpatient setting for continued evaluation treatment of her symptoms. She was given strict return precautions she verbalized understanding of this and agrees to being discharged home with outpatient follow up. Discharge Plan Departure Patient Disposition: Home Clinical Impression: Vertigo Instructions: DI for Vertigo Activity Restrictions/Additional Instructions: Please follow up with ENT and Neurology in outpatient setting Please read the discharge instructions sheet carefully and bring all papers to all doctor follow-up visits, as it may contain information that your doctor may want to see. Disease processes change and evolve, if your symptoms worsen or if you develop any new symptoms that are concerning to you please return for evaluation. Your evaluation today does not show any evidence of any life-threatening/serious illnesses requiring admission to the hospital or surgery. Please follow-up with your doctor for re-evaluation in approximately 1 day. Seek immediate medical attention for any worrisome symptoms. *If you do not have a primary care provider please contact the [facility] Resource line at [phone]. They will ask some questions about your medical history and help get you set up with a doctor in the community. Prescriptions: New meclizine [Antivert] 25 mg tablet,chewable 25 mg PO DAILY PRN (Reason: motion sickness) 7 Days Qty: 7 0RF No Action (DME) Aerochamber MV Spacer See Rx Instructions .ROUTE .MEDSUPPLY Qty: 1 0RF Rx Instructions: As directed duloxetine 30 mg capsule,delayed release(DR/EC) 90 mg PO DAILY Qty: 90 3RF atorvastatin 20 mg tablet 20 mg PO BEDTIME Qty: 90 3RF Rx Instructions: for cholesterol fluticasone propion-salmeterol [Advair HFA] 230-21 mcg/actuation HFA aerosol inhaler 2 puff inhalation Q12H Qty: 12 3RF tiotropium bromide [Spiriva with HandiHaler] 18 mcg capsule, w/inhalation device 1 cap inhalation DAILY Qty: 60 3RF Rx Instructions: puncture 1 cap using device; one dose = 2 inhalations naproxen 250 mg tablet 250 mg PO BID Qty: 60 3RF losartan-hydrochlorothiazide 50-12.5 mg tablet 1 tab PO DAILY Qty: 90 1RF meclizine 25 mg tablet 25 mg PO TID PRN (Reason: motion sickness) Qty: 30 2RF omeprazole 20 mg capsule,delayed release(DR/EC) 20 mg PO QAM Qty: 90 3RF Rx Instructions: Take 1 cap daily for GERD. aspirin 81 mg tablet,delayed release (DR/EC) 81 mg PO DAILY Qty: 90 2RF albuterol sulfate 90 mcg/actuation HFA aerosol inhaler 2 puff inhalation Q4-6H PRN (Reason: shortness of breath or wheezing) Qty: 6.7 3RF azelastine 137 mcg (0.1 %) spray,non-aerosol 137 mcg intranasal BID Qty: 90 0RF Rx Instructions: administer into each nostril Referrals: Josiah Santos ARNP [Primary Care Provider] - Stand Alone Forms: Patient Portal/API/Survey
--- NOTE | 2024-10-30 14:59 | DI.CT.S_ITS ---
PROCEDURE: CT ANGIO HEAD AND NECK INDICATIONS: dizzy TECHNIQUE: After the administration of intravenous contrast, 1 mm thick sections acquired from the aortic arch through the [place] of [place]. 3-dimensional xuxwatf-irqjbzoin-asvrdblrfb (MIP) and/or volume rendering reformats were acquired of the central intracranial vasculature and neck separately. For radiation dose reduction, the following was used: automated exposure control, adjustment of mA and/or kV according to patient size. COMPARISON: [facility], CT, CT ANGIO HEAD AND NECK, 03/25/2024, 21:12. Chest CT 09/19/2021. FINDINGS: Image quality: Diagnostic. BRAIN: CSF spaces: Ventricles are normal in size and shape. Basal cisterns are patent. No extra-axial fluid collections. Brain: No significant abnormality of the brain can be seen. Skull and face: Calvarium and facial bones appear intact, without suspicious lesions. Orbits appear normal. Sinuses: Sinuses and mastoids are clear. HEAD CT ANGIOGRAPHY: Anterior circulation: Intracranial internal carotid arteries are normal in size and flow. The flow within the paired anterior cerebral arteries is normal and symmetric. The flow within the middle cerebral arteries is normal and symmetric. The anterior communicating artery is seen. No aneurysms are seen. Posterior circulation: Visualized portions of the vertebral arteries demonstrate normal caliber, and join to form a normal appearing basilar artery. Flow within the posterior cerebral arteries is normal and symmetric. No aneurysms are seen. NECK CT ANGIOGRAPHY: Carotid system: The great vessels demonstrate a conventional anatomy as they arise from the aortic arch. The origins of the common carotid arteries appear patent. The common carotid arteries demonstrate normal caliber and courses. The bifurcation regions are both widely patent. The internal carotid arteries demonstrate normal calibers and courses. Posterior circulation: The origins of the vertebral arteries both appear widely patent. The more superior extracranial portions of both vertebral arteries also demonstrate normal courses and calibers. They join to form a normal appearing basilar artery. Soft tissues: Visualized neck soft tissues demonstrate no suspicious abnormalities. Stable 7 mm nodule in the right lung apex compared with 2020, statistically benign. Bones: No suspicious bony lesions. Visualized cervical spine appears normally aligned. Extensive dental caries, with periapical lucencies. IMPRESSION: No significant intracranial arterial abnormality is seen. No significant abnormality is seen within the arteries of the neck. Extensive dental caries with associated periapical lucencies; these typically require root canals . Recommend outpatient dental referral. Any quantitative measurements of stenosis were performed using NASCET criteria. Dictated by: Stas Guardado M.D. on 10/30/2024 at 15:40 Approved by: Stas Guardado M.D. on 10/30/2024 at 15:44
--- NOTE | 2024-10-30 14:59 | DI.RAD.S_ITS ---
PROCEDURE: XR CHEST 1V INDICATIONS: dizzy TECHNIQUE: One view of the chest was acquired. COMPARISON: [facility], CR, XR CHEST 2V, 04/11/2024, 16:56. FINDINGS: Surgical changes and devices: None. Lungs and pleura: Lungs are clear. No pleural effusions or pneumothorax. Mediastinum: Mediastinal contours appear normal. Heart size is normal. Bones and chest wall: No suspicious bony lesions. Overlying soft tissues appear unremarkable. IMPRESSION: No acute cardiopulmonary abnormalities or focal consolidation. Dictated by: Geronimo Becker M.D. on 10/30/2024 at 15:21 Approved by: Geronimo Becker M.D. on 10/30/2024 at 15:21
[2024-10-30 15:00] VITALS: BP 154/84; PULSE 76; RESP 18; O2SAT 93
--- NOTE | 2024-10-30 15:00 | DI.CT.S_ITS ---
PROCEDURE: CT HEAD/BRAIN WO CON INDICATIONS: dizzy TECHNIQUE: Noncontrast 4.5 mm thick angled axial sections acquired from the foramen magnum to the vertex, with coronal and sagittal reformats. For radiation dose reduction, the following was used: automated exposure control, adjustment of mA and/or kV according to patient size. COMPARISON: None. FINDINGS: Image quality: Diagnostic. CSF spaces: Basal cisterns are patent. No extra-axial fluid collections. Ventricles are normal in size and shape. Brain: No midline shift. No intracranial masses or hemorrhage. Walsh-white matter interface is normal. Leukoaraiosis, commonly caused by small vessel ischemic disease. Skull and face: Calvarium and visualized facial bones are intact, without suspicious lesions. Sinuses: Visualized sinuses and mastoids are clear. IMPRESSION: No acute intracranial pathology. Dictated by: Stas Guardado M.D. on 10/30/2024 at 15:51 Approved by: Stas Guardado M.D. on 10/30/2024 at 15:56
[2024-10-30 15:10] LABS: Add Manual Diff / Slide Review NO; Basophils Absolute Auto 100 /uL (0-100); Eosinophils Absolute Auto 100 /uL (0-450); Eosinophils Percent Auto 0.9 % (2-4); Hematocrit 39.9 % (36-46); Hemoglobin 13.1 g/dL (12.0-16.0); Lymphocytes Absolute Auto 2100 /uL (1100-4500); Lymphocytes Percent Auto 21.9 % (25-40); Mean Corpuscular HGB Conc 32.7 % (30-36); Mean Corpuscular Hemoglobin 27.2 PG (26-34); Mean Corpuscular Volume 83.1 fL (80-100); Monocytes Absolute Auto 600 /uL (0-900); Monocytes Percent Auto 6.2 % (3-14); Neutrophils Absolute Auto 6600 /uL (1500-7000); Platelet Count 328 X10^3/uL (150-400); Red Cell Distribution Width 15.6 % (11.6-14.8); White Blood Cell Count 9.5 X10^3/uL (4.5-11.0)
[2024-10-30] MEDS: METOCLOPRAMIDE 10 MG/2 ML INJ IV (15:10)
[2024-10-30] MEDS: MECLIZINE HCL 12.5 MG TABLET 25 MG PO (15:12)
[2024-10-30 15:13] LABS: Lipase 87 U/L (23-300)
[2024-10-30 15:15] LABS: Alanine Aminotransferase 23 IU/L (<35); Albumin 4.1 g/dL (3.5-5.0); Albumin Globulin Ratio 1.4 (1.0-2.8); Alkaline Phosphatase 56 U/L (38-126); Aspartate Aminotransferase 25 IU/L (14-36); BUN Creatinine Ratio 20.8 (6-22); Bilirubin Total 0.4 mg/dL (0.2-1.3); Blood Urea Nitrogen 16 mg/dL (7-17); Calcium 10.3 mg/dL (8.4-10.2); Carbon Dioxide 30 mmol/L (22-32); Chloride 102 mmol/L (98-107); Creatine Kinase 43 U/L (30-135); Estimated Glomerular Filt Rate > 60 mL/min (>60); Glucose 121 mg/dL (80-110); HEMOLYSIS < 15 (0-50); Magnesium 1.8 mg/dL (1.6-2.3); Potassium 3.9 mmol/L (3.4-5.1); Sodium 138 mmol/L (137-145); Total Protein 7.1 g/dL (6.3-8.2)
[2024-10-30 15:26] LABS: Troponin I < 0.012 ng/mL (0.01-0.034)
[2024-10-30 15:30] VITALS: BP 157/74; PULSE 78; RESP 18; O2SAT 94
[2024-10-30 15:36] VITALS: BP 144/84; PULSE 81; RESP 17; O2SAT 93
== END 2024-10-30 16:24 | disposition home or self-care (01) ==
PROVIDERS: Emergency Provider Student in an Organized Health Care Education/Training Program; Family Provider Registered Nurse Diabetes Educator; PCP Registered Nurse Diabetes Educator
DX: R42 Dizziness and giddiness (principal); I10 Essential (primary) hypertension; K21.9 Gastro-esophageal reflux disease without esophagitis; E78.5 Hyperlipidemia, unspecified
CPT/HCPCS: 70450; 70496; 70498; 71045; 80053; 82550; 82962; 83690; 83735; 84484; 85025; 93005; 96374; 99284; J2765; Q9967

== ENCOUNTER 2024-11-06 15:16 | Emergency (ER) | payer OTHER, SELFPAY ==
[2024-11-06 15:29] VITALS: BP 113/62; PULSE 94; RESP 16; TEMP 36.5; O2SAT 95; BMI 47.5
[2024-11-06 16:04] LABS: Bacteria Urine Many (>30); Culture Indicated Urine Cult Not Indicated; RBC Urine 0-1/HPF (0-5/HPF); Squamous Epithelial Cell Urine 5-10 /HPF (0-5/HPF); Urine Volume 10mL (spun); WBC Urine 1-5/HPF (0-5/HPF)
--- NOTE | 2024-11-06 17:26 | PC.NURSE ---
Patient stopped this writter in the middle of grabbing other patients for triage. Asked patient to have a seat and would update her as soon as possible. Patient took a seat and then left without being seen
== END 2024-11-06 17:29 | disposition left against medical advice (07) ==
PROVIDERS: Emergency Provider Emergency Medicine; Family Provider Registered Nurse Diabetes Educator; PCP Registered Nurse Diabetes Educator
DX: N93.9 Abnormal uterine and vaginal bleeding, unspecified (principal)
CPT/HCPCS: 81003; 81015; 99281

== ENCOUNTER → 2024-12-03 15:50 | Outpatient (CLI) | payer OTHER, SELFPAY | PROVIDERS: Family Provider Registered Nurse Diabetes Educator; PCP Registered Nurse Diabetes Educator; Visit Provider Registered Nurse Diabetes Educator | DX: R31.9 Hematuria, unspecified (principal) | CPT/HCPCS: 87086 ==

== ENCOUNTER → 2024-12-09 13:06 | Outpatient (CLI) | payer OTHER, SELFPAY ==
[2024-12-11 11:36] LABS: Fecal Immunochemical Test Negative (Negative)
== END ==
PROVIDERS: Family Provider Registered Nurse Diabetes Educator; PCP Registered Nurse Diabetes Educator; Referring Provider Registered Nurse Diabetes Educator; Visit Provider Registered Nurse Diabetes Educator
DX: Z12.11 Encounter for screening for malignant neoplasm of colon (principal)
CPT/HCPCS: 82274

== ENCOUNTER 2025-02-03 09:04 | Day surgery (SDC) | payer OTHER, SELFPAY ==
[2025-02-03 11:07] VITALS: BP 150/97; PULSE 90; RESP 15; TEMP 36.4; O2SAT 96
--- NOTE | 2025-02-03 11:11 | SUR.PREOP ---
Albuterol neb in pre op verified verbal order from Dr Fall. Pt SOB on exertion. Had not used inhalers for one week since she is out. Encouraged pt to call the pharmacy
[2025-02-03] MEDS: LACTATED RINGERS 1,000 ML 42 ML IV (11:13)
--- NOTE | 2025-02-03 11:16 | P.HP_ITS ---
History of Present Illness History of Present Illness Chief complaint: Colonoscopy Narrative: 63-year-old female with no prior history of colonoscopy. She is referred for screening colonoscopy for the complaint of occasional blood on the paper upon wiping. She performed a Cologuard the stool evaluation couple of weeks ago but does not know her results. She presents for screening colonoscopy. [facility] Medical History (Updated 02/03/25 @ 11:22 by Robinson Tran MD) History of rectal bleeding Rectal bleeding Long-term use of aspirin therapy Dyslipidemia Major depressive disorder, recurrent episode, moderate Chronic neck pain Adjustment disorder with mixed anxiety and depressed mood Substance abuse in remission Tobacco dependence in remission Perforated nasal septum COPD (chronic obstructive pulmonary disease) Impaired fasting blood sugar Chronic bilateral low back pain Hip pain, chronic Chronic pain of left knee Pulmonary nodule Hyperglycemia Shoulder pain History of dimpling of breast skin Bowel habit changes Former smoker Insomnia Fatigue Obstructive sleep apnea Hypertriglyceridemia Hyperglycemia Morbid obesity with body mass index of 40.0-44.9 in adult Loud snoring GERD (gastroesophageal reflux disease) Hypertension Surgical History No pertinent past surgical history Family History Father CAD (coronary artery disease) Diabetes mellitus Mother Stroke Cancer of breast Social History household members: family alcohol intake: never Meds Home Medications and Allergies Home Medications Medication Instructions Recorded Confirmed Type inhalational spacing device #1 ea 09/14/22 12/03/24 Rx (Aerochamber MV spacer) azelastine 137 mcg (0.1 %) nasal 137 mcg (0.137 mL) intranasal BID 07/15/24 12/03/24 Rx spray #90 mL omeprazole 20 mg capsule,delayed 20 mg PO QAM #90 caps 07/21/24 02/03/25 Rx release aspirin 81 mg tablet,delayed 81 mg PO DAILY #90 tabs 07/28/24 02/03/25 Rx release albuterol sulfate 90 mcg/actuation 2 puff inhalation Q4-6H PRN 09/22/24 02/03/25 Rx aerosol inhaler shortness of breath or wheezing #6.7 grams atorvastatin 20 mg tablet 20 mg PO BEDTIME #90 tabs 10/21/24 12/03/24 Rx fluticasone propionate 230 2 puff inhalation Q12H #12 grams 10/21/24 02/03/25 Rx mcg-salmeterol 21 mcg/actuation HFA inhaler (Advair HFA) losartan 50 mg-hydrochlorothiazide 1 tab PO DAILY blood pressure #90 10/21/24 02/03/25 Rx 12.5 mg tablet tabs naproxen 250 mg tablet 250 mg PO BID pain/inflammation 10/21/24 02/03/25 Rx #60 tabs tiotropium bromide 18 mcg capsule 1 cap inhalation DAILY #60 10/21/24 02/03/25 Rx with inhalation device (Spiriva inhalations with HandiHaler) bupropion HCl 150 mg 24 hr tablet, 150 mg PO QAM #90 tabs 12/03/24 02/03/25 Rx extended release docusate calcium 240 mg capsule 240 mg PO DAILY stool softener #30 12/03/24 02/03/25 Rx caps duloxetine 30 mg capsule,delayed 90 mg (3 x 30 mg) PO DAILY 12/03/24 02/03/25 Rx release depression #270 caps meclizine 25 mg tablet 25 mg PO TID PRN Vertigo 02/03/25 02/03/25 History Allergies Allergy/AdvReac Type Severity Reaction Status Date / Time No Known Drug Allergies Allergy Verified 02/03/25 10:48 Review of Systems Review of Systems Narrative: Comprehensive review of systems negative to direct questioning with the exception of previously mentioned chronic conditions. Exam Vital Signs (past 8 hours): - 02/03/25 11:07 Temperature 97.6 F Pulse Rate 90 Respiratory Rate 15 Blood Pressure 150/97 H Pulse Oximetry 96 Oxygen Delivery Method Room Air Oxygen Delivery Method Room Air Narrative Exam Narrative: In general this is an obese female alert and oriented x3 in no distress. Head is normocephalic and atraumatic. Neck is supple. Back is without CVA or spinous process tenderness. Lungs are clear to auscultation. Chest is symmetric nontender with normal inspiratory and expiratory excursion. Heart has regular rate and rhythm with no murmur or gallop. Abdomen is soft, nontender with normal bowel sounds. Neurological exam is nonfocal. Assessment & Plan Assessment and plan (1) History of rectal bleeding: Problem details: Only noted upon wiping at bowel movement Status: Acute Plan I have recommended colonoscopy. Alternatives risks and benefits were discussed in detail. Questions were answered. The patient voices understanding and desires to proceed as I have outlined. Time-Based Coding :: [TOTAL MINUTES] spent with patient and on the chart (including review of chart, obtaining history, exam, reviewing outside data, placing orders, documenting exam and treatment plan, and counseling patient) on [DATE]. PROFEE Research Environmental Scientist Document charge(s): Yes
[2025-02-03] MEDS: ALBUTEROL 2.5 MG/3 ML NEB (ADULT) INH (11:22)
--- NOTE | 2025-02-03 11:23 | PM.HP.IH.1 ---
History of Present Illness History of Present Illness Chief complaint: Colonoscopy Narrative: 63-year-old female with no prior history of colonoscopy. She is referred for screening colonoscopy for the complaint of occasional blood on the paper upon wiping. She performed a Cologuard the stool evaluation couple of weeks ago but does not know her results. She presents for screening colonoscopy. [facility] Medical History (Updated 02/03/25 @ 11:22 by Robinson Tran MD) History of rectal bleeding Rectal bleeding Long-term use of aspirin therapy Dyslipidemia Major depressive disorder, recurrent episode, moderate Chronic neck pain Adjustment disorder with mixed anxiety and depressed mood Substance abuse in remission Tobacco dependence in remission Perforated nasal septum COPD (chronic obstructive pulmonary disease) Impaired fasting blood sugar Chronic bilateral low back pain Hip pain, chronic Chronic pain of left knee Pulmonary nodule Hyperglycemia Shoulder pain History of dimpling of breast skin Bowel habit changes Former smoker Insomnia Fatigue Obstructive sleep apnea Hypertriglyceridemia Hyperglycemia Morbid obesity with body mass index of 40.0-44.9 in adult Loud snoring GERD (gastroesophageal reflux disease) Hypertension Surgical History No pertinent past surgical history Family History Father CAD (coronary artery disease) Diabetes mellitus Mother Stroke Cancer of breast Social History household members: family alcohol intake: never Meds Home Medications and Allergies Home Medications Medication Instructions Recorded Confirmed Type inhalational spacing device #1 ea 09/14/22 12/03/24 Rx (Aerochamber MV spacer) azelastine 137 mcg (0.1 %) nasal 137 mcg (0.137 mL) intranasal BID 07/15/24 12/03/24 Rx spray #90 mL omeprazole 20 mg capsule,delayed 20 mg PO QAM #90 caps 07/21/24 02/03/25 Rx release aspirin 81 mg tablet,delayed 81 mg PO DAILY #90 tabs 07/28/24 02/03/25 Rx release albuterol sulfate 90 mcg/actuation 2 puff inhalation Q4-6H PRN 09/22/24 02/03/25 Rx aerosol inhaler shortness of breath or wheezing #6.7 grams atorvastatin 20 mg tablet 20 mg PO BEDTIME #90 tabs 10/21/24 12/03/24 Rx fluticasone propionate 230 2 puff inhalation Q12H #12 grams 10/21/24 02/03/25 Rx mcg-salmeterol 21 mcg/actuation HFA inhaler (Advair HFA) losartan 50 mg-hydrochlorothiazide 1 tab PO DAILY blood pressure #90 10/21/24 02/03/25 Rx 12.5 mg tablet tabs naproxen 250 mg tablet 250 mg PO BID pain/inflammation 10/21/24 02/03/25 Rx #60 tabs tiotropium bromide 18 mcg capsule 1 cap inhalation DAILY #60 10/21/24 02/03/25 Rx with inhalation device (Spiriva inhalations with HandiHaler) bupropion HCl 150 mg 24 hr tablet, 150 mg PO QAM #90 tabs 12/03/24 02/03/25 Rx extended release docusate calcium 240 mg capsule 240 mg PO DAILY stool softener #30 12/03/24 02/03/25 Rx caps duloxetine 30 mg capsule,delayed 90 mg (3 x 30 mg) PO DAILY 12/03/24 02/03/25 Rx release depression #270 caps meclizine 25 mg tablet 25 mg PO TID PRN Vertigo 02/03/25 02/03/25 History Allergies Allergy/AdvReac Type Severity Reaction Status Date / Time No Known Drug Allergies Allergy Verified 02/03/25 10:48 Exam Vital Signs (past 8 hours): - 02/03/25 11:07 Temperature 97.6 F Pulse Rate 90 Respiratory Rate 15 Blood Pressure 150/97 H Pulse Oximetry 96 Oxygen Delivery Method Room Air Oxygen Delivery Method Room Air Assessment & Plan Assessment and plan (1) History of rectal bleeding: Problem details: Only noted upon wiping at bowel movement Status: Acute Plan Repeat colonoscopy 5 years. Time-Based Coding :: [TOTAL MINUTES] spent with patient and on the chart (including review of chart, obtaining history, exam, reviewing outside data, placing orders, documenting exam and treatment plan, and counseling patient) on [DATE]. PROFEE Gourmet Coffee Attendant Document charge(s): Yes
[2025-02-03] MEDS: GLUCAGON,HUMAN RECOMBINANT 1 MG/ML VIAL IV (12:17)
--- NOTE | 2025-02-03 12:41 | PM.OP.COLON ---
Operative Date/Time/Diagnoses Date of procedure: 02/03/25 Time of procedure: 12:42 Pre-op diagnosis: rectal bleeding Post-op diagnosis: same Procedure & Clinicians Study performed: colonoscopy Same procedure as scheduled: Yes Surgeon: Robinson Tran Procedure Notes Procedure in detail: After obtaining informed consent properly identifying the patient the patient was transported to the endo suite and was placed on the table in the left lateral decubitus position. IV sedation was administered and when an adequate level had been attained the procedure was begun. Time-out protocol was observed. 2 m flexible fiberoptic colonoscope was passed transanally pre into the rectum and under direct endoscopic vision was advanced to the cecum. Prep was marginal and colon was quite tortuous. It was possible to aspirate sufficient liquid stool to do an adequate exam which was performed retrograde. Cecum ascending and ascending colon were without evidence of polyp, arteriovenous malformation or ulceration. Hepatic flexure transverse colon and splenic flexure were similarly without evidence of mucosal abnormality. Descending colon was quite tortuous and heavily muscled with scattered small mouth diverticuli. There were no polyps or other mucosal abnormalities. Sigmoid colon was quite tortuous with large mouth diverticula in evidence. There was no indication of diverticulitis. There were no polyps or other mucosal abnormality he is. The rectum was normal as the scope was withdrawn. Procedure was terminated and the patient was transferred to the recovery room in good condition. Scope withdrawal time: 8115
[2025-02-03 12:48] VITALS: BP 140/93; PULSE 84; RESP 15; TEMP 37.3; O2SAT 93
[2025-02-03 12:49] VITALS: BP 163/99; PULSE 81; RESP 14; O2SAT 93
[2025-02-03 12:55] VITALS: BP 141/92; PULSE 81; RESP 18; O2SAT 93
[2025-02-03 12:59] VITALS: BP 158/92; PULSE 77; RESP 16; O2SAT 95
== END 2025-02-03 13:30 | disposition home or self-care (01) ==
PROVIDERS: Family Provider Registered Nurse Diabetes Educator; PCP Registered Nurse Diabetes Educator; Referring Provider Surgery; Visit Provider Surgery
PROC: 0DJD8ZZ Inspection of Lower Intestinal Tract, Via Natural or Artificial Opening Endoscopic (ICD-10-PCS; CPT 45378; principal; 2025-02-03 10:45)
DX: K62.5 Hemorrhage of anus and rectum (principal); K57.30 Diverticulosis of large intestine without perforation or abscess without bleeding
CPT/HCPCS: 45378; J1610; J2704; J7613

== ENCOUNTER 2025-07-06 14:39 | Emergency (ER) | payer OTHER, SELFPAY ==
[2025-07-06 15:35] VITALS: BP 147/80; PULSE 94; RESP 22; TEMP 37.3; O2SAT 92; BMI 41.1
[2025-07-06 16:19] LABS: Add Manual Diff / Slide Review NO; Hematocrit 39.2 % (36-46); Hemoglobin 12.9 g/dL (12.0-16.0); Lymphocytes Absolute Auto 2700 /uL (1100-4500); Mean Corpuscular HGB Conc 32.8 % (30-36); Mean Corpuscular Hemoglobin 27.4 PG (26-34); Mean Corpuscular Volume 83.7 fL (80-100); Platelet Count 338 X10^3/uL (150-400)
--- NOTE | 2025-07-06 16:20 | ED_ITS ---
HPI - Psych General Chief Complaint: Psychiatric Symptoms Stated Complaint: Suicidal ideations expressed in therapy Time Seen by Provider: 07/06/25 16:07 Source: patient Mode of arrival: Ambulatory History of Present Illness HPI Narrative: Patient is a 65-year-old female history of depression housing instability presenting today from psychiatry, for suicidal ideations she was quite upset during her therapy session certainly concern for acute suicidal ideations. She has no prior attempt. She reports that she is quite stressed about housing and security. The place she is staying now she has to move out an July 13. She is not sure where she is going to go. It cousin is at bedside but she can not stay with a cousin. She uses a walker. She does not have access to guns or drugs. She now states that she spent a lot of money to stay in a hotel and go to a conference this upcoming weekend she has some days she is looking forward to. She has overall just stressed about her life. But has no active plan for harming self. Related Data Home Medications ?Medication ?Instructions ?Recorded ?Confirmed meclizine 25 mg tablet 25 mg PO TID PRN Vertigo 05/26/25 Previous Rx's ?Medication ?Instructions ?Recorded inhalational spacing device #1 ea 09/14/22 (Aerochamber MV spacer) azelastine 137 mcg (0.1 %) nasal 137 mcg (0.137 mL) in tranasal BID 07/15/24 spray #90 mL aspirin 81 mg tablet,delayed 81 mg PO DAILY #90 tabs 1 release atorvastatin 20 mg tablet 20 mg PO BEDTIME #90 tabs bupropion HCl 150 mg 24 hr tablet, 150 mg PO QAM #90 t abs 04/08/25 extended release duloxetine 30 mg capsule,delayed 90 mg (3 x 30 mg) PO DAILY 04/08/25 release depression #270 caps fluticasone propionate 230 2 puff inhalation Q12H #12 grams 04/08/25 mcg-salmeterol 21 mcg/actuation HFA inhaler (Advair HFA) losartan 100 1 tab PO DAILY #90 tabs 07 2/25 mg-hydrochlorothiazide 25 mg tablet naproxen 250 mg tablet 250 mg PO BID pain/inflammat ion 04/08/25 #60 tabs omeprazole 20 mg capsule,delayed 20 mg PO QAM #90 caps 04/08/25 release tiotropium bromide 18 mcg capsule 1 cap inhalation ZO LY #90 doses 04/08/25 with inhalation device (Spiriva with HandiHaler) albuterol sulfate 90 mcg/actuation 2 puff inhalation Q 4-6H PRN 05/26/25 aerosol inhaler shortness of breath or wheez ing #6.7 grams Rollator Walker #1 ea 06/01/25 Allergies Allergy/AdvReac Type Severity Reaction Status Date / Time No Known Drug Allergies Allergy Verified 07/06/25 15:36 Patient History Medical History Right bundle branch block Severe episode of recurrent major depressive disorder, without psychotic features History of rectal bleeding Rectal bleeding Long-term use of aspirin therapy Dyslipidemia Major depressive disorder, recurrent episode, moderate Chronic neck pain Adjustment disorder with mixed anxiety and depressed mood Substance abuse in remission Tobacco dependence in remission Perforated nasal septum COPD (chronic obstructive pulmonary disease) Impaired fasting blood sugar Chronic bilateral low back pain Hip pain, chronic Chronic pain of left knee Pulmonary nodule Hyperglycemia Shoulder pain History of dimpling of breast skin Bowel habit changes Former smoker Insomnia Fatigue Obstructive sleep apnea Hypertriglyceridemia Hyperglycemia Morbid obesity with body mass index of 40.0-44.9 in adult Loud snoring GERD (gastroesophageal reflux disease) Hypertension Surgical History No pertinent past surgical history Family History Father CAD (coronary artery disease) Diabetes mellitus Mother Stroke Cancer of breast Social History household members: family alcohol intake: never Smoking Status: Former smoker tobacco type: cigarettes alcohol intake frequency: holidays/special occasions only Exam Initial Vital Signs Initial Vital Signs: Vital Signs Temperature 99.1 F 07/06/25 15:35 Pulse Rate 94 H 07/06/25 15:35 Respiratory Rate 22 07/06/25 15:35 Blood Pressure 147/80 H 07/06/25 15:35 Pulse Oximetry 92 07/06/25 15:35 Oxygen Delivery Method Room Air 07/06/25 15:35 GENERAL: Tearful good eye contact CARDIOVASCULAR: peripheral pulses in tact, cap refill <2 sec RESPIRATORY: No respiratory distress, speaks in full sentences without difficulty EXTREMITIES: Normal range of motion, no clubbing or edema. Neurovascularly intact NEUROLOGICAL: Cranial nerves II through XII grossly intact. Normal gait and speech. SKIN: Warm, dry, no petechiae, no rashes or lesions. Psych Appearance: grossly normal Mental Status: other (sad tearful) Mood: other (sad tearful) Affect: sad Attitude: cooperative Thought Process: normal Thought Content: no hallucinations, no homicidality, no ideas of reference, no obsessions and no phobias Judgment: judgment good Course Orders Ordered: ED Orders 07/06/25 15:53 Consult to [facility] [place] [facility] Routine Consult to [facility] [place] [facility] Stat 07/06/25 16:12 Acetaminophen Stat Complete Blood Count AUTO DIFF Stat Comprehensive Metabolic Panel Stat Ethanol (ETOH) Stat Salicylate Stat TSH w/ Reflex to FT4 Stat Vital Signs Vital signs: Vital Signs - 8 hr 07/06/25 15:35 07/06/25 17:23 Temperature 99.1 F 98.2 F Pulse Rate 94 H 80 Respiratory Rate 22 18 Blood Pressure 147/80 H 133/67 Pulse Oximetry 92 99 Oxygen Delivery Method Room Air Room Air MDM - Psych Lab Data 07/06/25 16:12 07/06/25 16:12 Labs: Lab Results 07/06/25 Range/Units 16:12 WBC 9.5 (4.5-11.0) X10^3/uL RBC 4.69 (4.0-5.2) X10^6/uL Hgb 12.9 (12.0-16.0) g/dL Hct 39.2 (36-46) % MCV 83.7 (80-100) fL MCH 27.4 (26-34) PG MCHC 32.8 (30-36) % RDW 15.6 H (11.6-14.8) % Plt Count 338 (150-400) X10^3/uL Neut % (Auto) 62.0 (50-75) % Lymph % (Auto) 28.2 (25-40) % [place] % (Auto) 6.8 (3-14) % Eos % (Auto) 1.8 L (2-4) % Baso % (Auto) 1.2 (0-2) % Neut # (Auto) 5900 (3105-2931) /uL Lymph # (Auto) 2700 (4794-4514) /uL [place] # (Auto) 600 (0-900) /uL Eos # (Auto) 200 (0-450) /uL Baso # (Auto) 100 (0-100) /uL Sodium 141 (137-145) mmol/L Potassium 3.3 L (3.4-5.1) mmol/L Chloride 102 (98-107) mmol/L Carbon Dioxide 29 (22-32) mmol/L BUN 19 H (7-17) mg/dL Creatinine 0.82 (0.52-1.04) mg/dL Estimated GFR > 60 (>60) mL/min BUN/Creatinine Ratio 23.2 H (6-22) Glucose 143 H (70-99) mg/dL Calcium 9.7 (8.4-10.2) mg/dL Total Bilirubin 0.3 (0.2-1.3) mg/dL AST 28 (14-36) IU/L ALT 24 (<35) IU/L Alkaline Phosphatase 55 (38-126) U/L Total Protein 7.2 (6.3-8.2) g/dL Albumin 4.2 (3.5-5.0) g/dL Globulin 3.0 (1.7-4.1) g/dL Albumin/Globulin Ratio 1.4 (1.0-2.8) TSH 2.21 (0.47-4.68) uIU/mL Salicylates < 1.0 (<20) mg/dL Acetaminophen < 10 (10-30) ug/mL Ethyl Alcohol < 10 (<10) mg/dL MDM Narrative Medical decision making narrative: Patient is 65-year-old female history of depression housing and security here today with suicidal ideations. She does not have a specific plan. She actually has things coming up that she is wanting to live for. However very emotional about being kicked out of her house coming up in early July. pattern layout worker evaluated her did not meet involuntary criteria. She actually has a cousin at bedside. At this time patient would like to go to her house. Work has been reviewed overall reassuring no significant abnormalities potassium slightly low at 3.3. Patient does not have access to drugs or guns. She contracts for safety does not meet involuntary criteria at this time. Discharge Plan Departure Patient Disposition: Home Clinical Impression: Suicidal ideation, Depression Instructions: Depression Activity Restrictions/Additional Instructions: *You have been diagnosed with depression *What to do: At this time hopefully you can get into your primary care provider and have depression medication change If you are feeling suicidal or having suicidal thoughts: Call: Suicide Hotline: 014 Visit: www.xzoops.Sitestar Text: 883 *Continue to take medications as directed *Follow up with your primary care provider in 2-3 days or call [phone] *Return to ER if you should have increasing thoughts of sadness hopelessness thoughts of harming self or other or any new, worsening or concerning symptoms Prescriptions: No Action (DME) Aerochamber MV Spacer See Rx Instructions .ROUTE .MEDSUPPLY Qty: 1 0RF Rx Instructions: As directed albuterol sulfate 90 mcg/actuation HFA aerosol inhaler 2 puff inhalation Q4-6H PRN (Reason: shortness of breath or wheezing) Qty: 6.7 3RF (DME) Rollator Walker See Rx Instructions .Route .MEDSUPPLY Qty: 1 0RF Rx Instructions: As directed aspirin 81 mg tablet,delayed release (DR/EC) 81 mg PO DAILY Qty: 90 2RF fluticasone propion-salmeterol [Advair HFA] 230-21 mcg/actuation HFA aerosol inhaler 2 puff inhalation Q12H Qty: 12 3RF omeprazole 20 mg capsule,delayed release(DR/EC) 20 mg PO QAM Qty: 90 3RF Rx Instructions: Take 1 cap daily for GERD. atorvastatin 20 mg tablet 20 mg PO BEDTIME Qty: 90 3RF Rx Instructions: for cholesterol bupropion HCl 150 mg tablet extended release 24 hr 150 mg PO QAM Qty: 90 1RF duloxetine 30 mg capsule,delayed release(DR/EC) 90 mg PO DAILY Qty: 270 1RF tiotropium bromide [Spiriva with HandiHaler] 18 mcg capsule, w/inhalation device 1 cap inhalation DAILY Qty: 90 1RF Rx Instructions: puncture 1 cap using device; one dose = 2 inhalations naproxen 250 mg tablet 250 mg PO BID Qty: 60 3RF losartan-hydrochlorothiazide 100-25 mg tablet 1 tab PO DAILY Qty: 90 1RF meclizine 25 mg tablet 25 mg PO TID PRN (Reason: Vertigo) azelastine 137 mcg (0.1 %) spray,non-aerosol 137 mcg intranasal BID Qty: 90 0RF Rx Instructions: administer into each nostril Referrals: Josiah Santos ARNP [Primary Care Provider, Medical] Stand Alone Forms: Patient Portal/API
[2025-07-06 16:41] LABS: Acetaminophen < 10 ug/mL (10-30); Alanine Aminotransferase 24 IU/L (<35); Albumin 4.2 g/dL (3.5-5.0); Albumin Globulin Ratio 1.4 (1.0-2.8); Alkaline Phosphatase 55 U/L (38-126); Blood Urea Nitrogen 19 mg/dL (7-17); Calcium 9.7 mg/dL (8.4-10.2); Carbon Dioxide 29 mmol/L (22-32); Chloride 102 mmol/L (98-107); Estimated Glomerular Filt Rate > 60 mL/min (>60); Ethanol (ETOH) < 10 mg/dL (<10); Globulin 3.0 g/dL (1.7-4.1); Glucose 143 mg/dL (70-99); HEMOLYSIS < 15 (0-50); Potassium 3.3 mmol/L (3.4-5.1); Salicylate < 1.0 mg/dL (<20); Sodium 141 mmol/L (137-145); Total Protein 7.2 g/dL (6.3-8.2)
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
[2025-07-06 17:21] LABS: TSH w/ Reflex to FT4 2.21 uIU/mL (0.47-4.68)
[2025-07-06 17:23] VITALS: BP 133/67; PULSE 80; RESP 18; TEMP 36.8; O2SAT 99
== END 2025-07-06 17:24 | disposition home or self-care (01) ==
PROVIDERS: Emergency Provider Emergency Medicine; PCP Registered Nurse Diabetes Educator
DX: R45.851 Suicidal ideations (principal); F32.A Depression, unspecified
CPT/HCPCS: 36415; 80053; 80320; 80329; 84443; 85025; 99283; G0480

== ENCOUNTER 2025-07-13 15:47 | Emergency (ER) | payer OTHER, SELFPAY ==
[2025-07-06 16:55] VITALS: BMI 45.7
[2025-07-13 16:00] VITALS: BP 116/71; PULSE 87; RESP 17; TEMP 36.4; O2SAT 95; BMI 47.5
--- NOTE | 2025-07-13 16:27 | ED_ITS ---
HPI - Psych <Isha Marshall PA-C - Last Filed: 07/13/25 19:15> General Chief Complaint: Psychiatric Symptoms Stated Complaint: suicidal/mental health Time Seen by Provider: 07/13/25 16:09 Source: patient Mode of arrival: Ambulatory History of Present Illness HPI Narrative: Ms. Redman is a pleasant 65-year-old female with a past medical history of MDD, COPD, HTN, HLD, GERD, substance use in remission x2 years who presents to the emergency department for suicidal ideation. Patient has been struggling with suicidal ideation for at least the last week, she was in the ER 07/06/2025 but was deemed safe to go home at that time. Patient has been living in various homeless shelters, and today was the final day she was permitted to liver in this current care home, which she has been anticipating and unable to find secondary housing, she has been on many wait list for over a year. She has never been homeless before. She has been in discussion with her PCP, her bupropion and duloxetine have been recently adjusted, she is taking them as directed. She does have family and friends and reasons for living however due to her loss of housing today, her reasons to have surpassed her reasons to live which prompted her to come to the ER for help. States that she is worried that she will relapse on drugs, such as meth, and she plans to overdose as her suicide method. She did not take any drugs today, no alcohol, she only took her morning medications. She reports that she has been having mild headaches since crying but otherwise feels in her normal state of health. No chest pain, shortness of breath, fevers, chills, dysuria, abdominal pain, nausea, vomiting, diarrhea. She is willing and hopeful to go to a psychiatric inpatient facility for further help. She does use a Rollator walker to ambulate far distances. Related Data Home Medications ?Medication ?Instructions ?Recorded ?Confirmed meclizine 25 mg tablet 25 mg PO TID PRN Vertigo 07/09/25 Previous Rx's ?Medication ?Instructions ?Recorded inhalational spacing device #1 ea 09/14/22 (Aerochamber MV spacer) azelastine 137 mcg (0.1 %) nasal 137 mcg (0.137 mL) in tranasal BID 07/15/24 spray #90 mL aspirin 81 mg tablet,delayed 81 mg PO DAILY #90 tabs 1 release atorvastatin 20 mg tablet 20 mg PO BEDTIME #90 tabs bupropion HCl 150 mg 24 hr tablet, 150 mg PO QAM #90 t abs 04/08/25 extended release duloxetine 30 mg capsule,delayed 90 mg (3 x 30 mg) PO DAILY 04/08/25 release depression #270 caps fluticasone propionate 230 2 puff inhalation Q12H #12 grams 04/08/25 mcg-salmeterol 21 mcg/actuation HFA inhaler (Advair HFA) losartan 100 1 tab PO DAILY #90 tabs 2 mg-hydrochlorothiazide 25 mg tablet naproxen 250 mg tablet 250 mg PO BID pain/inflammat ion 04/08/25 #60 tabs omeprazole 20 mg capsule,delayed 20 mg PO QAM #90 caps 04/08/25 release tiotropium bromide 18 mcg capsule 1 cap inhalation ZO LY #90 doses 04/08/25 with inhalation device (Spiriva with HandiHaler) albuterol sulfate 90 mcg/actuation 2 puff inhalation Q 4-6H PRN 05/26/25 aerosol inhaler shortness of breath or wheez ing #6.7 grams Rollator Walker #1 ea 06/01/25 Allergies Allergy/AdvReac Type Severity Reaction Status Date / Time No Known Drug Allergies Allergy Verified 07/13/25 16:00 Review of Systems <Isha Marshall PA-C - Last Filed: 07/13/25 19:15> Review of Systems ROS Unobtainable: All systems reviewed & are unremarkable except as noted in HPI and below Patient History <Isha Marshall PA-C - Last Filed: 07/13/25 19:15> Medical History Right bundle branch block Severe episode of recurrent major depressive disorder, without psychotic features History of rectal bleeding Rectal bleeding Long-term use of aspirin therapy Dyslipidemia Major depressive disorder, recurrent episode, moderate Chronic neck pain Adjustment disorder with mixed anxiety and depressed mood Substance abuse in remission Tobacco dependence in remission Perforated nasal septum COPD (chronic obstructive pulmonary disease) Impaired fasting blood sugar Chronic bilateral low back pain Hip pain, chronic Chronic pain of left knee Pulmonary nodule Hyperglycemia Shoulder pain History of dimpling of breast skin Bowel habit changes Former smoker Insomnia Fatigue Obstructive sleep apnea Hypertriglyceridemia Hyperglycemia Morbid obesity with body mass index of 40.0-44.9 in adult Loud snoring GERD (gastroesophageal reflux disease) Hypertension Surgical History No pertinent past surgical history Family History Father CAD (coronary artery disease) Diabetes mellitus Mother Stroke Cancer of breast Social History household members: family Smoking Status: Former smoker alcohol intake: never Smoking Status: Former smoker tobacco type: cigarettes alcohol intake frequency: holidays/special occasions only Exam <Isha Marshall PA-C - Last Filed: 07/13/25 19:15> Narrative Exam Narrative: GENERAL: 65 year old patient appears stated age. Overweight patient, tearful, in no acute distress. HEAD: Atraumatic. Normocephalic. EYES: PERRL. Extraocular motions intact. No scleral icterus. No injection or drainage. NECK: Trachea midline. Cervical ROM intact. CARDIOVASCULAR: Regular rate and rhythm. RESPIRATORY: ?Nonlabored respirations. ?Speaking in clear, full sentences. ?Clear to auscultation. Breath sounds equal bilaterally. No wheezes, rales, or rhonchi. ? EXTREMITIES: No LE edema. NEURO: AOx3. ?Clear speech. ?Moves all 4 extremities appropriately. PSYCH: Calm, cooperative. Tearful. Active SI. No HI. SKIN: No rash or erythema of visible areas Initial Vital Signs Initial Vital Signs: Vital Signs Temperature 97.5 F L 07/13/25 16:00 Pulse Rate 87 07/13/25 16:00 Respiratory Rate 17 07/13/25 16:00 Blood Pressure 116/71 07/13/25 16:00 Pulse Oximetry 95 07/13/25 16:00 Oxygen Delivery Method Room Air 07/13/25 16:00 <Ady Phillip DO - Last Filed: 07/13/25 23:35> Initial Vital Signs Initial Vital Signs: Vital Signs Temperature 97.5 F L 07/13/25 16:00 Pulse Rate 87 07/13/25 16:00 Respiratory Rate 17 07/13/25 16:00 Blood Pressure 116/71 07/13/25 16:00 Pulse Oximetry 95 07/13/25 16:00 Oxygen Delivery Method Room Air 07/13/25 16:00 Course <Isha Marshall PA-C - Last Filed: 07/13/25 19:15> Orders Ordered: ED Orders 07/13/25 16:[address] [facility] [place] - Cloth Shrinking Tester Routine Consult to [facility] [place] - Cloth Shrinking Tester Stat 07/13/25 16:22 Acetaminophen Stat Complete Blood Count AUTO DIFF Stat Comprehensive Metabolic Panel Stat Ethanol (ETOH) Stat Salicylate Stat TSH w/ Reflex to FT4 Stat 07/13/25 18:13 COVID19 -Nasal RAPID Stat 07/13/25 18:30 Urinalysis and Microscopic Stat Urine Drug Screen, Rapid Stat Discontinued Medications Acetaminophen (Acetaminophen 325 Mg Tablet) 975 mg PO NOW ONE Stop: 07/13/25 16:35 Last Admin: 07/13/25 16:39 Dose: 975 mg Documented By: AI Vital Signs Vital signs: Vital Signs - 8 hr 07/13/25 16:00 07/13/25 20:52 Temperature 97.5 F L 98.0 F Pulse Rate 87 86 Respiratory Rate 17 16 Blood Pressure 116/71 159/99 H Pulse Oximetry 95 96 Oxygen Delivery Method Room Air Room Air <Ady Phillip, - Last Filed: 07/13/25 23:35> Orders Ordered: ED Orders 07/13/25 16:[address] [facility] [place] - Cloth Shrinking Tester Routine Consult to [facility] [place] - Cloth Shrinking Tester Stat 07/13/25 16:22 Acetaminophen Stat Complete Blood Count AUTO DIFF Stat Comprehensive Metabolic Panel Stat Ethanol (ETOH) Stat Salicylate Stat TSH w/ Reflex to FT4 Stat 07/13/25 18:13 COVID19 -Nasal RAPID Stat 07/13/25 18:30 Urinalysis and Microscopic Stat Urine Drug Screen, Rapid Stat Discontinued Medications Acetaminophen (Acetaminophen 325 Mg Tablet) 975 mg PO NOW ONE Stop: 07/13/25 16:35 Last Admin: 07/13/25 16:39 Dose: 975 mg Documented By: AI Vital Signs Vital signs: Vital Signs - 8 hr 07/13/25 16:00 07/13/25 20:52 Temperature 97.5 F L 98.0 F Pulse Rate 87 86 Respiratory Rate 17 16 Blood Pressure 116/71 159/99 H Pulse Oximetry 95 96 Oxygen Delivery Method Room Air Room Air MDM - Psych <Isha Marshall PA-C - Last Filed: 07/13/25 19:15> Medical Records Attestation: I reviewed the patient's medical records. Lab Data 07/13/25 16:22 07/13/25 16:22 Labs: Lab Results 07/13/25 07/13/25 07/13/25 Range/Units 16:22 18:13 18:30 WBC 11.0 (4.5-11.0) X10^3/uL RBC 4.67 (4.0-5.2) X10^6/uL Hgb 12.8 (12.0-16.0) g/dL Hct 38.9 (36-46) % MCV 83.3 (80-100) fL MCH 27.4 (26-34) PG MCHC 32.9 (30-36) % RDW 15.5 H (11.6-14.8) % Plt Count 335 (150-400) X10^3/uL Neut % (Auto) 59.4 (50-75) % Lymph % (Auto) 30.0 (25-40) % Stearns % (Auto) 7.8 (3-14) % Eos % (Auto) 1.7 L (2-4) % Baso % (Auto) 1.1 (0-2) % Neut # (Auto) 6500 (4723-7280) /uL Lymph # (Auto) 3300 (3501-4499) /uL Stearns # (Auto) 900 (0-900) /uL Eos # (Auto) 200 (0-450) /uL Baso # (Auto) 100 (0-100) /uL Sodium 139 (137-145) mmol/L Potassium 3.5 (3.4-5.1) mmol/L Chloride 101 (98-107) mmol/L Carbon Dioxide 27 (22-32) mmol/L BUN 20 H (7-17) mg/dL Creatinine 0.75 (0.52-1.04) mg/dL Estimated GFR > 60 (>60) mL/min BUN/Creatinine Ratio 26.7 H (6-22) Glucose 130 H (70-99) mg/dL Calcium 10.1 (8.4-10.2) mg/dL Total Bilirubin 0.3 (0.2-1.3) mg/dL AST 27 (14-36) IU/L ALT 22 (<35) IU/L Alkaline Phosphatase 68 (38-126) U/L Total Protein 7.5 (6.3-8.2) g/dL Albumin 4.4 (3.5-5.0) g/dL Globulin 3.1 (1.7-4.1) g/dL Albumin/Globulin Ratio 1.4 (1.0-2.8) TSH 1.71 D (0.47-4.68) uIU/mL Urine Color Yellow Urine Appearance Clear Urine pH 6.0 (4.5-8.0) Ur Specific [place] 1.025 (1.000-1.035) Urine Protein Negative (Negative) Urine Glucose (UA) Negative (Negative) g/dL Urine Ketones Trace H (NEGATIVE) Urine Occult Blood Negative (Negative) Urine Nitrate Negative (Negative) Urine Bilirubin Negative (NEGATIVE) Urine Urobilinogen 2.0 H (0.2) E.U./dL Ur Leukocyte Esterase Negative (NEGATIVE) Urine RBC 0-1/hpf (0-5/HPF) Urine WBC 1-5/hpf (0-5/HPF) Ur Squamous Epith Cells 5-10 /hpf H (0-5/HPF) Urine Bacteria Moderate (10-30) H (None) Urine Mucus 3+ H D (Negative) Urine Yeast 0-1/hpf (None) Ur Culture Indicated? Cult not indicated Vol Urine Centrifuged 10ml (spun) Salicylates < 1.0 (<20) mg/dL U Opiates 300ng/mL cut Negative (Negative) Ur Oxycodone Screen Negative (Negative) Urine Methadone Screen Negative (Negative) Acetaminophen < 10 (10-30) ug/mL Ur Barbiturates Screen Negative (Negative) U Tricyclic Antidepress Negative (Negative) Ur Phencyclidine Scrn Negative (Negative) Ur Amphetamines Screen Negative (Negative) U Methamphetamines Scrn Negative (Negative) Ur MDMA Scrn (Ecstasy) Negative (Negative) U Benzodiazepines Scrn Negative (Negative) Urine Cocaine Screen Negative (Negative) U Marijuana (THC) Screen Negative (Negative) Urine Specific [place] (Normal) Ethyl Alcohol < 10 (<10) mg/dL Ur Creatinine (Normal) SARS-CoV-2 (PCR) Negative (Negative) 10/06/25 Range/Units 18:30 WBC (4.5-11.0) X10^3/uL RBC (4.0-5.2) X10^6/uL Hgb (12.0-16.0) g/dL Hct (36-46) % MCV (80-100) fL MCH (26-34) PG MCHC (30-36) % RDW (11.6-14.8) % Plt Count (150-400) X10^3/uL Neut % (Auto) (50-75) % Lymph % (Auto) (25-40) % Stearns % (Auto) (3-14) % Eos % (Auto) (2-4) % Baso % (Auto) (0-2) % Neut # (Auto) (0896-8020) /uL Lymph # (Auto) (6881-2814) /uL Stearns # (Auto) (0-900) /uL Eos # (Auto) (0-450) /uL Baso # (Auto) (0-100) /uL Sodium (137-145) mmol/L Potassium (3.4-5.1) mmol/L Chloride (98-107) mmol/L Carbon Dioxide (22-32) mmol/L BUN (7-17) mg/dL Creatinine (0.52-1.04) mg/dL Estimated GFR (>60) mL/min BUN/Creatinine Ratio (6-22) Glucose (70-99) mg/dL Calcium (8.4-10.2) mg/dL Total Bilirubin (0.2-1.3) mg/dL AST (14-36) IU/L ALT (<35) IU/L Alkaline Phosphatase (38-126) U/L Total Protein (6.3-8.2) g/dL Albumin (3.5-5.0) g/dL Globulin (1.7-4.1) g/dL Albumin/Globulin Ratio (1.0-2.8) TSH (0.47-4.68) uIU/mL Urine Color Urine Appearance Urine pH Normal (4.5-8.0) Ur Specific [place] (1.000-1.035) Urine Protein (Negative) Urine Glucose (UA) (Negative) g/dL Urine Ketones (NEGATIVE) Urine Occult Blood (Negative) Urine Nitrate (Negative) Urine Bilirubin (NEGATIVE) Urine Urobilinogen (0.2) E.U./dL Ur Leukocyte Esterase (NEGATIVE) Urine RBC (0-5/HPF) Urine WBC (0-5/HPF) Ur Squamous Epith Cells (0-5/HPF) Urine Bacteria (None) Urine Mucus (Negative) Urine Yeast (None) Ur Culture Indicated? Vol Urine Centrifuged Salicylates (<20) mg/dL U Opiates 300ng/mL cut (Negative) Ur Oxycodone Screen (Negative) Urine Methadone Screen (Negative) Acetaminophen (10-30) ug/mL Ur Barbiturates Screen (Negative) U Tricyclic Antidepress (Negative) Ur Phencyclidine Scrn (Negative) Ur Amphetamines Screen (Negative) U Methamphetamines Scrn (Negative) Ur MDMA Scrn (Ecstasy) (Negative) U Benzodiazepines Scrn (Negative) Urine Cocaine Screen (Negative) U Marijuana (THC) Screen (Negative) Urine Specific [place] Normal (Normal) Ethyl Alcohol (<10) mg/dL Ur Creatinine Normal (Normal) SARS-CoV-2 (PCR) (Negative) MDM Narrative Medical decision making narrative: 65-year-old female with a past medical history of MDD, COPD, HTN, HLD, GERD, substance use in remission x2 years who presents to the emergency department for suicidal ideation. Differential diagnosis includes but is not limited to suicidal ideation, MDD, etc. On exam patient is in no acute distress, nontoxic appearing, vital signs within normal limits. She is tearful but calm and cooperative, she is expressing active suicidal ideation but no homicidal ideation. She did not attempt suicide but states she would attempt with overdose rather than being homeless/living on the street. She was in the ER on 07/06/2025 and with her PCP on 07/09/2025, she has been exhausting all resources to keep herself safe but due to the loss of housing today, she unfortunately is very fearful that she would continue with drug use or suicide attempt. We will obtain baseline psychiatric lab work, rapid COVID. Patient voluntarily agrees to inpatient psychiatric management. Labs reveal normal WBC count 11.0, hemoglobin 12.8, platelets 335. CMP reveals normal renal function with GFR greater than 60, BUN 20, creatinine 0.75. Sodium 139, potassium 3.5, glucose 130. Normal LFTs. TSH 1.71. Negative salicylates, acetaminophen, alcohol level. Urine drug screen is negative. Urinalysis does reveal bacteria and squamous epithelial cells however negative for WBCs, leukocyte esterase, nitrite, and patient is not experiencing any abdominal pain dysuria or symptoms concerning for UTI. Patient is medically cleared. She is agreeable to psychiatric inpatient transfer/care. Due to shift change, night time MD aware while patient awaits transport. She has a high risk sitter monitoring her during ED stay. <Ady Phillip, DO - Last Filed: 07/13/25 23:35> Lab Data Labs: Lab Results 07/13/25 07/13/25 07/13/25 Range/Units 16:22 18:13 18:30 WBC 11.0 (4.5-11.0) X10^3/uL RBC 4.67 (4.0-5.2) X10^6/uL Hgb 12.8 (12.0-16.0) g/dL Hct 38.9 (36-46) % MCV 83.3 (80-100) fL MCH 27.4 (26-34) PG MCHC 32.9 (30-36) % RDW 15.5 H (11.6-14.8) % Plt Count 335 (150-400) X10^3/uL Neut % (Auto) 59.4 (50-75) % Lymph % (Auto) 30.0 (25-40) % Stearns % (Auto) 7.8 (3-14) % Eos % (Auto) 1.7 L (2-4) % Baso % (Auto) 1.1 (0-2) % Neut # (Auto) 6500 (5109-4552) /uL Lymph # (Auto) 3300 (6888-5367) /uL Stearns # (Auto) 900 (0-900) /uL Eos # (Auto) 200 (0-450) /uL Baso # (Auto) 100 (0-100) /uL Sodium 139 (137-145) mmol/L Potassium 3.5 (3.4-5.1) mmol/L Chloride 101 (98-107) mmol/L Carbon Dioxide 27 (22-32) mmol/L BUN 20 H (7-17) mg/dL Creatinine 0.75 (0.52-1.04) mg/dL Estimated GFR > 60 (>60) mL/min BUN/Creatinine Ratio 26.7 H (6-22) Glucose 130 H (70-99) mg/dL Calcium 10.1 (8.4-10.2) mg/dL Total Bilirubin 0.3 (0.2-1.3) mg/dL AST 27 (14-36) IU/L ALT 22 (<35) IU/L Alkaline Phosphatase 68 (38-126) U/L Total Protein 7.5 (6.3-8.2) g/dL Albumin 4.4 (3.5-5.0) g/dL Globulin 3.1 (1.7-4.1) g/dL Albumin/Globulin Ratio 1.4 (1.0-2.8) TSH 1.71 D (0.47-4.68) uIU/mL Urine Color Yellow Urine Appearance Clear Urine pH 6.0 (4.5-8.0) Ur Specific [place] 1.025 (1.000-1.035) Urine Protein Negative (Negative) Urine Glucose (UA) Negative (Negative) g/dL Urine Ketones Trace H (NEGATIVE) Urine Occult Blood Negative (Negative) Urine Nitrate Negative (Negative) Urine Bilirubin Negative (NEGATIVE) Urine Urobilinogen 2.0 H (0.2) E.U./dL Ur Leukocyte Esterase Negative (NEGATIVE) Urine RBC 0-1/hpf (0-5/HPF) Urine WBC 1-5/hpf (0-5/HPF) Ur Squamous Epith Cells 5-10 /hpf H (0-5/HPF) Urine Bacteria Moderate (10-30) H (None) Urine Mucus 3+ H D (Negative) Urine Yeast 0-1/hpf (None) Ur Culture Indicated? Cult not indicated Vol Urine Centrifuged 10ml (spun) Salicylates < 1.0 (<20) mg/dL U Opiates 300ng/mL cut Negative (Negative) Ur Oxycodone Screen Negative (Negative) Urine Methadone Screen Negative (Negative) Acetaminophen < 10 (10-30) ug/mL Ur Barbiturates Screen Negative (Negative) U Tricyclic Antidepress Negative (Negative) Ur Phencyclidine Scrn Negative (Negative) Ur Amphetamines Screen Negative (Negative) U Methamphetamines Scrn Negative (Negative) Ur MDMA Scrn (Ecstasy) Negative (Negative) U Benzodiazepines Scrn Negative (Negative) Urine Cocaine Screen Negative (Negative) U Marijuana (THC) Screen Negative (Negative) Urine Specific [place] (Normal) Ethyl Alcohol < 10 (<10) mg/dL Ur Creatinine (Normal) SARS-CoV-2 (PCR) Negative (Negative) 07/13/25 Range/Units 18:30 WBC (4.5-11.0) X10^3/uL RBC (4.0-5.2) X10^6/uL Hgb (12.0-16.0) g/dL Hct (36-46) % MCV (80-100) fL MCH (26-34) PG MCHC (30-36) % RDW (11.6-14.8) % Plt Count (150-400) X10^3/uL Neut % (Auto) (50-75) % Lymph % (Auto) (25-40) % [place] % (Auto) (3-14) % Eos % (Auto) (2-4) % Baso % (Auto) (0-2) % Neut # (Auto) (0480-5226) /uL Lymph # (Auto) (5224-3068) /uL [place]s # (Auto) (0-900) /uL Eos # (Auto) (0-450) /uL Baso # (Auto) (0-100) /uL Sodium (137-145) mmol/L Potassium (3.4-5.1) mmol/L Chloride (98-107) mmol/L Carbon Dioxide (22-32) mmol/L BUN (7-17) mg/dL Creatinine (0.52-1.04) mg/dL Estimated GFR (>60) mL/min BUN/Creatinine Ratio (6-22) Glucose (70-99) mg/dL Calcium (8.4-10.2) mg/dL Total Bilirubin (0.2-1.3) mg/dL AST (14-36) IU/L ALT (<35) IU/L Alkaline Phosphatase (38-126) U/L Total Protein (6.3-8.2) g/dL Albumin (3.5-5.0) g/dL Globulin (1.7-4.1) g/dL Albumin/Globulin Ratio (1.0-2.8) TSH (0.47-4.68) uIU/mL Urine Color Urine Appearance Urine pH Normal (4.5-8.0) Ur Specific [place] (1.000-1.035) Urine Protein (Negative) Urine Glucose (UA) (Negative) g/dL Urine Ketones (NEGATIVE) Urine Occult Blood (Negative) Urine Nitrate (Negative) Urine Bilirubin (NEGATIVE) Urine Urobilinogen (0.2) E.U./dL Ur Leukocyte Esterase (NEGATIVE) Urine RBC (0-5/HPF) Urine WBC (0-5/HPF) Ur Squamous Epith Cells (0-5/HPF) Urine Bacteria (None) Urine Mucus (Negative) Urine Yeast (None) Ur Culture Indicated? Vol Urine Centrifuged Salicylates (<20) mg/dL U Opiates 300ng/mL cut (Negative) Ur Oxycodone Screen (Negative) Urine Methadone Screen (Negative) Acetaminophen (10-30) ug/mL Ur Barbiturates Screen (Negative) U Tricyclic Antidepress (Negative) Ur Phencyclidine Scrn (Negative) Ur Amphetamines Screen (Negative) U Methamphetamines Scrn (Negative) Ur MDMA Scrn (Ecstasy) (Negative) U Benzodiazepines Scrn (Negative) Urine Cocaine Screen (Negative) U Marijuana (THC) Screen (Negative) Urine Specific [place] Normal (Normal) Ethyl Alcohol (<10) mg/dL Ur Creatinine Normal (Normal) SARS-CoV-2 (PCR) (Negative) MDM Narrative Medical decision making narrative: 65-year-old female with a past medical history of MDD, COPD, HTN, HLD, GERD, substance use in remission x2 years who presents to the emergency department for suicidal ideation. Differential diagnosis includes but is not limited to suicidal ideation, MDD, etc. On exam patient is in no acute distress, nontoxic appearing, vital signs within normal limits. She is tearful but calm and cooperative, she is expressing active suicidal ideation but no homicidal ideation. She did not attempt suicide but states she would attempt with overdose rather than being homeless/living on the street. She was in the ER on 07/06/2025 and with her PCP on 07/09/2025, she has been exhausting all resources to keep herself safe but due to the loss of housing today, she unfortunately is very fearful that she would continue with drug use or suicide attempt. We will obtain baseline psychiatric lab work, rapid COVID. Patient voluntarily agrees to inpatient psychiatric management. Labs reveal normal WBC count 11.0, hemoglobin 12.8, platelets 335. CMP reveals normal renal function with GFR greater than 60, BUN 20, creatinine 0.75. Sodium 139, potassium 3.5, glucose 130. Normal LFTs. TSH 1.71. Negative salicylates, acetaminophen, alcohol level. Urine drug screen is negative. Urinalysis does reveal bacteria and squamous epithelial cells however negative for WBCs, leukocyte esterase, nitrite, and patient is not experiencing any abdominal pain dysuria or symptoms concerning for UTI. Patient is medically cleared. She is agreeable to psychiatric inpatient transfer/care. Due to shift change, night time MD aware while patient awaits transport. She has a high risk sitter monitoring her during ED stay. Patient signed out to me at shift change pending final disposition [facility]. Patient accepted by Dr.Claire Max at [facility] Co-sign statement: I was available for consultation during this patient's emergency department visit. This chart is being signed by myself for administrative purposes only. I do not have direct contact with this patient during this visit. They were seen independently by the APC. Discharge Plan Departure Patient Disposition: [facility] Clinical Impression: Suicidal ideation Clinical Impression: (Ruled Out): Hip pain, chronic Prescriptions: No Action (DME) Aerochamber MV Spacer See Rx Instructions .ROUTE .MEDSUPPLY Qty: 1 0RF Rx Instructions: As directed albuterol sulfate 90 mcg/actuation HFA aerosol inhaler 2 puff inhalation Q4-6H PRN (Reason: shortness of breath or wheezing) Qty: 6.7 3RF (DME) Rollator Walker See Rx Instructions .Route .MEDSUPPLY Qty: 1 0RF Rx Instructions: As directed aspirin 81 mg tablet,delayed release (DR/EC) 81 mg PO DAILY Qty: 90 2RF fluticasone propion-salmeterol [Advair HFA] 230-21 mcg/actuation HFA aerosol inhaler 2 puff inhalation Q12H Qty: 12 3RF omeprazole 20 mg capsule,delayed release(DR/EC) 20 mg PO QAM Qty: 90 3RF Rx Instructions: Take 1 cap daily for GERD. atorvastatin 20 mg tablet 20 mg PO BEDTIME Qty: 90 3RF Rx Instructions: for cholesterol bupropion HCl 150 mg tablet extended release 24 hr 150 mg PO QAM Qty: 90 1RF duloxetine 30 mg capsule,delayed release(DR/EC) 90 mg PO DAILY Qty: 270 1RF tiotropium bromide [Spiriva with HandiHaler] 18 mcg capsule, w/inhalation device 1 cap inhalation DAILY Qty: 90 1RF Rx Instructions: puncture 1 cap using device; one dose = 2 inhalations naproxen 250 mg tablet 250 mg PO BID Qty: 60 3RF losartan-hydrochlorothiazide 100-25 mg tablet 1 tab PO DAILY Qty: 90 1RF meclizine 25 mg tablet 25 mg PO TID PRN (Reason: Vertigo) azelastine 137 mcg (0.1 %) spray,non-aerosol 137 mcg intranasal BID Qty: 90 0RF Rx Instructions: administer into each nostril Referrals: Josiah Santos ARNP [Primary Care Provider, Medical]
[2025-07-13 16:29] LABS: Add Manual Diff / Slide Review NO; Hematocrit 38.9 % (36-46); Hemoglobin 12.8 g/dL (12.0-16.0); Lymphocytes Absolute Auto 3300 /uL (1100-4500); Mean Corpuscular HGB Conc 32.9 % (30-36); Mean Corpuscular Hemoglobin 27.4 PG (26-34); Mean Corpuscular Volume 83.3 fL (80-100); Platelet Count 335 X10^3/uL (150-400)
[2025-07-13] MEDS: ACETAMINOPHEN 325 MG TABLET 975 MG PO (16:39)
[2025-07-13 16:48] LABS: Acetaminophen < 10 ug/mL (10-30); Alanine Aminotransferase 22 IU/L (<35); Albumin 4.4 g/dL (3.5-5.0); Albumin Globulin Ratio 1.4 (1.0-2.8); Alkaline Phosphatase 68 U/L (38-126); Blood Urea Nitrogen 20 mg/dL (7-17); Calcium 10.1 mg/dL (8.4-10.2); Carbon Dioxide 27 mmol/L (22-32); Chloride 101 mmol/L (98-107); Estimated Glomerular Filt Rate > 60 mL/min (>60); Ethanol (ETOH) < 10 mg/dL (<10); Globulin 3.1 g/dL (1.7-4.1); Glucose 130 mg/dL (70-99); HEMOLYSIS < 15 (0-50); Potassium 3.5 mmol/L (3.4-5.1); Salicylate < 1.0 mg/dL (<20); Sodium 139 mmol/L (137-145); Total Protein 7.5 g/dL (6.3-8.2)
[2025-07-13 17:24] LABS: TSH w/ Reflex to FT4 1.71 uIU/mL (0.47-4.68)
--- NOTE | 2025-07-13 17:30 | CM.SWNOTE ---
ED GEOSPATIAL SYSTEMS INTEGRATOR Assessment Note: GEOSPATIAL SYSTEMS INTEGRATOR - Cloth Coverer Assessment GEOSPATIAL SYSTEMS INTEGRATOR/Cloth Coverer Assessment Time Spent with Patient Start date 07/13/25 Visit Start Time 16:00 End date 07/13/25 Visit End Time 16:10 Total time Care 10 minutes Management spent on patient visit-in minutes Mental Health Screening Include Onset, Duration, Intensity Presenting Problem Patient presented to the ED due to increased suicidal ideation. Patient was seen in the ED for similar symptoms on 07/06/25. Patient is positive for SI with plan and means, expresses hopelessness and despondence compared to her presentation last week. Patient is currently voluntary and seeking assistance with crisis stabilization as well as medication management. Precipitating Event( Patient states she was discharged from her housing s) program today as she was not able to secure housing within 3 months, I am on every waiting list possible. Patient states she has been working on her sobriety for the past two years while unhoused and fesls more and more hopeless. Patient explains she has been trying to work with her PCP as well as a referral to a psych provider for more close attention to her depression medications which she feels is no longer working (buproprion). Patient Strengths Patient is forthcoming and communicative of needs, she is seeking help and cooperative. Patient is seeing a MH therapist and collaborates with her PCP: REX Foreman at [facility]. Current Behavioral TRACI Pascal at [facility] (ph#[phone]) Health Provider(s) Include Facility, Provider, Ph. # Psych. 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 Behavioral Abuse Psychiatric None reported. Hospitalizations ( Patient was seen in the ED one week ago, 07/06/25 with date(s)/location) similar presentation but was very motivated to get back to her housing situation (at [facility]) and safety planned. Psychosocial Patient is a 65yo female, unhoused individual in [place], [place]. She was recently Support Systems discharged from the housing program she was with at the [facility] in [place]. Patient has local family whom she keeps in touch with and can stay with in very emergent situations. School/Work Currently unemployed. Patient is currently attempting disability benefits, receives Aged, Blind, Disabled funds. Substance Abuse Screening Include Onset, Duration, Intensity Longest Period of Approximately 2 years ago. Sobriety Legal Concerns Legal Matters - None reported. Outstanding Issues Mental Status Orientation (Person/ AOx3 Place/Time) Stated Mood Depressed Affect (Congruent Labile, tearful, dysthymic, congruent with mood with Mood?) Thought Content - Denies hallucinations other than negative thoughts to Specify/Describe just end it all. No delusions or hallucinations Obsessions, identified during assessment. Delusions, Hallucinations Thought Processes ( Logical, coherent Logical-Coherent- Goal Directed- Detailed-Tangential- Circumstantial- Logical-Disorganized -Thought Blocking) Speech (Normal-Slow- Normal Yzpfbdk-Luqtk-Dajn- Loud-Pressured) Motor (Normal- Normal Lyrmkzwgi-Sdsy-Zvwnn ) Insight (Good-Fair- Good Poor/Limited) Judgement (Good-Fair Fair/limited -Poor/Limited) Impulse Control ( Adequate Adequate-Impaired) Memory (Immediate- Intact Recent-Remote, Impaired-Intact) Concentration ( Intact Intact-Impaired) Attention (Intact- Intact Impaired) Behavior ( Appropriate Appropriate- Inappropriate) Additional Comment Patient is calm, cooperative and communicative during assessment although tearful. Risk Assessment Suicidal Ideation ( Yes Plan) Homicidal Ideation ( No Plan) Comment [place]-SUICIDE SEVERITY RATING SCALE 1) Have you wished you were or wished you could go to sleep and not wake up? YES 2) Have you actually had any thoughts of killing yourself? YES 3) Have you been thinking about how you might do this? YES, methamphetamine overdose. 4) Have you had these thoughts and had some intention of acting on them? YES 5) Have you started to work out or worked out the details of how to kill yourself? Do you intend to carry out this plan? YES 6) Have you ever done anything, started to do anything, or prepared to do anything to end your life? NO If YES, ask: Was this within the past three months? NO Intervention Intervention Reviewed chart and discussed with ED Provider pt's medical status and discharge needs. ED GEOSPATIAL SYSTEMS INTEGRATOR meets with patient. Patient endorses feeling increasing suicidal thoughts and hopelessness especially since being discharged from her housing program. Patient explains that she has not been able to stop thinking about (SI) since yesterday and has a plan to buy methamphetamine from someone and overdosing. ED GEOSPATIAL SYSTEMS INTEGRATOR and patient discuss goals of care. Patient explains they are agreeable to receive inpatient behavioral health hospitalization at this time. At this time, it is the opinion of this GEOSPATIAL SYSTEMS INTEGRATOR that patient would benefit from inpatient psychiatric hospitalization for SI. GEOSPATIAL SYSTEMS INTEGRATOR informs ED provider, Isha Marshall PA-C, who indicates agreement. GEOSPATIAL SYSTEMS INTEGRATOR informs TRICIA Sears. Plan RA Plan Once patient is medically clear, ED staff will attempt to find inpatient placement for patient. TRACI Pathak
[2025-07-13 18:33] LABS: COVID19 -Nasal RAPID Negative (Negative)
[2025-07-13 18:37] LABS: Appearance Urine UA CLEAR; Bilirubin Urine UA NEGATIVE (NEGATIVE); Color Urine UA YELLOW; Glucose Urine UA NEGATIVE (Negative); Ketones Urine UA TRACE (NEGATIVE); Leukocyte Esterase Urine UA NEGATIVE (NEGATIVE); Nitrite Urine UA NEGATIVE (Negative); Occult Blood Urine UA NEGATIVE (Negative); Protein Urine UA NEGATIVE (Negative); Specific Gravity Urine UA 1.025 (1.000-1.035); Urobilinogen Urine UA 2.0 E.U./dL (0.2)
[2025-07-13 18:39] LABS: pH Urine UA 6.0 (4.5-8.0)
[2025-07-13 18:41] LABS: UR Morphine/Opiate cutoff 300 Negative (Negative); Ur Specific Gravity Normal (Normal); Urine MDMA Negative (Negative); Urine Methamphetamines Negative (Negative); Urine Tetrahydrocannabinol Negative (Negative); Urine Tricyclic Antidepressant Negative (Negative)
[2025-07-13 18:45] LABS: Culture Indicated Urine Cult Not Indicated
--- NOTE | 2025-07-13 19:26 | CM.SWNOTE ---
Addendum entered by KRYSTAL Huerta 07/13/25 20:15: ED RN PALLIATIVE DCP Update: RN PALLIATIVE received call from [facility], Intake reports patient is accepted for inpatient treatment, they are requesting patient to arrive at their facility at 2300. RN PALLIATIVE received call from [facility] ([place]) Intake reports patient is accepted for inpatient treatment, they are requesting patient to arrive at their facility at anytime. Provider: REX Gilmore RN-RN: [phone] RN PALLIATIVE discussed above with pt, pt stated preference for [facility]. RN PALLIATIVE cancelled referral with [facility]. RN PALLIATIVE called [facility] and coordinated BLS transport for patient from ED at 2040, to arrive at facility at 2140. TRACI Pathak Original Note: ED RN PALLIATIVE Note: ED RN PALLIATIVE initiated bed search for inpatient BH treatment. RN PALLIATIVE sent packet for review. RN PALLIATIVE calls [facility], it was reported that there are beds available. RN PALLIATIVE calls [facility], it was reported that there are no beds available. RN PALLIATIVE sent packet for review. RN PALLIATIVE calls [facility], it was reported that there are beds available. RN PALLIATIVE sent packet for review with Voluntary Admission Agreement. Plan: Pending acceptance at inpatient facility for BH treatment, ED staff following. TRACI Pathak
[2025-07-13 20:52] VITALS: BP 159/99; PULSE 86; RESP 16; TEMP 36.7; O2SAT 96
== END 2025-07-13 21:00 ==
PROVIDERS: Physician Assistant; Emergency Provider Family Medicine; PCP Registered Nurse Diabetes Educator
DX: R45.851 Suicidal ideations (principal)
CPT/HCPCS: 36415; 80053; 80305; 80320; 80329; 81001; 84443; 85025; 87635; 99284; G0480

== ENCOUNTER 2025-09-17 13:51 | Emergency (ER) | payer OTHER, SELFPAY ==
[2025-07-06 16:55] VITALS: BMI 45.7
--- NOTE | 2025-09-17 14:06 | DI.CT.S_ITS ---
PROCEDURE: CT CERVICAL SPINE WO CON INDICATIONS: fall hit head multiple times on thinners TECHNIQUE: Noncontrast 3 mm thick sections acquired from the skull base to the T4 level. Sagittal and coronal reformats were then constructed. For radiation dose reduction, the following was used: automated exposure control, adjustment of mA and/or kV according to patient size. COMPARISON: [facility], CT, CT CERVICAL SPINE WO CON, 08/22/2021, 14:43. FINDINGS: Image quality: Excellent. Bones: No fractures or dislocations. 3 mm anterolisthesis of C4 on C5. Loss of disc height, degenerative endplate changes and bilateral facet hypertrophic changes are noted throughout cervical spine more notably at C5-6 and C6-7 levels. Visualized superior ribs are intact. Soft tissues: Prevertebral soft tissues are normal in thickness. No paravertebral hematomas. No apical pneumothoraces. IMPRESSION: 1. No displaced fracture or traumatic subluxation. 2. Rbgh-cy-vodsjxrw degenerative disc disease throughout cervical spine. Dictated by: Fidel Cosme M.D. on 09/17/2025 at 14:34 Approved by: Fidel Cosme M.D. on 09/17/2025 at 14:35
--- NOTE | 2025-09-17 14:06 | DI.CT.S_ITS ---
PROCEDURE: CT HEAD/BRAIN WO CON INDICATIONS: fall hit head multiple times on thinners TECHNIQUE: Noncontrast 4.5 mm thick angled axial sections acquired from the foramen magnum to the vertex, with coronal and sagittal reformats. For radiation dose reduction, the following was used: automated exposure control, adjustment of mA and/or kV according to patient size. COMPARISON: [facility], CT, CT HEAD/BRAIN WO CON, 10/30/2024, 15:24. FINDINGS: Image quality: Diagnostic. CSF spaces: Basal cisterns are patent. No extra-axial fluid collections. The ventricles are symmetric in size and shape. Brain: No intracranial bleeds or mass effect. There is cerebral volume loss, with resultant ventricular and sulcal prominence. There are periventricular and deep white matter chronic small vessel ischemic changes. There is intracranial internal carotid artery atherosclerosis. Skull and face: Calvarium and visualized facial bones appear intact, without suspicious lesions. Sinuses: Visualized sinuses and mastoids are clear. IMPRESSION: No acute intracranial pathology. No acute skull fracture. Dictated by: Fidel Cosme M.D. on 09/17/2025 at 14:33 Approved by: Fidel Cosme M.D. on 09/17/2025 at 14:33
[2025-09-17 14:08] VITALS: BP 174/87; PULSE 94; RESP 20; TEMP 36.8; O2SAT 92; BMI 47.5
--- NOTE | 2025-09-17 17:00 | PC.NURSE ---
MOD trauma called at time of triage. Assessment done by strand galvanizer and provider. This RN assumed care of pt when moved to 4 at 16:47. Pt has noted L lower extremity injury, is wearing a walking boot and is able to bear partial weight. No other injuries noted. Per report, pt fell hitting her head and is on blood thinners. AOx4 at time of this assessment. Denies dizziness, headache, N/V. C/o pain to L leg and lower back. Provider aware. Imagining pending.
[2025-09-17 17:48] VITALS: BP 153/97; PULSE 68; RESP 17; TEMP 36.4; O2SAT 92
--- NOTE | 2025-09-17 18:11 | DI.RAD.S_ITS ---
PROCEDURE: XR FOOT LT MIN 3V INDICATIONS: recent surgery with new injury TECHNIQUE: 3 views of the foot were acquired. COMPARISON: [facility], CR, XR FOOT RT MIN 3V, 08/04/2019, 17:09. FINDINGS: Bones: Post ORIF changes are noted in medial malleolus and distal fibular shaft as well as distal tibial fibular syndesmosis. No obvious hardware loosening or failure. No acute fracture or dislocation. Mild left foot joint osteoarthritic changes are seen. No suspicious bony lesions. Soft tissues: No tibiotalar joint effusion. Achilles tendon appears normal. IMPRESSION: Post ORIF changes in ankle joint. No gross hardware loosening or failure. No acute left foot fracture or dislocation. Mild left foot joint osteoarthritis. Dictated by: Fidel Cosme M.D. on 09/17/2025 at 18:59 Approved by: Fidel Cosme M.D. on 09/17/2025 at 19:01
--- NOTE | 2025-09-17 20:03 | ED.GENADULT ---
HPI - General Adult General Chief complaint: Trauma Stated complaint: Head pain and leg pain Time Seen by Provider: 09/17/25 19:17 Source: patient and EMS Mode of arrival: EMS History of Present Illness HPI narrative: 65-year-old female reports left foot/ankle injury July 2025, had surgery [facility], subsequent transfer to facility [facility], was told yesterday that her insurance had run out and was discharged, believes she was on multiple medications but not provided any prescriptions that she can recall. Was contacted yesterday by phone from orthopedic surgeon who felt that she could start weight-bearing on the affected left lower extremity, using a walking boot. After discharged home yesterday she had a fall backwards last night, onto the back of her head, takes blood thinner medications, has ongoing headache, has some neck pain. No focal weakness to face arm or leg. This afternoon she had a fall and feels like she injured her left foot/ankle. She is wearing her orthotic brace. Related Data Home Medications ?Medication ?Instructions ?Recorded ?Confirmed meclizine 25 mg tablet 25 mg PO TID PRN Vertigo 02/03/25 09/17/25 duloxetine 30 mg capsule,delayed 30 mg PO DAILY depression 09/17/25 09/17/25 release duloxetine 60 mg capsule,delayed 60 mg PO DAILY 09/17/25 09/17/25 release ondansetron 4 mg disintegrating 4 mg PO Q8H PRN nausea and vomiting 09/17/25 09/17/25 tablet oxycodone 5 mg tablet 5 mg PO Q4-6H PRN pain 09/17/25 09/17/25 Previous Rx's ?Medication ?Instructions ?Recorded inhalational spacing device #1 ea 09/14/22 (Aerochamber MV spacer) azelastine 137 mcg (0.1 %) nasal 137 mcg (0.137 mL) intranasal BID 07/15/24 spray #90 mL aspirin 81 mg tablet,delayed 81 mg PO DAILY #90 tabs 07/28/24 release atorvastatin 20 mg tablet 20 mg PO BEDTIME #90 tabs 04/08/25 fluticasone propionate 230 2 puff inhalation Q12H #12 grams 04/08/25 mcg-salmeterol 21 mcg/actuation HFA inhaler (Advair HFA) losartan 100 1 tab PO DAILY #90 tabs 04/08/25 mg-hydrochlorothiazide 25 mg tablet omeprazole 20 mg capsule,delayed 20 mg PO QAM #90 caps 04/08/25 release tiotropium bromide 18 mcg capsule 1 cap inhalation DAILY #90 doses 04/08/25 with inhalation device (Spiriva with HandiHaler) albuterol sulfate 90 mcg/actuation 2 puff inhalation Q4-6H PRN 05/26/25 aerosol inhaler shortness of breath or wheezing #6.7 grams Rollator Walker #1 ea 06/01/25 bupropion HCl 300 mg 24 hr tablet, 300 mg PO QAM #90 tabs 07/27/25 extended release naproxen 250 mg tablet 250 mg PO BID pain/inflammation 07/27/25 #60 tabs Allergies Allergy/AdvReac Type Severity Reaction Status Date / Time No Known Drug Allergies Allergy Verified 09/17/25 14:08 Patient History Medical History Right bundle branch block Severe episode of recurrent major depressive disorder, without psychotic features History of rectal bleeding Rectal bleeding Long-term use of aspirin therapy Dyslipidemia Major depressive disorder, recurrent episode, moderate Chronic neck pain Adjustment disorder with mixed anxiety and depressed mood Substance abuse in remission Tobacco dependence in remission Perforated nasal septum COPD (chronic obstructive pulmonary disease) Impaired fasting blood sugar Chronic bilateral low back pain Hip pain, chronic Chronic pain of left knee Pulmonary nodule Hyperglycemia Shoulder pain History of dimpling of breast skin Bowel habit changes Former smoker Insomnia Fatigue Obstructive sleep apnea Hypertriglyceridemia Hyperglycemia Morbid obesity with body mass index of 40.0-44.9 in adult Loud snoring GERD (gastroesophageal reflux disease) Hypertension Surgical History No pertinent past surgical history Family History Father CAD (coronary artery disease) Diabetes mellitus Mother Stroke Cancer of breast Social History household members: family Smoking Status: Former smoker alcohol intake: never Smoking Status: Former smoker tobacco type: cigarettes alcohol intake frequency: holidays/special occasions only Exam Narrative Exam Narrative: GENERAL: Well-developed patient, in mild distress. HEAD: Atraumatic. Normocephalic. EYES: Pupils equal round and reactive. Extraocular motions intact. No scleral icterus. No injection or drainage. ENT: Nose without bleeding, purulent drainage. Throat without erythema, tonsillar hypertrophy or exudate. Airway patent. NECK: Trachea midline. Non tender midline or paraspinous musculature, good range of motion. CARDIOVASCULAR: Regular rate and rhythm without murmurs, gallops, or rubs. RESPIRATORY: Clear to auscultation. Breath sounds equal bilaterally. No wheezes, rales, or rhonchi. GASTROINTESTINAL: Abdomen soft, non-tender, nondistended. EXTREMITIES: Left walking boot in place in good condition, toes with good appearance BACK: Nontender without deformity or crepitance. No flank tenderness. NEURO: AOx3. Motor functions grossly nonfocal. SKIN: No rash or erythema of visible areas Initial Vital Signs Initial Vital Signs: Vital Signs Temperature 98.2 F 09/17/25 14:08 Pulse Rate 94 H 09/17/25 14:08 Respiratory Rate 20 09/17/25 14:08 Blood Pressure 174/87 H 09/17/25 14:08 Pulse Oximetry 92 09/17/25 14:08 Oxygen Delivery Method Room Air 09/17/25 14:08 Course Orders Ordered: ED Orders 09/17/25 20:20 XR ankle LT min 3V Stat Discontinued Medications Duloxetine HCl (Duloxetine 30 Mg Capsule.Dr) 90 mg PO NOW ONE Stop: 09/17/25 21:17 Last Admin: 09/17/25 21:38 Dose: 90 mg Documented By: CAROL Oxycodone HCl (Oxycodone Ir 5 Mg Tablet) 5 mg PO NOW ONE Stop: 09/17/25 21:17 Last Admin: 09/17/25 21:38 Dose: 5 mg Documented By: CAROL Oxycodone/Acetaminophen (Oxycodone/Apap 5/325 Prepack) 1 bottle MISC DIRECTED ONE Stop: 09/17/25 21:51 Last Admin: 09/17/25 21:57 Dose: 1 bottle Documented By: CAROL Vital Signs Vital signs: Vital Signs - 8 hr 09/17/25 22:01 Pulse Rate 89 Respiratory Rate 20 Blood Pressure 141/70 H Pulse Oximetry 93 Oxygen Delivery Method Room Air Medical Decision Making Imaging Data CT scan - head: Radiologist's Impression: Jaimie Redman??65??F??1960 ? Allergy/Adv: No Known Drug Allergies [address] [address] [address] Scan Report Signed Patient: Jaimie Redman MR#: [id number] : 1960 Acct:[id number] Age/Sex: 65 / F Date of Service: 09/17/25 Loc: ED Accession Number: [id number] Procedure: CT head/brain wo con Ordering Provider: Farrah Bhatia D.O. PROCEDURE: CT HEAD/BRAIN WO CON INDICATIONS: fall hit head multiple times on thinners TECHNIQUE: Noncontrast 4.5 mm thick angled axial sections acquired from the foramen magnum to the vertex, with coronal and sagittal reformats. For radiation dose reduction, the following was used: automated exposure control, adjustment of mA and/or kV according to patient size. COMPARISON: [facility], CT, CT HEAD/BRAIN WO CON, 10/30/2024, 15:24. FINDINGS: Image quality: Diagnostic. CSF spaces: Basal cisterns are patent. No extra-axial fluid collections. The ventricles are symmetric in size and shape. Brain: No intracranial bleeds or mass effect. There is cerebral volume loss, with resultant ventricular and sulcal prominence. There are periventricular and deep white matter chronic small vessel ischemic changes. There is intracranial internal carotid artery atherosclerosis. Skull and face: Calvarium and visualized facial bones appear intact, without suspicious lesions. Sinuses: Visualized sinuses and mastoids are clear. IMPRESSION: No acute intracranial pathology. No acute skull fracture. Dictated by: Fidel Cosme M.D. on 09/17/2025 at 14:33 Approved by: Fidel Cosme M.D. on 09/17/2025 at 14:33 CT - cervical spine: Radiologist's Impression: [address] [address] [address] Scan Report Signed Patient: Jaimie Redman MR#: [id number] : 1960 Acct:[id number] Age/Sex: 65 / F Date of Service: 09/17/25 Loc: ED Accession Number: [id number] Procedure: CT cervical spine wo con Ordering Provider: Mank,Farrah C D.O. PROCEDURE: CT CERVICAL SPINE WO CON INDICATIONS: fall hit head multiple times on thinners TECHNIQUE: Noncontrast 3 mm thick sections acquired from the skull base to the T4 level. Sagittal and coronal reformats were then constructed. For radiation dose reduction, the following was used: automated exposure control, adjustment of mA and/or kV according to patient size. COMPARISON: [facility], CT, CT CERVICAL SPINE WO CON, 08/22/2021, 14:43. FINDINGS: Image quality: Excellent. Bones: No fractures or dislocations. 3 mm anterolisthesis of C4 on C5. Loss of disc height, degenerative endplate changes and bilateral facet hypertrophic changes are noted throughout cervical spine more notably at C5-6 and C6-7 levels. Visualized superior ribs are intact. Soft tissues: Prevertebral soft tissues are normal in thickness. No paravertebral hematomas. No apical pneumothoraces. IMPRESSION: 1. No displaced fracture or traumatic subluxation. 2. [id number] degenerative disc disease throughout cervical spine. Dictated by: Fidel Cosme M.D. on 09/17/2025 at 14:34 Approved by: Fidel Cosme M.D. on 09/17/2025 at 14:35 Left ankle x-ray series: Radiologist's Impression: [place] [address] XRay Report Signed Patient: Jaimie Redman MR#: [id number] : 1960 Acct:[id number] Age/Sex: 65 / F Date of Service: 09/17/25 Loc: ED Accession Number: [id number] Procedure: XR ankle LT min 3V Ordering Provider: Sukh Wade MD PROCEDURE: XR ANKLE LT MIN 3V INDICATIONS: left ankle pain, recent surgery TECHNIQUE: 3 views of the ankle were acquired. COMPARISON: [facility], CR, XR ANKLE RT MIN 3V, 08/04/2019, 17:11. FINDINGS: Bones: No fractures or dislocations. Ankle mortise is normally aligned. No suspicious bony lesions. Prior screw and plate fixation of the distal fibula and tibia. Soft tissues: Moderate tibiotalar joint effusion. Achilles tendon appears normal. IMPRESSION: Screw and plate fixation of the distal fibula and tibia, without hardware complication. Moderate tibiotalar effusion. Dictated by: Stas Guardado M.D. on 09/17/2025 at 21:00 Approved by: Stas Guardado M.D. on 09/17/2025 at 21:01 Left foot x-ray series: Radiologist's Impression: [address] [address] XRay Report Signed Patient: Jaimie Redman MR#: [id number] : 1960 Acct:[id number] Age/Sex: 65 / F Date of Service: 09/17/25 Loc: ED Accession Number: [id number] Procedure: XR foot LT min 3V Ordering Provider: Sukh Wade MD PROCEDURE: XR FOOT LT MIN 3V INDICATIONS: recent surgery with new injury TECHNIQUE: 3 views of the foot were acquired. COMPARISON: [facility], CR, XR FOOT RT MIN 3V, 08/04/2019, 17:09. FINDINGS: Bones: Post ORIF changes are noted in medial malleolus and distal fibular shaft as well as distal tibial fibular syndesmosis. No obvious hardware loosening or failure. No acute fracture or dislocation. Mild left foot joint osteoarthritic changes are seen. No suspicious bony lesions. Soft tissues: No tibiotalar joint effusion. Achilles tendon appears normal. IMPRESSION: Post ORIF changes in ankle joint. No gross hardware loosening or failure. No acute left foot fracture or dislocation. Mild left foot joint osteoarthritis. Dictated by: Fidel Cosme M.D. on 09/17/2025 at 18:59 Approved by: Fidel Cosme M.D. on 09/17/2025 at 19:01 [facility] Narrative Medical decision making narrative: 65-year-old female had [facility] left ankle/foot surgery July 2025, inpatient psychiatric stay, then post surgical rehab facility [facility], was told her insurance ran out yesterday and was discharged, had a fall backwards at her home striking had last night, on thinners, no loss of consciousness, has headache and posterior neck discomfort. Today had ground level fall and has increased left foot pain. CT head noncontrast, no acute changes. See radiology report. CT cervical spine noncontrast, no acute changes. DJD changes noted. See radiology report. X-ray left ankle series, shows ORIF changes, no acute fracture, some mid foot DJD changes mentioned. See radiology report. Reports discussed and copies given to patient. Home pack medications for hydrocodone/acetaminophen. Patient given single evening doses of her chronic medications, has prescriptions for further doses at home. Follow up with her [place] orthopedic surgeon as planned advised, follow up with her PCP for further mental health follow up also advised. Return precautions discussed. Discharge Plan Departure Patient Disposition: Home Clinical Impression: Left ankle strain, Contusion of head, Cervical strain, Fall, Strain of left foot Activity Restrictions/Additional Instructions: Prior left ankle surgery reported done July 2025 [facility], recent discharge inpatient stay, then from [facility] yesterday. After discharge you had fall backwards striking head with subsequent persisting/increasing headache pain, and posterior neck pain. Today you had a fall and had left ankle and foot discomfort, on the side where he had left ankle surgery, wearing your walking boot splint. CT scanning of the head and the cervical spine of the neck looked okay today, some arthritic changes but no bony injuries or brain injury like patterns. X-rays of the left foot and left ankle showed your fixation device from recent surgery to be intact at this time, no new injuries, some edema that could be postoperative, but also could be due from strain injury to soft tissue from your reported recent fall. Home pack of oxycodone/acetaminophen to use for pain control to use if needed. Recheck with your regular doctor tomorrow to facilitate reestablishment of your chronic medication regimen. Follow up with your orthopedic surgeon as planned. Return to this/nearest emergency department for any change worsening symptoms or concerns prior. Prescriptions: No Action (DME) Aerochamber MV Spacer See Rx Instructions .ROUTE .MEDSUPPLY Qty: 1 0RF Rx Instructions: As directed albuterol sulfate 90 mcg/actuation HFA aerosol inhaler 2 puff inhalation Q4-6H PRN (Reason: shortness of breath or wheezing) Qty: 6.7 3RF (DME) Rollator Walker See Rx Instructions .Route .MEDSUPPLY Qty: 1 0RF Rx Instructions: As directed bupropion HCl 300 mg tablet extended release 24 hr 300 mg PO QAM Qty: 90 1RF naproxen 250 mg tablet 250 mg PO BID Qty: 60 3RF aspirin 81 mg tablet,delayed release (DR/EC) 81 mg PO DAILY Qty: 90 2RF fluticasone propion-salmeterol [Advair HFA] 230-21 mcg/actuation HFA aerosol inhaler 2 puff inhalation Q12H Qty: 12 3RF omeprazole 20 mg capsule,delayed release(DR/EC) 20 mg PO QAM Qty: 90 3RF Rx Instructions: Take 1 cap daily for GERD. atorvastatin 20 mg tablet 20 mg PO BEDTIME Qty: 90 3RF Rx Instructions: for cholesterol tiotropium bromide [Spiriva with HandiHaler] 18 mcg capsule, w/inhalation device 1 cap inhalation DAILY Qty: 90 1RF Rx Instructions: puncture 1 cap using device; one dose = 2 inhalations losartan-hydrochlorothiazide 100-25 mg tablet 1 tab PO DAILY Qty: 90 1RF meclizine 25 mg tablet 25 mg PO TID PRN (Reason: Vertigo) ondansetron 4 mg tablet,disintegrating 4 mg PO Q8H PRN (Reason: nausea and vomiting) duloxetine 60 mg capsule,delayed release(DR/EC) 60 mg PO DAILY oxycodone 5 mg tablet 5 mg PO Q4-6H PRN (Reason: pain) duloxetine 30 mg capsule,delayed release(DR/EC) 30 mg PO DAILY azelastine 137 mcg (0.1 %) spray,non-aerosol 137 mcg intranasal BID Qty: 90 0RF Rx Instructions: administer into each nostril Referrals: Josiah Santos ARNP [Primary Care Provider, Medical] Stand Alone Forms: Patient Portal/API
--- NOTE | 2025-09-17 20:20 | DI.RAD.S_ITS ---
PROCEDURE: XR ANKLE LT MIN 3V INDICATIONS: left ankle pain, recent surgery TECHNIQUE: 3 views of the ankle were acquired. COMPARISON: [facility], CR, XR ANKLE RT MIN 3V, 08/04/2019, 17:11. FINDINGS: Bones: No fractures or dislocations. Ankle mortise is normally aligned. No suspicious bony lesions. Prior screw and plate fixation of the distal fibula and tibia. Soft tissues: Moderate tibiotalar joint effusion. Achilles tendon appears normal. IMPRESSION: Screw and plate fixation of the distal fibula and tibia, without hardware complication. Moderate tibiotalar effusion. Dictated by: Stas Guardado M.D. on 09/17/2025 at 21:00 Approved by: Stsa Guardado M.D. on 09/17/2025 at 21:01
[2025-09-17 22:01] VITALS: BP 141/70; PULSE 89; RESP 20; O2SAT 93
== END 2025-09-17 22:00 | disposition home or self-care (01) ==
PROVIDERS: Emergency Provider Emergency Medicine; PCP Registered Nurse Diabetes Educator
DX: R51.9 Headache, unspecified (principal); M79.662 Pain in left lower leg; M25.472 Effusion, left ankle; Z96.698 Presence of other orthopedic joint implants
CPT/HCPCS: 70450; 72125; 73610; 73630; 99283; 99284